=== PATIENT | male | born 1955 | race Caucasian/White ===

== ENCOUNTER 2023-03-20 10:07 | Outpatient (OUT) | payer MEDICARE, OTHER, SELFPAY ==
--- NOTE | 2023-03-20 | VEIN_ITS ---
Patient: BRITTNY DUTTA Exam Date: 03/20/2023 : 1955 Gender:M Ordering : DR SANTI LIU M.D. Admission #: [id number] Family : Order #: [id number] CLICK HERE TO VIEW EXAM RADIOLOGY REPORT PROCEDURE: VC EXT VENOUS REFLUX FELIX LMTD COMPARISON: None. INDICATIONS: Pain due to varicose veins of bilateral legs I83.813 TECHNIQUE: Duplex imaging of the lower extremity to assess the deep and superficial venous system for the presence of deep or superficial venous incompetence and to document the location and severity of disease. The study includes evaluation of the great saphenous vein (GSV), anterior accessory saphenous vein (AASV) and small saphenous vein (SSV). Patient scanned in reverse Trendelenburg and standing. FINDINGS: RIGHT LOWER EXTREMITY: Saphenofemoral Junction Reflux: Yes mm sec GSV: Diam (mm) Reflux/ Time (sec) Proximal Thigh N/A Mid Thigh N/A Distal Thigh N/A Prox Calf N/A Mid Calf 4.1 Yes 0.8 Saphenopopliteal Junction Reflux: 8.4mm Yes 1.0 SSV: Proximal Calf 7.2 Yes 1.6 Mid Calf 4.9 Yes 1.8 AASV: Not present Proximal Thigh Mid Thigh Distal Thigh Thrombi: No acute or chronic thrombus visualized Compressibility: Normal Flow: Reflux visualized in Pop V. Preforator: Dist/med calf 4.2mm with 1.0s reflux. Mid/med calf 3.6mm with 0.8s reflux. Tech Note: GSV has been previously stripped. Patent varicose vein dist/med calf 4.5mm with 1.6s reflux. Patent varicose vein mid/post calf 4.5mm with 1.2s reflux. LEFT LOWER EXTREMITY: Saphenofemoral Junction Reflux: mm sec GSV: Diam (mm) Reflux/Time (sec) Proximal Thigh N/A Mid Thigh N/A Distal Thigh N/A Prox Calf N/A Mid Calf N/A Saphenopopliteal Junction Relux: mm N/A SSV: Proximal Calf N/A Mid Calf N/A AASV: Not present Proximal Thigh Mid Thigh Distal Thigh Thrombi: No acute or chronic thrombus visualized Compressibility: Normal Flow: Normal Environmental Resource Specialist: Prox/med calf 4.0mm with 2.0s reflux. Tech Note: GSV has been previously stripped. SSV has been previously ablated at [facility] in 2020. Patent varicose vein prox/med calf 5.9mm with 1.7s reflux. Patent varicose vein prox/med calf 6.6mm with 2.0s reflux. Patent varicose vein dist/med calf 5.6mm with 2.0s reflux. Patent varicose vein mid/med thigh 5.5mm with 1.3s reflux. In area of wound is a varicose vein at lateral ankle 4.8mm with 1.0s reflux. CONCLUSION: 1. Abnormally dilated and incompetent right small saphenous vein. Bilateral great saphenous and the left small saphenous have previously been treated. 2. 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 Dictated by: Jani Vaughn M.D. on 03/20/2023 at 11:43 Approved by: Jani Vaughn M.D. on 03/20/2023 at 11:53
--- NOTE | 2023-03-20 | VEIN_ITS ---
Patient: BRITTNY DUTTA Exam Date: 03/20/2023 : 1955 Gender:M Ordering : DR SANTI LIU M.D. Admission #: [id number] Family : Order #: [id number] CLICK HERE TO VIEW EXAM RADIOLOGY REPORT PROCEDURE: [facility] EST COMPREHENSIVE [facility]IN C[facility] - OFFICE VISIT INITIAL COMPARISON: None. PROGRESS NOTES: [age] year old male who presents with a 40 year history of increasing dilated veins, swelling, leg pain, stinging, and recent reoccurring wounds. The patient's right leg symptoms are worse than the left. There has been a progression of symptoms over time. This increases with prolonged leg dependency. The patient describes an improvement with rest, elevation, exercise, support stockings, and medications. The patient denies any signs and symptoms to suggest arterial ischemia. The patient describes a family history of varicose veins on paternal side. The patient has drinking and smoking history of colon some alcohol consumption and history of prior tobacco use. Patient has a past medical history significant for COPD, sleep apnea, coronary artery disease. The patient denies a history of deep venous thrombus or pulmonary embolus. See separate history and physical for medication list. Prior history of vein stripping and endovenous laser ablation. Current use of compression stockings. After review of nurse notes, history and physical exam I discussed at length the pathophysiology of venous hypertension and possible treatments, therapies and strategies available. We discussed at length the importance of elevating the lower extremities above the level of the heart, increased physical activity and compression stocking use. Ultrasound venous reflux study performed today was discussed at length with the patient. The report demonstrates abnormally dilated and incompetent right small saphenous vein and numerous abnormally dilated branch saphenous varicosities bilaterally. Prior occlusion of bilateral great saphenous veins and left small saphenous vein.. PHYSICAL EXAM: The right leg demonstrates several varicosities, scattered spider veins, no ulceration, mild edema, mild skin discoloration. The left leg demonstrates several varicosities, scattered spider veins, adjacent ankle is a recently healed ulceration, mild edema, mild skin discoloration. Both thighs, legs and feet were symmetrically warm to the touch. Good posterior tibial and dorsalis pedis pulses were present bilaterally. VEIN/[facility] Facility EST Comprehensive IMPRESSION: 1. Bilateral lower extremity venous insufficiency 2. Bilateral lower extremity varicose veins 3. Mild bilateral lower extremity subcutaneous edema 4. No flow significant arterial disease 5. CEAP: C5, EC, , MS PLAN: 1. Continued use of compression stockings 2. Elevated legs and increased physical activity symptomatic relief 3. Endovenous laser ablation of right small saphenous vein. 4. Microfoam chemical ablation of bilateral branch saphenous varicosities. 5. Sclerotherapy as needed. Nurse notes, history and physical were reviewed and confirmed, see attached forms. The nurse was present throughout the physical exam and consultation Dictated by: Jani Vaughn M.D. on 03/20/2023 at 14:16 Approved by: Jani Vaughn M.D. on 03/20/2023 at 14:35
== END 2023-03-20 10:08 | disposition home or self-care (01) ==
PROVIDERS: PCP Radiology Diagnostic Radiology; Visit Provider Radiology Diagnostic Radiology
DX: I83.813 Varicose veins of bilateral lower extremities with pain (principal)
CPT/HCPCS: 93970; G0463

== ENCOUNTER 2023-04-11 10:29 | Outpatient (OUT) | payer MEDICARE, OTHER, SELFPAY ==
--- NOTE | 2023-04-11 10:30 | VEIN_ITS ---
The [address] [address] Patient Name: BRITTNY DUTTA MRN: [id number] date: 1955 Sex: M Assigned Patient Location: Current Patient Location: Accession/Order Number: [id number] Exam Date: 04/11/2023 10:35 Report Date: 04/11/2023 11:59 At the request of: SANTI LIU Procedure: VC Endovenous Ablation 1VeinRT EXAMINATION: VC Endovenous Ablation 1VeinRT HISTORY: I83.813 Pain due to varicose veins of bilateral legs The risks and benefits of the procedure had been previously discussed, and were rediscussed at length. Informed written consent was obtained. Se Figueroa RN and Hayley Deutsch RDMS, RVT assisted. Time out procedure was performed. The right lower extremity was prepared and draped in the usual sterile fashion to allow knee flexion in the sterile field. Duplex ultrasound probe was draped in a sterile cover, sterile transmission gel was used. Venous mapping was performed with the areas of dilation and large tributaries marked. The total length was 16 cm from the entry middistal calf to 3 cm below the saphenofemoral popliteal junction. The diameter of the small saphenous vein ranged from 7.2 mm. A 30 gauge needle and 1% buffered lidocaine was used to anesthetize the entry site. A 4 mm incision was made with a scalpel and the saphenous vein was entered percutaneously under direct ultrasound guidance with a micropuncture set, a single stick was successful in gaining access. A micro-guide wire was inserted and the needle removed. A micro-set including a dilator was inserted over the microwire and the needle and dilator were removed. A guide wire was inserted through the micro-set and guided through the saphenous vein to the saphenofemoral junction. The dilator was removed and an introducer sheath was inserted over the wire until the end of the sheath entered the saphenofemoral junction. The dilator and wire were removed and the 600 micron fiber was introduced and placed and positioned so that it extended beyond the sheath and was 3 cm distal to the saphenofemoral or saphenopopliteal junction. Final position of the fiber was determined by ultrasound guidance and duplex imaging. Tumescent anesthetic was delivered by ultrasound guidance. 100 cc of fluid was delivered along the entire course of the saphenous vein. The solution consisted of 1000 cc of normal saline with 40 mL of 1% lidocaine and 20 mL of sodium bicarbonate. A final positioning check was made. The energy source was turned on by means of the foot pedal and the fiber and sheath were withdrawn. The total number of Joules delivered was 719. The laser was active for 90 seconds under continuous pulse, average laser use of 8 J. Laser start time 11:21 AM, 04/11/2023. Laser stop time 11:24 AM, 04/11/2023. A duplex ultrasound revealed compressibility and flow at the saphenofemoral junction immediately after the procedure. Hemostasis at the access site was achieved. The skin incision of the saphenous vein was closed with a 4 x 4. A compression stocking was applied. Postop instructions were given. A follow up appointment was recommended and scheduled. The patient tolerated the procedure well. Electronically authenticated by: GRISELDA ZIEGLER Date: 04/11/2023 11:59
[2023-04-11] MEDS: 0.9 % SODIUM CHLORIDE 500 ML, LIDOCAINE HCL 20 ML, SODIUM BICARBONATE 10 MEQ INJ (11:15)
== END 2023-04-11 10:30 | disposition home or self-care (01) ==
LOC: VC 10:29
PROVIDERS: PCP Radiology Diagnostic Radiology; Visit Provider Radiology Diagnostic Radiology
DX: I83.813 Varicose veins of bilateral lower extremities with pain (principal)
CPT/HCPCS: 36478

== ENCOUNTER 2023-04-19 10:25 | Outpatient (OUT) | payer MEDICARE, OTHER, SELFPAY ==
--- NOTE | 2023-04-19 10:29 | VEIN_ITS ---
Patient: BRITTNY DUTTA Exam Date: 04/19/2023 : 1955 Gender:M Ordering : DR MAJOR SOL M.D. Admission #: [id number] Family : Order #: [id number] CLICK HERE TO VIEW EXAM RADIOLOGY REPORT PROCEDURE: [facility]ACILITY EST LMTD VEIN CENTER - OFFICE VISIT FOLLOW UP COMPARISON: None. PROGRESS NOTES: The patient reports no significant problems following intravenous laser ablation of the right small saphenous vein. The patient did wear his compression stocking. The patient did not require oral analgesics.. The patient has followed our recommendations to walk 20-30 minutes once or twice per day since the procedure. Physical exam demonstrates 3 areas of bruising in the posterior calf likely related to tumescence injection ranging from 1-2 cm in size. Thrombosed small saphenous vein cannot be palpated. No areas of erythema or warmth to suggest cellulitis or thrombophlebitis. No active ulceration Review of the ultrasound performed the same day demonstrates occlusive thrombus extending throughout the treated small saphenous vein with heat induced thrombus 3.1 cm from the saphenous popliteal junction. The patient expressed a desire to proceed with treatment of bilateral incompetent varicose veins with micro foam chemical ablation. VEIN/VC Facility EST LMTD IMPRESSION: 1. Successful ablation of the right small saphenous vein 2. Persistent bilateral incompetent varicose veins. PLAN: Micro foam chemical ablation of the left leg Nurse notes, history and physical were reviewed and confirmed, see attached forms. The nurse was present throughout the physical exam and consultation Dictated by: Major Sol MD on 04/19/2023 at 11:26 Approved by: Major Sol MD on 04/19/2023 at 11:27
--- NOTE | 2023-04-19 10:29 | VEIN_ITS ---
Patient: BRITTNY DUTTA Exam Date: 04/19/2023 : 1955 Gender:M Ordering : DR MAJOR SOL M.D. Admission #: [id number] Family : Order #: [id number] CLICK HERE TO VIEW EXAM RADIOLOGY REPORT PROCEDURE: VC EXT VENOUS RT LMTD COMPARISON: None. INDICATIONS: I80.01 Phlebitis of superficial veins of rt lower extremity TECHNIQUE: Lower extremity singh scale and Duplex Doppler evaluation of the deep venous system from the inguinal ligament through the calf veins. FINDINGS: REGION: Right lower extremity. THROMBI: Negative for DVT. Heat induced thrombus in SSV 3.1 cm from SPJ and extends to mid calf. COMPRESSIBILITY: Non-compressible segments corresponding to thrombus. FLOW: Areas of absent flow corresponding to thrombus. CONCLUSION: Post ablation occlusion of the right small saphenous vein with heat induced thrombus 3.1 cm from the saphenopopliteal junction. Dictated by: Major Sol MD on 04/19/2023 at 10:53 Approved by: Major Sol MD on 04/19/2023 at 10:54
== END 2023-04-19 10:26 | disposition home or self-care (01) ==
LOC: VC 10:26
PROVIDERS: PCP Radiology Diagnostic Radiology; Visit Provider Radiology Diagnostic Radiology
DX: I80.01 Phlebitis and thrombophlebitis of superficial vessels of right lower extremity (principal)
CPT/HCPCS: 93971; G0463

== ENCOUNTER 2023-05-16 10:24 | Outpatient (OUT) | payer MEDICARE, OTHER, SELFPAY ==
--- NOTE | 2023-05-16 10:28 | VEIN_ITS ---
The [address] [address] Patient Name: BRITTNY DUTTA MRN: [id number] date: 1955 Sex: M Assigned Patient Location: Current Patient Location: Accession/Order Number: [id number] Exam Date: 05/16/2023 10:30 Report Date: 05/16/2023 11:59 At the request of: SANTI LIU Procedure: VC INJ Foam Sclerosant WUS ARTIST'S MODEL PROCEDURE: VC INJ Foam Sclerosant WUS ARTIST'S MODEL COMPARISON: None. HISTORY: Pain due to varicose veins of bilateral legs I83.813 Pre-operative Diagnosis: CEAP class C6 venous insufficiency with pain, tenderness, edema and incompetent left saphenous and varicose vein(s), chronic venous insufficiency left leg secondary to venous incompetence Post-operative Diagnosis: CEAP class C6 venous insufficiency with pain, tenderness, edema and incompetent left saphenous and varicose vein(s), chronic venous insufficiency left leg secondary to venous incompetence Procedure Performed: 1. Ultrasound-guided microfoam chemical ablation with Varithenaregistered 2. Intraoperative ultrasound guidance Anesthesia: None Indications for Procedure: 68-year-old male who presents with a long history of lower extremity pain swelling in varicose veins with multiple vein strippings as well as intravenous laser ablation. The patient has had multiple venous stasis ulcerations with an active venous stasis ulceration currently on the lateral left ankle/foot. The patient fell conservative medical therapy including medical compression stockings, exercise and analgesics. Multiple incompetent varicosities of the left leg. Duplex scan showed reflux and enlarged diameters up to 7 mm. The patient underwent informed consent including management options where the complications of infection, bleeding, pain, and skin injury were discussed. Particular attention was spent discussing thrombus extension and deep vein thrombosis as well as the possibility of pulmonary embolus and treatment with oral or injectable blood thinners. Procedure: The patient walked to the procedure room. All applicable staff donned appropriate apparel. A procedure timeout was performed to confirm correct patient, correct extremity, correct procedure, and correct room set-up including presence of all applicable supplies, devices, and drugs. A duplex ultrasound, performed by myself confirmed the location and incompetence of branch saphenous varicosities and their course was marked on the skin together with the dilated tributaries. The extent of treatment of the vein and the associated varicosities was determined through ultrasound mapping. The skin was prepped and then punctured with a butterfly needle and advanced under ultrasound guidance. The Varithenaregistered canister was activated and the canister was primed and purged as required in the instructions for use. Varithenaregistered was drawn into a sterile syringe. 7 cc injected into a 6 mm varicose vein distal medial left lower leg with care to go above incompetent perforating vein at the level of the ankle 3 cc injected into a 7 mm varicose vein, medial proximal left lower leg 5 cc injected into a 6 mm varicose vein distal medial left thigh Varithenaregistered was slowly administered at 0.5-1.0 cc/second with close observation by ultrasound of its course in the vessels. Total volume utilized was: 15 cc. Following administration of Varithenaregistered the leg was elevated and the patient was asked to repeatedly dorsiflex the ankle to limit flow of Varithenaregistered into perforating veins. Once appropriate spasm had been confirmed in the treated veins, the vascular catheter was removed from the leg and light pressure was applied over the puncture site for hemostasis. The common femoral and deep superficial veins were then evaluated for flow and compressibility prior to dressing placement. The lower extremity was kept elevated at 45 degrees above the horizontal and cording material was applied over the saphenous segments and tributaries to allow for eccentric compression over the target vessels including the targeted saphenous vein(s). A multilayer dressing was applied consisting of foam pads, coban and thigh-high 20-30 mm Hg compression elastic support hose were placed on the patient. The leg was lowered only after compression had been applied and the patient was immediately ambulatory. The patient ambulated 10 minutes under supervision and was without apparent concerns at time of release. Post-care instructions include advising patient to keep post-treatment bandages in place and dry for 48 hours, avoid extended periods of inactivity, avoid heavy exercise for one week, wear compression stockings on the treated leg continuously for two weeks, to walk daily for 10 minutes over the next month. The patient was instructed to take an anti-inflammatory medicine as needed and to follow up for color duplex scan of the Saphenous veins, the treated branch saphenous varicosities, the adjacent deep veins, and additional treatment within 7 days. PERSONNEL: Se Figueroa RN Electronically authenticated by: SANTI LIU Date: 05/16/2023 11:59
== END 2023-05-16 10:25 | disposition home or self-care (01) ==
LOC: VC 10:24
PROVIDERS: PCP Radiology Diagnostic Radiology; Visit Provider Radiology Diagnostic Radiology
DX: I83.813 Varicose veins of bilateral lower extremities with pain (principal)
CPT/HCPCS: 36466

== ENCOUNTER 2023-05-23 11:29 | Outpatient (OUT) | payer MEDICARE, OTHER, SELFPAY ==
--- NOTE | 2023-05-23 | VEIN_ITS ---
Patient: BRITTNY DUTTA Exam Date: 05/23/2023 : 1955 Gender:M Ordering : DR MAJOR SOL M.D. Admission #: [id number] Family : Order #: [id number] CLICK HERE TO VIEW EXAM RADIOLOGY REPORT PROCEDURE: [facility] EST LMTD VEIN CENTER - OFFICE VISIT FOLLOW UP COMPARISON: [facility], 04/19/2023. PROGRESS NOTES: The patient reports no significant problems following micro foam chemical ablation of left leg incompetent varicose veins. The patient did not require oral analgesics. The patient has worn his compression stocking. Patient has tried exercise following the procedure. Physical exam demonstrates multiple thrombosed left leg varicose veins. No areas of erythema or warmth to suggest cellulitis or thrombophlebitis. Review of the ultrasound performed the same day demonstrates occlusive thrombus extending throughout the treated varicose veins. Residual incompetent varicose veins measuring up to 6.7 mm. The patient expressed a desire to proceed with treatment of bilateral incompetent varicose veins with micro foam chemical ablation. VEIN/[facility] EST TD IMPRESSION: 1. Successful ablation of incompetent left leg varicose veins. 2. Persistent bilateral incompetent varicose veins. PLAN: Micro foam chemical ablation of the right leg Nurse notes, history and physical were reviewed and confirmed, see attached forms. The nurse was present throughout the physical exam and consultation Dictated by: Major Sol MD on 05/23/2023 at 15:07 Approved by: Major Sol MD on 05/23/2023 at 15:11
--- NOTE | 2023-05-23 | VEIN_ITS ---
Patient: BRITTNY DUTTA Exam Date: 05/23/2023 : 1955 Gender:M Ordering : DR MAJOR SOL M.D. Admission #: [id number] Family : Order #: [id number] CLICK HERE TO VIEW EXAM RADIOLOGY REPORT PROCEDURE: VC EXT VENOUS LT LIMITED COMPARISON: None. INDICATIONS: Phlebitis of superficial veins of lt lower extremity I80.02 TECHNIQUE: Lower extremity singh scale and Duplex Doppler evaluation of the deep venous system from the inguinal ligament through the calf veins. FINDINGS: REGION: Left lower extremity. THROMBI: Negative for DVT. Varithena induced thrombus visualized at prox/med calf and distal med thigh. COMPRESSIBILITY: Non-compressible segments corresponding to thrombus. FLOW: Occlusion of treated varicose vein OTHER: Multiple varicose veins remain. Largest measures 6.7mm with 1.4s reflux. CONCLUSION: Post ablation occlusion of multiple treated left leg varicose veins with residual incompetent varicose veins measuring up to 6.7 mm Dictated by: Major Sol MD on 05/23/2023 at 12:25 Approved by: Major Sol MD on 05/23/2023 at 12:26
== END 2023-05-23 11:30 | disposition home or self-care (01) ==
LOC: VC 11:30
PROVIDERS: PCP Radiology Diagnostic Radiology; Visit Provider Radiology Diagnostic Radiology
DX: I80.02 Phlebitis and thrombophlebitis of superficial vessels of left lower extremity (principal)
CPT/HCPCS: 93971; G0463

== ENCOUNTER 2023-06-06 09:57 | Outpatient (OUT) | payer MEDICARE, OTHER, SELFPAY ==
--- NOTE | 2023-06-06 | VEIN_ITS ---
The [address] [address] Patient Name: BRITTNY DUTTA MRN: [id number] date: 1955 Sex: M Assigned Patient Location: Current Patient Location: Accession/Order Number: [id number] Exam Date: 06/06/2023 10:00 Report Date: 06/06/2023 11:21 At the request of: SANTI LIU Procedure: VC INJ Foam Sclerosant WUS NURSE CARE MANAGER PROCEDURE: VC INJ Foam Sclerosant WUS NURSE CARE MANAGER HISTORY: Painful Varicose Veins I83.813 Pre-operative Diagnosis: CEAP class C5 venous insufficiency with pain, tenderness, edema and incompetent branch saphenous vein(s), chronic venous insufficiency right leg secondary to venous incompetence Post-operative Diagnosis: CEAP class C5 venous insufficiency with pain, tenderness, edema and incompetent branch saphenous vein(s), chronic venous insufficiency right leg secondary to venous incompetence Procedure Performed: 1. Ultrasound-guided microfoam chemical ablation with Varithenaregistered 2. Intraoperative ultrasound guidance Physician: Jani Vaughn M.D. Anesthesia: None Indications for Procedure: 68 year old male. Symptoms including lower extremity pain, swelling, dilated bulging veins for many years despite conservative medical therapy including medical compression stockings, exercise and analgesics. Prior procedures include endovenous laser ablation and Microfoam chemical ablation. Multiple incompetent varicosities of the right leg. Duplex scan showed reflux and enlarged diameters up to 6 mm. The patient underwent informed consent including management options where the complications of infection, bleeding, pain, and skin injury were discussed. Particular attention was spent discussing thrombus extension and deep vein thrombosis as well as the possibility of pulmonary embolus and treatment with oral or injectable blood thinners. Procedure: The patient walked to the procedure room. All applicable staff donned appropriate apparel. A procedure timeout was performed to confirm correct patient, correct extremity, correct procedure, and correct room set-up including presence of all applicable supplies, devices, and drugs. A duplex ultrasound, performed by myself confirmed the location and incompetence of branch saphenous varicosities and their course was marked on the skin together with the dilated tributaries. The extent of treatment of the vein and the associated varicosities was determined through ultrasound mapping. The skin was prepped and then punctured with a butterfly needle and advanced under ultrasound guidance. The Varithenaregistered canister was activated and the canister was primed and purged as required in the instructions for use. Varithenaregistered was drawn into a sterile syringe. Varithenaregistered was slowly administered at 0.5-1.0 cc/second with close observation by ultrasound of its course in the vessels. Total volume utilized was: 15 mL (3 mL intrarenal 4 mm varicosity of the distal lateral lower leg; 4 mL and 3 4 mm varicosity of the mid anterior lower leg; 8 mL into a 6 mm varicosity of the anterior proximal lower leg). Following administration of Varithenaregistered the leg was elevated and the patient was asked to repeatedly dorsiflex the ankle to limit flow of Varithenaregistered into perforating veins. Once appropriate spasm had been confirmed in the treated veins, the vascular catheter was removed from the leg and light pressure was applied over the puncture site for hemostasis. The common femoral and deep superficial veins were then evaluated for flow and compressibility prior to dressing placement. The lower extremity was kept elevated at 45 degrees above the horizontal and cording material was applied over the saphenous segments and tributaries to allow for eccentric compression over the target vessels including the targeted saphenous vein(s). A multilayer dressing was applied consisting of foam pads, coban and thigh-high 20-30 mm Hg compression elastic support hose were placed on the patient. The leg was lowered only after compression had been applied and the patient was immediately ambulatory. The patient ambulated 10 minutes under supervision and was without apparent concerns at time of release. Post-care instructions include advising patient to keep post-treatment bandages in place and dry for 48 hours, avoid extended periods of inactivity, avoid heavy exercise for one week, wear compression stockings on the treated leg continuously for two weeks, to walk daily for 10 minutes over the next month. The patient was instructed to take an anti-inflammatory medicine as needed and to follow up for color duplex scan of the Saphenous veins, the treated branch saphenous varicosities, the adjacent deep veins, and additional treatment within 7 days. PERSONNEL: Se Figueroa RN Electronically authenticated by: JANI VAUGHN Date: 06/06/2023 11:21
== END 2023-06-06 09:58 | disposition home or self-care (01) ==
LOC: VC 09:57
PROVIDERS: PCP Radiology Diagnostic Radiology; Visit Provider Radiology Diagnostic Radiology
DX: I83.813 Varicose veins of bilateral lower extremities with pain (principal)
CPT/HCPCS: 36466

== ENCOUNTER 2023-06-12 10:03 | Outpatient (OUT) | payer MEDICARE, OTHER, SELFPAY ==
--- NOTE | 2023-06-12 | VEIN_ITS ---
Patient: BRITTNY DUTTA Exam Date: 06/12/2023 : 1955 Gender:M Ordering : DR SANTI LIU M.D. Admission #: [id number] Family : Order #: [id number] CLICK HERE TO VIEW EXAM RADIOLOGY REPORT PROCEDURE: [facility] EST [facility] - OFFICE VISIT FOLLOW UP COMPARISON: [facility] EXT VENOUS RT LMTD, 06/12/2023. [facility] EST L[facility]D, 05/23/2023. PROGRESS NOTES: The patient reports improvement in leg symptoms. There has been interval reduction in varicosities. The patient has followed our recommendations to walk 20-30 minutes once or twice per day since the procedure. Physical exam demonstrates decrease in varicosities of the leg. Persistent superficial varicosities are identified along the legs bilaterally. Review of the ultrasound performed the same day demonstrates occlusive thrombus extending throughout the treated vein(s), see separate report, consistent with a successful ablation. Abnormal thrombus within posterior tibial vein approximately 15 cm in length involving the mid and distal deep vein. No thrombus extending into or beyond the saphenofemoral junction. The patient expressed a desire to proceed with treatment of remaining incompetent varicosities when ready. The patient was informed that treatment was a process and would require approximately 2 more sessions of microfoam chemical ablation. VEIN/[facility] EST LMTD IMPRESSION: 1. Successful ablation of the treated right leg incompetent branch saphenous vein(s). 2. Persistent incompetent varicose veins and bilateral extremity symptoms. 3. Abnormal deep vein thrombus within right posterior tibial vein. PLAN: 1. Patient is currently on Eliquis 10 mg per day but is only taking 5 mg per day. Patient will be increased to his planned 10 mg per day. Follow-up ultrasound in 2 weeks to document clearing of deep vein thrombus. At that time another session of microfoam chemical ablation of branch saphenous varicosities will be scheduled. Nurse notes, history and physical were reviewed and confirmed, see attached forms. The nurse was present throughout the physical exam and consultation Dictated by: Jani Vaughn M.D. on 06/12/2023 at 11:57 Approved by: Jani Vaughn M.D. on 06/12/2023 at 12:02
--- NOTE | 2023-06-12 | VEIN_ITS ---
Patient: BRITTNY DUTTA Exam Date: 06/12/2023 : 1955 Gender:M Ordering : DR SANTI LIU M.D. Admission #: [id number] Family : Order #: [id number] CLICK HERE TO VIEW EXAM RADIOLOGY REPORT PROCEDURE: [facility] EXT VENOUS RT LMTD COMPARISON: [facility] EXT VENOUS RT LMTD, 04/19/2023. INDICATIONS: Phlebitis of superficial veins of rt lower extremity I80.01 TECHNIQUE: Lower extremity singh scale and Duplex Doppler evaluation of the deep venous system from the inguinal ligament through the calf veins. FINDINGS: REGION: Right lower extremity. THROMBI: Positive for DVT. Positive for DVT in the PTV from proximal calf to mid calf approximately 12-15 cm in length and 5-7 cm from Pop V. Varithena induced thrombus is visualized at medial knee and prox/ant calf. COMPRESSIBILITY: Non-compressible segments. Non-compressible segments corresponding to thrombus FLOW: Areas of no flow. OTHER: GSV is patent from proximal to distal calf and measures 5.7mm with 0.5s reflux. CONCLUSION: 1. Successful post ablation occlusion of treated branch saphenous varicosities within right leg. 2. Abnormal deep vein thrombus: 15 cm segment of thrombus within mid and distal popliteal vein. Dictated by: Jani Vaughn M.D. on 06/12/2023 at 11:55 Approved by: Jani Vaughn M.D. on 06/12/2023 at 11:57
== END 2023-06-12 10:04 | disposition home or self-care (01) ==
LOC: VC 10:03
PROVIDERS: PCP Radiology Diagnostic Radiology; Visit Provider Radiology Diagnostic Radiology
DX: I80.01 Phlebitis and thrombophlebitis of superficial vessels of right lower extremity (principal)
CPT/HCPCS: 93971; G0463

== ENCOUNTER 2023-06-26 10:35 | Outpatient (OUT) | payer MEDICARE, OTHER, SELFPAY ==
--- NOTE | 2023-06-26 | VEIN_ITS ---
Patient Name: BRITTNY DUTTA MR#: [id number] : 1955 Exam Date: 06/26/2023 Ordering Doctor: DR SANTI LIU M.D. RADIOLOGY REPORT PROCEDURE: VC EXT VENOUS RT LMTD COMPARISON: [facility] EXT VENOUS RT LMTD, 06/12/2023. INDICATIONS: Phlebitis and thrombophlebitis of rt lower ext. I80.01 TECHNIQUE: Lower extremity singh scale and Duplex Doppler evaluation of the deep venous system from the inguinal ligament through the calf veins. FINDINGS: REGION: Right lower extremity. THROMBI: Positive for DVT. Deep vein thrombus is starting to dissolve post treatment with blood thinners. COMPRESSIBILITY: Non-compressible segments corresponding to thrombus FLOW: Areas of no flow corresponding to thrombus OTHER: Patent varicose vein visualized on the distal medial lower leg measures 5.8 mm with 1.8s of reflux. Patent varicose vein visualized on the mid posterior lower leg measures 4.3 mm with 1.5 s of reflux. CONCLUSION: 1. Patient's area of tenderness corresponds to superficial thrombophlebitis from treated branch saphenous varicosities. 2. Interval decrease in size/length of posterior tibial vein thrombus. Patient is on long-term blood thinner and will continue. Dictated by: Jani Vaughn M.D. on 06/26/2023 at 12:52 Approved by: Jani Vaughn M.D. on 06/26/2023 at 12:54
--- NOTE | 2023-06-26 | VEIN_ITS ---
Patient Name: BRITTNY DUTTA MR#: [id number] : 1955 Exam Date: 06/26/2023 Ordering Doctor: DR SANTI LIU M.D. RADIOLOGY REPORT PROCEDURE: FACILITY EST LMTD VEIN CENTER - OFFICE VISIT FOLLOW UP COMPARISON: [facility] EST TD, 06/12/2023. PROGRESS NOTES: The patient reports improvement in leg symptoms. There has been interval reduction in varicosities. The patient has followed our recommendations to walk 20-30 minutes once or twice per day since the procedure. Physical exam demonstrates mild redness and swelling in area of medial thigh but patient describes tenderness consistent with superficial thrombophlebitis. Overall decrease in varicosities of the leg. Persistent varicosities are identified along the right lag. Review of the ultrasound performed the same day demonstrates occlusive thrombus extending throughout the treated vein(s), see separate report, consistent with a successful ablation. No thrombus extending into or beyond the saphenofemoral junction. The patient expressed a desire to proceed with treatment of remaining incompetent varicosities. The patient was informed that treatment was a process and would require 1-3 procedures/sessions. VEIN/[facility] EST LMTD IMPRESSION: 1. Successful ablation of the treated branch saphenous vein(s). 2. Interval development of erythema and irritation/superficial thrombophlebitis of treated veins due to close proximity to skin. 3. Right posterior tibial vein thrombus which has decreased in size since prior study. Patient is currently on long-term blood thinner and will continue. PLAN: Microfoam chemical ablation of remaining incompetent branch saphenous varicosities. Nurse notes, history and physical were reviewed and confirmed, see attached forms. The nurse was present throughout the physical exam and consultation Dictated by: Jani Vaughn M.D. on 06/26/2023 at 12:54 Approved by: Jani Vaughn M.D. on 06/26/2023 at 13:02
--- OUTSIDE RECORDS SUMMARY | 2023-08-01 19:18 | XMS_ITS | CCD ---
Author Name Unknown Address [address] [facility] [address] [facility] [address] [place] [address] Organization [facility] Care Team Providers Care Telegraph Mechanic Name Role Phone ELTAHAWY, EHAB A Admitting Unavailable ELTAHAWY, EHAB A Attending Unavailable SHARI SHEPARD Primary Care Unavailable SELF, REFERRED Referring Unavailable RONNY, BRISA Attending Unavailable RONNY, BRISA Admitting Unavailable RONNY, BRISA Consulting Unavailable MISC, DR LUCAS Primary Care Unavailable WEST, DR SANTI Fritz Consulting Unavailable ROSS, JUDI Primary Care Unavailable WEST, DR SANTI Fritz Admitting Unavailable WEST, DR SANTI Fritz Attending Unavailable ZIEBAZAR, DR JANI Keating Consulting Unavailable ROSS, JUDI Primary Care Unavailable HIGHLANDER, DERRICK Attending Unavailable DERRICK DERAS Admitting Unavailable MISC, DR LUCAS Primary Care Unavailable KING, DR STEWART Consulting Unavailable KING, DR STEWART Attending Unavailable KING, DR STEWART Admitting Unavailable RONNY, BRISA Attending Unavailable RONNY, BRISA Admitting Unavailable MISC, DR LUCAS Primary Care Unavailable Jackelin Moreau Consulting Unavailable RONNY, BRISA Consulting Unavailable ROSS, JUDI Primary Care Unavailable PAY, DR MRAT Attending Unavailable DAGMAR POST Consulting Unavailable PAY, DR MART Admitting Unavailable ROSS, JUDI Primary Care Unavailable YGROBERT Consulting Unavailable ROBERT RONQUILLO Attending Unavailable YGROBERT Admitting Unavailable WEST, DR SANTI Fritz Consulting Unavailable WEST, DR SANTI Fritz Attending Unavailable WEST, DR SANTI Fritz Admitting Unavailable ROSS, JUDI Primary Care Unavailable ZIEBER, DR JANI Keating Consulting Unavailable ROSS, JUDI Primary Care Unavailable YGROBERT Attending Unavailable YG, ROBERT Admitting Unavailable WEST, DR SANTI Fritz Consulting Unavailable YGROBERT Consulting Unavailable WEST, DR SANTI Fritz Attending Unavailable ROSS, JUDI Primary Care Unavailable WEST, DR SANTI Fritz Admitting Unavailable MISC, DR LUCAS Primary Care Unavailable DERRICK DERAS Attending Unavailable HIGHLANDERDERRICK Admitting Unavailable HIGHLANDERDERRICK Admitting Unavailable HIGHLANDER, DERRICK Attending Unavailable ROSS, JUDI Primary Care Unavailable [facility] DR LUCAS Primary Care Unavailable DERRICK DERAS Attending Unavailable DERRICK DERAS Admitting Unavailable [facility] Unavailable BERT THOMAS Admitting Unavailabl e CLODALTONERTYBERT Attending Unavailabl e CLOBERT ORONA Attending Unavailabl e CLOBERT ORONA D Admitting Unavailabl e [facility] Primary Care Unavailable BACONTON, DR SANTI Fritz Consulting Unavailable ELTAHAWY, DR SIFUENTES Attending Unavailable ELTAHAWY, DR SIFUENTES Admitting Unavailable MISC, DR LUCAS Primary Care Unavailable ELTAHAWY, DR SIFUENTES Consulting Unavailable ELTAHAWY, DR SIFUENTES Consulting Unavailable ELTAHAWY, DR SIFUENTES Attending Unavailable MISC, DR LUCAS Primary Care Unavailable ELTAHAWY, DR SIFUENTES Admitting Unavailable [facility] Unavailable SEJAL, DAGMAR FALK Consulting Unavailable REINECK, DR SUZY Valenzuela Attending Unavailabl e REINECK, DR SUZY Valenzuela Admitting Unavailabl e [facility] Consulting Unavailable RONNY, BRISA Admitting Unavailable RONNY BRISA Consulting Unavailable RONNYDESTINIBRISA Attending Unavailable MISC, DR LUCAS Primary Care Unavailable ELTAHAWY, SOM Attending Unavailable SANDY Johnson Attending Provider [phone] MD Jose Castellon Primary Care Provider Aura Johnson Attending Unavailable Aura Johnson Admitting Unavailable Jose Castellon Primary Care Unavailable Allergies Allergy Classification Reported Allergen(s) Allergy Type Date of Onset Reaction(s) Facility (2 sources) black walnut pollen extract; Translations: [NDDPFXG-IOW-SPI REDUCTASE INHIBITORS] Drug Allergy 0 [facility] Repository (3 sources) Ciprofloxacin; Translations: [CIPROFLOXACIN] Drug Allergy 9 Muscle Pain [facility] Repository (4 sources) Doxycycline; Translations: [DOXYCYCLINE] Drug Allergy 6 Unknown Reaction [facility] Repository (2 sources) Sulfamethoxazole / Trimethoprim Drug Allergy 6 [facility] Repository (4 sources) Sulfonamides (Antibiotic); Translations: [SULFA (SULFONAMIDE ANTIBIOTICS)] Drug allergy (disorder) 6 Unknown Reaction [facility] Repository (1 source) Ciprofloxacin Drug Allergy 6 [facility] Repository (1 source) atorvastatin; Translations: [ATORVASTATIN] Drug Allergy 4 [facility] Repository (1 source) Sulfamethoxazole / Trimethoprim; Translations: [SULFAMETHOXAZOLE-TR IMETHOPRIM] Drug Allergy 2 [facility] Repository (2 sources) Sulfamethoxazole; Translations: [sulfamethoxazole] Drug Allergy 3 Unknown Reaction [facility] (2 sources) Trimethoprim; Translations: [trimethoprim] Drug Allergy 3 Unknown Reaction [facility] (1 source) Ciprofloxacin Drug Allergy 3 [facility] Repository (1 source) Doxycycline Drug Allergy 3 [facility] Repository (1 source) Sulfonamides (Antibiotic) Drug allergy (disorder) 3 [facility] Repository Medications Current Medications Medication Drug Class(es) Dates Sig (Normalized) Sig (Original) acetaminophen 325 mg oral tablet (1 source) Start: 02-28-2023 take 325 mg by mouth every six hours Acetaminophen Active 325 MG PO Q6H February 28, 2023 12:00am apixaban 5 mg oral tablet (1 source) Factor Xa Inhibitor Start: 02-28-2023 take 1 tablet by mouth twice daily Apixaban (Eliquis) 5 mg Tablet Active 5 MG PO Twice daily February 28, 2023 12:00am ascorbic acid 500 mg oral tablet (1 source) Vitamin C Start: 02-28-2023 take 1 tablet by mouth twice daily Ascorbic Acid (Vitamin C) (Vitamin C) 500 mg Tablet Active 500 MG PO Twice daily February 28, 2023 12:00am atorvastatin 20 mg oral tablet (1 source) HMG-CoA Reductase Inhibitor Start: 02-28-2023 take 20 mg by mouth once daily at bedtime Atorvastatin Active 20 MG PO Daily at bedtime February 28, 2023 12:00am cholecalciferol 0.125 mg oral tablet (1 source) Vitamin D Start: 02-28-2023 take 1 tablet by mouth once daily Cholecalciferol (Vitamin D3) (Vitamin D3) 125 mcg (5,000 unit) Tablet Active 125 MCG PO Daily February 28, 2023 12:00am cider vinegar 300 mg oral tablet (1 source) Start: 02-28-2023 take 300 mg by mouth once daily Apple Cider Vinegar Active 300 MG PO Daily February 28, 2023 12:00am clobetasol propionate 0.0005 mg/mg topical ointment (1 source) Corticosteroid Start: 02-28-2023 Clobetasol Active 1 APPLIC TOPICAL Daily 15 14 February 28, 2023 12:00am thin layer to left lateral foot ulcer clopidogrel 75 mg oral tablet (1 source) P2Y12 Platelet Inhibitor Start: 02-28-2023 take 75 mg by mouth once daily Clopidogrel Active 75 MG PO Daily February 28, 2023 12:00am gentamicin 0.001 mg/mg topical ointment (1 source) Start: 03-13-2023 Gentamicin Active 1 APPLIC TOPICAL Daily 15 7 March 13, 2023 12:00am thin layer left foot ulcer for 1 week and can resume after the 2 weeks of clobetasol levothyroxine sodium 0.05 mg oral tablet (1 source) l-Thyroxine Start: 02-28-2023 take 50 ug by mouth once daily Levothyroxine Active 50 MCG PO Daily February 28, 2023 12:00am losartan potassium 50 mg oral tablet (1 source) Angiotensin 2 Receptor Kam Start: 02-28-2023 take 50 mg by mouth once daily Losartan Active 50 MG PO Daily February 28, 2023 12:00am metoprolol tartrate 50 mg oral tablet (1 source) beta-Adrenergic Kam Start: 02-28-2023 take 50 mg by mouth twice daily Metoprolol Tartrate Active 50 MG PO Twice daily February 28, 2023 12:00am pentoxifylline 400 mg extended release oral tablet (1 source) Blood Viscosity Senior Account Executive Start: 02-28-2023 take 400 mg by mouth twice daily at mealtime Pentoxifylline Active 400 MG PO Twice daily February 28, 2023 12:00am must administer with a meal/food pravastatin sodium 20 mg oral tablet (1 source) HMG-CoA Reductase Inhibitor Start: 02-28-2023 take 20 mg by mouth once daily at bedtime Pravastatin Active 20 MG PO Daily at bedtime February 28, 2023 12:00am ubidecarenone 400 mg oral capsule (1 source) Start: 02-28-2023 Coenzyme Q10 (Co Q-10) 400 mg Capsule Active 400 MG PO Daily February 28, 2023 12:00am vitamin b12 0.5 mg oral tablet (1 source) Vitamin B12 Start: 02-28-2023 take 500 ug by mouth once daily Cyanocobalamin (Vitamin B-12) Active 500 MCG PO Daily February 28, 2023 12:00am Problems Active Problems Problem Classification Problem Date Documented Da te Episodic/Chronic Cardiac dysrhythmias (1 source) Paroxysmal atrial fibrillation; Translations: [PAROXYSMAL ATRIAL FIBRILLATION] Onset: 2 Chronic Chronic obstructive pulmonary disease and bronchiectasis (1 source) Chronic obstructive pulmonary disease, unspecified; Translations: [COPD UNSPECIFIED] Onset: 2 Chronic Chronic ulcer of skin (10 sources) Non-pressure chronic ulcer of left ankle with unspecified severity; Translations: [Non-pressure chronic ulcer of skin of other sites with unspecified severity] Onset: 1 Chronic Congestive heart failure; nonhypertensive (4 sources) Heart failure, unspecified; Translations: [HEART FAILURE UNSPECIFIED] Onset: 1 Chronic Coronary atherosclerosis and other heart disease (5 sources) Atherosclerotic heart disease of [place] coronary artery without angina pectoris; Translations: [Coronary arteriosclerosis] Onset: 2 Chronic Disorders of lipid metabolism (5 sources) Hyperlipidemia, unspecified; Translations: [HYPERLIPIDEMIA UNSPECIFIED] Onset: 1 Chronic Esophageal disorders (1 source) Gastro-esophageal reflux disease without esophagitis; Translations: [GERD WITHOUT ESOPHAGITIS] Onset: 1 Chronic Essential hypertension (5 sources) Essential (primary) hypertension; Translations: [ESSENTIAL PRIMARY HYPERTENSION] Onset: 1 Chronic Hyperplasia of prostate (1 source) Benign prostatic hyperplasia without lower urinary tract symptoms; Translations: [BENIGN PROSTATIC HYPRPLASIA WO LUTS] Onset: 1 Chronic Mood disorders (1 source) Major depressive disorder, single episode, unspecified; Translations: [JESSICA DEPRESS D/O SINGLE EPIS UNS] Onset: 1 Chronic Open wounds of head; neck; and trunk (2 sources) Wound pain ; Translations: [Wound pain] 04-04-2023 Episodic Other aftercare (1 source) Other nursing home (current) drug therapy; Translations: [OTH WATER SPONGER CURRENT DRUG THERAPY] Onset: 1 Episodic Other aftercare (1 source) long-term (current) use of antithrombotics/antipl atelets; Translations: [FDC ANTITHROMBOT/ANTIPLATL ETS] Onset: 1 Episodic Other aftercare (1 source) intermission coordinator (current) use of anticoagulants; Translations: [WATER SPONGER CURRNT USE ANTICOAGULANTS] Onset: 1 Episodic Other connective tissue disease (1 source) Pain in left foot; Translations: [PAIN IN LEFT FOOT] Onset: 1 Episodic Other connective tissue disease (1 source) Pain in right foot; Translations: [PAIN IN RIGHT FOOT] Onset: 1 Episodic Other diseases of veins and lymphatics (5 sources) Venous insufficiency (chronic) (peripheral); Translations: [VENOUS INSUFF CHRONIC PERIPHERAL] Onset: 1 Episodic Other diseases of veins and lymphatics (1 source) Disorder of vein of lower extremity; Translations: [Other specified disorders of veins] 02-28-2023 Episodic Other diseases of veins and lymphatics (1 source) Other specified disorders of veins; Translations: [Venous (peripheral) insufficiency, unspecified] 04-04-2023 Episodic Other nutritional; endocrine; and metabolic disorders (2 sources) Obesity, unspecified; Translations: [Obesity, unspecified] Onset: 1 04-04-2023 Chronic Other nutritional; endocrine; and metabolic disorders (1 source) Obesity; Translations: [Obesity, unspecified] 02-28-2023 Chronic Other skin disorders (2 sources) Other atrophic disorders of skin; Translations: [Striae atrophicae] Onset: 2 04-04-2023 Episodic Other skin disorders (1 source) Other disorders of skin and subcutaneous tissue in diseases classified elsewhere; Translations: [OTH D/O SKN SUBQ TISS DZ CLASS ELSW] Onset: 2 Episodic Other skin disorders (4 sources) Rash and other nonspecific skin eruption; Translations: [RASH OTH NONSPECIFIC SKIN ERUPTION] Onset: 1 Episodic Other skin disorders (1 source) Disorder of the skin and subcutaneous tissue, unspecified; Translations: [DISORDER SKIN AND SUBQ TISSUE UNS] Onset: 1 Episodic Other skin disorders (1 source) Hemosiderin pigmentation of lower limb due to varicose veins of lower limb; Translations: [Other specified disorders of pigmentation] 02-28-2023 Episodic Other skin disorders (1 source) Anetoderma; Translations: [Other atrophic disorders of skin] 02-28-2023 Episodic Other skin disorders (1 source) Other specified disorders of pigmentation; Translations: [Dyschromia, unspecified] 04-04-2023 Episodic Peripheral and visceral atherosclerosis (1 source) Atherosclerosis of aorta; Translations: [ATHEROSCLEROSIS OF AORTA] Onset: 1 Chronic Phlebitis; thrombophlebitis and thromboembolism (4 sources) Phlebitis and thrombophlebitis of superficial vessels of left lower extremity; Translations: [PHLEBITIS AND TP SUP VES LT LOW EXT] Onset: 1 Episodic Residual codes; unclassified (1 source) Obstructive sleep apnea (adult) (pediatric); Translations: [OBSTRUCTIVE SLEEP APNEA] Onset: 2 Chronic Residual codes; unclassified (1 source) Sleep apnea, unspecified; Translations: [SLEEP APNEA UNSPECIFIED] Onset: 1 Chronic Residual codes; unclassified (1 source) Edema, unspecified; Translations: [EDEMA UNSPECIFIED] Onset: 2 Episodic Screening and history of mental health and substance abuse codes (1 source) Personal history of nicotine dependence; Translations: [PERSONAL HISTORY OF NICOTINE DEPEND] Onset: 2 Episodic Thyroid disorders (7 sources) Hypothyroidism, unspecified; Translations: [Hypothyroidism] Onset: 1 Chronic Unclassified (2 sources) Inflammatory disorder; Translations: [Inflammation] 02-28-2023 Unclassified (1 source) Non-pressure chronic ulcer of other part of left foot with unspecified severity; Translations: [Non-pressure chronic ulcer of other part of left foot with unspecified severity] Onset: 3 Varicose veins of lower extremity (7 sources) Varicose veins of bilateral lower extremities with pain; Translations: [Asymptomatic varicose veins of bilateral lower extremities] Onset: 1 Episodic Past or Other Problems Problem Classification Problem Date Documented Da te Episodic/Chronic Other aftercare (1 source) intermission coordinator (current) use of aspirin; Translations: [FDC CURRENT USE OF ASPIRIN] Onset: 01-15-2021 Episodic Other circulatory disease (4 sources) Other specified symptoms and signs involving the circulatory and respiratory systems; Translations: [OTH SPEC SX SIGNS INVLV CIRC RS] Onset: 12-11-2020 Episodic Other lower respiratory disease (5 sources) Other forms of dyspnea; Translations: [OTHER FORMS OF DYSPNEA] Onset: 10-22-2020 Episodic Other screening for suspected conditions (not mental disorders or infectious disease) (2 sources) Abnormal finding of blood chemistry, unspecified; Translations: [Encounter for screening for malignant neoplasm of prostate] Onset: 10-22-2020 Episodic Results Test Name Value Interpretation Reference Range Facil ity Office Visiton 11-23-2022 Follow-up visit [id number] Jaylen Dutta 1955 [facility] Provider Department Center 11/23/[address] [facility] No family history on file Level of Service:56201 SD OFFICE/OUTPATIENT ESTABLISHED LOW [facility] 20-29 MIN Reason for Visit and Comments: Hyperlipidemia [182] Hypertension [734394] Atrial Fibrillation [80] Coronary Artery Disease [187] Normal [facility] Orders Onlyon 05-02-2022 Orders Only [id number] Jaylen Dutta 1955 [facility] Provider Department Center 05/02/2022 [facility] No family history on file Normal [facility] BNPon 07-23-2021 Natriuretic peptide B (Bld) [Mass/Vol] 203.0 pg/mL Normal <=900.0 [facility] pital Comment on above: Performed By: #### C ANDREY #### [facility] [address] [place] [id number] Sade Atkins CBC AUTO DIFFon 07-23-2021 BASO # 0.0 103/ul Normal 0.0-0.1 [facility] ospital Comment on above: Performed By: #### C BC #### [facility] [address] [place], [place] [address] Dr. Pattie Reynolds Basophils/100 WBC (Bld) 0.6 % Normal 0.2-2.0 [facility] Comment on above: Performed By: #### C BC #### [facility] [address] [place] [address] Dr. Pattie Reynolds EO # 0.3 103/ul Normal 0.0-0.7 [facility] Comment on above: Performed By: #### C BC #### [facility] [address] [place] [address] Dr. Pattie Reynolds Eosinophils/100 WBC (Bld) 4.3 % Normal 0.9-7.0 [facility] Comment on above: Performed By: #### C BC #### [facility] [address] [place] [address] Dr. Pattie Reynolds Erythrocyte distribution wid th (RBC) [Ratio] 14.6 % Normal 11.0-15.0 [facility] Comment on above: Performed By: #### C BC #### [facility] [address] [place] [address] Dr. Pattie Reynolds Hematocrit (Bld) [Volume fraction] 49.0 % Normal 4 2.0-54.0 [facility] Comment on above: Performed By: #### C BC #### [facility] [address] [place] [address] Dr. Pattie Reynolds Hemoglobin (Bld) [Mass/Vol] 15.3 g/dL Normal 14.0-18. 0 [facility] Comment on above: Performed By: #### C BC #### [facility] [address] [place] [address] Dr. Pattie Reynolds IG # 0.03 10e3/ul Normal 0.00-0.03 [facility] Comment on above: Performed By: #### C BC #### [facility] [address] [place] [address] Dr. Pattie Reynolds IG % 0.5 % Normal 0.0-0.5 [facility] Comment on above: Performed By: #### C BC #### [facility] [address] [place] [address] Dr. Pattie Reynolds LYMPH # 1.3 103/ul Normal 1.2-3.8 [facility] ospital Comment on above: Performed By: #### C BC #### [facility] [address] [place] [address] Dr. Pattie Reynolds Lymphocytes/100 WBC (Bld) 20.4 % Critically low 20.5-6 0.0 [facility] Comment on above: Performed By: #### C BC #### [facility] [address] [place] [address] Dr. Pattie Reynolds MANUAL DIFF REQ NO Normal [facility] Comment on above: Performed By: #### C BC #### [facility] [address] [place] [address] Dr. Pattie Reynolds MCH (RBC) [Entitic mass] 28.9 pg Normal 25.9-34.0 [facility] Comment on above: Performed By: #### C BC #### [facility] [address] [place] [address] Dr. Pattie Reynolds MCHC (RBC) [Mass/Vol] 31.2 g/dL Normal 29.9-35.2 [facility] Comment on above: Performed By: #### C BC #### [facility] [address] [place] [address] Dr. Pattie Reynolds MCV (RBC) [Entitic vol] 92.6 fL Normal 80.0-94.0 [facility] Comment on above: Performed By: #### C BC #### [facility] [address] [place] [address] Dr. Pattie Reynolds MONO # 1.2 103/ul Critically high 0.3-0.8 [facility] Comment on above: Performed By: #### C BC #### [facility] [address] [place] [address] Dr. Pattie Reynolds Monocytes/100 WBC (Bld) 18.6 % Critically high 1.7-12. 0 [facility] Comment on above: Performed By: #### C BC #### [facility] [address] [place] [address] Dr. Pattie Reynolds NEUT # 3.6 103/ul Normal 1.4-6.5 [facility] ospital Comment on above: Performed By: #### C BC #### [facility] [address] [place] [address] [address] Pattie Reynolds Neutrophils/100 WBC (Bld) 55.6 % Normal 43.0-75.0 [facility] Comment on above: Performed By: #### C BC #### [facility] [address] [place] [address] [address] Pattie Reynolds Platelet mean volume (Bld) [Entitic vol] 9.4 fL Critically low 9.5-13.5 [facility] pital Comment on above: Performed By: #### C BC #### [facility] [address] [place] [address] Dr. Pattie Reynolds PLT 267 103/ul Normal 150-450 [facility] Comment on above: Performed By: #### C BC #### [facility] [address] [place] [address] Dr. Pattie Reynolds RBC 5.29 106/ul Normal 4.70-6.10 [facility] Comment on above: Performed By: #### C BC #### [facility] [address] [place] [address] Dr. Pattie Reynolds WBC 6.5 103/ul Normal 4.0-11.0 [facility] Comment on above: Performed By: #### C BC #### [facility] [address] [place] [address] Dr. Pattie Reynolds CRPon 07-23-2021 CRP [Mass/Vol] mg/L Normal <=1.0 [facility] Comment on above: Performed By: #### C ANDREY #### [facility] [address] [place] [address] Sade Atkins PROF CHEM 8 (BAS METB)on Anion gap [Moles/Vol] 7.8 mmol/L Normal [facility] Comment on above: Performed By: #### B PAINTING CONTRACTOR, BMP, CRP #### [facility] [address] [place] [address] Dr. Pattie Reynolds Calcium [Mass/Vol] 9.6 mg/dL Normal 8.4-10.2 [facility] Comment on above: Performed By: #### B PAINTING CONTRACTOR, BMP, CRP #### [facility] [address] [place] [address] [address] Pattie Reynolds Chloride [Moles/Vol] 102 mmol/L Normal 98-107 [facility] Comment on above: Performed By: #### B PAINTING CONTRACTOR, BMP, CRP #### [facility] [address] [place] [address] [address] Pattie Reynolds CO2 [Moles/Vol] 32.9 mmol/L Critically high 22.0-30.0 [facility] Comment on above: Performed By: #### B PAINTING CONTRACTOR, BMP, CRP #### [facility] [address] [place] [address] Dr. Pattie Reynolds Creatinine [Mass/Vol] 0.84 mg/dL Normal 0.66-1.25 [facility] Comment on above: Performed By: #### B PAINTING CONTRACTOR, BMP, CRP #### [facility] [address] [place] [address] Dr. Pattie Reynolds EGFR-AF INDIAN >60 Normal >=60 [facility] Comment on above: Performed By: #### B PAINTING CONTRACTOR, BMP, CRP #### [facility] [address] [place] [address] Dr. Pattie Reynolds EGFR-NON AF INDIAN >60 Normal >=60 [facility] Comment on above: Performed By: #### B PAINTING CONTRACTOR, BMP, CRP #### [facility] [address] [place] [address] [address] Pattie Reynolds Glucose [Mass/Vol] 86 mg/dL Normal 74-106 [facility] Comment on above: Performed By: #### B PAINTING CONTRACTOR, BMP, CRP #### [facility] [address] [place] [address] Dr. Pattie Reynolds Potassium [Moles/Vol] 4.7 mmol/L Normal 3.4-5.0 [facility] Comment on above: Performed By: #### B PAINTING CONTRACTOR, BMP, CRP #### [facility] [address] [place] [address] Dr. Pattie Reynolds Sodium [Moles/Vol] 138 mmol/L Normal 137-145 [facility] Comment on above: Performed By: #### B PAINTING CONTRACTOR, BMP, CRP #### [facility] [address] [place] [address] [address] Pattie Reynolds Urea nitrogen [Mass/Vol] 11.0 mg/dL Normal 9.0-20.0 [facility] Comment on above: Performed By: #### B PAINTING CONTRACTOR, BMP, CRP #### [facility] [address] [address] [address] Pattie Reynolds Urea nitrogen/Creatinine [Mass ratio] 13.1 mg/mg Normal [facility] Comment on above: Performed By: #### B PAINTING CONTRACTOR, BMP, CRP #### [facility] [address] [place] [address] Dr. Pattie Reynolds SED RATE [facility] 2020 SED RATE 60 mm/hr Critically high <=20 [facility] Comment on above: Performed By: #### S EDR #### [facility] [address] [place] [address] Dr. Pattie Reynolds Coding Summaryon 06-28-2021 Coding Summary [facility] [id number] [file] OiB (more content not included)... Normal [facility] ED Clinical Summaryon 2020 ED Clinical Summary [facility] - Emergency Department [address] [place], [place] [id number] ED Clinical Summary PERSON INFORMATION Name: BRITTNY DUTTA Age: 66 Years Sex: MALE : 1955 MRN: Acct#: Visit Reason: Shoulder pain-swelling; Fall; FALL- RT SHOULDER PAIN Arrival: 06/19/2021 14:08:23 Discharge: 06/19/2021 15:29:00 LOS: 000 01:21 Check In: 06/19/2021 14:08:23 Checkout:06/19/2021 15:29:00 Address: [address] [place] [id number] PCP: Judi Michelle MD PROVIDER INFORMATION Provider Role Assigned Unassigned ELLIS DORSEY ED PA 06/19/2021 14:11:05 Lily Garrison CUSTOM CLOTHIER Nurse 06/19/2021 14:12:25 VITALS INFORMATION Vital Sign Triage Latest Temperature Tympanic 36.6 DegC 36.6 DegC Temperature Temporal Artery Pulse Rate 80 bpm 80 bpm O2 Sat 98 % 98 % Respiratory Rate 14 br/min 14 br/min Blood Pressure /101 mmHg /101 mmHg MEDICAL INFORMATION Medications Given: Medication Dose Route acetaminophen-hydrocodone (Randolph 5 mg-325 mg oral tablet) 1 tab(s) PO Allergy Information: Bactrim; Cipro; sulfa drug; doxycycline PHYSICIAN DOCUMENTATION Patient: BRITTNY DUTTA Age: 66 years Sex: MALE : 1955 Associated Diagnoses: Fall; Right shoulder pain; Elevated blood pressure reading; Humeral head fracture Author: ELLIS DORSEY Basic Information Time seen: Date & time 06/19/2021 14:15:00. History source: Patient. Arrival mode: Private vehicle, walking. History of Present Illness Patient is a 66-year-old male presenting to the emergency department complaint of right shoulder pain status post fall. Patient states he is going up a step missed the step tripped and fell onto his right shoulder. He denies any significant head trauma, loss of consciousness, or any other aches or pains anywhere else. States he landed on his right shoulder. Denies any loss of sensation or numbness and tingling in his right upper extremity. States pain does increase in his right shoulder with any sort of movement. Patient states he is currently on Xarelto secondary to previous cardiac stents placed. Patient reports that he tripped and fell approximately an hour ago, denies having any headaches, visual changes, dizziness, trouble walking or talking, confusion, abnormal behavior, nausea or vomiting. Review of Systems Constitutional symptoms: No fever, Skin symptoms: No abrasions, Eye symptoms: Vision unchanged. ENMT symptoms: No sore throat, no nasal congestion. Respiratory symptoms: No shortness of breath, no cough. Cardiovascular symptoms: No chest pain, no tachycardia. Gastrointestinal symptoms: No abdominal pain, no nausea, no vomiting. Genitourinary symptoms: No dysuria, Musculoskeletal symptoms: Muscle pain, Joint pain, No back pain, Neurologic symptoms: No headache, no dizziness. Health Status Allergies: No active allergies have been recorded.. Past Medical/ Family/ Social History Family history: No family history items have been selected or recorded.. Social history: Social & Psychosocial Habits No Data Available . Physical Examination HEAD: Appears atraumatic. EYES: -EOM intact, PERRL -Nystagmus: No ENMT: Ears, Nose, Mouth and Throat all appear atraumatic. NECK: -Abrasions or contusions: No -Tenderness to palpation: No midline tenderness -Range of non-tender motion (for patient): Normal CARD: -Rate and rhythm: Regular -Murmurs: No -Rubs: No CHEST/RESP: -Pain with firm chest palpation: No -Respiratory effort and chest excursion with respirations: Normal -Breath sounds equal bilaterally: Clear -Wheezes: No ABD: -Appears non-distended and atraumatic -Bowel sounds: Normal. -Deep palpation of epigastric, suprapubic and 4 quads: Non-tender, soft, no guarding or rebound tenderness -Organomegaly palpable: No -Abnormal masses: No BACK: -Abrasions or contusions: No -Tenderness to firm palpation: No midline tenderness : Pelvis stable and non-tender to firm palpation. EXT: -No obvious deformities -ROM (for patient) in all four extremities: Decreased range of motion right shoulder secondary to pain with movement -Tenderness to palpation: Increased tenderness with palpation of the right anterior shoulder -Injured Extremity(ies) distal pulses: Normal NEURO/PSYCH: -Patient: alert -Signs of intoxication: No -Oriented to: person, place and time. -The patient's appearance, judgment, mood and manner: Appropriate. -Grooming and personal hygiene seem: Appropriate. -Abnormally-favoring gait (for patient): No Medical Decision Making 66-year-old male presented to the emergency department with complaint of right shoulder pain status post fall. Patient denied any head trauma but states he is currently on Xarelto. Patient denies having any headaches, visual changes, dizziness, trouble walking or talking, confusion or nausea and vomiting. I discussed CT scan of the head and he declined indicated not feel this was necessary. I indic (more content not included)... Normal M [facility] ED Note - Physicianon 2020 ED Note - Physician Patient: FRANCO DUTTA Age: 66 years Sex: MALE : 1955 Associated Diagnoses: Fall; Right shoulder pain; Elevated blood pressure reading; Humeral head fracture Author: DARÍO LEAVITT, ELLIS Arce Basic Information Time seen: Date & time 06/19/2021 14:15:00. History source: Patient. Arrival mode: Private vehicle, walking. History of Present Illness Patient is a 66-year-old male presenting to the emergency department complaint of right shoulder pain status post fall. Patient states he is going up a step missed the step tripped and fell onto his right shoulder. He denies any significant head trauma, loss of consciousness, or any other aches or pains anywhere else. States he landed on his right shoulder. Denies any loss of sensation or numbness and tingling in his right upper extremity. States pain does increase in his right shoulder with any sort of movement. Patient states he is currently on Xarelto secondary to previous cardiac stents placed. Patient reports that he tripped and fell approximately an hour ago, denies having any headaches, visual changes, dizziness, trouble walking or talking, confusion, abnormal behavior, nausea or vomiting. Review of Systems Constitutional symptoms: No fever, Skin symptoms: No abrasions, Eye symptoms: Vision unchanged. ENMT symptoms: No sore throat, no nasal congestion. Respiratory symptoms: No shortness of breath, no cough. Cardiovascular symptoms: No chest pain, no tachycardia. Gastrointestinal symptoms: No abdominal pain, no nausea, no vomiting. Genitourinary symptoms: No dysuria, Musculoskeletal symptoms: Muscle pain, Joint pain, No back pain, Neurologic symptoms: No headache, no dizziness. Health Status Allergies: No active allergies have been recorded.. Past Medical/ Family/ Social History Family history: No family history items have been selected or recorded.. Social history: Social & Psychosocial Habits No Data Available . Physical Examination HEAD: Appears atraumatic. EYES: -EOM intact, PERRL -Nystagmus: No ENMT: Ears, Nose, Mouth and Throat all appear atraumatic. NECK: -Abrasions or contusions: No -Tenderness to palpation: No midline tenderness -Range of non-tender motion (for patient): Normal CARD: -Rate and rhythm: Regular -Murmurs: No -Rubs: No CHEST/RESP: -Pain with firm chest palpation: No -Respiratory effort and chest excursion with respirations: Normal -Breath sounds equal bilaterally: Clear -Wheezes: No ABD: -Appears non-distended and atraumatic -Bowel sounds: Normal. -Deep palpation of epigastric, suprapubic and 4 quads: Non-tender, soft, no guarding or rebound tenderness -Organomegaly palpable: No -Abnormal masses: No BACK: -Abrasions or contusions: No -Tenderness to firm palpation: No midline tenderness : Pelvis stable and non-tender to firm palpation. EXT: -No obvious deformities -ROM (for patient) in all four extremities: Decreased range of motion right shoulder secondary to pain with movement -Tenderness to palpation: Increased tenderness with palpation of the right anterior shoulder -Injured Extremity(ies) distal pulses: Normal NEURO/PSYCH: -Patient: alert -Signs of intoxication: No -Oriented to: person, place and time. -The patient's appearance, judgment, mood and manner: Appropriate. -Grooming and personal hygiene seem: Appropriate. -Abnormally-favoring gait (for patient): No Medical Decision Making 66-year-old male presented to the emergency department with complaint of right shoulder pain status post fall. Patient denied any head trauma but states he is currently on Xarelto. Patient denies having any headaches, visual changes, dizziness, trouble walking or talking, confusion or nausea and vomiting. I discussed CT scan of the head and he declined indicated not feel this was necessary. I indicated the patient that I could not tell 100% that he does not have any sort of intracranial bleeding status post fall he indicated he understood this understood the risks of not having CT scan performed and was okay with this. X-ray of the right shoulder shows a humeral head fracture as interpreted by me in the emergency department. I indicated the patient and placed him in a sling and give him narcotic pain medication. He indicated he was in agreement with this he is used this medication in the past. I educated on this medication along with possibility of constipation and told not to drink or drive while taking this medication. Contacted orthopedic surgeon spoke with Dr. Grove who was in agreement with plan of care and follow-up as an outpatient. Patient told to have family watch him closely if having any worsening issues or any other problems please return immediately to the emergency department. Reexamination/ Reevaluation Patient was 140/86 as taken by me manually. I discussed hypertension with this patient. He states he has not taken his blood pressure medications yet today. I recommended (more content not included)... Normal [facility] ED Patient Summaryon 021 ED Patient Summary [facility] - Emergency Department [address] [place] [address] PATIENT DISCHARGE INSTRUCTIONS Patient Information Name: BRITTNY DUTTA Age: 66 Years Date of : 1955 Reason For Visit: Shoulder pain-swelling; Fall; FALL- RT SHOULDER PAIN Arrival Time: 06/19/2021 14:08:23 Primary Care Physician: Deondre GREEN, Judi Mcmillan Attending Physician: Aleksandar Beasley MD Comment: Visit Diagnosis: Diagnoses This Visit Elevated blood pressure reading (R03.0) Fall ([id number]) Fall (W19.XXXA) Humeral head fracture (S42.293A) Right shoulder pain (M25.511) Shoulder pain-swelling ([id number]) Prescription Information: If you have been given a prescription for narcotics, seek immediate medical attention if you have any difficulty breathing or any sudden status changes such as confusion and sleepiness. If you or anyone you know is experiencing suicidal thoughts, mental health, alcohol and/or drug addiction problems; contact the [facility] 06/03 Crisis Hotline -Text 4HYNY fm 021296. If you received any narcotics, sedation, or any other medication that causes drowsiness for the next 24 hours, unless otherwise directed: ? Do not drive a car. ? Do not operate machinery such as power tools, lawn mowers, drills, sewing machines, or stoves ? Avoid alcoholic beverages and drugs for allergies, nerves, or sleep ? Do not make important personal or business decisions or sign any legal documents With: Address: When: Shari Grove [address], [place] [address] Business (1) Within 2 to 4 days Comments: Follow-up with orthopedic physician for reevaluation next few days. Continue with sling and pain medication as discussed. Return to the emergency department for any worsening issues or signs and symptoms of evolving head injury as discussed such as symptoms of increasing headaches, visual changes, nausea vomiting, confusion, trouble walking or talking. Medication Information: The exam and treatment you received today in the [facility] Emergency Department were for an urgent problem and are not intended as complete care. It is important for you to follow up with a doctor, nurse practitioner, or physician?s warehouse administrative assistant for ongoing care. If your symptoms become worse or you do not improve as expected and you are unable to reach your usual health care provider, you should return to the Emergency Department, we are available 24 hours a day. For those patients who have received Radiology results, the interpretation of your X-ray as given to you by our Emergency Department physician is only a preliminary report. The Radiologist will review your films and if there is a change in the diagnosis you will be notified by phone. Please make sure you have provided a working phone number so we can reach you if necessary. In the event that you had a lab culture while you were a patient in the Emergency Department, you will be notified by phone if there is a need to change your antibiotic. Please make sure you have provided a working phone number so we can reach you if necessary. [facility] Emergency Department has provided you with a complete list of medications post discharge. Please inform your stencil maker/provider of your visit and for further instruction on these medications. Any specific questions regarding your chronic medications and dosages should be discussed with your primary care physician(s) and/or pharmacist. New Medications Printed Prescriptions acetaminophen-hydrocodone (Randolph 5 mg-325 mg oral tablet) 1 tab(s) Oral Every 6 hours as needed for pain. Refills: 0. Additional medications on your home medication list not specifically addressed. Please contact the ordering physician if you have questions about these medications. clopidogrel (clopidogrel 75 mg oral tablet) 1 tab(s) Oral every day. levothyroxine (levothyroxine 50 mcg (0.05 mg) oral tablet) 1 tab(s) Oral every day. losartan (losartan 50 mg oral tablet) 1 tab(s) Oral every day. metoprolol (Metoprolol Tartrate 50 mg oral tablet) 1 tab(s) Oral 2 times a day. pravastatin (pravastatin 20 mg oral tablet) 1 tab(s) Oral every day. rivaroxaban (Xarelto 10 mg oral tablet) 1 tab(s) Oral every day. Visit Information Allergies: Substance Reaction Symptoms Type Comments Bactrim Drug Cipro Drug doxycycline Drug sulfa drug Drug Vital Signs: Vitals and Measurements this Visit (last charted value for your 06/19/2021 visit) Vital Signs This Visit Temperature Tympanic: 36.6 DegC Peripheral Pulse Rate: 80 bpm Respiratory Rate: 14 br/min Systolic Blood Pressure: 185 mmHg Diastolic Blood Pressure: 101 mmHg SpO2: 98 % Oxygen Therapy: Room air Measurements This Visit Height/Length Dosin.880 cm Height/Length Estimated: 182.880 cm Weight D (more content not included)... [facility] XR Shoulder Complete Righton 06-19-2021 XR Shoulder Complete Right EXAM: XR Shoulder Complete Right HISTORY: Patient tripped and used right arm to brace fall. COMPARISON: None. TECHNIQUE: 4 views right shoulder. FINDINGS: There is an acute minimally displaced right humeral surgical neck fracture with minimal impaction. Fracture appears to extend to the base of the right greater tuberosity. There is mild right glenohumeral and acromioclavicular joint osteoarthritis. IMPRESSION: 1. Acute minimally displaced and impacted right humeral surgical neck fracture. Fracture appears to extend to the base of the right greater tuberosity. Final Dictated by: Jann Montano Dictated DT/TM: 06/19/21 2:57 Signed (Electronic Signature): Jann Montano 06/19/21 2:59 pm Technologist: [place] [facility] VC CONSULT FOLLOWUPon 2020 VC CONSULT FOLLOWUP Patient: FRANCO DUTTA Exam Date: 06/04/2021 : 1955 Gender:M Ordering : DR SANTI LIU M.D. Admission #: [id number] Family : Order #: [id number] CLICK HERE TO VIEW EXAM CORRECTION Corrected on: 06/04/2021; RADIOLOGY REPORT PROCEDURE: VEIN CENTER CONSULTATION FOLLOWUP VEIN CENTER - OFFICE VISIT FOLLOW UP COMPARISON: None. PROGRESS NOTES: The patient reports improvement in leg symptoms. There has been interval reduction in varicosities. The patient has followed our recommendations to walk 20-30 minutes once or twice per day since the procedure. Physical exam demonstrates decrease in varicosities of the left leg. Persistent skin changes of the ankle suggestive of chronic cellulitis. Review of the ultrasound performed the same day demonstrates occlusive thrombus extending throughout the treated vein, see separate report, consistent with a successful ablation. No thrombus extending into or beyond the saphenofemoral junction. The patient expressed a desire to proceed with treatment of right small saphenous vein and varicosities. The patient was informed that treatment was a process and would require several procedures/sessions. IMPRESSION: 1. Successful ablation of the left small saphenous vein 2. Persistent branch saphenous varicose veins and left leg symptoms PLAN: Endovenous laser ablation of right small saphenous vein. Nurse notes, history and physical were reviewed and confirmed, see attached forms. The nurse was present throughout the physical exam and consultation Dictated by: Jani Vaughn M.D. on 06/04/2021 at 12:31 Approved by: Jani Vaughn M.D. on 06/04/2021 at 12:35 Dictated by: Jani Vaughn M.D. on 06/04/2021 at 12:38 Approved by: Jani Vaughn M.D. on 06/04/2021 at 12:38 Normal [facility] VC EXT VENOUS LT LIMITEDon 1 VC EXT VENOUS LT LIMITED Patient: BRITTNY DUTTA Exam Date: 06/04/2021 : 1955 Gender:M Ordering : DR SANTI LIU M.D. Admission #: [id number] Family : Order #: [id number] CLICK HERE TO VIEW EXAM RADIOLOGY REPORT PROCEDURE: VEIN CENTER EXTREMITY VENOUS LEFT LIMITED COMPARISON: None. INDICATIONS: Phlebitis of superficial veins of lower extremity TECHNIQUE: Lower extremity singh scale and Duplex Doppler evaluation of the deep venous system from the inguinal ligament through the calf veins. FINDINGS: REGION: Left lower extremity. THROMBI: Negative for DVT. Areas treated with heat induced thrombus is visualized 2.1cm from SPJ to insertion at mid calf. COMPRESSIBILITY: Non-compressible AND partially compressible segments. FLOW: Areas of no flow. OTHER: *Exam performed in accordance with [facility] practice guidelines- Peripheral venous ultrasound, November 07, 2009. CONCLUSION: 1. 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 Dictated by: Jani Vaughn M.D. on 06/04/2021 at 12:35 Approved by: Jani Vaughn M.D. on 06/04/2021 at 12:37 Normal [facility] VC ENDOVENOUS ABL 1ST V LTon 05-28-2021 VC ENDOVENOUS ABL 1ST V LT Patient: BRITTNY DUTTA Exam Date: 05/28/2021 : 1955 Gender:M Ordering : DR SANTI LIU M.D. Admission #: [id number] Family : Order #: [id number] CLICK HERE TO VIEW EXAM RADIOLOGY REPORT PROCEDURE: VEIN CENTER ENDOVENOUS ABLATION FIRST VEIN LEFT COMPARISON: None. INDICATIONS: Pain co-occurrent and due to varicose veins of bilateral legs I83.813 OPERATIVE REPORT: The risks and benefits of the procedure had been previously discussed, and were rediscussed at length. Informed written consent was obtained by and Se Figueroa assisted. Time out procedure was performed. The left lower extremity was prepared and draped in the usual sterile fashion to allow knee flexion in the sterile field. Duplex ultrasound probe was draped in a sterile cover, sterile transmission gel was used. Venous mapping was performed with the areas of dilation and large tributaries marked. The total length was 8 cm from the entry within the upper calf above tortuous segment to approximately 3 cm above the knee joint (thigh extension). The diameter of the greater saphenous vein ranged from 6 mm. A 30 gauge needle and 1% buffered lidocaine was used to anesthetize the entry site. A 4 mm incision was made with a scalpel and the saphenous vein was entered percutaneously under direct ultrasound guidance with a micropuncture set, a single stick was successful in gaining access. A micro-guide wire was inserted and the needle removed. A micro-set including a dilator was inserted over the microwire and the needle and dilator were removed. A 0.018 guide wire was inserted through the micro-set and threaded through the saphenous vein to the saphenofemoral junction. The dilator was removed and an introducer sheath was inserted over the wire until the end of the sheath entered the saphenofemoral junction. The dilator and wire were removed and the 600 micron fiber was introduced and placed and positioned so that it extended beyond the sheath and was 3 cm peripheral to the saphenofemoral femoral junction. Final position of the fiber was determined by ultrasound guidance and duplex imaging. Tumescent anesthetic was delivered by ultrasound guidance. One hundred fifty cc of fluid was delivered along the entire course of the saphenous vein. The solution consisted of 500 cc of normal saline with 20mL of 1% lidocaine and 10 mL of sodium bicarbonate. A final positioning check was made. The energy source was turned on by means of the foot pedal and the fiber and sheath were withdrawn. The total number of Joules delivered was 442. The laser was active for 55 seconds under continuous pulse, average laser use of 8 J. Laser start time 11:23 a.m. May 28, 2021. Laser stop time 11:25 a.m. May 28, 2021. A duplex ultrasound revealed compressibility and flow at the saphenofemoral junction immediately after the procedure. Hemostasis at the access site was achieved. The skin incision of the saphenous vein was closed with a 4 x 4. A compression stocking was applied. Postop instructions were given. A follow up appointment was recommended and scheduled. The patient tolerated the procedure well and was discharged in good condition. CONCLUSION: 1. Technically successful endovenous laser ablation of the left small saphenous vein. Dictated by: Jani Vaughn M.D. on 05/28/2021 at 11:50 Approved by: Jani Vaughn M.D. on 05/28/2021 at 11:52 Normal [facility] COMP CONSULTATIONon 01-19 VC COMP CONSULTATION Patient: KETTY DUTTA NESHAERNESTO ValenzuelaJaiden Exam Date: 01/19/2021 : 1955 Gender:M Ordering : ROBERT RONQUILLO . Admission #: [id number] Family : Order #: [id number] CLICK HERE TO VIEW EXAM RADIOLOGY REPORT PROCEDURE: VEIN CENTER CONSULTATION VEIN CENTER - OFFICE VISIT INITIAL COMPARISON: None. PROGRESS NOTES: 65-year-old male who presents with a long history of bilateral lower extremity varicose veins. The patient reports current symptoms including bulging dilated veins with a mild amount of pain 1-2 on a scale of 1-10. The patient also complains of leg swelling. The patient describes his pain as heaviness and itching. The patient's symptoms started approximately 4-5 decades ago. The patient has undergone multiple procedures including vein stripping in 1985, 2006 and 2008 at multiple different locations. The patient was last treated by the [place] [facility] The patient was referred by the wound center, where he is currently being treated for cellulitis. The patient developed an episode of edema and erythema involving the left ankle and hindfoot which she self-treated, eventually being seen in the emergency room and prescribed an oral antibiotic as well as having a dose of IV antibiotics. The patient was unsure of the medication. The patient's symptoms have significantly improved with continued healing of multiple ulcers. The patient no longer has drainage from this area. The patient continues on his oral antibiotic. The patient denies any signs and symptoms to suggest arterial ischemia. The patient describes a family history significant for heart disease in a brother father and grandfather. Varicose veins in his father. Bladder cancer in his father. Patient's social history includes approximately 30-40 pack year history of smoking, the patient discontinued smoking in 2010. Daily caffeine use. The patient drinks 1-2 drinks per week. No current illicit drug use. The patient's past medical history is significant for atrophy duarte, diagnosed at the [facility]. Chronic atrial fibrillation for which he is on Xarelto. Anxiety, hypothyroidism, obesity, coronary artery disease, COPD, obstructive sleep apnea. The patient is on multiple medications, see separate notes. No history of deep venous thrombus or pulmonary embolus. See separate history and physical for medication list. The patient has worn 20-30 mm compression stockings for approximately 20 years and continues to wear them all day every day. Nursing notes were reviewed. After history and physical exam I discussed at length the pathophysiology of venous hypertension and possible treatments, therapies and strategies available. We discussed at length the importance of elevating the lower extremities above the level of the heart, increased physical activity and compression stocking use. We discussed the options of continued conservative therapy with compression stockings, surgical options of ligation and stripping and phlebectomy. We discussed the risks and benefits of intravenous laser ablation , micro foam chemical ablation and injection sclerotherapy. The risks and benefits were discussed at length. The patient's questions were answered. The patient was counseled on weight loss and exercise routine. Walking 2 to 3 times a day for 10-15 minutes was recommended. Ultrasound venous reflux study performed the same day was discussed at length with the patient. The report demonstrates prior resection bilateral proximal great saphenous vein. Moderate insufficiency mid to distal bilateral great saphenous vein and bilateral small saphenous veins with associated saphenous popliteal junction reflux. Moderate bilateral incompetent branch saphenous tributary/varicose veins. Incompetent right ankle steward/stewardess deck vein period PHYSICAL EXAM: The right leg demonstrates moderate scattered varicose and reticular veins. A few scattered spider veins. Mild to moderate subcutaneous edema mid calf ankle and foot. No areas of active ulceration or hemosiderin staining. The left leg demonstrates moderate scattered varicose and reticular veins. Scattered spider veins. Moderate subcutaneous edema distal calf ankle and foot. Area of erythema with healing ulcerations lateral posterior and medial ankle and hindfoot. No draining ulcers identified. No hemosiderin staining. Both thighs, legs and feet were symmetrically warm to the touch. Good posterior tibial and dorsalis pedis pulses were present bilaterally. IMPRESSION: 1. Moderate bilateral mid to distal great saphenous vein and bilateral small saphenous vein venous insufficiency 2. Moderate bilateral incompetent lower extremity saphenous tributaries/ varicose veins 3. Bilateral mild to moderate right and moderate left lower extremity subcutaneous edema 4. No definite flow significant arterial disease 5. CEAP: C4b, Ep, Asp, Pr PLAN: 1. Endo (more content not included)... Normal [facility] l VC VENOUS REFLUX FELIX LMTon 0 01-19-2021 VC VENOUS REFLUX FELIX LMT Patient: BRITTNY DUTTA Exam Date: 01/19/2021 : 1955 Gender:Flor Ordering : ROBERT RONQUILLO . Admission #: [id number] Family : DR SANTI LIU M.D. Order #: [id number] CLICK HERE TO VIEW EXAM RADIOLOGY REPORT PROCEDURE: VEIN CENTER ULTRASOUND VENOUS REFLUX BILATERAL LIMTED COMPARISON: None. INDICATIONS: Pain co-occurrent and due to varicose veins of bilateral legs I83.813 TECHNIQUE: Duplex imaging of the lower extremity to assess the deep and superficial venous system for the presence of deep or superficial venous incompetence and to document the location and severity of disease. The study includes evaluation of the great saphenous vein (GSV), anterior accessory saphenous vein (AASV) and small saphenous vein (SSV). FINDINGS: RIGHT LOWER EXTREMITY: Saphenofemoral Junction Reflux: YesNo mm sec GSV: Diam (mm) Reflux/ Time (sec) Proximal Thigh n/a Mid Thigh n/a Distal Thigh n/a Prox Calf 5.9 Yes 2.2 Mid Calf 5.4 Yes 1.7 Saphenopopliteal Junction Reflux: 5.5mm Yes 1.2 SSV: Proximal Calf 7.2 Yes 2.1 Mid Calf 4.7 Yes 4.0 AASV: Not present Thrombi: No acute or chronic echogenic thrombus Compressibility: Normal Flow: Normal Preforator: None Tech Note: Previous stripping of GSV not visualized from proximal to distal thigh. Right GSV is seen from proximal calf to distal calf appears dilated with reflux. Incompetent SPJ/SSV. Varicosities are visualized in the posterior calf coming from SSV measuring 3.1mm with 2.1s of reflux,proximal posterior calf measuring 3.8mm with 2.1s of reflux, medial ankle distal 3.8mm with 1.7s of reflux, dist medial calf measuring 3.5mm with 3.0s of reflux LEFT LOWER EXTREMITY: Saphenofemoral Junction Reflux: No 5.5 mm sec GSV: Diam (mm) Reflux/Time (sec) Proximal Thigh 5.3 Yes 1.0 Mid Thigh n/a Distal Thigh n/a Prox Calf 3.3 Yes 1.3 Mid Calf 4.7 Yes 1.9 Saphenopopliteal Junction Reflux: 6.4 mm Yes 2.4 SSV: Proximal Calf 5.9 Yes 2.0 Mid Calf 5.5 Yes 2.1 AASV: Not present Thrombi: No acute or chronic echogenic thrombus Compressibility: Normal Flow: Normal Rn Hemo Dialysis: ankle steward/stewardess deck measuring 3.7mm with 3.7s of reflux Tech Note: Proximal GSV demonstrates reflux with varicosities coming of measuring 4.1mm with 2.0s of reflux, previous stripping done and mid to distal thigh GSV is not visualized. Left GSV is seen in the proximal to distal calf with dilation and reflux. Incompetent SPJ/SSV. Varicosities are seen in the mid thigh measuring 5.4mm with 1.7s of reflux, distal thigh 5.0mm with 2.6s of reflux, mid calf 3.36mm with 1.3s of reflux, proximal calf 3.6mm with 4.5s of reflux CONCLUSION: 1. Nonvisualization bilateral proximal great saphenous vein consistent known ligation and stripping 2. Moderate reflux identified in the patent portions of the bilateral mid to distal great saphenous veins as detailed above 3. Moderate bilateral dilation and reflux in the small saphenous veins with associated bilateral saphenous popliteal junction reflux 4. Moderate bilateral incompetent branch saphenous varicose veins 5. Incompetent right ankle steward/stewardess deck vein Dictated by: Santi Liu MD on 01/19/2021 at 12:18 Approved by: Santi Liu MD on 01/19/2021 at 12:21 Normal [facility] l CBC AUTO DIFFon 01-13-2021 BASO # 0.0 103/ul Normal 0.0-0.1 [facility] ostal Comment on above: Performed By: #### C ANDREY #### [facility] [address] [place] [address] Sade Atkins Basophils/100 WBC (Bld) 0.6 % Normal 0.2-2.0 [facility] Comment on above: Performed By: #### C ANDREY #### [facility] [address] [place] [address] Sade Atkins EO # 0.2 103/ul Normal 0.0-0.7 The [facility] Comment on above: Performed By: #### C ANDREY #### [facility] [address] [place] [address] Sade Atkins Eosinophils/100 WBC (Bld) 3.3 % Normal 0.9-7.0 [facility] Comment on above: Performed By: #### C ANDREY #### [facility] [address] [place], [place] [id number] Sade Atkins Erythrocyte distribution wid th (RBC) [Ratio] 14.4 % Normal 11.0-15.0 [facility] Comment on above: Performed By: #### C ANDREY #### [facility] [address] [place], [place] [id number] Sade Atkins Hematocrit (Bld) [Volume fraction] 49.0 % Normal 4 2.0-54.0 [facility] Comment on above: Performed By: #### C ANDREY #### [facility] [address] [place] [address] Sade Atkins Hemoglobin (Bld) [Mass/Vol] 15.7 g/dL Normal 14.0-18. 0 [facility] Comment on above: Performed By: #### C ANDREY #### [facility] [address] [place] [address] Sadebradford Atkins IG # 0.01 10e3/ul Normal 0.00-0.03 [facility] Comment on above: Performed By: #### C ANDREY #### [facility] [address] [place] [address] Sade Atkins IG % 0.1 % Normal 0.0-0.5 [facility] Comment on above: Performed By: #### C ANDREY #### [facility] [address] [place] [address] Sade Atkins LYMPH # 1.4 103/ul Normal 1.2-3.8 The [facility] Comment on above: Performed By: #### C ANDREY #### [facility] [address] [place] [address] Sade Atkins Lymphocytes/100 WBC (Bld) 20.2 % Critically low 20.5-6 0.0 [facility] Comment on above: Performed By: #### C ANDREY #### [facility] [address] [place] [address] Sade Atkins MANUAL DIFF REQ NO Normal [facility] Comment on above: Performed By: #### C ANDREY #### [facility] [address] [place], [place] [id number] Sade Atkins MCH (RBC) [Entitic mass] 29.5 pg Normal 25.9-34.0 [facility] Comment on above: Performed By: #### C ANDREY #### [facility] [address] [place] [address] Sade Atkins MCHC (RBC) [Mass/Vol] 32.0 g/dL Normal 29.9-35.2 [facility] Comment on above: Performed By: #### C ANDREY #### [facility] [address] [place], [place] [id number] Sade Atkins MCV (RBC) [Entitic vol] 92.1 fL Normal 80.0-94.0 [facility] Comment on above: Performed By: #### C ANDREY #### [facility] [address] [place], [place] [address] Sadebradford Atkins MONO # 0.9 103/ul Critically high 0.3-0.8 [facility] Comment on above: Performed By: #### C ANDREY #### [facility] [address] [place], [place] [id number] Sade Atkins Monocytes/100 WBC (Bld) 13.5 % Critically high 1.7-12. 0 [facility] Comment on above: Performed By: #### C ANDREY #### [facility] [address] [place] [address] Sade Hickeyen NEUT # 4.3 103/ul Normal 1.4-6.5 [facility] Comment on above: Performed By: #### C ANDREY #### [facility] [address] [place], [place] [id number] Sade Atkins Neutrophils/100 WBC (Bld) 62.3 % Normal 43.0-75.0 [facility] Comment on above: Performed By: #### C ANDREY #### [facility] [address] [place], [place] [id number] Sade Atkins Platelet mean volume (Bld) [Entitic vol] 9.3 fL Critically low 9.5-13.5 [facility] Comment on above: Performed By: #### C ANDREY #### [facility] [address] [place], [place] [address] Sadebradford Hickeyen PLT 263 103/ul Normal 150-450 [facility] Comment on above: Performed By: #### C ANDREY #### [facility] [address] [place], [place] [address] Sade Milly RBC 5.32 106/ul Normal 4.70-6.10 [facility] Comment on above: Performed By: #### C ANDREY #### [facility] [address] [place], [place] [address] Sade Milly WBC 6.9 103/ul Normal 4.0-11.0 [facility] Comment on above: Performed By: #### C ANDREY #### [facility] [address] [place], [place] [address] Sade Milly CRPon 01-13-2021 CRP [Mass/Vol] mg/L Normal <=1.0 [facility] Comment on above: Performed By: #### B MP, CRP #### [facility] [address] [place], [place] [id number] Sade Milly LACTATE/LACTIC ACIDon 2020 Lactate [Moles/Vol] 0.8 mmol/L Normal 0.7-2.0 [facility] Comment on above: Performed By: #### L ACT #### [facility] [address] [place] [address] Sade Milly PROF CHEM 8 (BAS METB)on Anion gap [Moles/Vol] 15.7 mmol/L Normal [facility] Comment on above: Performed By: #### B MP, CRP #### [facility] [address] [place] [address] Sade Milly Calcium [Mass/Vol] 9.2 mg/dL Normal 8.4-10.2 [facility] Comment on above: Performed By: #### B MP, CRP #### [facility] [address] [place] [address] Sade Milly Chloride [Moles/Vol] 103 mmol/L Normal 98-107 [facility] Comment on above: Performed By: #### B MP, CRP #### [facility] [address] [place] [address] Sade Milly CO2 [Moles/Vol] 27.5 mmol/L Normal 22.0-30.0 [facility] Comment on above: Performed By: #### B MP, CRP #### [facility] [address] [address] Sade Milly Creatinine [Mass/Vol] 1.04 mg/dL Normal 0.66-1.25 [facility] Comment on above: Performed By: #### B MP, CRP #### [facility] [address] [id number] Sade Milly EGFR-AF INDIAN >60 Normal >=60 [facility] Comment on above: Performed By: #### B MP, CRP #### [facility] [address] [address] Sade Milly EGFR-NON AF INDIAN >60 Normal >=60 [facility] Comment on above: Performed By: #### B MP, CRP #### [facility] [address] [place] [address] Sade Milly Glucose [Mass/Vol] 102 mg/dL Normal 74-106 [facility] Comment on above: Performed By: #### B MP, CRP #### [facility] [address] [place] [address] Sade Milly Potassium [Moles/Vol] 4.2 mmol/L Normal 3.4-5.0 [facility] Comment on above: Performed By: #### B MP, CRP #### [facility] [address] [place] [address] Sade Milly Sodium [Moles/Vol] 142 mmol/L Normal 137-145 [facility] Comment on above: Performed By: #### B MP, CRP #### [facility] [address] [place] [address] Sade Milly Urea nitrogen [Mass/Vol] 15.0 mg/dL Normal 9.0-20.0 [facility] Comment on above: Performed By: #### B MP, CRP #### [facility] [address] [place] [address] Sade Milly Urea nitrogen/Creatinine [Mass ratio] 14.4 mg/mg Normal [facility] Comment on above: Performed By: #### B MP, CRP #### [facility] [address] [place] [address] Sade Milly SED RATE [facility] 2020 SED RATE 31 mm/hr Critically high <=20 [facility] Comment on above: Performed By: #### S EDR #### [facility] [address] [address] Sade Atkins XR ANKLE LT MIN 3 Von 2020 XR ANKLE LT MIN 3 V EXAM: XR ANKLE LT OH N 3 V HISTORY: The patient is a 65-year-old male with ulcers and worsening medial left ankle pain since August. COMPARISON: None. FINDINGS: The AP view demonstrates a tiny chronic appearing ununited ossicle off the tip of the medial malleolus. No acute appearing fractures are seen within the ankle joint. The ankle mortise is intact and uniform. The syndesmosis is maintained. No soft tissue swelling is seen. I do not identify any areas of bone destruction, periosteal reactions, or soft tissue gas to radiographically suggest osteomyelitis. IMPRESSION: As above. Electronically authenticated by: BRADFORD JACKSON Date: 2021-01-13 18:57 Normal [facility] CTA ABD ANGEL WWO CON LE RUNO FFon 12-25-2020 CTA ABD ANGEL WWO CON LE RUNOFF EXAMINATION: CTA ABD ANGEL WWO CON LE RUNOFF HISTORY: Chronic ulcer of skin COMPARISON: No relevant comparison available. TECHNIQUE: After obtaining the patient's consent, CT images of the abdomen, pelvis, and lower extremities were obtain without and with non-ionic intravenous contrast material. Multi-planar reformatted 3-D images were created to optimize visulations of vascular anatomy. Dose reduction techniques were achieved by using automated exposure control and/or adjustment of mA and/or kV according to patient size and/or use of iterative reconstruction technique. FINDINGS: AORTA: Tortuous aortic course. No aortic aneurysm. Moderate calcific atherosclerosis Celiac artery: Moderate atherosclerosis proximally. 30% area reduction. No occlusion or aneurysm SMA: Ostial atherosclerosis. No flow significant stenosis occlusion or aneurysm SHRUTHI: No flow significant stenosis occlusion or aneurysm ILIAC: No flow significant stenosis occlusion or aneurysm. Moderate diffuse atherosclerosis. 1.5 x 0.8 cm saccular aneurysm posterior right common iliac artery RIGHT LEG: Mild diffuse atherosclerosis, most significant along the distal popliteal artery with 40% area narrowing, axial image 314. No aneurysm or occlusion. Identified in the 3 runoff arteries LEFT LEG: Mild diffuse atherosclerosis. Large amount of atherosclerotic plaque distal popliteal artery with approximately 60% area narrowing axial image 325. No occlusion or aneurysm. Flow identified in the 3 runoff arteries LUNG BASES: Partial consolidation of the left lower lobe likely atelectasis related to an elevated hemidiaphragm. Coronary atherosclerosis LIVER: Diffuse hypoattenuation likely hepatic steatosis BILIARY: Moderate fatty atrophy PANCREAS: No lesion, fluid collection, ductal dilatation, or atrophy. SPLEEN: No enlargement or focal lesion. ADRENALS: No mass or enlargement. KIDNEYS: Bilateral cortical cysts. No hydronephrosis or obstructing nephrolithiasis BOWEL/MESENTERY: Colonic diverticulosis. Nonobstructive bowel gas pattern. Normal appendix. RETROPERITONEUM: No mass or adenopathy. ABDOMINAL WALL: 2 cm umbilical hernia containing mesenteric fat without strangulation URINARY BLADDER: No visible focal wall thickening, lesion, or calculus. PELVIC NODES: No adenopathy. PELVIC ORGANS: Mildly enlarged prostate gland measuring 5.6 x 4.3 cm BONES: No bony lesion or fracture. Prior left ACL replacement OTHER: Bilateral varicose veins, left greater than right IMPRESSION: Moderate diffuse atherosclerosis with short segment stenosis distal bilateral popliteal arteries as detailed above Moderate bilateral varicose veins left greater than right Electronically authenticated by: SANTI LIU Date: 2020-12-25 11:56 Normal [facility] CREATININEon 12-22-2020 Creatinine [Mass/Vol] 0.98 mg/dL Normal 0.66-1.25 [facility] Comment on above: Performed By: #### C ANDREY #### [facility] [address] [address] Sade Milly EGFR-AF INDIAN >60 Normal >=60 [facility] Comment on above: Performed By: #### C ANDREY #### [facility] [address] [address] Sade Milly EGFR-NON AF INDIAN >60 Normal >=60 [facility] Comment on above: Performed By: #### C ANDREY #### [facility] [address] [id number] Sade Milly ECHOCARDIO M/2D COMPLETEon 0 10-23-2020 ECHOCARDIO M/2D COMPLETE Patient: BRITTNY DUTTA Exam Date: 10/23/2020 : 1955 Gender:M Ordering : BRISA JEFFERSON Admission #: [id number] Family : Order #: [id number] CLICK HERE TO VIEW EXAM ECHOCARDIOGRAM REPORT PROCEDURE: CARDIO PULMONARY ECHOCARDIO M/2D COMP INDICATIONS: Dyspnea, H/O PTCA, HTN COMPARISON: None. DESCRIPTION: COMPLETE ECHOCARDIOGRAM Real-time transthoracic echocardiography with 2D, M-mode, spectral and color flow Doppler performed. QUALITY: Technically difficult exam. LEFT VENTRICLE: Normal chamber size. Normal left ventricular wall thickness. LV EF: Global left ventricular systolic function is normal; ejection fraction is 55 to 60%. No significant wall motion abnormalities. DIASTOLIC: Diastolic function is indeterminate. ATRIAL SEPTUM: Visually appears intact. LEFT ATRIUM: Normal chamber size. RIGHT ATRIUM: Mild dilatation. RIGHT VENTRICLE: Normal chamber size. Normal systolic function. TRICUSPID VALVE: Normal mobility and thickness. No significant regurgitation. Unable to assess right-sided pressures due to absence of significant tricuspid regurgitation. MITRAL VALVE: Normal mobility and thickness. No evidence of mitral valve stenosis. There is no mitral annular calcification. Trace mitral regurgitation. AORTIC VALVE: Normal trileaflet appearance. Normal leaflet mobility. No aortic regurgitation. AORTIC ROOT: Normal diameter and appearance. PULMONIC VALVE: Normal thickness and mobility. No stenosis. Trace regurgitation. PERICARDIUM: No evidence of pericardial effusion. IVC: Dilated IVC (2.85 cm), with no collapse. CONCLUSION: Global left ventricular systolic function is normal; ejection fraction is 55 to 60%. The right atrium is mildly dilated. The right ventricle is normal in size and systolic function. No significant valvular abnormalities. Adult Echocardiography Procedure Report Left Ventricle LVEDD (3.7 - 5.6 cm): 4.74 cm LVESD (2.2 - 4.0 cm): 3.38 cm LVIVS thickness (0.6 - 1.2 cm): 8.84 mm LVPW thickness (0.5 - 1.0 cm): 1.04 cm e': 8.55 cm/s E - e': 12.20 LVOT Area (cm2): 4.15 cm2 LVOT Diameter 2.30 cm Left Ventricular Ejection Fraction: 55 % Left Atrium LA Volume Index (2D A2C): 25.20 ml/m2 Left Atrium Systolic Dimension: 4.40 cm Left Atrium Systolic Area(A2C): 21.30 cm2 Left Atrium Systolic Area(A4C): 29.70 cm2 Left Atrium Systolic Volume(A2C): 71502 mm3 Left Atrium Systolic Volume(A4C): 739231 mm3 Mitral Valve MV E to A Ratio: 3.80 Mitral Valve A-Wave Peak Velocity: 27.60 cm/s Mitral Valve E-Wave Peak Velocity: 104.00 cm/s Deceleration Time: 148 ms Right Ventricle Aorta AO Root Diam: 3.50 cm Aortic Valve AoV Area (Peak Hardik): 3.83 cm2 Peak Velocity(Antegrade Flow): 91.50 cm/s Peak Gradient(Antegrade Flow): 3 mm[Hg] Tricuspid Valve Pulmonic Valve Peak Velocity: 77.70 cm/s Peak Gradient: 2 mm[Hg] Right Atrium Dictated by: Som Lane M.D. on 10/23/2020 at 11:47 Approved by: Som Lane M.D. on 10/23/2020 at 11:56 Normal [facility] XR CHEST 2 Von 10-18-2020 XR CHEST 2 V EXAMINATION: XR CHES T 2 V HISTORY: Dyspnea COMPARISON: None. FINDINGS: Two views are submitted. Marked elevation of the left hemidiaphragm is shown. The right lung is hyperinflated. The heart is enlarged. Pulmonary vascular markings are normal. No bony lesions are shown. IMPRESSION: 1. Marked elevation of the left hemidiaphragm. If there are no recent prior comparison studies available, and given the relatively acute onset of patient's symptoms the possibility of hemidiaphragmatic paralysis should be considered. Consideration for a fluoroscopic sniff test may be of benefit to assess diaphragmatic motion. 2. Cardiomegaly. Electronically authenticated by: JACKELIN MOREAU Date: 2020-10-18 11:57 Normal [facility] CBC AUTO DIFFon 10-17-2020 BASO # 0.0 103/ul Normal 0.0-0.1 [facility] Comment on above: Performed By: #### C ANDREY #### [facility] [address] [address] Sade Atkins Basophils/100 WBC (Bld) 0.6 % Normal 0.2-2.0 [facility] Comment on above: Performed By: #### C ANDREY #### [facility] [facility] [address] [place], [place] [id number] Sade Milly EO # 0.2 103/ul Normal 0.0-0.7 [facility] Comment on above: Performed By: #### C ANDREY #### [facility] [address] [place], [place] [id number] Sade Milly Eosinophils/100 WBC (Bld) 3.7 % Normal 0.9-7.0 [facility] Comment on above: Performed By: #### C ANDREY #### [facility] [address] [place] [address] Sade Milly Erythrocyte distribution wid th (RBC) [Ratio] 14.4 % Normal 11.0-15.0 The [facility] Comment on above: Performed By: #### C ANDREY #### [facility] [address] [place] [address] Sade Milly Hematocrit (Bld) [Volume fraction] 52.3 % Normal 4 2.0-54.0 [facility] Comment on above: Performed By: #### C ANDREY #### [facility] [address] [place], [place] [id number] Sade Milly Hemoglobin (Bld) [Mass/Vol] 16.3 g/dL Normal 14.0-18. 0 [facility] Comment on above: Performed By: #### C ANDREY #### [facility] [address] [place] [address] Sade Milly IG # 0.01 10e3/ul Normal 0.00-0.03 The [facility] Comment on above: Performed By: #### C ANDREY #### [facility] [address] [place] [address] Sade Milly IG % 0.2 % Normal 0.0-0.5 The [facility] Comment on above: Performed By: #### C ANDREY #### [facility] [address] [place] [address] Sade Milly LYMPH # 1.1 103/ul Critically low 1.2-3.8 The [facility] Comment on above: Performed By: #### C ANDREY #### [facility] [address] [place], [place] [address] Sade Milly Lymphocytes/100 WBC (Bld) 17.8 % Critically low 20.5-6 0.0 [facility] Comment on above: Performed By: #### C ANDREY #### [facility] [address] [place], [place] [id number] Sade Milly MANUAL DIFF REQ NO Normal [facility] Comment on above: Performed By: #### C ANDREY #### [facility] [address] [place], [place] [address] Sade Milly MCH (RBC) [Entitic mass] 28.7 pg Normal 25.9-34.0 [facility] Comment on above: Performed By: #### C ANDREY #### [facility] [address] [place], [place] [address] Sade Milly MCHC (RBC) [Mass/Vol] 31.2 g/dL Normal 29.9-35.2 [facility] Comment on above: Performed By: #### C ANDREY #### [facility] [address] [place], [place] [address] Sade Milly MCV (RBC) [Entitic vol] 92.2 fL Normal 80.0-94.0 [facility] Comment on above: Performed By: #### C ANDREY #### [facility] [address] [place], [place] [address] Sade Milly MONO # 0.8 103/ul Normal 0.3-0.8 The [facility] Comment on above: Performed By: #### C ANDREY #### [facility] [address] [place], [place] [address] Sade Milly Monocytes/100 WBC (Bld) 13.1 % Critically high 1.7-12. 0 [facility] Comment on above: Performed By: #### C ANDREY #### [facility] [address] [place], [place] [address] Sade Milly NEUT # 4.0 103/ul Normal 1.4-6.5 The [facility] ostal Comment on above: Performed By: #### C ANDREY #### [facility] [address] [place], [place] [address] Sade Milly Neutrophils/100 WBC (Bld) 64.6 % Normal 43.0-75.0 [facility] Comment on above: Performed By: #### C ANDREY #### [facility] [address] [place], [place] [address] [place] Atikns Platelet mean volume (Bld) [Entitic vol] 9.5 fL Normal 9.5-13.5 The [facility] Comment on above: Performed By: #### C ANDREY #### [facility] [address] [place], [place] [address] Sade Milly PLT 254 103/ul Normal 150-450 The [facility] Comment on above: Performed By: #### C ANDREY #### [facility] [address] [place], [place] [address] Sade Milly RBC 5.67 106/ul Normal 4.70-6.10 [facility] Comment on above: Performed By: #### C ANDREY #### [facility] [address] [place] [address] Sade Milly WBC 6.3 103/ul Normal 4.0-11.0 The [facility] Comment on above: Performed By: #### C ANDREY #### [facility] [address] [place] [address] Sadebradford Atkins GLYCOHEMOGLOBIN A1Con 2020 ADA RECOMMENDATION ADA THERAPEUTIC TARG ET 6.0 - 7.0 ACTION SUGGESTED > 7.0 Normal The [facility] Comment on above: Performed By: #### A 1C #### [facility] [address] [place], [place] [address] Sade Milly Glucose [Mass/Vol] 123 mg/dL Normal The [facility] Comment on above: Performed By: #### A 1C #### [facility] [address] [place] [address] Sade Milly HbA1c (Bld) [Mass fraction] 5.9 % Normal <=6.0 The [facility] Comment on above: Performed By: #### A 1C #### [facility] [address] [place], [place] [address] Sade Milly LIPID PROFILEon 10-17-2020 CHOL-HDL RATIO NORM SEE BELOW Normal [facility] Comment on above: Result Comment: 3.3 - 4.4 LOW RISK 4.4 - 7.1 AVERAGE RISK 7.1 - 11.0 MODERATE RISK >11.0 HIGH RISK Performed By: #### C ANDREY #### [facility] [address] [place], [place] [address] Sade Milly Cholesterol [Mass/Vol] 172 mg/dL Normal <=200 Th [facility] Comment on above: Performed By: #### C ANDREY #### [facility] [address] [place] [address] Sade Milly Cholesterol in HDL [Mass/Vol] 51 mg/dL Normal [facility] Comment on above: Performed By: #### C ANDREY #### [facility] [address] [place] [address] Sade Milly Cholesterol in LDL [Mass/Vol] 105.6 mg/dL Normal [facility] Comment on above: Performed By: #### C ANDREY #### [facility] [address] [place] [address] Sade Milly Cholesterol.total/Cholestero l in HDL [Mass ratio] 3.4 {ratio} Normal [facility] Comment on above: Performed By: #### C ANDREY #### [facility] [address] [place] [address] Sade Milly HDL NORMAL > or = 60 mg/dl - LO W CARDIOVASCULAR RISK <40 mg/dl - HIGH CARDIOVASCULAR RISK Normal The [facility] Comment on above: Performed By: #### C ANDREY #### [facility] [address] [place] [address] Sade Milly LDL CALC NORMAL SEE BELOW Normal The [facility] Comment on above: Result Comment: <100 mg/dl OPTIMAL 100 - 129 mg/dl NEAR OR ABOVE OPTIMAL 130 - 159 mg/dl BORDERLINE HIGH 160 - 189 mg/dl HIGH >190 mg/dl VERY HIGH Performed By: #### C ANDREY #### [facility] [address] [place] [address] Sade Milly Triglyceride [Mass/Vol] 77 mg/dL Normal <=150 T [facility] Comment on above: Performed By: #### C ANDREY #### [facility] [address] [place], [place] [address] Sade Milly VLDL CALC 15.4 mg/dL Normal [facility] Comment on above: Performed By: #### C ANDREY #### [facility] [address] [place], [place] [address] Sade Milly PROF 14(COMP METB)on 021 Albumin [Mass/Vol] 3.8 g/dL Normal 3.5-5.0 [facility] Comment on above: Performed By: #### C ANDREY #### [facility] [address] [place], [place] [address] Sade Milly Albumin/Globulin [Mass ratio] 1.1 {ratio} Normal [facility] Comment on above: Performed By: #### C ANDREY #### [facility] [address] [place], [place] [address] Sade Milly ALP [Catalytic activity/Vol] 64 U/L Normal 38-126 [facility] Comment on above: Performed By: #### C ANDREY #### [facility] [address] [place], [place] [address] Sade Milly ALT [Catalytic activity/Vol] 26 U/L Normal 21-72 [facility] Comment on above: Performed By: #### C ANDREY #### [facility] [address] [place], [place] [address] Sade Milly Anion gap [Moles/Vol] 14.7 mmol/L Normal [facility] Comment on above: Performed By: #### C ANDREY #### [facility] [address] [place], [place] [address] Sade Milly AST [Catalytic activity/Vol] 19 U/L Normal 17-59 [facility] Comment on above: Performed By: #### C ANDREY #### [facility] [address] [place], [place] [address] Sade Milly Bilirubin [Mass/Vol] 0.7 mg/dL Normal 0.2-1.3 The [facility] Comment on above: Performed By: #### C ANDREY #### [facility] [address] [place] [address] Sade Milly Calcium [Mass/Vol] 9.6 mg/dL Normal 8.4-10.2 The [facility] Comment on above: Performed By: #### C ANDREY #### [facility] [address] [place] [address] Sade Milly Chloride [Moles/Vol] 102 mmol/L Normal 98-107 The [facility] Comment on above: Performed By: #### C ANDREY #### [facility] [address] [place] [address] Sade Milly CO2 [Moles/Vol] 26.9 mmol/L Normal 22.0-30.0 The [facility] Comment on above: Performed By: #### C ANDREY #### [facility] [address] [place] [address] Sade Milly Creatinine [Mass/Vol] 1.02 mg/dL Normal 0.66-1.25 The [facility] Comment on above: Performed By: #### C ANDREY #### [facility] [address] [place] [address] Sade Milly EGFR-AF INDIAN >60 Normal >=60 The [facility] Comment on above: Performed By: #### C ANDREY #### [facility] [address] [place] [address] Sade Milly EGFR-NON AF INDIAN >60 Normal >=60 [facility] Comment on above: Performed By: #### C ANDREY #### [facility] [address] [place], [place] [address] Sade Milly Globulin (S) [Mass/Vol] 3.6 g/dL Normal T [facility] Comment on above: Performed By: #### C ANDREY #### [facility] [address] [place] [address] Sade Milly Glucose [Mass/Vol] 104 mg/dL Normal 74-106 The [facility] Comment on above: Performed By: #### C ANDREY #### [facility] [address] [place], [place] [address] Sade Milly Potassium [Moles/Vol] 4.6 mmol/L Normal 3.4-5.0 [facility] Comment on above: Performed By: #### C ANDREY #### [facility] [address] [place], [place] [address] Sade Milly Protein [Mass/Vol] 7.4 g/dL Normal 6.1-8.2 The [facility] Comment on above: Performed By: #### C ANDREY #### [facility] [address] [place] [id number] Sade Milly Sodium [Moles/Vol] 139 mmol/L Normal 137-145 The [facility] Comment on above: Performed By: #### C ANDREY #### [facility] [address] [place] [address] Sade Milly Urea nitrogen [Mass/Vol] 18.0 mg/dL Normal 9.0-20.0 [facility] Comment on above: Performed By: #### C ANDREY #### [facility] [address] [place] [id number] Sade Milly Urea nitrogen/Creatinine [Mass ratio] 17.6 mg/mg Normal [facility] Comment on above: Performed By: #### C ANDREY #### [facility] [address] [place] [id number] Sade Milly TSHon 10-17-2020 TSH 2.033 uIU/mL Normal 0.470-4.680 The [facility] Comment on above: Performed By: #### C ANDREY #### [facility] [address] [place], [place] [address] Sade Milly TSH RANGE SEE BELOW Normal The [facility] Comment on above: Result Comment: <0.3 4 UIU/ml HYPERTHYROID 0.34-5.60 UIU/ml EUTHYROID >5.60 UIU/ml HYPOTHYROID Performed By: #### C ANDREY #### [facility] [address] [place], [place] [address] Sade Milly Cardiovascular Lab Reporton 03-05-2020 Cardiovascular Lab Report [facility] Patient Name: Kimberly keating [facility] Bianca MR #: [id number] Department of Physician: Adam Reno M.D. Division of Service Date: 03/05/2020 Cardiology Birthdate: 1955 Adult Cardiovascular Room #: [facility] [address] [facility] [place] [address] Cardiovascular Laboratory Report FINAL IMPRESSIONS: 1. Severe stenosis of the left anterior descending coronary artery, successfully treated by balloon angioplasty and Synergy drug-eluting stent placement. 2. Severe stenosis of the left circumflex coronary artery, successfully treated by balloon angioplasty and Synergy drug-eluting stent placement. 3. Patent stents in the left anterior descending and adjacent diagonal as well as right coronary arteries. 4. Normal global left ventricular systolic function by noninvasive imaging. RECOMMENDATIONS: 1. Aspirin 81 mg daily. 2. Plavix 75 mg daily for a minimum of 6 months. 3. The patient is to continue triple therapy including aspirin, Plavix, and Eliquis for 1 month; subsequently, the aspirin can be discontinued and he can continue both Plavix and Eliquis. 4. Aggressive cardiovascular risk factor modification. 5. Optimization of medical management; high-intensity statin therapy as tolerated, beta-kam plus or minus an angiotensin-converting enzyme inhibitor are indicated. 6. Follow up with Dr. Lane in the [place] office in the next 2 to 4 weeks. 7. Follow up with Dr. Shepard as scheduled. PROCEDURES: Bilateral selective coronary angiography via the left radial approach, percutaneous balloon angioplasty and Synergy drug-eluting stent placement in the left anterior descending coronary artery, percutaneous balloon angioplasty and Synergy drug-eluting stent placement in the left circumflex coronary artery. METHODS: After risks, benefits, and alternatives were explained, written informed consent was obtained. The patient was prepped and draped in usual sterile fashion over the left wrist and left groin. Using 1% lidocaine solution, local infiltration anesthesia was achieved. Using a modified Seldinger technique and a micropuncture kit, access of the left radial artery was obtained. A 6-Thai glide sheath was inserted without difficulty. Bilateral selective coronary angiography was performed using JR4 and JL4 catheters. After reviewing the images, it was elected to proceed with an interventional procedure. A 6-Thai XB 3.5 guide catheter was advanced over the J-wire and coaxially engaged into the left main ostium. A 0.014 Runthrough NS wire was advanced through the catheter across the suspect stenosis in the left anterior descending and positioned distally. Balloon angioplasty was performed using a 2.5 x 15 mm noncompliant balloon. An inadequate result was treated using a 2.75 x 20 mm Synergy drug-eluting stent. Repeat imaging showed an optimal result. The wire was removed. Attempts to wire the left circumflex were unsuccessful. Therefore, the XB 3.5 catheter was removed and a 6-Thai JL4 guide catheter coaxially engaged into the left main ostium The left circumflex was wired with the Run-through NS. Balloon angioplasty was performed using a 3.5 x 12 mm noncompliant balloon. An inadequate result was treated using a 3.5 x 16 mm Synergy stent. Postdilation was performed using a 4.0 x 12 mm noncompliant balloon. Repeat imaging showed an optimal result. The wire was removed. Final images showed URBAN-3 flow with no dissection, thrombus, or distal wire trauma. At this point, it was elected to conclude the procedure. All catheters were removed. The radial sheath was removed with application of a TR band per protocol to achieve optimal hemostasis. Overall, the patient tolerated the procedure well. There were no overt complications. He was to be transferred to the holding area in stable condition. FINDINGS: Hemodynamics. AO 143/95. LEFT VENTRICULOGRAPHY: This was not performed. Ejection fraction is normal by noninvasive imaging. CORONARY ARTERIES: Left main coronary artery: This arises from the left coronary cusp. It bifurcates into the left anterior descending and left circumflex coronary artery. It shows plaque disease. Left anterior descending coronary artery: This shows evidence of a patent stent in the proximal portion. A patent stent in the adjacent large branching first diagonal. Baseline imaging shows a discrete 70% stenosis in the mid to distal portion of the vessel. This was reduced to 0% by balloon angioplasty and placement of a 2.75 x 20 mm Synergy drug-eluting stent. Final images showed URBAN-3 flow with no dissection, thrombus, or distal wire trauma. Left circumflex coronary artery: This is a dominant vessel giving rise to the posterior descending and posterolateral branches. Baseline imaging shows an 80% short segment stenosis in the proximal portion of the vessel just prior to the bifurcation with a large branching obtuse marginal. This was reduced to 0% by balloon angioplasty and placement of a 3.5 x 16 mm Synergy drug-eluting stent. Postdilation was performed using a 4.0 x 12 mm noncompliant balloon. Repeat imaging showed an optimal result. Final images showed URBAN-3 flow with no dissection, thrombus, or distal wire trauma. Right coronary artery: This is a small vessel that is nondominant. There is evidence of a patent stent in the proximal portion of the vessel. INDICATIONS: Fatigue, exertional shortness of breath, and abnormal stress test. Electronically Signed by: Som Lane M.D. 03/11/2020 12:[address] M.D. Date Dict: 03/05/2020/12:29 P/Som Lane M.D. Date Trans: 03/05/2020 01:22 P/aram [id number] cc: Shari Shepard M.D. [address] [place] [address] [facility] Vital Signs Date Time Vital Sign Value Performing Clinician Micki lamar 04-04-2023 10:46-0400 Body height 182.88 cm MD Jose Castellon Work Phone: [facility] 04-04-2023 10:46-0400 Body mass index (BMI) [Ratio] 36.8 kg/m2 MD Jose Castellon Work Phone: [facility] 04-04-2023 10:46-0400 Body weight 123.37 kg MD Jose Castellon Work Phone: [facility] 04-04-2023 10:26-0400 Body temperature 97.7 [degF] MD Jose Castellon Work Phone: [facility] 04-04-2023 10:26-0400 Diastolic blood pressure 80 mm[Hg] MD Jose Castellon Work Phone: [facility] 04-04-2023 10:26-0400 Heart rate 60 /min MD Jose Castellon Work Phone: [facility] 04-04-2023 10:26-0400 Respiratory rate 18 /min MD Jose Castellon Work Phone: [facility] 04-04-2023 10:26-0400 Systolic blood pressure 132 mm[Hg] MD Jose Castellon Work Phone: [facility] Encounters Encounter Date Encounter Type Care Provider Facility Start: 04-04-2023 End: 04-04-2023 ambulatory Aura Elizabeth Facility:[facility] Start: 04-04-2023 End: 04-04-2023 ambulatory MD Jose Castellon Work Phone: [facility] Work Phone: Start: 04-04-2023 End: 04-04-2023 Discharged Recurring MD Jose Castellon Work Phone: [facility] Work Phone: Start: 11-23-2022 End: 11-23-2022 ambulatory [facility] Start: 08-02-2021 End: 08-03-2021 ambulatory JUDI MICHELLE Facility:[facility] Start: 07-23-2021 End: 07-23-2021 ambulatory JUDI MICHELLE Facility:[facility] Start: 07-16-[address] SANTI LIU Facilit y:[facility] Start: 06-04-2021 End: 06-05-[address] SANTI LIU Facility:[facility] Start: 05-28-2021 End: 05-29-[address] SANTI LIU Facility:[facility] Start: 04-21-2021 End: 04-22-2021 ambulatory BERT THOMAS Facility:[facility] Start: 01-21-2021 End: 01-22-2021 ambulatory DERRICK DERAS Facility:[facility] Start: 01-19-2021 End: 01-20-2021 ambulatory JUDI MICHELLE Facility:[facility] Start: 01-13-2021 End: 01-13-2021 ambulatory JUDI MICHELLE Facility:[facility] Start: 12-31-2020 End: 01-01-2021 ambulatory JUDI MICHELLE Facility:[facility] Start: 12-25-2020 End: 12-26-[address] SANTI LIU Facility:[facility] Start: 12-22-2020 End: 12-23-[address] Facility:[facility] Start: 12-11-2020 End: 12-12-2020 ambulatory JUDI MICHELLE Facility:[facility] Start: 12-03-2020 End: 12-04-[address] DOCTOR TAI Facility:[facility] Start: 11-19-2020 End: 11-20-[address] DOCTOR TAI Facility:[facility] Start: 10-23-2020 End: 10-24-2020 ambulatory BRISA JEFFERSON Facility:[facility] Start: 10-17-2020 End: 10-18-2020 ambulatory BRISA JEFFERSON Facility:[facility] Start: 03-05-2020 End: 03-06-2020 Patient encounter procedure [address] Facility:[facility] Procedures Date Procedure Procedure Detail Performing Clinician Start: 10-17-2020 PSA screening BRISA Rico OES Comment on above: Performed By: #### C ANDREY #### [facility] [address] [place] [address] Sade Atkins Payers Date Payer Category Payer Self-pay 1960 Medicare [id number] 1960 Unknown [id number] 1955 Unknown [id number] 2.16.8 40.1.464454.3.579.2.647 1955 Unknown [id number] 2.16.84 0.1.090632.3.579.2.593 1954 Unknown [id number] 2.16.84 0.1.628015.3.579.2.593 1954 Unknown [id number] 2.16.84 0.1.918758.3.579.2.593 1954 Unknown [id number] 2.16.84 0.1.395375.3.579.2.593 1954 Unknown [id number] 2.16.84 0.1.295926.3.579.2.593 1954 Unknown [id number] 2.16.84 0.1.283437.3.579.2.593 1954 Unknown [id number] 2.16.84 0.1.061402.3.579.2.593 1954 Unknown [id number] 2.16.84 0.1.980641.3.579.2.593 1954 Unknown [id number] 2.16.84 0.1.377034.3.579.2.593 1954 Unknown [id number] 2.16.84 0.1.895704.3.579.2.593 1954 Unknown [id number] 2.16.84 0.1.498324.3.579.2.593 1954 Unknown [id number] 2.16.84 0.1.050206.3.579.2.593 1954 Unknown [id number] 2.16.84 0.1.938127.3.579.2.593 1954 Unknown [id number] 2.16.84 0.1.882607.3.579.2.593 1954 Unknown [id number] 2.16.84 0.1.158909.3.579.2.593 1954 Unknown [id number] 2.16.84 0.1.747682.3.579.2.593 1954 Unknown [id number] 2.16.84 0.1.800464.3.579.2.593 1954 Unknown [id number] 2.16.84 0.1.340321.3.579.2.593 1954 Unknown [id number] 2.16.84 0.1.178513.3.579.2.593 Unknown [id number] 2.16.8 40.1.867411.3.579.2.531 Social History Date Type Detail Facility Start: 04-04-2023 Tobacco smoking stat us [facility]IS Ex-smoker (finding) [facility] Start: 1955 Sex Assigned At Male F [facility] Progress note 04-04-2023 Note Date & Type Note Facility 04-04-2023 Progress note Note Date/Time April 04, 2023 10:47am [facility] [address] [place] [address] Wound Center Provider Note Signed Patient: Brittny Dutta MR#: [id number] : 1955 Acct:[id number] Age/Sex: 68 / M Copies to: MD Aura Roman, SANDY~ HPI Date of Visit Date of Visit: Date of Service: 04/04/2023 Time of Service: 10:44 Narrative HPI: 02/28/23 Jaylen is a 67 year old male presenting to [facility] wound care for an initial visit for eval and treatment of a left lateral foot area ulcer that fromhis history sounds like venous stasis as well as atrophie cynthia and inflammatory factors. He has dealt with ulcers off and on since the . He already uses compression to both legs and understands the importance of elevation and compression for healing. We spoke in detail about the inflammatory component to his condition and how things such as probiotics, turmeric and omega 3 supplements can support the reduction of inflammation in the body- all of this was documented in his orders and provided to him. Jaylen will apply topical clobetasol to the area as well as continue his compression wraps and tubi client account specialist for the next 14 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 He will also contact [facility] and get back in with them as he said that he was due to return there in late 2018 or 2019 buthe had not been able to do so- we spoke about fixing the root cause and hence the veins need to be addressed. I see no signs of acute infection today. 03/13/23 much better, still painful, will do 1 week of topical gent during the break from clobetasol, has started all supplements except the omega 3 and has not yet contacted [facility] but says that he will this week- I feelstrongly that this root cause needs addressed and he does state understanding ofthis, 3 week appt, no infection noted 04/04/23 again much better, no pain he says, has see [facility] and will be having a venous procedure to fix his root problem, appears healed and so he can be discharged today but is aware to contact us with any future needs Subjective Pain Left Ankle: Pain Description: Intermittent and Burning Pain Intensity: 0 Wound/Ulcer History When did wound start?: September 2022 Mode of Arrival/ Real Estate Administrative Assistant: Personal vehicle Lives with:: Significant Other Appetite Description: Within Normal Limits Who helps w/ dressing change?: Self Smoking Status: Former smoker [facility] Medical History (Updated 04/04/23 @ 10:46 by Aura Johnson APRN) Afib Atrophic cynthia CAD (coronary artery disease) Heart disease Hypothyroidism Surgical History (Updated 02/28/23 @ 08:38 by Moon Nolen RN) H/O thyroidectomy H/O vein stripping History of repair of ACL Family History (Updated 02/28/23 @ 08:31 by Moon Nolen RN) Brother Heart disease Social History Smoking Status: Former smoker Substance Use Type: None Grafts History of Graft History of Graft?: No Exam Physical Exam Vital Signs: Temp Pulse Resp BP O2 Del Method 97.7 F 60 18 132/80 Room Air 04/04/23 10:26 04/04/23 10:26 04/04/23 10:26 04/04/23 10:26 04/04/23 10:26 Const General: cooperative, healthy appearing, comfortable and no acute distress Nutritional Appearance: obese Orientation: alert, awake and oriented x3 Lower/Upper Extremity Exam Vascular Exam-Edema Left Lower Extremity: Edema Type: Non-Pitting Vascular Exam-Pulses Right Brachial: Pulse Assessment Method: NIBP Left Dorsalis Pedis: Pulse Assessment Method: Palpation Left Posterior Tibial: Pulse Assessment Method: Palpation Objective Meds/Allergies Home Medications acetaminophen 325 mg tablet 325 mg PO Q6H PRN Pain 02/28/23 [History Confirmed 04/04/23] apixaban 5 mg tablet (Eliquis) 5 mg PO BID 02/28/23 [History Confirmed 04/04/23] apple cider vinegar 300 mg tablet 300 mg PO DAILY 02/28/23 [History Confirmed 04/04/23] ascorbic acid (vitamin C) 500 mg tablet (Vitamin C) 500 mg PO BID 02/28/23 [History Confirmed 04/04/23] atorvastatin 20 mg tablet 20 mg PO QHS 02/28/23 [History Confirmed 04/04/23] cholecalciferol (vitamin D3) 125 mcg (5,000 unit) tablet (Vitamin D3) 125 mcg PODAILY 02/28/23 [History Confirmed 04/04/23] clobetasol 0.05 % topical ointment 1 applic topical DAILY 2 weeks #15 grams 02/28/23 [Rx Confirmed 04/04/23] clopidogrel 75 mg tablet 75 mg PO DAILY 02/28/23 [History Confirmed 04/04/23] coenzyme Q10 400 mg capsule (Co Q-10) 400 mg PO DAILY 02/28/23 [History Confirmed 04/04/23] cyanocobalamin (vitamin B-12) 500 mcg tablet 500 mcg PO DAILY 02/28/23 [History Confirmed 04/04/23] levothyroxine 50 mcg tablet 50 mcg PO DAILY 02/28/23 [History Confirmed 04/04/23] losartan 50 mg tablet 50 mg PO DAILY 02/28/23 [History Confirmed 04/04/23] metoprolol tartrate 50 mg tablet 50 mg PO BID 02/28/23 [History Confirmed 04/04/23] pentoxifylline 400 mg tablet,extended release 400 mg PO BID 02/28/23 [History Confirmed 04/04/23] pravastatin 20 mg tablet 20 mg PO QHS 02/28/23 [History Confirmed 04/04/23] gentamicin 0.1 % topical ointment 1 applic topical DAILY 1 week #15 grams 03/13/23 [Rx Confirmed 04/04/23] Allergies ciprofloxacin [From Cipro] Allergy (Verified 02/28/23 08:21) Muscle Pain doxycycline Allergy (Verified 02/28/23 08:21) Unknown Reaction Sulfa (Sulfonamide Antibiotics) Allergy (Verified 02/28/23 08:21) Unknown Reaction sulfamethoxazole [From Bactrim] Allergy (Verified 02/28/23 08:21) Unknown Reaction trimethoprim [From Bactrim] Allergy (Verified 02/28/23 08:21) Unknown Reaction Wound/Ulcer Left Lateral Foot: Type: Venous Stasis Ulcer (w/inflammatory w/atrophie cynthia) Bed Appearance: Epithelial Tissue or Bridge Percent of Wound Bed Granulated/Red: 0 Length (cm): 0 Width (cm): 0 Depth (cm): 0 CM Sq: 0.000 Surrounding Tissue Appearance: Hyperpigmented Surrounding Tissue Temp: Warm Drainage Amount: None Drainage Odor: No Odor Results Height: 6 ft Weight: 123.377 kg Body Mass Index: 36.8 Assessment/Plan Assessment/Plan (1) Ulcer of left foot associated with varicose veins: Code(s): I83.025 - Varicose veins of left lower extremity with ulcer other part of foot; L97.529 - Non-pressure chronic ulcer of other part of left foot with unspecifiedseverity Status: Resolved (2) Atrophic cynthia: Assessment/Problem Details: lle Code(s): L90.8 - Other atrophic disorders of skin Status: Chronic (3) Venous stasis of lower extremity: Assessment/Problem Details: lle Code(s): I87.8 - Other specified disorders of veins Status: Chronic (4) Obesity: Code(s): E66.9 - Obesity, unspecified Status: Chronic (5) Inflammation: Status: Chronic (6) CAD (coronary artery disease): Code(s): I25.10 - Atherosclerotic heart disease of [place] coronary artery without angina pectoris Status: Chronic (7) Hypothyroidism: Qualifiers: Hypothyroidism type: other Qualified Code(s): E03.8 - Other specified hypothyroidism Code(s): E03.9 - Hypothyroidism, unspecified Status: Chronic (8) Wound pain: Status: Resolved (9) Hemosiderin pigmentation of lower 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 veins: Assessment/Problem Details: lle Code(s): L81.8 - Other specified disorders of pigmentation; I83.899 - Varicose veins of unspecified lower extremity with other complications Status: Chronic Time spent with patient Time Spent With Patient (min): 11 Dictated By: Aura Johnson APRN DD/ 43 Signed By: <Electronically signed by SANDY Johnson> 04/04/23 1046 [facility] Work Phone: Progress note 03-13-2023 Note Date & Type Note Facility 03-13-2023 Progress note Note Date/Time March 13, 2023 11:04am [facility] [address] [place] [address] Wound Center Provider Note Signed Patient: Brittny Dutta MR#: [id number] : 1955 Acct:[id number] Age/Sex: 67 / M Copies to: MD Aura Roman, INSTRUCTIONAL AIDE~ HPI Date of Visit Date of Visit: Date of Service: 03/13/2023 Time of Service: 11:01 Narrative HPI: 02/28/23 Jaylen is a 67 year old male presenting to [facility] wound care for an initial visit for eval and treatment of a left lateral foot area ulcer that fromhis history sounds like venous stasis as well as atrophie cynthia and inflammatory factors. He has dealt with ulcers off and on since the s. He already uses compression to both legs and understands the importance of elevation and compression for healing. We spoke in detail about the inflammatory component to his condition and how things such as probiotics, turmeric and omega 3 supplements can support the reduction of inflammation in the body- all of this was documented in his orders and provided to him. Jaylen will apply topical clobetasol to the area as well as continue his compression wraps and tubi client account specialist for the next 14 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 He will also contact [facility] and get back in with them as he said that he was due to return there in late 2018 or 2019 buthe had not been able to do so- we spoke about fixing the root cause and hence the veins need to be addressed. I see no signs of acute infection today. 03/13/23 much better, still painful, will do 1 week of topical gent during the break from clobetasol, has started all supplements except the omega 3 and has not yet contacted [facility] but says that he will this week- I feelstrongly that this root cause needs addressed and he does state understanding ofthis, 3 week appt, no infection noted Subjective Pain Left Ankle: Pain Description: Intermittent and Burning Pain Intensity: 0 Wound/Ulcer History When did wound start?: September 2022 Mode of Arrival/ Real Estate Administrative Assistant: Personal vehicle Lives with:: Significant Other Appetite Description: Within Normal Limits Who helps w/ dressing change?: Self Smoking Status: Former smoker [facility] Medical History (Updated 02/28/23 @ 08:45 by Aura Johnson APRN) Afib Atrophic cynthia CAD (coronary artery disease) Heart disease Hypothyroidism Surgical History (Updated 02/28/23 @ 08:38 by Moon Nolen RN) H/O thyroidectomy H/O vein stripping History of repair of ACL Family History (Updated 02/28/23 @ 08:31 by Moon Nolen RN) Brother Heart disease Social History Smoking Status: Former smoker Substance Use Type: None Grafts History of Graft History of Graft?: No Exam Physical Exam Vital Signs: Temp Pulse Resp BP O2 Del Method 98.6 F 58 L 18 136/83 Room Air 03/13/23 10:31 03/13/23 10:31 03/13/23 10:31 03/13/23 10:31 03/13/23 10:31 Const General: cooperative, healthy appearing, comfortable and no acute distress Nutritional Appearance: obese Orientation: alert, awake and oriented x3 Lower/Upper Extremity Exam Vascular Exam-Edema Left Lower Extremity: Edema Type: Non-Pitting Vascular Exam-Pulses Right Brachial: Pulse Assessment Method: NIBP Left Dorsalis Pedis: Pulse Assessment Method: Palpation Left Posterior Tibial: Pulse Assessment Method: Palpation Objective Meds/Allergies Home Medications acetaminophen 325 mg tablet 325 mg PO Q6H PRN Pain 02/28/23 [History Confirmed 03/13/23] apixaban 5 mg tablet (Eliquis) 5 mg PO BID 02/28/23 [History Confirmed 03/13/23] apple cider vinegar 300 mg tablet 300 mg PO DAILY 02/28/23 [History Confirmed 03/13/23] ascorbic acid (vitamin C) 500 mg tablet (Vitamin C) 500 mg PO BID 02/28/23 [History Confirmed 03/13/23] atorvastatin 20 mg tablet 20 mg PO QHS 02/28/23 [History Confirmed 03/13/23] cholecalciferol (vitamin D3) 125 mcg (5,000 unit) tablet (Vitamin D3) 125 mcg PODAILY 02/28/23 [History Confirmed 03/13/23] clobetasol 0.05 % topical ointment 1 applic topical DAILY 2 weeks #15 grams 02/28/23 [Rx Confirmed 03/13/23] clopidogrel 75 mg tablet 75 mg PO DAILY 02/28/23 [History Confirmed 03/13/23] coenzyme Q10 400 mg capsule (Co Q-10) 400 mg PO DAILY 02/28/23 [History Confirmed 03/13/23] cyanocobalamin (vitamin B-12) 500 mcg tablet 500 mcg PO DAILY 02/28/23 [History Confirmed 03/13/23] levothyroxine 50 mcg tablet 50 mcg PO DAILY 02/28/23 [History Confirmed 03/13/23] losartan 50 mg tablet 50 mg PO DAILY 02/28/23 [History Confirmed 03/13/23] metoprolol tartrate 50 mg tablet 50 mg PO BID 02/28/23 [History Confirmed 03/13/23] pentoxifylline 400 mg tablet,extended release 400 mg PO BID 02/28/23 [History Confirmed 03/13/23] pravastatin 20 mg tablet 20 mg PO QHS 02/28/23 [History Confirmed 03/13/23] gentamicin 0.1 % topical ointment 1 applic topical DAILY 1 week #15 grams 03/13/23 [Rx] Allergies ciprofloxacin [From Cipro] Allergy (Verified 02/28/23 08:21) Muscle Pain doxycycline Allergy (Verified 02/28/23 08:21) Unknown Reaction Sulfa (Sulfonamide Antibiotics) Allergy (Verified 02/28/23 08:21) Unknown Reaction sulfamethoxazole [From Bactrim] Allergy (Verified 02/28/23 08:21) Unknown Reaction trimethoprim [From Bactrim] Allergy (Verified 02/28/23 08:21) Unknown Reaction Wound/Ulcer Left Lateral Foot: Type: Venous Stasis Ulcer (w/inflammatory w/atrophie cynthia) Bed Appearance: Epithelial Tissue or Bridge and Yellow Percent of Wound Bed Granulated/Red: 0 Percent of Devitalized: 100 Length (cm): 0.2 Width (cm): 0.4 Depth (cm): 0.1 CM Sq: 0.080 Surrounding Tissue Appearance: Hyperpigmented Surrounding Tissue Temp: Warm Drainage Amount: Moderate Drainage Description: Serosanguineous Drainage Odor: No Odor Results Height: 6 ft Weight: 123.377 kg Body Mass Index: 36.8 Assessment/Plan Assessment/Plan (1) Ulcer of left foot associated with varicose veins: Code(s): I83.025 - Varicose veins of left lower extremity with ulcer other part of foot; L97.529 - Non-pressure chronic ulcer of other part of left foot with unspecifiedseverity Status: Chronic (2) Atrophic cynthia: Assessment/Problem Details: lle Code(s): L90.8 - Other atrophic disorders of skin Status: Chronic (3) Venous stasis of lower extremity: Assessment/Problem Details: lle Code(s): I87.8 - Other specified disorders of veins Status: Chronic (4) Obesity: Code(s): E66.9 - Obesity, unspecified Status: Chronic (5) Inflammation: Status: Chronic (6) CAD (coronary artery disease): Code(s): I25.10 - Atherosclerotic heart disease of [place] coronary artery without angina pectoris Status: Chronic (7) Hypothyroidism: Qualifiers: Hypothyroidism type: other Qualified Code(s): E03.8 - Other specified hypothyroidism Code(s): E03.9 - Hypothyroidism, unspecified Status: Chronic (8) Wound pain: Status: Chronic (9) Hemosiderin pigmentation of lower 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 veins: Assessment/Problem Details: lle Code(s): L81.8 - Other specified disorders of pigmentation; I83.899 - Varicose veins of unspecified lower extremity with other complications Status: Chronic Time spent with patient Time Spent With Patient (min): 30 Dictated By: Aura Johnson APRN DD/ 00 Signed By: <Electronically signed by SANDY Johnson> 03/13/23 [address] [facility] Work Phone: Progress note 02-28-2023 Note Date & Type Note Facility 02-28-2023 Progress note Note Date/Time February 28, 2023 8:53am [facility] [address] [place] [address] Wound Center Provider Note Signed Patient: Brittny Dutta MR#: [id number] : 1955 Acct:[id number] Age/Sex: 67 / M Copies to: MD Aura Roman APRN~ HPI Date of Visit Date of Visit: Date of Service: 02/28/2023 Time of Service: 08:41 Narrative HPI: 02/28/23 Jaylen is a 67 year old male presenting to [facility] wound care for an initial visit for eval and treatment of a left lateral foot area ulcer that fromhis history sounds like venous stasis as well as atrophie cynthia and inflammatory factors. He has dealt with ulcers off and on since the s. He already uses compression to both legs and understands the importance of elevation and compression for healing. We spoke in detail about the inflammatory component to his condition and how things such as probiotics, turmeric and omega 3 supplements can support the reduction of inflammation in the body- all of this was documented in his orders and provided to him. Jaylen will apply topical clobetasol to the area as well as continue his compression wraps and tubi client account specialist for the next 14 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 He will also contact [facility] and get back in with them as he said that he was due to return there in late 2018 or 2019 buthe had not been able to do so- we spoke about fixing the root cause and hence the veins need to be addressed. I see no signs of acute infection today. Subjective Pain Left Ankle: Pain Intensity: 0 Wound/Ulcer History When did wound start?: September 2022 Mode of Arrival/ Real Estate Administrative Assistant: Personal vehicle Lives with:: Significant Other Appetite Description: Within Normal Limits Who helps w/ dressing change?: Self Smoking Status: Former smoker [facility] Medical History (Updated 02/28/23 @ 08:45 by Aura Johnson APRN) Afib Atrophic cynthia CAD (coronary artery disease) Heart disease Hypothyroidism Surgical History (Updated 02/28/23 @ 08:38 by Moon Nolen RN) H/O thyroidectomy H/O vein stripping History of repair of ACL Family History (Updated 02/28/23 @ 08:31 by Moon Nolen RN) Brother Heart disease Social History Smoking Status: Former smoker Grafts History of Graft History of Graft?: No Exam Physical Exam Vital Signs: Temp Pulse Resp BP O2 Del Method 97.3 F L 65 18 125/83 Room Air 02/28/23 08:18 02/28/23 08:18 02/28/23 08:18 02/28/23 08:18 02/28/23 08:18 Const General: cooperative, healthy appearing, comfortable and no acute distress Nutritional Appearance: obese Orientation: alert, awake and oriented x3 Lower/Upper Extremity Exam Vascular Exam-Edema Left Lower Extremity: Edema Type: Non-Pitting Vascular Exam-Pulses Right Brachial: Pulse Assessment Method: NIBP Left Dorsalis Pedis: Pulse Assessment Method: Palpation Left Posterior Tibial: Pulse Assessment Method: Palpation Objective Meds/Allergies Home Medications acetaminophen 325 mg tablet 325 mg PO Q6H PRN Pain 02/28/23 [History Confirmed 02/28/23] apixaban 5 mg tablet (Eliquis) 5 mg PO BID 02/28/23 [History Confirmed 02/28/23] apple cider vinegar 300 mg tablet 300 mg PO DAILY 02/28/23 [History Confirmed 02/28/23] ascorbic acid (vitamin C) 500 mg tablet (Vitamin C) 500 mg PO BID 02/28/23 [History Confirmed 02/28/23] atorvastatin 20 mg tablet 20 mg PO QHS 02/28/23 [History Confirmed 02/28/23] cholecalciferol (vitamin D3) 125 mcg (5,000 unit) tablet (Vitamin D3) 125 mcg PODAILY 02/28/23 [History Confirmed 02/28/23] clobetasol 0.05 % topical ointment 1 applic topical DAILY 2 weeks #15 grams 02/28/23 [Rx] clopidogrel 75 mg tablet 75 mg PO DAILY 02/28/23 [History Confirmed 02/28/23] coenzyme Q10 400 mg capsule (Co Q-10) 400 mg PO DAILY 02/28/23 [History Confirmed 02/28/23] cyanocobalamin (vitamin B-12) 500 mcg tablet 500 mcg PO DAILY 02/28/23 [History Confirmed 02/28/23] levothyroxine 50 mcg tablet 50 mcg PO DAILY 02/28/23 [History Confirmed 02/28/23] losartan 50 mg tablet 50 mg PO DAILY 02/28/23 [History Confirmed 02/28/23] metoprolol tartrate 50 mg tablet 50 mg PO BID 02/28/23 [History Confirmed 02/28/23] pentoxifylline 400 mg tablet,extended release 400 mg PO BID 02/28/23 [History Confirmed 02/28/23] pravastatin 20 mg tablet 20 mg PO QHS 02/28/23 [History Confirmed 02/28/23] Allergies ciprofloxacin [From Cipro] Allergy (Verified 02/28/23 08:21) Muscle Pain doxycycline Allergy (Verified 02/28/23 08:21) Unknown Reaction Sulfa (Sulfonamide Antibiotics) Allergy (Verified 02/28/23 08:21) Unknown Reaction sulfamethoxazole [From Bactrim] Allergy (Verified 02/28/23 08:21) Unknown Reaction trimethoprim [From Bactrim] Allergy (Verified 02/28/23 08:21) Unknown Reaction Wound/Ulcer Left Lateral Foot: Type: Venous Stasis Ulcer (w/inflammatory w/atrophie cynthia) Bed Appearance: Epithelial Tissue or Bridge and Yellow Percent of Wound Bed Granulated/Red: 0 Percent of Devitalized: 100 Length (cm): 0.6 Width (cm): 1.1 Depth (cm): 0.1 CM Sq: 0.660 Surrounding Tissue Appearance: Hyperpigmented Surrounding Tissue Temp: Warm Drainage Amount: Moderate Drainage Description: Serosanguineous Drainage Odor: No Odor Results Height: 6 ft Weight: 123.377 kg Body Mass Index: 36.8 Assessment/Plan Assessment/Plan (1) Ulcer of left foot associated with varicose veins: Code(s): I83.025 - Varicose veins of left lower extremity with ulcer other part of foot; L97.529 - Non-pressure chronic ulcer of other part of left foot with unspecifiedseverity Status: Chronic (2) Atrophic cynthia: Assessment/Problem Details: lle Code(s): L90.8 - Other atrophic disorders of skin Status: Chronic (3) Venous stasis of lower extremity: Assessment/Problem Details: lle Code(s): I87.8 - Other specified disorders of veins Status: Chronic (4) Obesity: Code(s): E66.9 - Obesity, unspecified Status: Chronic (5) Inflammation: Status: Chronic (6) CAD (coronary artery disease): Code(s): I25.10 - Atherosclerotic heart disease of [place] coronary artery without angina pectoris Status: Chronic (7) Hypothyroidism: Qualifiers: Hypothyroidism type: other Qualified Code(s): E03.8 - Other specified hypothyroidism Code(s): E03.9 - Hypothyroidism, unspecified Status: Chronic (8) Wound pain: Status: Chronic (9) Hemosiderin pigmentation of lower 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 veins: Assessment/Problem Details: lle Code(s): L81.8 - Other specified disorders of pigmentation; I83.899 - Varicose veins of unspecified lower extremity with other complications Status: Chronic Time spent with patient Time Spent With Patient (min): 20 Dictated By: Aura Johnson APRN DD/ 0841 Signed By: <Electronically signed by SANDY Johnson> 02/28/23 [address] [facility] Work Phone: Progress note 11-23-2022 Note Date & Type Note Facility 11-23-2022 Note [facility] Cardiology Clinic Note Chief Complaint: Patient here for 1 year follow up afib. CAD, hyperlipidemia, and CHF. He will have routine labs for PCP soon. Has SOB when he wakes up from naps if he doesn't use his CPAP. He does go to the gym and can breathe ok during exercise. Stairs are a challenge for him he says. Says he usually forgets his evening dose of Eliquis, as he was recently switched from once a day Xarelto due to sample availability. HPI: Mr. Dutta is doing well from a cardiac standpoint. He denies significant chest pain, his shortness of breath is stable. He has no orthopnea or paroxysmal external dyspnea. His main issues relate to venous insufficiency, skin ulcerations and atrophie cynthia. He is seeing a vascular specialist and undergoing sclerotherapy. He was started on pentoxifylline and wears compression stockings. He has no significant claudication. He has no ulcers at the tips of the toes or between the toes. Investigations: Medications: Plavix 75 mg, Xarelto 20 mg, losartan 50 mg, metoprolol tartrate 1/2 tablets twice daily, pentoxifylline and pravastatin CTA abdominal aorta and runoffs 12/25/2020: Moderate diffuse atherosclerosis with short segment stenosis in the distal bilateral popliteal arteries. Segmental leg pressures and ankle-brachial indices: Normal arterial evaluation of the right lower extremity without significant hemodynamic impairment at rest. Significant left outflow tibioperoneal arterial disease with moderate hemodynamic impairment of the left lower extremity at rest. Echocardiogram 10/23/2020: Global left ventricular systolic function is normal; ejection fraction is 55 to 60%. The right atrium is mildly dilated. The right ventricle is normal in size and systolic function. No significant valvular abnormalities. UPDATE 11/23/2022 Doing very well; exercises multiple times a week. No exertional symptoms. No blood in the urine or stools. 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 Respiratory: Positive for shortness of breath. Musculoskeletal: Positive for back pain, muscle cramps and myalgias. All other systems reviewed and are negative. Past Medical History He has no past medical history on file. Surgical History He has no past surgical history on file. Social History He has no history on file for tobacco use, alcohol use, and drug use. Family History No family history on file. Allergies Patient has no allergy information on record. Medications Current Outpatient Medications: clopidogrel (Plavix) 75 mg tablet, Take 1 tablet (75 mg) by mouth in the morning., Disp: 90 tablet, Rfl: 2 losartan (Cozaar) 50 mg tablet, Take 1 tablet (50 mg) by mouth in the morning., Disp: 90 tablet, Rfl: 3 metoprolol tartrate (Lopressor) 50 mg tablet, Take 1.5 tablets in the morning, and take 1.5 tablets in the evening, Disp: 270 tablet, Rfl: 2 pravastatin (Pravachol) 20 mg tablet, Take 1 tablet (20 mg) by mouth at bedtime., Disp: 90 tablet, Rfl: 1 Last Recorded Vitals Patient Vitals for the past 24 hrs: BP Pulse SpO2 Height Weight 11/23/22 1159 105/60 61 95 % 1.829 m (6') 126 kg (278 lb) Physical Examination: GENERAL: alert and oriented x3, well developed, in no acute distress. HEAD: atraumatic, normocephalic. EYES: DYLAN, EOMI. NECK: trachea midline, no JVD present, no carotid bruits present. CARDIAC: S1, S2 present. RRR. No murmur, rubs, or gallops. RESPIRATORY: CTAB, no increased effort of breathing, no rales, rhonchi, or wheezing. ABDOMEN: soft, nontender, nondistended. EXTREMITIES: no lower extremity edema, peripheral pulses are 2+ bilaterally. No rash/skin discoloration present. NEURO: strength/sensation equal and symmetric in bilateral upper and lower extremities. PSYCH: appropriate mood, affect, and judgement. Investigations Investigations: CT angiogram abdominal aorta 12/25/2020 Impression: Moderate diffuse atherosclerosis with short segment stenosis distal bilateral popliteal arteries as detailed above Moderate bilateral varicose veins left greater than right Echocardiogram 10/23/2020: Global left ventricular systolic function is normal; ejection fraction is 55 to 60%. The right atrium is mildly dilated. The right ventricle is normal in size and systolic function. No significant valvular abnormalities. Assessment: coronary atherosclerosis essential hypertension Controlled. continue with current medications Provided high blood pressure: care instructions Provided learning about high blood pressure hyperlipidemia On statin therapy. Provided high cholesterol: care instructions atrial fibrillation PAF - likely ETOH related He is drinking less (from a case (24) of beer per week, now 6 a week) CHADS2 of 1 (HTN), CHADS2- (more content not included)... [facility] Clinical Note 06-19-2021 Note Date & Type Note Facility 06-19-2021 Note Education Materials Hypertension, Adult High blood pressure (hypertension) is when the force of blood pumping through the arteries is too strong. The arteries are the blood vessels that carry blood from the heart throughout the body. Hypertension forces the heart to work harder to pump blood and may cause arteries to become narrow or stiff. Untreated or uncontrolled hypertension can cause a heart attack, heart failure, a stroke, kidney disease, and other problems. A blood pressure reading consists of a higher number over a lower number. Ideally, your blood pressure should be below 120/80. The first ( top ) number is called the systolic pressure. It is a measure of the pressure in your arteries as your heart beats. The second ( bottom ) number is called the diastolic pressure. It is a measure of the pressure in your arteries as the heart relaxes. What are the causes? The exact cause of this condition is not known. There are some conditions that result in or are related to high blood pressure. What increases the risk? Some risk factors for high blood pressure are under your control. The following factors may make you more likely to develop this condition: ? Smoking. ? Having type 2 diabetes mellitus, high cholesterol, or both. ? Not getting enough exercise or physical activity. ? Being overweight. ? Having too much fat, sugar, calories, or salt (sodium) in your diet. ? Drinking too much alcohol. Some risk factors for high blood pressure may be difficult or impossible to change. Some of these factors include: ? Having chronic kidney disease. ? Having a family history of high blood pressure. ? Age. Risk increases with age. ? Race. You may be at higher risk if you are . ? Gender. Men are at higher risk than women before age 45. After age 65, women are at higher risk than men. ? Having obstructive sleep apnea. ? Stress. What are the signs or symptoms? High blood pressure may not cause symptoms. Very high blood pressure (hypertensive crisis) may cause: ? Headache. ? Anxiety. ? Shortness of breath. ? Nosebleed. ? Nausea and vomiting. ? Vision changes. ? Severe chest pain. ? Seizures. How is this diagnosed? This condition is diagnosed by measuring your blood pressure while you are seated, with your arm resting on a flat surface, your legs uncrossed, and your feet flat on the floor. The cuff of the blood pressure monitor will be placed directly against the skin of your upper arm at the level of your heart. It should be measured at least twice using the same arm. Certain conditions can cause a difference in blood pressure between your right and left arms. Certain factors can cause blood pressure readings to be lower or higher than normal for a short period of time: ? When your blood pressure is higher when you are in a health care provider's office than when you are at home, this is called white coat hypertension. Most people with this condition do not need medicines. ? When your blood pressure is higher at home than when you are in a health care provider's office, this is called masked hypertension. Most people with this condition may need medicines to control blood pressure. If you have a high blood pressure reading during one visit or you have normal blood pressure with other risk factors, you may be asked to: ? Return on a different day to have your blood pressure checked again. ? Monitor your blood pressure at home for 1 week or longer. If you are diagnosed with hypertension, you may have other blood or imaging tests to help your health care provider understand your overall risk for other conditions. How is this treated? This condition is treated by making healthy lifestyle changes, such as eating healthy foods, exercising more, and reducing your alcohol intake. Your health care provider may prescribe medicine if lifestyle changes are not enough to get your blood pressure under control, and if: ? Your systolic blood pressure is above 130. ? Your diastolic blood pressure is above 80. Your personal target blood pressure may vary depending on your medical conditions, your age, and other factors. Follow these instructions at home: Eating and drinking ? Eat a diet that is high in fiber and potassium, and low in sodium, added sugar, and fat. An example eating plan is called the DASH (Dietary Approaches to Stop Hypertension) diet. To eat this way: ? Eat plenty of fresh fruits and vegetables. Try to fill one half of your plate at each meal with fruits and vegetables. ? Eat whole grains, such as whole-wheat pasta, brown rice, or whole-grain bread. Fill about one fourth of your plate with whole grains. ? Eat or drink low-fat dairy products, such as skim milk or low-fat yogurt. ? Avoid fatty cuts of meat, processed or cured meats, and poultry with skin. Fill about one fourth of your plate with lean proteins, such as fish, chicken without skin, beans, eggs, or tofu. ? (more content not included)... [facility] Evaluation note Note Date & Type Note Facility Evaluation note Diagnosis Onset Date Atrophic cynthia chronic CAD (coronary artery disease) chronic Hemosiderin pigmentation of lower 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 veins chronic Hypothyroidism chronic Inflammation chronic Obesity chronic Venous stasis of lower extremity chronic Ulcer of left foot associate d with varicose veins resolved Wound pain resolved [facility] Work Phone: Summary Purpose Family History No Family History Records Found Relationship Condition Age at Onset Recorded Date/T ssuhil brother Heart disease Unknown Advance Directives No Advanced Directives Records Found Advance Directive Response Recorded Date/ Time Advance Directives No February 21 11:22am Chief Complaint and Reason for Visit Chief Complaint Open Wound Reason for Visit Atrophic cynthia CAD (coronary artery disease) Hemosiderin pigmentation of lower 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 veins Hypothyroidism Inflammation Obesity Venous stasis of lower extremity Ulcer of left foot associated with varicose veins Wound pain Additional Source Comments (unrecognized sect ion and content) No Status Records FoundNo Status Records FoundNo Status Records FoundNo Status Records FoundNo Status Records Found INFORMATION SOURCE (unrecogn ized section and content) DATE CREATED AUTHOR 03/11/2020 [facility] DATE CREATED AUTHOR AUTHOR'S ORGANIZ ATION 06/29/2021 [facility] DATE CREATED AUTHOR AUTHOR'S ORGANIZ ATION 08/18/2021 [facility] DATE CREATED AUTHOR AUTHOR'S ORGANIZ ATION 11/24/2022 [facility] DATE CREATED AUTHOR AUTHOR'S ORGANIZ ATION 05/20/2023 [facility] Care Teams (unrecognized sec tion and content) Team Status: Active Member Role Status Dates Jose Castellon MD Primary Care Provider Active Team Status: Inactive Member Role Status Dates Aura Johnson APRN Attending Provider Active Jose Castellon MD Primary Care Provider Active Goals (unrecognized section and content) Goals may be documented in a n alternate section FOR RECORDS PERTAINING TO PATIENTS WHO ARE OR HAVE BEEN ENROLLED IN A CHEMICAL DEPENDENCY/SUBSTANCEABUSE PROGRAM, SOME INFORMATION MAY BE OMITTED. This clinical summary was aggregated from multiple sources. Caution should be exercised in using it in the provision of clinical care. This summary normalizes information from multiple sources, and as a consequence, information in this document may materially change the coding, format and clinical context of patient data. In addition, data may be omitted in some cases. CLINICAL DECISIONS SHOULD BE BASED ON THE PRIMARY CLINICAL RECORDS. [employer] provides no warranty or guarantee of the accuracy or completeness of information in this document.
== END 2023-06-26 10:36 | disposition home or self-care (01) ==
LOC: VC 10:35
PROVIDERS: PCP Radiology Diagnostic Radiology; Visit Provider Radiology Diagnostic Radiology
DX: I80.01 Phlebitis and thrombophlebitis of superficial vessels of right lower extremity (principal)
CPT/HCPCS: 93971; G0463

== ENCOUNTER 2023-07-14 09:43 | Outpatient (OUT) | payer MEDICARE, OTHER, SELFPAY ==
--- NOTE | 2023-07-14 09:54 | VEIN_ITS ---
[address] [address] Patient Name: BRITTNY DUTTA MRN: [id number] date: 1955 Sex: M Assigned Patient Location: Current Patient Location: Accession/Order Number: [id number] Exam Date: 07/14/2023 10:00 Report Date: 07/14/2023 14:23 At the request of: SANTI LIU Procedure: VC INJ Foam Sclerosant WUS CANDLE EXTRUSION MACHINE OPERATOR PROCEDURE: VC INJ Foam Sclerosant WUS CANDLE EXTRUSION MACHINE OPERATOR HISTORY: Pain due to varicose veins of bilateral legs I83.813 Pre-operative Diagnosis: CEAP class C5 venous insufficiency with pain, tenderness, edema and incompetent branch saphenous vein(s), chronic venous insufficiency left leg secondary to venous incompetence Post-operative Diagnosis: CEAP class C5 venous insufficiency with pain, tenderness, edema and incompetent branch saphenous vein(s), chronic venous insufficiency left leg secondary to venous incompetence Procedure Performed: 1. Ultrasound-guided microfoam chemical ablation with Varithenaregistered 2. Intraoperative ultrasound guidance Physician: Jani Vaughn M.D. Anesthesia: None Indications for Procedure: 68 year old male. Symptoms including lower extremity pain, swelling, skin changes, dilated bulging veins for many years despite conservative medical therapy including medical compression stockings, exercise and analgesics. Prior procedures include endovenous laser ablation and microfoam chemical ablation. Multiple incompetent varicosities of the left leg. Duplex scan showed reflux and enlarged diameters up to 5 mm. The patient underwent informed consent including management options where the complications of infection, bleeding, pain, and skin injury were discussed. Particular attention was spent discussing thrombus extension and deep vein thrombosis as well as the possibility of pulmonary embolus and treatment with oral or injectable blood thinners. Procedure: The patient walked to the procedure room. All applicable staff donned appropriate apparel. A procedure timeout was performed to confirm correct patient, correct extremity, correct procedure, and correct room set-up including presence of all applicable supplies, devices, and drugs. A duplex ultrasound, performed by myself confirmed the location and incompetence of branch saphenous varicosities and their course was marked on the skin together with the dilated tributaries. The extent of treatment of the vein and the associated varicosities was determined through ultrasound mapping. The skin was prepped and then punctured with a butterfly needle and advanced under ultrasound guidance. The Varithenaregistered canister was activated and the canister was primed and purged as required in the instructions for use. Varithenaregistered was drawn into a sterile syringe. Varithenaregistered was slowly administered at 0.5-1.0 cc/second with close observation by ultrasound of its course in the vessels. Total volume utilized was: 15 mL (2 mL into a 3 mm varicosity medial to the left ankle; 13 mL into a 5 mm varicosity of the mid anterior lower left leg). Following administration of Varithenaregistered the leg was elevated and the patient was asked to repeatedly dorsiflex the ankle to limit flow of Varithenaregistered into perforating veins. Once appropriate spasm had been confirmed in the treated veins, the vascular catheter was removed from the leg and light pressure was applied over the puncture site for hemostasis. The common femoral and deep superficial veins were then evaluated for flow and compressibility prior to dressing placement. The lower extremity was kept elevated at 45 degrees above the horizontal and cording material was applied over the saphenous segments and tributaries to allow for eccentric compression over the target vessels including the targeted saphenous vein(s). A multilayer dressing was applied consisting of foam pads, coban and thigh-high 20-30 mm Hg compression elastic support hose were placed on the patient. The leg was lowered only after compression had been applied and the patient was immediately ambulatory. The patient ambulated 10 minutes under supervision and was without apparent concerns at time of release. Post-care instructions include advising patient to keep post-treatment bandages in place and dry for 48 hours, avoid extended periods of inactivity, avoid heavy exercise for one week, wear compression stockings on the treated leg continuously for two weeks, to walk daily for 10 minutes over the next month. The patient was instructed to take an anti-inflammatory medicine as needed and to follow up for color duplex scan of the Saphenous veins, the treated branch saphenous varicosities, the adjacent deep veins, and additional treatment within 7 days. PERSONNEL: Se Figueroa RN Electronically authenticated by: JANI VAUGHN Date: 07/14/2023 14:23
== END 2023-07-14 09:44 | disposition home or self-care (01) ==
LOC: VC 09:51
PROVIDERS: PCP Radiology Diagnostic Radiology; Visit Provider Radiology Diagnostic Radiology
DX: I83.813 Varicose veins of bilateral lower extremities with pain (principal)
CPT/HCPCS: 36466

== ENCOUNTER 2023-07-20 10:53 | Outpatient (OUT) | payer MEDICARE, OTHER, SELFPAY ==
--- NOTE | 2023-07-20 10:54 | VEIN_ITS ---
Patient Name: BRITTNY DUTTA MR#: [id number] : 1955 Exam Date: 07/20/2023 Ordering Doctor: DR MAJOR SOL M.D. RADIOLOGY REPORT PROCEDURE: [facility] EST LMTD VEIN CENTER - OFFICE VISIT FOLLOW UP COMPARISON: [facility] EST LMTD, 06/26/2023. [facility] EST LMTD, 06/12/2023. PROGRESS NOTES: The patient reports some mild swelling of his ankle and foot following intravenous laser ablation. The patient otherwise had minimal pain. The patient has worn his compression stocking. The patient has exercised a small amount and was encouraged to increase his exercise going forward Physical exam demonstrates some mild subcutaneous edema of the left ankle and foot possibly related to the procedures, I suspect that he has some mild thrombophlebitis. Multiple thrombosed varicose veins can be palpated. No areas of active ulceration. Review of the ultrasound performed the same day demonstrates occlusive thrombus extending throughout the treated left leg varicose veins. Residual incompetent patent varicose veins measuring up to 5.5 mm are observed. The patient expressed a desire to proceed with treatment of left leg incompetent patent varicose veins with micro foam chemical ablation. VEIN/[facility] EST LMTD IMPRESSION: 1. Successful ablation of left leg incompetent varicose veins 2. Persistent bilateral incompetent patent varicose veins 3. Left leg thrombophlebitis PLAN: Micro foam chemical ablation left leg incompetent varicose veins Increase walking to 10-15 minutes, 3-4 times per day Wear compression walking as well as leg elevation above the level of the heart for swelling Oral analgesics, ibuprofen if necessary Nurse notes, history and physical were reviewed and confirmed, see attached forms. The nurse was present throughout the physical exam and consultation Dictated by: Major Sol MD on 07/20/2023 at 11:29 Approved by: Major Sol MD on 07/20/2023 at 11:31
--- NOTE | 2023-07-20 10:55 | VEIN_ITS ---
Patient Name: BRITTNY DUTTA MR#: [id number] : 1955 Exam Date: 07/20/2023 Ordering Doctor: DR MAJOR SOL M.D. RADIOLOGY REPORT PROCEDURE: VC EXT VENOUS LT LIMITED COMPARISON: [facility] EXT VENOUS LT LIMITED, 05/23/2023. INDICATIONS: I80.02 Phlebitis of superficial veins of lt lower extremity TECHNIQUE: Lower extremity singh scale and Duplex Doppler evaluation of the deep venous system from the inguinal ligament through the calf veins. FINDINGS: REGION: Left lower extremity. THROMBI: Negative for DVT. Varithena induced thrombus visualized at medial knee and mid/ant calf. COMPRESSIBILITY: Non-compressible segments corresponding to thrombus FLOW: Areas of absent flow corresponding to thrombus OTHER: Multiple varicose veins remain. Largest measures 5.5mm with 1.3s reflux. CONCLUSION: Post ablation occlusion of treated left leg varicose veins with multiple residual patent varicose veins measuring up to 5.5 mm Dictated by: Major Sol MD on 07/20/2023 at 11:12 Approved by: Major Sol MD on 07/20/2023 at 11:13
== END 2023-07-20 10:54 | disposition home or self-care (01) ==
LOC: VC 10:53
PROVIDERS: PCP Radiology Diagnostic Radiology; Visit Provider Radiology Diagnostic Radiology
DX: I80.02 Phlebitis and thrombophlebitis of superficial vessels of left lower extremity (principal)
CPT/HCPCS: 93971; G0463

== ENCOUNTER 2023-07-25 10:48 | Outpatient (OUT) | payer MEDICARE, OTHER, SELFPAY ==
--- NOTE | 2023-07-25 10:52 | VEIN_ITS ---
[address] [address] Patient Name: BRITTNY DUTTA MRN: [id number] date: 1955 Sex: M Assigned Patient Location: Current Patient Location: Accession/Order Number: [id number] Exam Date: 07/25/2023 10:55 Report Date: 07/25/2023 12:02 At the request of: SANTI LIU Procedure: VC INJ Foam Sclerosant WUS MEASURER MACHINE PROCEDURE: VC INJ Foam Sclerosant WUS MEASURER MACHINE COMPARISON: None. HISTORY: Pain due to varicose veins of bilateral legs I83.813 Pre-operative Diagnosis: CEAP class C5 venous insufficiency with pain, tenderness, edema and incompetent left saphenous and varicose vein(s), chronic venous insufficiency left leg secondary to venous incompetence Post-operative Diagnosis: CEAP class C5 venous insufficiency with pain, tenderness, edema and incompetent left saphenous and varicose vein(s), chronic venous insufficiency left leg secondary to venous incompetence Procedure Performed: 1. Ultrasound-guided microfoam chemical ablation with Varithenaregistered 2. Intraoperative ultrasound guidance Anesthesia: None Indications for Procedure: 68-year-old male who presents with a long history of lower extremity pain and swelling, needing and venous stasis ulcerations. The patient failed conservative medical therapy including medical compression stockings, exercise and analgesics. Prior procedures include endovenous laser ablation and Microfoam chemical ablation. Multiple incompetent varicosities of the left leg. Duplex scan showed reflux and enlarged diameters up to 6 mm. The patient underwent informed consent including management options where the complications of infection, bleeding, pain, and skin injury were discussed. Particular attention was spent discussing thrombus extension and deep vein thrombosis as well as the possibility of pulmonary embolus and treatment with oral or injectable blood thinners. Procedure: The patient walked to the procedure room. All applicable staff donned appropriate apparel. A procedure timeout was performed to confirm correct patient, correct extremity, correct procedure, and correct room set-up including presence of all applicable supplies, devices, and drugs. A duplex ultrasound, performed by myself confirmed the location and incompetence of branch saphenous varicosities and their course was marked on the skin together with the dilated tributaries. The extent of treatment of the vein and the associated varicosities was determined through ultrasound mapping. The skin was prepped and then punctured with a butterfly needle and advanced under ultrasound guidance. The Varithenaregistered canister was activated and the canister was primed and purged as required in the instructions for use. Varithenaregistered was drawn into a sterile syringe. The following injections were made: 7 cc injected into a 5 mm varicose vein left proximal anterior lower leg 8 cc injected into a 6 mm varicose vein left lateral distal thigh Varithenaregistered was slowly administered at 0.5-1.0 cc/second with close observation by ultrasound of its course in the vessels. Total volume utilized was: 15cc. Following administration of Varithenaregistered the leg was elevated and the patient was asked to repeatedly dorsiflex the ankle to limit flow of Varithenaregistered into perforating veins. Once appropriate spasm had been confirmed in the treated veins, the vascular catheter was removed from the leg and light pressure was applied over the puncture site for hemostasis. The common femoral and deep superficial veins were then evaluated for flow and compressibility prior to dressing placement. The lower extremity was kept elevated at 45 degrees above the horizontal and cording material was applied over the saphenous segments and tributaries to allow for eccentric compression over the target vessels including the targeted saphenous vein(s). A multilayer dressing was applied consisting of foam pads, coban and thigh-high 20-30 mm Hg compression elastic support hose were placed on the patient. The leg was lowered only after compression had been applied and the patient was immediately ambulatory. The patient ambulated 10 minutes under supervision and was without apparent concerns at time of release. Post-care instructions include advising patient to keep post-treatment bandages in place and dry for 48 hours, avoid extended periods of inactivity, avoid heavy exercise for one week, wear compression stockings on the treated leg continuously for two weeks, to walk daily for 10 minutes over the next month. The patient was instructed to take an anti-inflammatory medicine as needed and to follow up for color duplex scan of the Saphenous veins, the treated branch saphenous varicosities, the adjacent deep veins, and additional treatment within 7 days. PERSONNEL: Se Figueroa RN Electronically authenticated by: SANTI LIU Date: 07/25/2023 12:02
== END 2023-07-25 10:49 | disposition home or self-care (01) ==
LOC: VC 10:49
PROVIDERS: PCP Radiology Diagnostic Radiology; Visit Provider Radiology Diagnostic Radiology
DX: I83.813 Varicose veins of bilateral lower extremities with pain (principal)
CPT/HCPCS: 36466

== ENCOUNTER 2023-07-31 11:03 | Outpatient (OUT) | payer MEDICARE, OTHER, SELFPAY ==
--- NOTE | 2023-07-31 11:04 | VEIN_ITS ---
Patient Name: BRITTNY DUTTA MR#: [id number] : 1955 Exam Date: 07/31/2023 Ordering Doctor: DR MAJOR SOL M.D. RADIOLOGY REPORT PROCEDURE: VC EXT VENOUS LT LIMITED COMPARISON: VC EXT VENOUS LT LIMITED, 07/20/2023. VC EXT VENOUS LT LIMITED, 05/23/2023. INDICATIONS: I80.02 Phlebitis of superficial veins of lt lower extremity TECHNIQUE: Lower extremity singh scale and Duplex Doppler evaluation of the deep venous system from the inguinal ligament through the calf veins. FINDINGS: REGION: Left lower extremity. THROMBI: Negative for DVT. Varithena induced thrombus visualized at mid/ant calf and lat/dist thigh. COMPRESSIBILITY: Non-compressible segments corresponding to thrombus FLOW: Areas of absent flow corresponding to thrombus OTHER: Multiple patent varicose veins remain. The largest is at dist/med thigh and measures 5.1mm with 1.2s reflux. CONCLUSION: Post ablation occlusion of treated left leg varicose veins with residual incompetent patent varicose veins measuring up to 5.1 mm in diameter Dictated by: Major Sol MD on 07/31/2023 at 11:38 Approved by: Major Sol MD on 07/31/2023 at 11:38
--- NOTE | 2023-07-31 11:04 | VEIN_ITS ---
Patient Name: BRITTNY DUTTA MR#: [id number] : 1955 Exam Date: 07/31/2023 Ordering Doctor: DR MAJOR SOL M.D. RADIOLOGY REPORT PROCEDURE: FACILITY EST [facility] - OFFICE VISIT FOLLOW UP COMPARISON: [facility] EST LMT[facility], 07/20/2023. FACILITY EST LMT[facility], 06/26/2023. PROGRESS NOTES: The patient reports no significant problems following micro foam chemical ablation of left leg incompetent varicose veins. The patient did not require oral analgesics. The patient has worn his compression stocking. The patient has tried exercise to the best of his ability Physical exam demonstrates multiple thrombosed varicose veins. Some residual patent varicose veins are observed. Marked reduction in swelling and erythema from his initial presenting symptom period no new erythema or warmth to suggest cellulitis or thrombophlebitis. No active ulceration. Review of the ultrasound performed the same day demonstrates occlusive thrombus extending throughout the treated left leg varicose veins. No deep vein thrombus. Residual varicose veins measuring up to 4.3 mm are observed. The patient expressed a desire to proceed with treatment of left leg varicose veins with micro foam chemical ablation. VEIN/[facility] EST LMTD IMPRESSION: 1. Successful ablation of incompetent left leg varicose veins 2. Persistent incompetent left leg varicose veins. PLAN: Micro foam chemical ablation left leg Nurse notes, history and physical were reviewed and confirmed, see attached forms. The nurse was present throughout the physical exam and consultation Dictated by: Major Sol MD on 07/31/2023 at 12:12 Approved by: Major Sol MD on 07/31/2023 at 12:13
== END 2023-07-31 11:04 | disposition home or self-care (01) ==
LOC: VC 11:03
PROVIDERS: PCP Radiology Diagnostic Radiology; Visit Provider Radiology Diagnostic Radiology
DX: I80.02 Phlebitis and thrombophlebitis of superficial vessels of left lower extremity (principal)
CPT/HCPCS: 93971; G0463

== ENCOUNTER 2023-08-22 09:55 | Outpatient (OUT) | payer MEDICARE, OTHER, SELFPAY ==
--- NOTE | 2023-08-22 10:01 | VEIN_ITS ---
The [address] [address] Patient Name: BRITTNY DUTTA MRN: [id number] date: 1955 Sex: M Assigned Patient Location: Current Patient Location: Accession/Order Number: [id number] Exam Date: 08/22/2023 10:00 Report Date: 08/22/2023 11:55 At the request of: SANTI LIU Procedure: VC INJ Foam Sclerosant WUS DIRECTOR OF DIVERSITY AND INCLUSION PROCEDURE: VC INJ Foam Sclerosant WUS DIRECTOR OF DIVERSITY AND INCLUSION COMPARISON: None. HISTORY: Pain due to varicose veins of bilateral legs I83.813 Pre-operative Diagnosis: CEAP class C5 venous insufficiency with pain, tenderness, edema and incompetent left saphenous and varicose vein(s), chronic venous insufficiency left leg secondary to venous incompetence Post-operative Diagnosis: CEAP class C5 venous insufficiency with pain, tenderness, edema and incompetent left saphenous and varicose vein(s), chronic venous insufficiency left leg secondary to venous incompetence Procedure Performed: 1. Ultrasound-guided microfoam chemical ablation with Varithenaregistered 2. Intraoperative ultrasound guidance Anesthesia: None Indications for Procedure: 68-year-old male who presents with a long history of lower extremity pain and swelling resulting in venous stasis ulcerations. The patient failed conservative medical therapy including medical compression stockings, exercise and analgesics. Prior procedures include endovenous laser ablation and Microfoam chemical ablation. Multiple incompetent varicosities of the left leg. Duplex scan showed reflux and enlarged diameters up to 5 mm. The patient underwent informed consent including management options where the complications of infection, bleeding, pain, and skin injury were discussed. Particular attention was spent discussing thrombus extension and deep vein thrombosis as well as the possibility of pulmonary embolus and treatment with oral or injectable blood thinners. Procedure: The patient walked to the procedure room. All applicable staff donned appropriate apparel. A procedure timeout was performed to confirm correct patient, correct extremity, correct procedure, and correct room set-up including presence of all applicable supplies, devices, and drugs. A duplex ultrasound, performed by myself confirmed the location and incompetence of branch saphenous varicosities and their course was marked on the skin together with the dilated tributaries. The extent of treatment of the vein and the associated varicosities was determined through ultrasound mapping. The skin was prepped and then punctured with a butterfly needle and advanced under ultrasound guidance. The Varithenaregistered canister was activated and the canister was primed and purged as required in the instructions for use. Varithenaregistered was drawn into a sterile syringe. The following injections were made: 5 cc injected into the distal great saphenous vein which remains patent measuring 4 mm in the medial ankle 2 cc injected into a 4 mm varicose vein mid left anterior lower leg 8 cc injected into a 4 mm varicose vein distal medial thigh Varithenaregistered was slowly administered at 0.5-1.0 cc/second with close observation by ultrasound of its course in the vessels. Total volume utilized was: 15cc. Following administration of Varithenaregistered the leg was elevated and the patient was asked to repeatedly dorsiflex the ankle to limit flow of Varithenaregistered into perforating veins. Once appropriate spasm had been confirmed in the treated veins, the vascular catheter was removed from the leg and light pressure was applied over the puncture site for hemostasis. The common femoral and deep superficial veins were then evaluated for flow and compressibility prior to dressing placement. The lower extremity was kept elevated at 45 degrees above the horizontal and cording material was applied over the saphenous segments and tributaries to allow for eccentric compression over the target vessels including the targeted saphenous vein(s). A multilayer dressing was applied consisting of foam pads, coban and thigh-high 20-30 mm Hg compression elastic support hose were placed on the patient. The leg was lowered only after compression had been applied and the patient was immediately ambulatory. The patient ambulated 10 minutes under supervision and was without apparent concerns at time of release. Post-care instructions include advising patient to keep post-treatment bandages in place and dry for 48 hours, avoid extended periods of inactivity, avoid heavy exercise for one week, wear compression stockings on the treated leg continuously for two weeks, to walk daily for 10 minutes over the next month. The patient was instructed to take an anti-inflammatory medicine as needed and to follow up for color duplex scan of the Saphenous veins, the treated branch saphenous varicosities, the adjacent deep veins, and additional treatment within 7 days. PERSONNEL: Se Figueroa RN, Shanna Deutsch Electronically authenticated by: SANTI LIU Date: 08/22/2023 11:55
--- OUTSIDE RECORDS SUMMARY | 2023-08-22 10:03 | XMS_ITS | CCD ---
Author Name Unknown Address [address] [facility] [address] [facility] [address] [place] [address] Organization [facility] Care Team Providers Care Lamination Inspector Name Role Phone ELTAHAWY, EHAB A Admitting Unavailable ELTAHAWY, EHAB A Attending Unavailable SHARI SHEPARD Primary Care Unavailable SELF, REFERRED Referring Unavailable RONNY, BRISA Attending Unavailable RONNY, BRISA Admitting Unavailable RONNY, BRISA Consulting Unavailable MISC, DR LUCAS Primary Care Unavailable WEST, DR SANTI Fritz Consulting Unavailable VIVIANA, JUDI Primary Care Unavailable WEST, DR SANTI [...] ROSS, JUDI Primary Care Unavailable PAY, DR MART Attending Unavailable DAGMAR POST Consulting Unavailable PAY, [...] Primary Care Unavailable DERRICK DERAS Attending Unavailable DEONANDERDERRICK Admitting Unavailable HIGHLANDERDERRICK Admitting Unavailable HIGHLANDER, DERRICK Attending Unavailable ROSS, JUDI Primary Care Unavailable [facility] LUCAS Primary Care Unavailable DERRICK DERAS Attending Unavailable DERRICK DERAS Admitting Unavailable [facility] Care Unavailable BERT THOMAS Admitting Unavailabl e CLODALTONERTYBERT Attending Unavailabl e CLOBERT ORONA Attending Unavailabl e CLOBERT ORONA D Admitting Unavailabl e [facility] Primary Care Unavailable MESQUITE, DR SANTI Fritz Consulting Unavailable ELTAHAWY, DR SIFUENTES Attending Unavailable ELTAHAWY, DR SIFUENTES Admitting Unavailable MISC, DR LUCAS Primary Care Unavailable ELTAHAWY, DR SIFUENTES Consulting Unavailable ELTAHAWY, DR SIFUENTES Consulting Unavailable ELTAHAWY, DR SIFUENTES Attending Unavailable MISC, DR LUCAS Primary Care Unavailable ELTAHAWY, DR SIFUENTES Admitting Unavailable [facility] Care Unavailable SEJAL, DAGMAR FALK Consulting Unavailable REINECK, DR SUZY Valenzuela Attending Unavailabl e REINECK, DR SUZY Valenzuela Admitting Unavailabl e [facility] Consulting Unavailable RONNY, BRISA Admitting Unavailable RONNY BRISA Consulting Unavailable RONNYDESTINIBRISA Attending Unavailable MISC, DR LUCAS Primary Care Unavailable ELTAHAWY, SOM Attending Unavailable SANDY Johnson Attending Provider [phone] MD Jose Castellon Primary Care Provider [phone] Aura Johnson Attending Unavailable Aura Johnson Admitting Unavailable Jose Castellon Primary Care Unavailable Allergies Allergy Classification Reported Allergen(s) Allergy Type Date of Onset Reaction(s) Facility (2 sources) black walnut pollen extract; Translations: [MVUULJP-GOK-IYR REDUCTASE INHIBITORS] Drug Allergy 0 [facility] Repository (3 sources) Ciprofloxacin; Translations: [CIPROFLOXACIN] Drug Allergy 9 Muscle Pain [facility] Repository (4 sources) Doxycycline; Translations: [DOXYCYCLINE] Drug Allergy 6 Unknown Reaction [facility] Repository (2 sources) Sulfamethoxazole / Trimethoprim Drug Allergy 6 [facility] Repository (4 sources) Sulfonamides (Antibiotic); Translations: [SULFA (SULFONAMIDE ANTIBIOTICS)] Drug allergy (disorder) 6 Unknown Reaction [facility] Repository (1 source) Ciprofloxacin Drug Allergy 6 [facility] [place] [facility] Repository (1 source) atorvastatin; Translations: [ATORVASTATIN] Drug Allergy 4 [facility] Repository (1 source) Sulfamethoxazole / Trimethoprim; Translations: [SULFAMETHOXAZOLE-TR IMETHOPRIM] Drug Allergy 2 [facility] Repository (2 sources) Sulfamethoxazole; Translations: [sulfamethoxazole] Drug Allergy 3 Unknown Reaction [facility] (2 sources) Trimethoprim; Translations: [trimethoprim] Drug Allergy 3 Unknown Reaction [facility] (1 source) Ciprofloxacin Drug Allergy 3 [facility] Repository (1 source) Doxycycline Drug Allergy 3 [facility] Repository (1 source) Sulfonamides (Antibiotic) Drug allergy (disorder) 3 [facility] Repository Medications Current Medications Medication Drug [...] release oral tablet (1 source) Blood Viscosity Director Furniture Start: 02-28-2023 take 400 mg by mouth [...] disease (5 sources) 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; Translations: [Coronary [...] 04-04-2023 Episodic Other aftercare (1 source) Other technician terminal and repeater (current) drug therapy; Translations: [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] Onset: 1 Episodic Other aftercare (1 source) skilled nursing (current) use of antithrombotics/antipl atelets; Translations: [SHELTER ANTITHROMBOT/ANTIPLATL ETS] Onset: 1 Episodic Other aftercare (1 source) skilled nursing (current) use of anticoagulants; Translations: [SHELTER CURRNT USE ANTICOAGULANTS] Onset: 1 Episodic Other [...] Da te Episodic/Chronic Other aftercare (1 source) skilled nursing (current) use of aspirin; Translations: [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 USE OF ASPIRIN] Onset: 01-15-2021 Episodic [...] Results Test Name Value Interpretation Reference Range Facility Office Visiton 11-23-2022 Follow-up visit [id number] Brittny Dutta 1955 [facility] Provider Department Center 11/23/[address] [facility] No family history on file Level of Service:01959 NE OFFICE/OUTPATIENT ESTABLISHED LOW MDM 20-29 MIN Reason for Visit and Comments: Hyperlipidemia [182] Hypertension [086791] Atrial Fibrillation [80] Coronary Artery Disease [187] Normal [facility] Orders Onlyon 05-02-2022 Orders Only [id number] Brittny Dutta 1955 Provider Department Center 05/02/2022 BRISA NIELSEN [facility] No family history on file Normal [facility] BNPon 07-23-2021 Natriuretic peptide B (Bld) [Mass/Vol] 203.0 pg/mL Normal <=900.0 [facility] [place] [facility] Comment on above: Performed By: #### C ANDRYE #### [facility] [address] [address] Sade Atkins CBC AUTO DIFFon 07-23-2021 BASO # 0.0 103/ul Normal 0.0-0.1 [facility] [place] [facility] Comment on above: Performed By: #### C BC #### [facility] [address] [address] [address] Pattie Reynolds Basophils/100 WBC (Bld) 0.6 % Normal 0.2-2.0 [facility] [place] [facility] Comment on above: Performed By: #### C BC #### [facility] [address] [place] [address] Dr. Pattie Reynolds EO # 0.3 103/ul Normal 0.0-0.7 [facility] [place] [facility] Comment on above: Performed By: #### C BC #### [facility] [address] [place] [address] Dr. Pattie Reynolds Eosinophils/100 WBC (Bld) 4.3 % Normal 0.9-7.0 [facility] [place] [facility] Comment on above: Performed By: #### C BC #### [facility] [address] [place] [address] Dr. Pattie Reynolds Erythrocyte distribution width (RBC) [Ratio] 14.6 % Normal 11.0-15.0 [facility] [place] [facility] Comment on above: Performed By: #### C BC #### [facility] [address] [place] [address] Dr. Pattie Reynolds Hematocrit (Bld) [Volume fraction] 49.0 % Normal 42.0-54.0 [facility] [place] [facility] Comment on above: Performed By: #### C BC #### [facility] [address] [place] [address] Dr. Pattie Reynolds Hemoglobin (Bld) [Mass/Vol] 15.3 g/dL Normal 14.0-18.0 [facility] [place] [facility] Comment on above: Performed By: #### C BC #### [facility] [address] [place] [address] Dr. Pattie Reynolds IG # 0.03 10e3/ul Normal 0.00-0.03 [facility] [place] [facility] Comment on above: Performed By: #### C BC #### [facility] [address] [place] [address] Dr. Pattie Reynolds IG % 0.5 % Normal 0.0-0.5 The [facility] Comment on above: Performed By: #### C BC #### [facility] [address] [place] [address] Dr. Pattie Reynolds LYMPH # 1.3 103/ul Normal 1.2-3.8 The [facility] Comment on above: Performed By: #### C BC #### [facility] [address] [address] [address] Pattie Reynolds Lymphocytes/100 WBC (Bld) 20.4 % Critically low 20.5-60.0 [facility] [place] [facility] Comment on above: Performed By: #### C BC #### [facility] [address] [place] [address] Dr. Pattie Reynolds MANUAL DIFF REQ NO Normal [facility] Comment on above: Performed By: #### C BC #### [facility] [address] [place] [address] Dr. Pattie Reynolds MCH (RBC) [Entitic mass] 28.9 pg Normal 25.9-34.0 The [facility] Comment on above: Performed By: #### C BC #### [facility] [address] [place] [address] Dr. Pattie Reynolds MCHC (RBC) [Mass/Vol] 31.2 g/dL Normal 29.9-35.2 The [facility] Comment on above: Performed By: #### C BC #### [facility] [address] [place] [address] Dr. Pattie Reynolds MCV (RBC) [Entitic vol] 92.6 fL Normal 80.0-94.0 [facility] [place] [facility] Comment on above: Performed By: #### C BC #### [facility] [address] [place] [address] Dr. Pattie Reynolds MONO # 1.2 103/ul Critically high 0.3-0.8 [facility] Comment on above: Performed By: #### C BC #### [facility] [address] [place] [address] Dr. Pattie Reynolds Monocytes/100 WBC (Bld) 18.6 % Critically high 1.7-12.0 The [facility] Comment on above: Performed By: #### C BC #### [facility] [address] [place] [address] Dr. Pattie Reynolds NEUT # 3.6 103/ul Normal 1.4-6.5 The [facility] Comment on above: Performed By: #### C BC #### [facility] [address] [address] [address] Pattie Reynolds Neutrophils/100 WBC (Bld) 55.6 % Normal 43.0-75.0 [facility] [place] [facility] Comment on above: Performed By: #### C BC #### [facility] [address] [address] [address] Pattie Reynolds Platelet mean volume (Bld) [Entitic vol] 9.4 fL Critically low 9.5-13.5 The [facility] Comment on above: Performed By: #### C BC #### [facility] [address] [address] [address] Pattie Reynolds PLT 267 103/ul Normal 150-450 [facility] [place] [facility] Comment on above: Performed By: #### C BC #### [facility] [address] [place] [address] Dr. Pattie Reynolds RBC 5.29 106/ul Normal 4.70-6.10 The [facility] Comment on above: Performed By: #### C BC #### [facility] [address] [address] [address] Pattie Reynolds WBC 6.5 103/ul Normal 4.0-11.0 [facility] [place] [facility] Comment on above: Performed By: #### C BC #### [facility] [address] [place] [address] Dr. Pattie Reynolds CRPon 07-23-2021 CRP [Mass/Vol] mg/L Normal <=1.0 [facility] Comment on above: Performed By: #### C ANDREY #### [facility] [address] [place] [address] Sade Atkins PROF CHEM 8 (BAS METB)on Anion gap [Moles/Vol] 7.8 mmol/L Normal [facility] [place] [facility] Comment on above: Performed By: #### B FUR REMODELER, BMP, CRP #### [facility] [address] [place] [address] Dr. Pattie Reynolds Calcium [Mass/Vol] 9.6 mg/dL Normal 8.4-10.2 [facility] Comment on above: Performed By: #### B FUR REMODELER, BMP, CRP #### [facility] [address] [address] [address] Pattie Reynolds Chloride [Moles/Vol] 102 mmol/L Normal 98-107 The [facility] Comment on above: Performed By: #### B FUR REMODELER, BMP, CRP #### [facility] [address] [address] [address] Pattie Reynolds CO2 [Moles/Vol] 32.9 mmol/L Critically high 22.0-30.0 [facility] [place] [facility] Comment on above: Performed By: #### B FUR REMODELER, BMP, CRP #### [facility] [address] [address] [address] Pattie Reynolds Creatinine [Mass/Vol] 0.84 mg/dL Normal 0.66-1.25 [facility] [place] [facility] Comment on above: Performed By: #### B FUR REMODELER, BMP, CRP #### [facility] [address] [address] [address] Pattie Reynolds EGFR-AF BURKINAN >60 Normal >=60 [facility] Comment on above: Performed By: #### B FUR REMODELER, BMP, CRP #### [facility] [address] [address] [address] Pattie Reynolds EGFR-NON AF BURKINAN >60 Normal >=60 [facility] [place] [facility] Comment on above: Performed By: #### B FUR REMODELER, BMP, CRP #### [facility] [address] [place] [address] Dr. Pattie Reynolds Glucose [Mass/Vol] 86 mg/dL Normal 74-106 [facility] Comment on above: Performed By: #### B FUR REMODELER, BMP, CRP #### [facility] [address] [address] [address] Pattie Reynolds Potassium [Moles/Vol] 4.7 mmol/L Normal 3.4-5.0 [facility] [place] [facility] Comment on above: Performed By: #### B FUR REMODELER, BMP, CRP #### [facility] [address] [address] [address] Pattie Reynolds Sodium [Moles/Vol] 138 mmol/L Normal 137-145 [facility] Comment on above: Performed By: #### B FUR REMODELER, BMP, CRP #### [facility] [address] [place], [place] [address] Dr. Pattie Reynolds Urea nitrogen [Mass/Vol] 11.0 mg/dL Normal 9.0-20.0 [facility] [place] [facility] Comment on above: Performed By: #### B FUR REMODELER, BMP, CRP #### [facility] [address] [address] [address] Pattie Reynolds Urea nitrogen/Creatinine [Mass ratio] 13.1 mg/mg Normal [facility] Comment on above: Performed By: #### B FUR REMODELER, BMP, CRP #### [facility] [address] [address] [address] Pattie Reynolds SED RATE [facility] 2020 SED RATE 60 mm/hr Critically high <=20 [facility] Comment on above: Performed By: #### S EDR #### [facility] [address] [address] [address] Pattie Reynolds Coding Summaryon 06-28-2021 Coding Summary HTMLBase 64 LslojierOQr0qAk+PGhlYW Q+ES9AIPFeW49weRIjbR1H J2tYDN5IMZUNZDNBEG6GYL 3irOV1MWraG7JbowCp RymlcYHkHJ99QZu8VTO7qQ ogLPjvhT9dlEGgP6r1XjSz MP88mX82HTltXXSuRhZ6Yf ZpbjsgbWFy A2wcHtQmaZZjKbz+PHRhYm xlIHdpZHRoPScxMDAlJyBz gTogET8pDj7uILCsRYLipU xhcHNlOiBj o8jbQVEbZEwpZI3zoBxfC8 XgqLJ6KUHph8a2Pp19iJV+ UXRsDBN5fDzgHQbof897Qg Nhg9auXSZ2 xNEkEGfsEPU2B93mc1M2AZ EjTCOtVDA1vHV2bM3htUhz lkooC7HfnKCpDnV2MIF1uO MyyJ5eyZdd jyrylI3nZou+O03LMP4VCP RJHH5BZrd5L7CfRycelYZ+ DV21SAUsMV76dFApgAHuu2 tdhHe3EnSa KKHhEZW2uZbjREspe9WxBP PpH31vfJRen8Y2VNTqvPss rSZqJfVgfBP8fD4mELrpvn cdr6kksctk Mjrcu7akbe50uN34L24dTH vnPVYwWBW8TVTkXYDgfKol ab9bsA3oVh6+TTocc4qhx9 gkfDh9TqTf SSPmtgDdiPaqNZS7v1TjQz 96T4SkzMnxk4NmLjm8ni42 rQFdv6O1lXE9IHqiWXJmoD 1uEBvnEtB5 PGNdDiBseB38kNDzRGnvOm 1ubTvdxSqnUR0rGUYboavr XJCdcY5oEAGehKUbpYzlKT 4wNTBpbjtm k226NrTbZXT4SIYfiRDeR6 FdwT9oXyFoZVFjDDYiG1Pf hDDgGBnxD589YSabAaX7TY GzlpAtM5Pa PVVsdWtkEmL3x4Q5Uf1Yn0 UdtdxsKZP5PIbfCTIjEqX9 MfPvHnP4S8FyFns1DDYfmO fvJQ3cM7Wp XHLskmtvvjnsfVE5USAfDL IbrE74kTPkXYmdGc2hp3A8 g315TZVtCPRpyR07Jc5lgU ogMTBwdCBU lU7azxcfz4sxhercYhLmNF UjENk5XNp7JSVooZryHvAr UAX5SrI3KKA5wJAsdK8bzB vebdhgyS9r Oyc+Q01yoA4mCVX4VWI5ts fwYOGuxpVrVY40EG40U5Vx PjwvdGFibGU+PGRpdiBzdH oeDN8mFzOi y0zqy3YgWGwwT8DmGLLwZR ccFzr6NIMtUHR9jUI4pB0t RHWvWZgsp7N3uFX1Y0Xbrd Bqqa5ff2gd GBTtOZaaB53bdMAtq7R8LR RsoLB0IRGzhGblEvZwqT31 Oyc+IRVvpNxzm4LhZfdua9 huh1ccuWu2 NlNjDFPianRtfIzeEDD2t3 QlHi96D96mBWzwDFFlSVGj FXSxXWZulUaxkk4ddI7aGa 8+PGNvbCB3 iGX7wJ5aWVRrBvE6XIajB3 40BgSvwKSlHgrmg3hpv2td mVl2HkMrLGZskwXfaGsnUO P9z4ZrHe20 Y67gOBnsXLSxYEJiRAXuHM OhxNrvdz4cqL1vMn5+PC9j d0yxbv53lT45uXN+PHRkIH F5mNwzRWbl TVViuW3cFYilJoO1MLAaPd VenE85pKVzFTpbKv8dqXas iQisUA8vZNGeuiext990Pz Hit4fzHRSt mPYrAJdxFHF0B54sa7Z3GQ XbQPVuLIR3jNY4tW6adGiy bjogbGVmdDsgdmVydGljYW xiKWmlV441 IHRvcDsnPlBhdGllbnQgTm OvFSu9Z1CmLwb7UDEceHsj QH2xpVQnWSvjUk8niTzwkU uuEW3xWPUz reszw294LtSex5oaFVAreA SuYCtpFNV4G25ww7D2GVPj UYZwGKJ4vRC6gT8zeKbmoq ogbGVmdDsg saCeiWnuMGwgHPqpX890JW RvcDsnPkJpcnRoIERhdGU6 CN36XD88aLLgf7O2kSS2V8 BhZGRpbmct mfhknGI8NSDyUTKhgS15Bw 5zvOcuZo6nFBZrQYV6OOMr wDUiJ2DcnA0tTsDcRKScWT NeW9YgtKFt IFugG097JZmwMyE2OQNiie YnW3UvTRGfvLikJqF4c2H8 Pw5RU0W4BB11YN98lUDdf9 Z1eZM1R7Mf JNJpgeppncqikVI2WWPaKR VcnC64Bn5ejLqqSm6qCGBb RWV2QYLozBHcN4QxfW4eMp AjMDAwMDAw K6NnyZYxXOibO294SFnpPg X2OEVltvQuY9PcPPOugTnp EtG3d6I6Vu7TBXg5YM24GF 21oTCqi1H0 fYW1D7WkDYJbpgjlvfmgrS E2TWNsLEEphK49Tg1peGuz Ye6xFONtXUV0MJUsqTZuV0 FynF0zDfZj ESEeFZPhX0BqhRFbLMoqP9 71FSniKtL8ESCemiFcN7Ls JNGfrOutEeI9s4C6Ec3LQN ImPT68BLI7 iKD4ZZ50FV85P8KwMsyrvD FibGU+PHRhYmxlIHdpZHRo CInbQMCnNhIhwVdwFC1fEx 9yZGVyLWNv zLrufHVhAoOlv5lbHQMxOV nhSL2fwFiqJ4SkxIW4RKCa p1z7Rj95P48gP7EnuOY+PG YrcMT9pTK9 zA1hEpWeItQ4BPsnC570Ib PavKCwYdlxm8sjm2uwkBo7 KmG2ZJYdniTnxBrxTOM2t1 JiCl21B59g IHdpZHRoPSIxNSUiIHZhbG pdqb0rpJ7iKp7+PGNvbCB3 kGP4sY1uYmAkUjK7VFmbV4 49InRvcCIv Lhcpd6nud0drbPg4EmFrUS PnsaYlbCiuBHH9k6RaRu46 W8TloPnhg8DvRkj2fv35oG Zcv6G7qJW5 D9ZdYCPpwrlboBYxwMmiAO 7qSWOktfjyFGSkaO5wBEXp Z9q8IlApFsF1XDmyW5Rses T8OZHnrSEd NFvmBWV8A54mc2T3DTPbZW LjAMG4yYM5yE4leFxopbjb bGVmdDsgdmVydGljYWwtYW ctH352WKGk bLnrABUhkW3bVNQupNIklH pwMA2sJQNljdxnVvYKFSeB UiwgSkVGRlJFWTwvdGQ+PH EaCIW1aQmd WOtzOZIyeZ3mPJMjT3z3Ws GmOcM3SUdnE3VcSTCmnuvi Na65qR1qNxIiRaI5BBnoB4 GnbgU6AYVc kDYxBAkfCHJ2C23id1R0DE UgQYXrPBW4mCB4tP1teIdl bjogbGVmdDsgdmVydGljYW sfRHkfA568 KCMmcWqnNyS6XmMeXbC8QB K5X4VeQqk2HZLexXncEG2g kGMlOQrpKw7dtElfkDhjNV 4wNTBpbjtw QCTbpZ1fANQesSEodVnzDA 9aRNYtgmhjp067IiFpUFM5 OZFfzKRzV1SotZ1uZgViKP CoWTZqC0Sp gAZvULnkQ452XEslGeD2TO TsnbZjY5BlZQEyiDwrXbT9 r3P3Vh16XdWMUSRwubohyO Q+PHRkIHN0 nWkyZFraMPOhqO5jTIIkC5 e4WyLdDoT3DBjhR4AeBRHs onxlMy56rV2gOnVnCoK5SI snJ1BchvT9 RFIyaYWoHIafDWH1R56cr0 K9QDBtEQMsBGB0oNT8zN8l bGlnbjogbGVmdDsgdmVydG ljYWwtYWxp I692UKMcxHhaAd1LPVH7A4 BfWbt9OLOlcQjqGK3vyMFa JLgqRb3zcYjtyBiiAR6lJA BpbjtwYWRk zI1pXGIukPLfzQzxBU6sSC Otzyvvm215VlUqAMW0RZFe qZReR1GgbI3iPcIaMXQyAZ SwC4FndTQa QIjmI499TJuuOhP7LLYbne XqK6HcBEXfsEtnWmJ5x4H6 Dy6OjYHdY8FaB7f0W6OvPj wvdHI+PC90 BIDhIZ36mICxtYGjn9lpnV v9EpSwPHOvPNA7lEymWIyn t5UgJPXmH32nkSDqk7W8EC NvbGxhcHNl JvAsaFM7kF9kDIcpvfnno9 qfohxmXxmyj4njnj90iM48 H85eGFgbYKYyKXIbUEPdBG DlsUgtyw6t fA8lTr9+NBBnxDE6eJI2bP 0dQjEdMlW2IEvzI662DiLh wYLjWzjri3dhq5zafMp8Xw IwJSIgdmFs yHxaTXQ0o1OqWj77J62wKL dpZHRoPSIyMCUiIHZhbGln vk8xpE9jJp5+QO5sx8cwts 83vL53zMD+ NIZyXHV3wZyvQOsiTUKvoJ 4jCIcuItI5BEUlEsEcrZ73 zXRvTEdmPb7dhWwruJflGG 4wNTBpbjtm n939NhPzu9zjQAUzsFFyNI paWXE9P43mb7Z2PGDuPPZl NCM1xCB4fM5agWbygfkdyC VmdDsgdmVy dNddBSfvWRyzZ262XJWzbX mbBxJuhMPcY4rvwmEQPJ7n OjwvdGQ+SXEzSMW9gJbqIH bjCUNvfP8q LNOwF0t1BnHlLzV8LHhiL2 IbygT5OOXybXAbJBZgwVSQ iO2gvgxua1qhlvujLqVjKD AjGDd0KNk7 UVNxdCjvHnJxMBT8DkB9GN I2oKYsiR6ipNqnxacojI0d Oyc+RklOOjwvdGQ+PHRkIH N4jVtiWYzj CEHotT1tVIMeT4v9YfLaKq I9WEdtT0LbpeD8IFSbvQDt AZSheSWRzR8zbveue8nkve ogIzAwMDAw YOs8AId4QZSyeOgaKkIzZL V6NrL7KVM1zRGyfJ5etCof moutpE6mDke+TVJOOjwvdG Q+PHRkIHN0 fJjeQNrjOMNhdU6yHOBkU4 t2XcTqTeZ1RHfdU8NwfqL3 GAMhtIAbROEnhRRIhQ5iah hou2kcbrsr LjSmBABkMFx6HVj5QLDgwN rrRnXyLYU9DjQ6DVT8uGPy fE8buRiarwnbyA2dOtb+UG P1OJK0FP32 VE11G7FvHvevdLCmtEA+PH RhYmxlIHdpZHRoPScxMDAl KvRszAarRG1rSk8kCRCcFD NvbGxhcHNl OiB (more content not included)... Normal [facility] ED Clinical Summaryon 2020 ED Clinical Summary [facility] - Emergency Department [address] [place] [id number] ED Clinical Summary PERSON INFORMATION Name: BRITTNY DUTTA Age: 66 Years Sex: MALE : 1955 MRN: Acct#: Visit Reason: Shoulder pain-swelling; Fall; FALL- RT SHOULDER PAIN Arrival: 06/19/2021 14:08:23 Discharge: 06/19/2021 15:29:00 LOS: 000 01:21 Check In: 06/19/2021 14:08:23 Checkout:06/19/2021 15:29:00 Address: [address] [place] [id number] PCP: Judi Michelle MD PROVIDER INFORMATION Provider Role Assigned Unassigned ELLIS DORSEY ED PA 06/19/2021 14:11:05 Lily Garrison SIGN LANGUAGE TRANSLATOR Nurse 06/19/2021 14:12:25 VITALS INFORMATION Vital Sign Triage Latest Temperature Tympanic 36.6 DegC 36.6 DegC Temperature Temporal Artery Pulse Rate 80 bpm 80 bpm O2 Sat 98 % 98 % Respiratory Rate 14 br/min 14 br/min Blood Pressure /101 mmHg /101 mmHg MEDICAL INFORMATION Medications Given: Medication Dose Route acetaminophen-hydrocod one ([place] 5 mg-325 mg oral tablet) 1 tab(s) [...] I indic (more content not included)... Normal [facility] ED Note - Physicianon 2020 ED Note - Physician Patient: BRITTNY DUTTA Age: 66 years Sex: [...] I recommended (more content not included)... Normal [facility] ED Patient Summaryon 021 ED Patient Summary [facility] - Emergency Department [address] [place] [address] PATIENT DISCHARGE INSTRUCTIONS Patient Information Name: BRITTNY DUTTA Age: 66 Years Date of : 1955 Reason For Visit: Shoulder pain-swelling; Fall; FALL- RT SHOULDER PAIN Arrival Time: 06/19/2021 14:08:23 Primary Care Physician: Judi Michelle MD Attending Physician: Aleksandar Beasley MD Comment: Visit Diagnosis: Diagnoses This Visit Elevated blood pressure reading (R03.0) Fall ([id number]) Fall (W19.XXXA) Humeral head fracture (S42.293A) Right shoulder pain (M25.511) Shoulder pain-swelling ([id number]) Prescription Information: If you have been given a prescription for narcotics, seek immediate medical attention if you have any difficulty breathing or any sudden status changes such as confusion and sleepiness. If you or anyone you know is experiencing suicidal thoughts, mental health, alcohol and/or drug addiction problems; contact the [facility] 06/03 Crisis Hotline -Text 4HODG co 512834. If you received any narcotics, sedation, or [...] legal documents With: Address: When: [place] [address] [place] [address], [place] [address] [facility] (1) Within 2 to 4 days Comments: [...] and treatment you received today in the [facility] were for an urgent problem and are not intended as complete care. It is important for you to follow up with a doctor, nurse practitioner, or physician?s clinical medical assistant for ongoing care. If your symptoms [...] so we can reach you if necessary. [facility] Emergency Department has provided you with a complete list of medications post discharge. Please inform your shingle sawyer/provider of your visit and for further instruction on these medications. Any specific questions regarding your chronic medications and dosages should be discussed with your primary care physician(s) and/or pharmacist. New Medications Printed Prescriptions acetaminophen-hydrocod one ([place] 5 mg-325 mg oral tablet) 1 tab(s) [...] cm Weight D (more content not included)... [facility] XR Shoulder Complete Righton 06-19-2021 XR Shoulder [...] Jann Montano 06/19/21 2:59 pm Technologist: [place] [facility] VC CONSULT FOLLOWUPon 2020 VC CONSULT FOLLOWUP Patient: BRITTNY DUTTA Exam Date: 06/04/2021 : 1955 Gender:M Ordering : DR SANTI LIU M.D. Admission #: [id number] Family : Order #: [id number] CLICK HERE TO VIEW EXAM CORRECTION Corrected [...] Vaughn M.D. on 06/04/2021 at 12:38 Normal [facility] [place] [facility] VC EXT VENOUS LT LIMITEDon 1 VC EXT VENOUS LT LIMITED Patient: BRITTNY DUTTA Exam Date: 06/04/2021 : 1955 Gender:M Ordering : DR SANTI LIU M.D. Admission #: [id number] Family : Order #: [id number] CLICK HERE TO VIEW EXAM RADIOLOGY REPORT [...] flow. OTHER: *Exam performed in accordance with [facility] practice guidelines- Peripheral venous ultrasound, November 07, 2009. CONCLUSION: 1. 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 Dictated by: Jani Vaughn M.D. on 06/04/2021 at 12:35 Approved by: Jani Vaughn M.D. on 06/04/2021 at 12:37 Normal [facility] [place] [facility] VC ENDOVENOUS ABL 1ST V LTon 05-28-2021 VC ENDOVENOUS ABL 1ST V LT Patient: BRITTNY DUTTA Exam Date: 05/28/2021 : 1955 Gender:M Ordering : DR SANTI LIU M.D. Admission #: [id number] Family : Order #: [id number] CLICK HERE TO VIEW EXAM RADIOLOGY REPORT PROCEDURE: VEIN CENTER ENDOVENOUS ABLATION FIRST VEIN LEFT COMPARISON: None. INDICATIONS: Pain co-occurrent and due to varicose veins of bilateral legs I83.813 OPERATIVE REPORT: The risks and benefits of the procedure had been previously discussed, and were rediscussed at length. Informed written consent was obtained by me and Se Figueroa assisted. Time out procedure [...] Vaughn M.D. on 05/28/2021 at 11:52 Normal [facility] COMP CONSULTATIONon 01-19 VC COMP CONSULTATION Patient: BRITTNY DUTTA Exam Date: 01/19/2021 : 1955 Gender:M Ordering : ROBERT RONQUILLO . Admission #: [id number] Family : Order #: [id number] CLICK HERE TO VIEW EXAM RADIOLOGY REPORT [...] The patient was last treated by the [facility]. The patient was referred by the wound [...] significant for atrophy duarte, diagnosed at the [facility]. Chronic atrial fibrillation for which he is [...] branch saphenous tributary/varicose veins. 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 Normal The [facility] VC VENOUS REFLUX FELIX LMTon 0 01-19-2021 VC VENOUS REFLUX FELIX LMT Patient: BRITTNY DUTTA Exam Date: 01/19/2021 : 1955 Gender:M Ordering : ROBERT RONQUILLO . Admission #: [id number] Family : DR SANTI LIU M.D. Order #: [id number] CLICK HERE TO VIEW EXAM RADIOLOGY REPORT [...] chronic echogenic thrombus Compressibility: Normal Flow: Normal Offset Lithographic Press Setter: ankle assembler show motor measuring 3.7mm with 3.7s of reflux Tech [...] saphenous varicose veins 5. 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 Dictated by: Santi Liu MD on 01/19/2021 at 12:18 Approved by: Santi Liu MD on 01/19/2021 at 12:21 Normal The [facility] CBC AUTO DIFFon 01-13-2021 BASO # 0.0 103/ul Normal 0.0-0.1 The [facility] Comment on above: Performed By: #### C ANDREY #### [facility] [address] [place] [address] Sade Milly Basophils/100 WBC (Bld) 0.6 % Normal 0.2-2.0 [facility] [place] [facility] Comment on above: Performed By: #### C ANDREY #### [facility] [address] [place] [address] Sade Milly EO # 0.2 103/ul Normal 0.0-0.7 [facility] [place] [facility] Comment on above: Performed By: #### C ANDREY #### [facility] [address] [place] [address] Sade Atkins Eosinophils/100 WBC (Bld) 3.3 % Normal 0.9-7.0 [facility] [place] [facility] Comment on above: Performed By: #### C ANDREY #### [facility] [address] [place] [address] Sade Milly Erythrocyte distribution width (RBC) [Ratio] 14.4 % Normal 11.0-15.0 [facility] [place] [facility] Comment on above: Performed By: #### C ANDREY #### [facility] [address] [place] [address] Sade Milly Hematocrit (Bld) [Volume fraction] 49.0 % Normal 42.0-54.0 [facility] [place] [facility] Comment on above: Performed By: #### C ANDREY #### [facility] [address] [place] [address] Sade Milly Hemoglobin (Bld) [Mass/Vol] 15.7 g/dL Normal 14.0-18.0 [facility] [place] [facility] Comment on above: Performed By: #### C ANDREY #### [facility] [address] [place] [address] Sade Milly IG # 0.01 10e3/ul Normal 0.00-0.03 [facility] [place] [facility] Comment on above: Performed By: #### C ANDREY #### [facility] [address] [place] [address] Sade Milly IG % 0.1 % Normal 0.0-0.5 [facility] [place] [facility] Comment on above: Performed By: #### C ANDREY #### [facility] [address] [place] [address] Sade Milly LYMPH # 1.4 103/ul Normal 1.2-3.8 The [facility] Comment on above: Performed By: #### C ANDREY #### [facility] [address] [place] [address] Sade Milly Lymphocytes/100 WBC (Bld) 20.2 % Critically low 20.5-60.0 [facility] [place] [facility] Comment on above: Performed By: #### C ANDREY #### [facility] [address] [place] [address] Sade Atkins MANUAL DIFF REQ NO Normal [facility] Comment on above: Performed By: #### C ANDREY #### [facility] [address] [place] [address] Sadebradford Hickeyen MCH (RBC) [Entitic mass] 29.5 pg Normal 25.9-34.0 [facility] [place] [facility] Comment on above: Performed By: #### C ANDREY #### [facility] [address] [place] [address] Sade Milly MCHC (RBC) [Mass/Vol] 32.0 g/dL Normal 29.9-35.2 The [facility] Comment on above: Performed By: #### C ANDREY #### [facility] [address] [place] [address] Sade Milly MCV (RBC) [Entitic vol] 92.1 fL Normal 80.0-94.0 The [facility] Comment on above: Performed By: #### C ANDREY #### [facility] [address] [place], [place] [id number] Sade Atkins MONO # 0.9 103/ul Critically high 0.3-0.8 [facility] Comment on above: Performed By: #### C ANDREY #### [facility] [address] [place], [place] [id number] Sade Milly Monocytes/100 WBC (Bld) 13.5 % Critically high 1.7-12.0 The [facility] Comment on above: Performed By: #### C ANDREY #### [facility] [address] [place] [address] Sadebradford Hickeyen NEUT # 4.3 103/ul Normal 1.4-6.5 The [facility] Comment on above: Performed By: #### C ANDREY #### [facility] [address] [place] [address] Sade Atkins Neutrophils/100 WBC (Bld) 62.3 % Normal 43.0-75.0 The [facility] Comment on above: Performed By: #### C ANDREY #### [facility] [address] [place], [place] [id number] Sdaebradford Atkins Platelet mean volume (Bld) [Entitic vol] 9.3 fL Critically low 9.5-13.5 The [facility] Comment on above: Performed By: #### C ANDREY #### [facility] [address] [place], [place] [id number] Sade Milly PLT 263 103/ul Normal 150-450 The [facility] Comment on above: Performed By: #### C ANDREY #### [facility] [address] [place], [place] [id number] Sade Milly RBC 5.32 106/ul Normal 4.70-6.10 The [facility] Comment on above: Performed By: #### C ANDREY #### [facility] [address] [place], [place] [id number] Sade Milly WBC 6.9 103/ul Normal 4.0-11.0 The [facility] Comment on above: Performed By: #### C ANDREY #### [facility] [address] [place], [place] [id number] Sade Milly CRPon 01-13-2021 CRP [Mass/Vol] mg/L Normal <=1.0 [facility] Comment on above: Performed By: #### B MP, CRP #### [facility] [address] [place], [place] [phone] Sade Milly LACTATE/LACTIC ACIDon 2020 Lactate [Moles/Vol] 0.8 mmol/L Normal 0.7-2.0 [facility] Comment on above: Performed By: #### L ACT #### [facility] [address] [place], [place] [phone] Sade Milly PROF CHEM 8 (BAS METB)on Anion gap [Moles/Vol] 15.7 mmol/L Normal [facility] [place] [facility] Comment on above: Performed By: #### B MP, CRP #### [facility] [address] [place] [address] Sade Milly Calcium [Mass/Vol] 9.2 mg/dL Normal 8.4-10.2 The [facility] Comment on above: Performed By: #### B MP, CRP #### [facility] [address] [place] [address] Sade Milly Chloride [Moles/Vol] 103 mmol/L Normal 98-107 The [facility] Comment on above: Performed By: #### B MP, CRP #### [facility] [address] [place] [address] Sade Milly CO2 [Moles/Vol] 27.5 mmol/L Normal 22.0-30.[address] [facility] Comment on above: Performed By: #### B MP, CRP #### [facility] [address] [place] [address] Sade Milly Creatinine [Mass/Vol] 1.04 mg/dL Normal 0.66-1.25 The [facility] Comment on above: Performed By: #### B MP, CRP #### [facility] [address] [place] [id number] Sade Milly EGFR-AF BURKINAN >60 Normal >=[address] [facility] Comment on above: Performed By: #### B MP, CRP #### [facility] [address] [id number] Sade Milly EGFR-NON AF BURKINAN >60 Normal >=60 [facility] [place] [facility] Comment on above: Performed By: #### B MP, CRP #### [facility] [address] [id number] Sade Milly Glucose [Mass/Vol] 102 mg/dL Normal 74-106 [facility] Comment on above: Performed By: #### B MP, CRP #### [facility] [address] [id number] Sade Milly Potassium [Moles/Vol] 4.2 mmol/L Normal 3.4-5.0 [facility] [place] [facility] Comment on above: Performed By: #### B MP, CRP #### [facility] [address] [address] Sade Milly Sodium [Moles/Vol] 142 mmol/L Normal 137-145 [facility] Comment on above: Performed By: #### B MP, CRP #### [facility] [address] [id number] Sade Milly Urea nitrogen [Mass/Vol] 15.0 mg/dL Normal 9.0-20.0 [facility] [place] [facility] Comment on above: Performed By: #### B MP, CRP #### [facility] [address] [id number] Sade Milly Urea nitrogen/Creatinine [Mass ratio] 14.4 mg/mg Normal [facility] [place] [facility] Comment on above: Performed By: #### B MP, CRP #### [facility] [address] [id number] Sade Milly SED RATE WESTERGRENon 2020 SED RATE 31 mm/hr Critically high <=20 [facility] Comment on above: Performed By: #### S EDR #### [facility] [address] [id number] Sade Milly XR ANKLE LT MIN 3 Von 2020 XR ANKLE LT MIN 3 V EXAM: XR ANKLE LT PA N 3 V HISTORY: The patient is [...] by: BRADFORD JACKSON Date: 2021-01-13 18:57 Normal [facility] [place] [facility] CTA ABD ANGEL WWO CON LE RUNO [...] by: SANTI LIU Date: 2020-12-25 11:56 Normal [facility] [place] [facility] CREATININEon 12-22-2020 Creatinine [Mass/Vol] 0.98 mg/dL Normal 0.66-1.25 [facility] [place] [facility] Comment on above: Performed By: #### C ANDREY #### [facility] [address] [address] Sade Milly EGFR-AF BURKINAN >60 Normal >=[address] [facility] Comment on above: Performed By: #### C ANDREY #### [facility] [address] [address] Sade Milly EGFR-NON AF BURKINAN >60 Normal >=60 The [facility] Comment on above: Performed By: #### C ANDREY #### [facility] [address] [place], [place] [phone] Sade Hickeyen ECHOCARDIO M/2D COMPLETEon 0 10-23-2020 ECHOCARDIO M/2D COMPLETE Patient: BRITTNY DUTTA Exam Date: 10/23/2020 : 1955 Gender:M Ordering : BRISA JEFFERSON Admission #: [id number] Family : Order #: [id number] CLICK HERE TO VIEW EXAM ECHOCARDIOGRAM REPORT [...] Area(A4C): 29.70 cm2 Left Atrium Systolic Volume(A2C): 14501 mm3 Left Atrium Systolic Volume(A4C): 582940 mm3 Mitral Valve MV E to A [...] Lane M.D. on 10/23/2020 at 11:56 Normal The [facility] XR CHEST 2 Von 10-18-2020 XR CHEST [...] JACKELIN MOREAU Date: 2020-10-18 11:57 Normal The [facility] CBC AUTO DIFFon 10-17-2020 BASO # 0.0 103/ul Normal 0.0-0.1 The [facility] Comment on above: Performed By: #### C ANDREY #### [facility] [address] [place] [address] Sade Atkins Basophils/100 WBC (Bld) 0.6 % Normal 0.2-2.0 The [facility] Comment on above: Performed By: #### C ANDREY #### [facility] [address] [place] [address] Sade Atknis EO # 0.2 103/ul Normal 0.0-0.7 The [facility] Comment on above: Performed By: #### C ANDREY #### [facility] [address] [place] [address] Sade Milly Eosinophils/100 WBC (Bld) 3.7 % Normal 0.9-7.0 [facility] [place] [facility] Comment on above: Performed By: #### C ANDREY #### [facility] [address] [place] [address] Sade Milly Erythrocyte distribution width (RBC) [Ratio] 14.4 % Normal 11.0-15.0 [facility] [place] [facility] Comment on above: Performed By: #### C ANDREY #### [facility] [address] [place] [address] Sade Milly Hematocrit (Bld) [Volume fraction] 52.3 % Normal 42.0-54.0 The [facility] Comment on above: Performed By: #### C ANDREY #### [facility] [address] [place] [address] Sade Milly Hemoglobin (Bld) [Mass/Vol] 16.3 g/dL Normal 14.0-18.0 [facility] [place] [facility] Comment on above: Performed By: #### C ANDREY #### [facility] [address] [place] [address] Sade Milly IG # 0.01 10e3/ul Normal 0.00-0.03 The [facility] Comment on above: Performed By: #### C ANDREY #### [facility] [address] [place] [address] Sade Milly IG % 0.2 % Normal 0.0-0.5 The [facility] Comment on above: Performed By: #### C ANDREY #### [facility] [address] [place] [address] Sade Milly LYMPH # 1.1 103/ul Critically low 1.2-3.8 The [facility] Comment on above: Performed By: #### C ANDREY #### [facility] [address] [place] [address] Sade Milly Lymphocytes/100 WBC (Bld) 17.8 % Critically low 20.5-60.0 The [facility] Comment on above: Performed By: #### C ANDREY #### [facility] [address] [place] [address] Sade Milly MANUAL DIFF REQ NO Normal [facility] Comment on above: Performed By: #### C ANDREY #### [facility] [address] [place] [address] Sade Atkins MCH (RBC) [Entitic mass] 28.7 pg Normal 25.9-34.0 [facility] [place] [facility] Comment on above: Performed By: #### C ANDREY #### [facility] [address] [place] [address] Sade Atkins MCHC (RBC) [Mass/Vol] 31.2 g/dL Normal 29.9-35.2 [facility] [place] [facility] Comment on above: Performed By: #### C ANDREY #### [facility] [address] [place] [address] Sade Atkins MCV (RBC) [Entitic vol] 92.2 fL Normal 80.0-94.0 [facility] Comment on above: Performed By: #### C ANDREY #### [facility] [address] [place] [address] Sade Atkins MONO # 0.8 103/ul Normal 0.3-0.8 [facility] [place] [facility] Comment on above: Performed By: #### C ANDREY #### [facility] [address] [place] [address] Sade Atkins Monocytes/100 WBC (Bld) 13.1 % Critically high 1.7-12.0 [facility] [place] [facility] Comment on above: Performed By: #### C ANDREY #### [facility] [address] [place] [address] Sade Atkins NEUT # 4.0 103/ul Normal 1.4-6.5 The [facility] Comment on above: Performed By: #### C ANDREY #### [facility] [address] [place] [address] Sade Milly Neutrophils/100 WBC (Bld) 64.6 % Normal 43.0-75.0 [facility] [place] [facility] Comment on above: Performed By: #### C ANDREY #### [facility] [address] [place] [address] Sadebradford Atkins Platelet mean volume (Bld) [Entitic vol] 9.5 fL Normal 9.5-13.5 [facility] Comment on above: Performed By: #### C ANDREY #### [facility] [address] [place] [address] Sade Atkins PLT 254 103/ul Normal 150-450 [facility] Comment on above: Performed By: #### C ANDREY #### [facility] [address] [place] [address] Sade Atkins RBC 5.67 106/ul Normal 4.70-6.10 [facility] [place] [facility] Comment on above: Performed By: #### C ANDREY #### [facility] [address] [place] [address] Sade Atkins WBC 6.3 103/ul Normal 4.0-11.0 [facility] [place] [facility] Comment on above: Performed By: #### C ANDREY #### [facility] [address] [place] [address] Sade Atkins GLYCOHEMOGLOBIN A1Con 2020 ADA RECOMMENDATION ADA THERAPEUTIC TARG ET 6.0 - 7.0 ACTION SUGGESTED > 7.0 Normal [facility] Comment on above: Performed By: #### A 1C #### [facility] [address] [place], [place] [phone] Sade Atkins Glucose [Mass/Vol] 123 mg/dL Normal [facility] Comment on above: Performed By: #### A 1C #### [facility] [address] [place] [address] Sade Atkins HbA1c (Bld) [Mass fraction] 5.9 % Normal <=6.0 [facility] Comment on above: Performed By: #### A 1C #### [facility] [address] [place] [address] Sade Atkins LIPID PROFILEon 10-17-2020 CHOL-HDL RATIO NORM SEE BELOW Normal [facility] Comment on above: Result Comment: 3.3 - 4.4 LOW RISK 4.4 - 7.1 AVERAGE RISK 7.1 - 11.0 MODERATE RISK >11.0 HIGH RISK Performed By: #### C ANDREY #### [facility] [address] [place], [place] [address] Sade Milly Cholesterol [Mass/Vol] 172 mg/dL Normal <=200 The [facility] Comment on above: Performed By: #### C ANDREY #### [facility] [address] [id number] Sade Milly Cholesterol in HDL [Mass/Vol] 51 mg/dL Normal The [facility] Comment on above: Performed By: #### C ANDREY #### [facility] [address] [id number] Sade Milly Cholesterol in LDL [Mass/Vol] 105.6 mg/dL Normal The [facility] Comment on above: Performed By: #### C ANDREY #### [facility] [address] [id number] Sade Milly Cholesterol.total/Ch olesterol in HDL [Mass ratio] 3.4 {ratio} Normal The [facility] Comment on above: Performed By: #### C ANDREY #### [facility] [address] [id number] Sade Milly HDL NORMAL > or = 60 mg/dl - LO W CARDIOVASCULAR RISK <40 mg/dl - HIGH CARDIOVASCULAR RISK Normal The [facility] Comment on above: Performed By: #### C ANDREY #### [facility] [address] [id number] Sade Milly LDL CALC NORMAL SEE BELOW Normal [facility] Comment on above: Result Comment: <100 mg/dl OPTIMAL 100 - 129 mg/dl NEAR OR ABOVE OPTIMAL 130 - 159 mg/dl BORDERLINE HIGH 160 - 189 mg/dl HIGH >190 mg/dl VERY HIGH Performed By: #### C ANDREY #### [facility] [address] [id number] Sade Milly Triglyceride [Mass/Vol] 77 mg/dL Normal <=150 The [facility] Comment on above: Performed By: #### C ANDREY #### [facility] [address] [id number] Sade Milly VLDL CALC 15.4 mg/dL Normal The [facility] Comment on above: Performed By: #### C ANDREY #### [facility] [address] [place], [place] [phone] Sade Milly PROF 14(COMP METB)on 021 Albumin [Mass/Vol] 3.8 g/dL Normal 3.5-5.0 The [facility] Comment on above: Performed By: #### C ANDREY #### [facility] [address] [place], [place] [phone] Sade Milly Albumin/Globulin [Mass ratio] 1.1 {ratio} Normal [facility] Comment on above: Performed By: #### C ANDREY #### [facility] [address] [place], [place] [phone] Sade Milly ALP [Catalytic activity/Vol] 64 U/L Normal 38-126 The [facility] Comment on above: Performed By: #### C ANDREY #### [facility] [address] [place] [address] Sade Milly ALT [Catalytic activity/Vol] 26 U/L Normal 21-72 The [facility] Comment on above: Performed By: #### C ANDREY #### [facility] [address] [place] [address] Sade Milly Anion gap [Moles/Vol] 14.7 mmol/L Normal [facility] Comment on above: Performed By: #### C ANDREY #### [facility] [address] [place] [address] Sade Milly AST [Catalytic activity/Vol] 19 U/L Normal 17-59 The [facility] Comment on above: Performed By: #### C ANDREY #### [facility] [address] [place], [place] [phone] Sade Milly Bilirubin [Mass/Vol] 0.7 mg/dL Normal 0.2-1.3 The [facility] Comment on above: Performed By: #### C ANDREY #### [facility] [address] [place], [place] [phone] Sade Milly Calcium [Mass/Vol] 9.6 mg/dL Normal 8.4-10.2 The [facility] Comment on above: Performed By: #### C ANDREY #### [facility] [address] [address] Sade Milly Chloride [Moles/Vol] 102 mmol/L Normal 98-107 The [facility] Comment on above: Performed By: #### C ANDREY #### [facility] [address] [id number] Sade Milly CO2 [Moles/Vol] 26.9 mmol/L Normal 22.0-30.[address] [facility] Comment on above: Performed By: #### C ANDREY #### [facility] [address] [place], [place] [phone] Sade Milly Creatinine [Mass/Vol] 1.02 mg/dL Normal 0.66-1.25 The [facility] Comment on above: Performed By: #### C ANDREY #### [facility] [address] [place], [place] [phone] Sade Milly EGFR-AF BURKINAN >60 Normal >=[address] [facility] Comment on above: Performed By: #### C ANDREY #### [facility] [address] [place] [address] Sade Milly EGFR-NON AF BURKINAN >60 Normal >=60 The [facility] Comment on above: Performed By: #### C ANDREY #### [facility] [address] [place], [place] [id number] Sade Milly Globulin (S) [Mass/Vol] 3.6 g/dL Normal [facility] Comment on above: Performed By: #### C ANDREY #### [facility] [address] [place] [address] Sade Milly Glucose [Mass/Vol] 104 mg/dL Normal 74-106 [facility] Comment on above: Performed By: #### C ANDREY #### [facility] [address] [place], [place] [id number] Sade Milly Potassium [Moles/Vol] 4.6 mmol/L Normal 3.4-5.0 [facility] Comment on above: Performed By: #### C ANDREY #### [facility] [address] [place], [place] [id number] Sade Milly Protein [Mass/Vol] 7.4 g/dL Normal 6.1-8.2 [facility] Comment on above: Performed By: #### C ANDREY #### [facility] [address] [place] [address] Sdae Milly Sodium [Moles/Vol] 139 mmol/L Normal 137-145 [facility] Comment on above: Performed By: #### C ANDREY #### [facility] [address] [id number] Sade Milly Urea nitrogen [Mass/Vol] 18.0 mg/dL Normal 9.0-20.0 [facility] Comment on above: Performed By: #### C ANDREY #### [facility] [address] [place], [place] [id number] Sade Milly Urea nitrogen/Creatinine [Mass ratio] 17.6 mg/mg Normal [facility] Comment on above: Performed By: #### C ANDREY #### [facility] [address] [place], [place] [id number] Sade Hickeyen TSHon 10-17-2020 TSH 2.033 uIU/mL Normal 0.470-4.680 [facility] Comment on above: Performed By: #### C ANDREY #### [facility] [address] [place], [place] [id number] Sadebradford Hickeyen TSH RANGE SEE BELOW Normal [facility] Comment on above: Result Comment: <0.3 4 UIU/ml HYPERTHYROID 0.34-5.60 UIU/ml EUTHYROID >5.60 UIU/ml HYPOTHYROID Performed By: #### C ANDREY #### [facility] [address] [place], [place] [phone] Sade Milly Cardiovascular Lab Reporton 03-05-2020 Cardiovascular Lab Report [facility] Patient Name: Clarisse [facility] G MR #: [id number] Department of Physician: Adam Reno M.D. Division of Service Date: 03/05/2020 Cardiology Birthdate: 1955 Adult Cardiovascular Room #: [place] [address] Cardiovascular Laboratory Report FINAL IMPRESSIONS: 1. Severe [...] Follow up with Dr. Lane in the [place] office in the next 2 to 4 [...] the left radial artery was obtained. A 6-Kenyan glide sheath was inserted without difficulty. Bilateral selective coronary angiography was performed using JR4 and JL4 catheters. After reviewing the images, it was elected to proceed with an interventional procedure. A 6-Kenyan XB 3.5 guide catheter was advanced over [...] XB 3.5 catheter was removed and a 6-Kenyan JL4 guide catheter coaxially engaged into the [...] Lane M.D. Date Trans: 03/05/2020 01:22 P/aram [id number] cc: Shari Shepard M.D. [address] [place] [address] [place] [id number] [facility] Vital Signs Date Time Vital Sign Value Performing Clinician Micki lamar 04-04-2023 10:46-0400 Body height 182.88 cm MD Jose Castellon Work Phone: [facility] 04-04-2023 10:46-0400 Body mass index (BMI) [Ratio] 36.8 kg/m2 MD Jose Castellon Work Phone: [facility] 04-04-2023 10:46-0400 Body weight 123.37 kg MD Jose Castellon Work Phone: [facility] 04-04-2023 10:26-0400 Body temperature 97.7 [degF] MD Jose Castellon Work Phone: [facility] 04-04-2023 10:26-0400 Diastolic blood pressure 80 mm[Hg] MD Jose Castellon Work Phone: [facility] 04-04-2023 10:26-0400 Heart rate 60 /min MD Jose Castellon Work Phone: [facility] 04-04-2023 10:26-0400 Respiratory rate 18 /min MD Jose Castellon Work Phone: [facility] 04-04-2023 10:26-0400 Systolic blood pressure 132 mm[Hg] MD Jose Castellon Work Phone: [facility] Encounters Encounter Date Encounter Type Care Provider Facility Start: 04-04-2023 End: 04-04-2023 ambulatory Aura Johnson Facility:[facility] Start: 04-04-2023 End: 04-04-2023 ambulatory MD Jose Castellon Work Phone: [facility] Work Phone: Start: 04-04-2023 End: 04-04-2023 Discharged Recurring MD Jose Castellon Work Phone: [facility] Janel Work Phone: Start: 11-23-2022 End: 11-23-2022 ambulatory SOM [facility] Start: 08-02-2021 End: 08-03-2021 ambulatory JDUI MICHELLE Facility:[facility] Start: 07-23-2021 End: 07-23-2021 ambulatory [...] Start: 03-05-2020 End: 03-06-2020 Patient encounter procedure EHAB A ELTAHAWY Facility:[facility] Procedures Date Procedure Procedure Detail Performing Clinician Start: 10-17-2020 PSA screening BRISA Rico OES Comment on above: Performed By: #### C ANDREY #### [facility] [address] [place] [address] Sade Atkins Payers Date Payer Category Payer Self-pay 1960 Medicare [id number] 1960 Unknown [id number] 1955 Unknown [id number] 2.16.8 40.1.298022.3.579.2.647 1954 Unknown [id number] 2.16.84 0.1.147431.3.579.2.593 1954 Unknown [id number] 2.16.84 0.1.642245.3.579.2.593 1954 Unknown [id number] 2.16.84 0.1.460124.3.579.2.593 1954 Unknown [id number] 2.16.84 0.1.349872.3.579.2.593 1954 Unknown [id number] 2.16.84 0.1.974546.3.579.2.593 1954 Unknown [id number] 2.16.84 0.1.230156.3.579.2.593 1954 Unknown [id number] 2.16.84 0.1.870902.3.579.2.593 1954 Unknown [id number] 2.16.84 0.1.683277.3.579.2.593 1954 Unknown [id number] 2.16.84 0.1.789662.3.579.2.593 1954 Unknown [id number] 2.16.84 0.1.775352.3.579.2.593 1954 Unknown [id number] 2.16.84 0.1.027972.3.579.2.593 1954 Unknown [id number] 2.16.84 0.1.730266.3.579.2.593 1954 Unknown [id number] 2.16.84 0.1.619574.3.579.2.593 1954 Unknown [id number] 2.16.84 0.1.733133.3.579.2.593 1954 Unknown [id number] 2.16.84 0.1.339380.3.579.2.593 1954 Unknown [id number] 2.16.84 0.1.850033.3.579.2.593 1954 Unknown [id number] 2.16.84 0.1.170287.3.579.2.593 1954 Unknown [id number] 2.16.84 0.1.733910.3.579.2.593 1954 Unknown [id number] 2.16.84 0.1.962240.3.579.2.593 Unknown [id number] 2.16.8 40.1.268587.3.579.2.531 Social History Date Type Detail Facility Start: [facility]04[facility] Start: 1955 Sex Assigned At Male [facility] Progress note 04-04-2023 Note Date & Type Note Facility 04-04-2023 Progress note Note Date/Time April 04, 2023 10:47am [facility] [address] [place] [address] Wound Center Provider Note Signed Patient: Brittny Dutta MR#: [id number] : 1955 Acct:[id number] Age/Sex: 68 / M Copies to: MD Aura Roman APRN~ HPI Date of Visit Date of Visit: Date of Service: 04/04/2023 Time of Service: 10:44 Narrative HPI: 02/28/23 Jaylen is a 67 year old male presenting to [facility] wound care for an initial visit [...] 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 He will also contact [facility] and get back in [...] omega 3 and has not yet contacted [facility] but says that he will this week- I feelstrongly that this root cause needs addressed and he does state understanding ofthis, 3 week appt, no infection noted 04/04/23 again much better, no pain he says, has see [facility] and will be having a venous procedure to fix his root problem, appears healed and so he can be discharged today but is aware to contact us with any future needs Subjective Pain Left Ankle: Pain Description: Intermittent and Burning Pain Intensity: 0 Wound/Ulcer History When did wound start?: September 2022 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 Lives with:: Significant Other Appetite Description: Within Normal Limits Who helps w/ dressing change?: Self Smoking Status: Former smoker [facility] Medical History (Updated 04/04/23 @ 10:46 by [...] Code(s): 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 [...] <Electronically signed by SANDY Johnson> 04/04/23 1046 [facility] Work Phone: Progress note 03-13-2023 Note Date & Type Note Facility 03-13-2023 Progress note Note Date/Time March 13, 2023 11:04am [facility] [address] [place] [address] Wound Center Provider Note Signed Patient: Brittny Dutta MR#: [id number] : 1955 Acct:[id number] Age/Sex: 67 / M Copies to: MD Aura Roman APRN~ HPI Date of Visit Date of Visit: Date of Service: 03/13/2023 Time of Service: 11:01 Narrative HPI: 02/28/23 Jaylen is a 67 year old male presenting to [facility] wound care for an initial visit [...] 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 [facility] Clinical Note 06-19-2021 Note Date & Type [...] or tofu. ? (more content not included)... 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 Hypothyroidism chronic Inflammation chronic Obesity chronic Venous stasis of lower extremity chronic Ulcer of left foot associate d with varicose veins resolved Wound pain resolved [facility] Work Phone: Summary Purpose Family History No Family History Records Found Relationship Condition Age at Onset Recorded Date/T sushil brother Heart disease Unknown Advance Directives No [...] section and content) DATE CREATED AUTHOR 03/11/2020 [facility] DATE CREATED AUTHOR AUTHOR'S ORGANIZ ATION 06/29/2021 [facility] DATE CREATED AUTHOR AUTHOR'S ORGANIZ ATION 08/18/2021 [facility] DATE CREATED AUTHOR AUTHOR'S ORGANIZ ATION 11/24/2022 [facility] DATE CREATED AUTHOR AUTHOR'S ORGANIZ ATION 05/20/2023 [facility] Care Teams (unrecognized sec tion and [...] BE BASED ON THE PRIMARY CLINICAL RECORDS. [facility] [employer] [facility]. provides no warranty or guarantee of the accuracy or completeness of information in this document.
== END 2023-08-22 09:56 | disposition home or self-care (01) ==
LOC: VC 09:58
PROVIDERS: PCP Radiology Diagnostic Radiology; Visit Provider Radiology Diagnostic Radiology
DX: I83.813 Varicose veins of bilateral lower extremities with pain (principal)
CPT/HCPCS: 36466

== ENCOUNTER 2023-08-29 10:53 | Outpatient (OUT) | payer MEDICARE, OTHER, SELFPAY ==
--- NOTE | 2023-08-29 10:54 | VEIN_ITS ---
Patient Name: BRITTNY DUTTA MR#: [id number] : 1955 Exam Date: 08/29/2023 Ordering Doctor: DR MAJOR SOL M.D. RADIOLOGY REPORT PROCEDURE: FACILITY EST LMTD VEIN CENTER - OFFICE VISIT FOLLOW UP COMPARISON: [facility] EST LMTD, 07/31/2023. [facility] EST LMTD, 07/20/2023. PROGRESS NOTES: The patient reports mild discomfort of the left leg following micro foam chemical ablation. The patient did not require oral analgesics. The patient has worn his compression stocking. The patient has tried exercise as recommended Physical exam demonstrates multiple bilateral thrombosed varicose veins with hemosiderin staining. No erythema or warmth to suggest cellulitis or thrombophlebitis. No active ulceration Review of the ultrasound performed the same day demonstrates occlusive thrombus extending throughout the treated left leg varicose veins. Residual incompetent varicose veins measuring up to 5.1 mm on the left. The patient expressed a desire to proceed with treatment of left leg incompetent varicose veins with micro foam chemical ablation. VEIN/[facility] EST LMTD IMPRESSION: 1. Successful ablation incompetent left leg varicose veins 2. Residual incompetent left leg varicose veins measuring up to 5.1 mm PLAN: Micro foam chemical ablation left leg incompetent varicose veins Nurse notes, history and physical were reviewed and confirmed, see attached forms. The nurse was present throughout the physical exam and consultation Dictated by: Major Sol MD on 08/29/2023 at 11:59 Approved by: Major Sol MD on 08/29/2023 at 12:00
--- NOTE | 2023-08-29 10:54 | VEIN_ITS ---
Patient Name: BRITTNY DUTTA MR#: [id number] : 1955 Exam Date: 08/29/2023 Ordering Doctor: DR MAJOR SOL M.D. RADIOLOGY REPORT PROCEDURE: VC EXT VENOUS LT LIMITED COMPARISON: VC EXT VENOUS LT LIMITED, 07/31/2023. [facility] EXT VENOUS LT LIMITED, 07/20/2023. INDICATIONS: I80.02 Phlebitis of superficial veins of lt lower extremity TECHNIQUE: Lower extremity singh scale and Duplex Doppler evaluation of the deep venous system from the inguinal ligament through the calf veins. FINDINGS: REGION: Left lower extremity. THROMBI: Negative for DVT. Varithena induced thrombus visualized at med ankle and mid/ant thigh. COMPRESSIBILITY: Non-compressible segments corresponding to thrombus FLOW: Areas of no flow corresponding to thrombus OTHER: Patent varicose vein remaining mid/ant thigh 5.1mm with 1.1s reflux. CONCLUSION: Post ablation occlusion of treated left leg varicose veins with residual incompetent varicose veins measuring up to 5.1 mm Dictated by: Major Sol MD on 08/29/2023 at 11:40 Approved by: Major Sol MD on 08/29/2023 at 11:41
--- OUTSIDE RECORDS SUMMARY | 2023-08-29 11:14 | XMS_ITS | CCD ---
Author Name Unknown Address [address] [place] [address] [facility] [place] Care Team Providers Care Fish Filleter Name Role Phone ELTAHAWY, EHAB A Admitting Unavailable ELTAHAWY, EHAB A Attending Unavailable SHARI SHEPARD Primary Care Unavailable SELF, REFERRED Referring Unavailable RONNY, BRISA Attending Unavailable RONNY, BRISA Admitting Unavailable RONNY, BRISA Consulting Unavailable MISC, DR LUCAS Primary Care Unavailable WEST, DR SANTI Fritz Consulting Unavailable VIVIANA, JUDI Primary Care Unavailable WEST, DR SANTI Fritz Admitting Unavailable WEST, DR SANTI Fritz Attending Unavailable TAIEBAZAR, DR JANI Keating Consulting Unavailable ROSS, JUDI Primary Care Unavailable HIGHLANDER, DERRICK Attending Unavailable HIGHLDERRICK CRENSHAW Admitting Unavailable MISC, DR LUCAS Primary Care [...] Admitting Unavailable ROSS, JUDI Primary Care Unavailable YG, ROBERT Consulting Unavailable ROBERT RONQUILLO Attending Unavailable YG, ROBERT Admitting Unavailable WEST, DR SANTI Fritz Consulting Unavailable WEST, DR SANTI Fritz Attending Unavailable WEST, DR SANTI Fritz Admitting Unavailable ROSS, JUDI Primary Care Unavailable ZIEBER, DR JANI Keating Consulting Unavailable ROSS, JUDI Primary Care Unavailable YG, ROBERT Attending Unavailable YG, ROBERT Admitting Unavailable WEST, DR SANIT Fritz Consulting Unavailable YG, ROBERT Consulting Unavailable WEST, DR SANTI Fritz Attending Unavailable ROSS, JUDI Primary Care Unavailable WEST, DR SANTI Fritz Admitting Unavailable MISC, DR LUCAS Primary Care Unavailable DERRICK DERAS Attending Unavailable HIGHLANDERDERRICK Admitting Unavailable HIGHLANDERDERRICK Admitting Unavailable HIGHLANDER, DERRICK Attending Unavailable ROSS, JUDI Primary Care Unavailable [facility] DR LUCAS Primary Care Unavailable DERRICK DERAS Attending Unavailable DERRICK DERAS Admitting Unavailable [facility] Care Unavailable BERT THOMAS Admitting Unavailabl e CLOUGHERTY NOEL D Attending Unavailabl e CLOUGHERTYBERT D Attending Unavailabl e CLOBERT ORONA D Admitting Unavailabl e [facility] Primary Care Unavailable WEST, DR SANTI Fritz Consulting Unavailable ELTAHAWY, DR SIFUENTES Attending Unavailable ELTAHAWY, DR SIFUENTES Admitting Unavailable MISC, DR LUCAS Primary Care Unavailable ELTAHAWY, DR SIFUENTES Consulting Unavailable ELTAHAWY, DR SIFUENTES Consulting Unavailable ELTAHAWY, DR SIFUENTES Attending Unavailable MISC, DR LUCAS Primary Care Unavailable ELTAHAWY, DR SIFUENTES Admitting Unavailable [facility] Unavailable DAGMAR POST Consulting Unavailable REINECK, DR SUZY Valenzuela Attending Unavailabl e REINECK, DR SUZY Valenzuela Admitting Unavailabl e [facility] Consulting Unavailable RONNY, BRISA Admitting Unavailable RONNY BRISA Consulting Unavailable RONNY, BRISA Attending Unavailable MISC, DR LUCAS Primary Care Unavailable ELTAHAWPranay, SOM Attending Unavailable SANDY Johnson Attending Provider MD Jose Castellon Primary Care Provider Aura Johsnon Attending Unavailable Aura Johnson Admitting Unavailable Jose Castellon Primary Care Unavailable Allergies Allergy Classification Reported Allergen(s) Allergy Type Date of Onset Reaction(s) Facility (2 sources) black walnut pollen extract; Translations: [REOXQAC-OXP-XYW REDUCTASE INHIBITORS] Drug Allergy 0 [facility] Repository (3 sources) Ciprofloxacin; Translations: [CIPROFLOXACIN] Drug Allergy 9 Muscle Pain [facility] Repository (4 sources) Doxycycline; Translations: [DOXYCYCLINE] Drug Allergy 6 Unknown Reaction [facility] Repository (2 sources) Sulfamethoxazole / Trimethoprim Drug Allergy 6 [facility] Repository (4 sources) Sulfonamides (Antibiotic); Translations: [SULFA (SULFONAMIDE ANTIBIOTICS)] Drug allergy (disorder) 6 Unknown Reaction [facility] Repository (1 source) Ciprofloxacin Drug Allergy 6 [facility] Repository (1 source) atorvastatin; Translations: [ATORVASTATIN] Drug Allergy 4 [facility] Repository (1 source) Sulfamethoxazole / Trimethoprim; Translations: [SULFAMETHOXAZOLE-TR IMETHOPRIM] Drug Allergy 2 [facility] Repository (2 sources) Sulfamethoxazole; Translations: [sulfamethoxazole] Drug Allergy 3 Unknown Reaction [facility] (2 sources) Trimethoprim; Translations: [trimethoprim] Drug Allergy 3 Unknown Reaction [facility] (1 source) Ciprofloxacin Drug Allergy 3 [facility] Repository (1 source) Doxycycline Drug Allergy 3 [facility] Repository (1 source) Sulfonamides (Antibiotic) Drug allergy (disorder) 3 [facility] Repository Medications Current Medications Medication Drug Class(es) [...] release oral tablet (1 source) 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: 02-28-2023 take 400 mg by mouth [...] disease (5 sources) Atherosclerotic heart disease of telida coronary artery without angina pectoris; Translations: [Coronary [...] 04-04-2023 Episodic Other aftercare (1 source) Other senior care (current) drug therapy; Translations: [OTH MANAGER PROCESS CURRENT DRUG THERAPY] Onset: 1 Episodic Other aftercare (1 source) [facility] (current) use of antithrombotics/antipl atelets; Translations: [[facility] ANTITHROMBOT/ANTIPLATL ETS] Onset: 1 Episodic Other aftercare (1 source) 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; Translations: [MANAGER PROCESS CURRNT USE ANTICOAGULANTS] Onset: 1 Episodic Other [...] Da te Episodic/Chronic Other aftercare (1 source) 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; Translations: [FPC CURRENT USE OF ASPIRIN] Onset: 01-15-2021 Episodic [...] Range Facility Office Visiton 11-23-2022 Follow-up visit [id number] [facility] 1955 [facility] Center 11/23/20[address] [facility] No family history on file Level of Service:90093 MI OFFICE/OUTPATIENT ESTABLISHED LOW MDM 20-29 MIN Reason for Visit and Comments: Hyperlipidemia [182] Hypertension [610218] Atrial Fibrillation [80] Coronary Artery Disease [187] Normal [facility] Orders Onlyon 05-02-2022 Orders Only [id number] Brittny Dutta 1955 Provider Department Center 05/02/2022 BRISA NIELSEN [facility]. No family history on file Normal [facility] BNPon 07-23-2021 Natriuretic peptide B (Bld) [Mass/Vol] 203.0 pg/mL Normal <=900.0 [facility] Comment on above: Performed By: #### C ANDREY #### [facility] [address] [address] Sade Atkins CBC AUTO DIFFon 07-23-2021 BASO # 0.0 103/ul Normal 0.0-0.1 [facility] Comment on above: Performed By: #### C BC #### [facility] [address] [place], [place] [address] Dr. Pattie Reynolds Basophils/100 WBC (Bld) 0.6 % Normal 0.2-2.0 [facility] Comment on above: Performed By: #### C BC #### [facility] [address] [place] [address] Dr. Pattie Reynolds EO # 0.3 103/ul Normal 0.0-0.7 [facility] Comment on above: Performed By: #### C BC #### [facility] [address] [place] [address] Dr. Pattie Reynolds Eosinophils/100 WBC (Bld) 4.3 % Normal 0.9-7.0 [facility] Comment on above: Performed By: #### C BC #### [facility] [address] [place] [address] Dr. Pattie Reynolds Erythrocyte distribution width (RBC) [Ratio] 14.6 % Normal 11.0-15.0 [facility] Comment on above: Performed By: #### C BC #### [facility] [address] [place] [address] Dr. Pattie Reynolds Hematocrit (Bld) [Volume fraction] 49.0 % Normal 42.0-54.0 [facility] Comment on above: Performed By: #### C BC #### [facility] [address] [place] [address] Dr. Pattie Renyolds Hemoglobin (Bld) [Mass/Vol] 15.3 g/dL Normal 14.0-18.0 [facility] Comment on above: Performed By: #### C BC #### [facility] [address] [place] [address] Dr. Pattie Reynolds IG # 0.03 10e3/ul Normal 0.00-0.03 [facility] Comment on above: Performed By: #### C BC #### [facility] [address] [place] [address] Dr. Pattie Reynolds IG % 0.5 % Normal 0.0-0.5 [facility] Comment on above: Performed By: #### C BC #### [facility] [address] [place] [address] Dr. Pattie Reynolds LYMPH # 1.3 103/ul Normal 1.2-3.8 [facility] Comment on above: Performed By: #### C BC #### [facility] [address] [address] [address] Pattie Reynolds Lymphocytes/100 WBC (Bld) 20.4 % Critically low 20.5-60.0 [facility] Comment on above: Performed By: #### C BC #### [facility] [address] [address] [address] Pattie Reynolds MANUAL DIFF REQ NO Normal [facility] Comment on above: Performed By: #### C BC #### [facility] [address] [address] [address] Pattie Reynolds MCH (RBC) [Entitic mass] 28.9 pg Normal 25.9-34.0 [facility] Comment on above: Performed By: #### C BC #### [facility] [address] [place] [address] Dr. Pattie Reynolds MCHC (RBC) [Mass/Vol] 31.2 g/dL Normal 29.9-35.2 [facility] Comment on above: Performed By: #### C BC #### [facility] [address] [place] [address] Dr. Pattie Reynolds MCV (RBC) [Entitic vol] 92.6 fL Normal 80.0-94.0 [facility] Comment on above: Performed By: #### C BC #### [facility] [address] [place] [address] Dr. Pattie Reynolds MONO # 1.2 103/ul Critically high 0.3-0.8 [facility] Comment on above: Performed By: #### C BC #### [facility] [address] [place] [address] Dr. Pattie Reynolds Monocytes/100 WBC (Bld) 18.6 % Critically high 1.7-12.0 [facility] Comment on above: Performed By: #### C BC #### [facility] [address] [place] [address] Dr. Pattie Reynolds NEUT # 3.6 103/ul Normal 1.4-6.5 [facility] Comment on above: Performed By: #### C BC #### [facility] [address] [address] [address] Pattie Reynolds Neutrophils/100 WBC (Bld) 55.6 % Normal 43.0-75.0 [facility] Comment on above: Performed By: #### C BC #### [facility] [address] [address] [address] Pattie Reynolds Platelet mean volume (Bld) [Entitic vol] 9.4 fL Critically low 9.5-13.5 [facility] Comment on above: Performed By: #### C BC #### [facility] [address] [address] [address] Pattie Reynolds PLT 267 103/ul Normal 150-450 [facility] Comment on above: Performed By: #### C BC #### [facility] [address] [place] [address] Dr. Pattie Reynolds RBC 5.29 106/ul Normal 4.70-6.10 [facility] Comment on above: Performed By: #### C BC #### [facility] [address] [address] [address] Pattie Reynolds WBC 6.5 103/ul Normal 4.0-11.0 [facility] Comment on above: Performed By: #### C BC #### [facility] [address] [place] [address] Dr. Pattie Reynolds CRPon 07-23-2021 CRP [Mass/Vol] mg/L Normal <=1.0 [facility] Comment on above: Performed By: #### C ANDREY #### [facility] [address] [place] [address] Sade Atkins PROF CHEM 8 (BAS METB)on Anion gap [Moles/Vol] 7.8 mmol/L Normal [facility] Comment on above: Performed By: #### B BOILER TESTER, BMP, CRP #### [facility] [address] [place] [address] Dr. Pattie Reynolds Calcium [Mass/Vol] 9.6 mg/dL Normal 8.4-10.[address] [facility] Comment on above: Performed By: #### B BOILER TESTER, BMP, CRP #### [facility] [address] [address] [address] Pattie Reynolds Chloride [Moles/Vol] 102 mmol/L Normal 98-107 [facility] Comment on above: Performed By: #### B BOILER TESTER, BMP, CRP #### [facility] [address] [address] [address] Pattie Reynolds CO2 [Moles/Vol] 32.9 mmol/L Critically high 22.0-30.0 [facility] Comment on above: Performed By: #### B BOILER TESTER, BMP, CRP #### [facility] [address] [address] [address] Pattie Reynolds Creatinine [Mass/Vol] 0.84 mg/dL Normal 0.66-1.25 [facility] Comment on above: Performed By: #### B BOILER TESTER, BMP, CRP #### [facility] [address] [place] [address] Dr. Pattie Reynolds EGFR-AF ICELANDIC >60 Normal >=60 [facility] Comment on above: Performed By: #### B BOILER TESTER, BMP, CRP #### [facility] [address] [address] [address] Pattie Reynolds EGFR-NON AF ICELANDIC >60 Normal >=60 [facility] Comment on above: Performed By: #### B BOILER TESTER, BMP, CRP #### [facility] [address] [place] [address] Dr. Pattie Reynolds Glucose [Mass/Vol] 86 mg/dL Normal 74-[address] [facility] Comment on above: Performed By: #### B BOILER TESTER, BMP, CRP #### [facility] [address] [address] [address] Pattie Reynolds Potassium [Moles/Vol] 4.7 mmol/L Normal 3.4-5.0 [facility] Comment on above: Performed By: #### B BOILER TESTER, BMP, CRP #### [facility] [address] [address] [address] Pattie Reynolds Sodium [Moles/Vol] 138 mmol/L Normal 137-[address] [facility] Comment on above: Performed By: #### B BOILER TESTER, BMP, CRP #### [facility] [address] [place], [place] [address] Dr. Pattie Reynolds Urea nitrogen [Mass/Vol] 11.0 mg/dL Normal 9.0-20.0 [facility] Comment on above: Performed By: #### B BOILER TESTER, BMP, CRP #### [facility] [address] [address] [address] Pattie Reynolds Urea nitrogen/Creatinine [Mass ratio] 13.1 mg/mg Normal [facility] Comment on above: Performed By: #### B BOILER TESTER, BMP, CRP #### [facility] [id number] Pattie Reynolds SED RATE [facility] 2020 SED RATE 60 mm/hr Critically high <=20 [facility] Comment on above: Performed By: #### S EDR #### [facility] [address] [address] [address] Pattie Reynolds Coding Summaryon 06-28-2021 Coding Summary HTMLBase 64 LjkidoweGYf2mUu+PGhlYW Q+VO6MCVLjO23frKCpkD2E V2zNAI3VQXQSHCQTEQ9QZN 6avPR2UNtdL3PvxpIz OloyxLKsWP50YUz7NES3pY adLTgopK2bfKYhU6a6SdTk GN17dO70KWdnNSAfGhD7Wo ZpbjsgbWFy M7bfRePptHUqBbr+PHRhYm xlIHdpZHRoPScxMDAlJyBz bKzaJX0bKc2yIFEnUKJpbT xhcHNlOiBj j5hcODMoECyuQF4xbLndA3 IktND4DPUde3w8Ys19zNW+ FVJnJDY8rPqbSPgon212Hk Nhn6zySQN9 xXShOIliMPR0K61mk7L1AY OnSNKpPKT0wHJ0nE4oeOxh rqkpF3CwlTKuTsK2VHI5cQ VihX6lnXlz dnodpT5bYsc+N14OKN0JBP ZADA8MEzc4V0ZjKkxelUE+ SI83RBHoZK00aEAruDQsz3 xzeGc3WpFt STPoRDR9jOhzCKuox7VjMN MsQ86pqJZpx6P3QIQcbCcn gJSwOwBjoEM1mH2xSKvnea buv4xgypkr Fijpt7voeq24tI05P86sNO osNRCxOYB2XEMgZTRrnVfo dj4pkA7rNf9+CYsfg6ioa3 lzsBt5PoTd TBVbsnVclFgxBTL1p3AuIk 68I4OtqMslq5KeQwt8vt75 qPRzb4N4xKA6UHqqCDFokH 7yRUnxXrO2 NVLcHgDzaA52tUMrKQbzOw 8mzBolaAdjBB5oZAQzqjvw RFPaqW6oOLQcrKLzhZzaDK 4wNTBpbjtm i915TsNsOZA7VTWtzWExS7 MlnL4oWiScVPUgFXHcL9Oz oJMqXEjsU944TYjbUjT5ZN AthiGdJ2Nh CUPhmQbwVdN5l1B9Rf6Kp1 XoktnkKTF6WAhgBZWmWbS4 VpXlYxI0M8ZfMzv4JHGtnO gyID5cT8Kw GPYyiaydnpldeLK3EALyIR VznR37dPNeEPemGq0bm5U7 v453OSXmXKOsfI93Kd0vwG ogMTBwdCBU gF8gptkyp6slvbnaJjHlFS LgYVm0JOu9XDVtyTqwQtPp PBB1HqS6EJX1pUVwlB9ywT qqalppjN8d Oyc+Y00flF6aXHY9TAX0jw rwOIAsdzFrWY59VI25V5Yk PjwvdGFibGU+PGRpdiBzdH gzLF1uDiJh g2lzr5RyXAvrR1TkEZSuUR gxRrt0RNIhSIO1wWL5eW5f YIDmZOynm8Q8xZH5T1Hfmf Ccty5vs9pc LECcKAisM73neAYcw7W8EF BudWN6RYVxkFouIxHxoC24 Oyc+XWKamFsqz7BmJvtsj2 uwm6pvbGh9 QpCsUJZosoVzgFngWCK0p5 LaUy99M05qGWmiABDbLOLn ZTLvTIXceZykzg9deU0hWk 8+PGNvbCB3 xDO3rF7eLHPkSnT6ALgrB3 18GyGbnJAqWublg0cxi4sc fGp1OrCsKXGlqlBgiBolND S1o0JeDi95 D95jTCxqYRTjRLJaWCDwWK HpkEflex3gsR0tEr2+PC9j o0jyyh02mS62oVL+PHRkIH V0lKmeHKbl JEByyR1zGNkqVdS3GWZqFq TayX73jRHgLZmwXz4wwFxg cIxoLD2qMOJakrzfb347Bs Wfo0ypQURs kEAnAXxiICM2E12ro9F5XE EsNJXrVNS9uBJ6wL0kcIjo bjogbGVmdDsgdmVydGljYW cjUSacI698 IHRvcDsnPlBhdGllbnQgTm NeBXs4B9HyYra6TQMbbAij XE1iuZHzNHdmLz0zsAgyaF meUM8sQMNw fsrhb103ErLyp3onINByyM KjCDrrQLT4E79pw4S6TGWr OKElMFR0qTC7wL8poLbofw ogbGVmdDsg xkQhwVdjGUxzPCkhO786FE RvcDsnPkJpcnRoIERhdGU6 SC16PU99wEJqv8K2oOD9R0 BhZGRpbmct rbnjxAS9NLOzLYFgnL58Ul 4ypMqiHj7wWJRrEPW4CUZf aRTrD6NzbW5tVzIfPINlTA AgH2YcfKJw ERiyN455HCkmKtL7XDExjc QuE7ZeFDOsaYbbGdR1x5L4 Qz0NY3U2GA44QT84aSCvs2 D5zFK3R3Hj WEMzemdrtfrumLO5MHUhHQ YbeU51Bf0vmMnaKt7oMLZb DTI4YTTtqMQnB8KtxF8wAt AjMDAwMDAw X5EguAQyFTdrU077WCfcPp V9FXJdljOeK6FiGXVlcAya HuL1u2I9La1QCPc9QE52FU 45kPBir9H5 cSN3J0TuYWFmlffognomhP K5LGTmTUVmkQ17Ix0mvAin Hf9fICTlFBP3QZXheTXaF1 PxoQ1iDlKg JYMaHECmL9FktQOrYJmaN4 19SVvbAuD7BTTbxgUdQ6Vh VYVsyIkpVeC2a6V9Tx7YRU SvYR00MLZ8 lZN0SN27RU05R0YvAuuhkD FibGU+PHRhYmxlIHdpZHRo CFdgBRJxKyBesXjfUQ7kUr 9yZGVyLWNv oFbmfTEyMlXhv6tqVUPaJA mbHN2tfMldZ2FthFW2SWMj k5n7Jl70M08jE7TvpYJ+PG EgiJV4bGA4 zH9hYfYvRoU0MBieG697Rh MlbJBeXqnih3wap4jnjGb8 WcF1RZMwweEkhSjtNXJ0d1 CqIf96C54m IHdpZHRoPSIxNSUiIHZhbG dghi5qxM9aNo7+PGNvbCB3 lNW1sT2dKrYdUoQ0ZMjtT4 49InRvcCIv Cdemg6zbj2zctZm1KuHaKC ZedvVskLbvHMI8q3VpRu20 Q1ArlGhho1EwUkt2xf30xO Waq0D6nFQ8 N9VsZOVoyghrfMUpuXyuOA 8mOMMypdxsJHYcsV8lOXPg R0s7LsMoHvW3LRhkU8Qpfz G0SEIgbIXx FKigIDH2Q72py2M3RGWqPP HpAQG6oLU8fL1ifJbomyvk bGVmdDsgdmVydGljYWwtYW ixE174OVMj kFzhMWDuwK7sZGHzuGGngS kyTK7aYQUoklhuPfVAELzF UiwgSkVGRlJFWTwvdGQ+PH WpSMQ5hHfs FWvhEVYkcU7tPBPsA0q1Wb ClBwN1EKwiQ8GeURZduesk Lt07oF9wMsVrSiW8LGjtV3 SpigV5JIRe vCNtOTyuEGB6I09vg8L0QK AmBDIcLOM6cHZ8vL0iwWhp bjogbGVmdDsgdmVydGljYW neIGiaV083 TLWoeQayGfL9RwYmNhU4JR W9Z6QbIqn7BIWcxLevQB8d sSPzLWrlIw0azLdpvOcaLC 4wNTBpbjtw OAJqlP7cELOmbJJqlXnwAF 8uCMZfidyeb857ZcMbXJF3 LFMcbALbV8KyfZ1pQvAxED XfWGXzQ0Hq fKIyTWakS130ZBepYvL5JL EzfgNbT4CiGVRxhLliJiR3 a8R2Wm32TgBBGZHfuzvntC Q+PHRkIHN0 hSbbPLlhVKMrcJ6gVACpF4 l6ZhTwPhC8PBjjC1ZbIEPj wwocWp90sS0rVgHsKlR5FU vgO9NtmbQ6 GMNxfCXqUOsxGGG5W62og3 K9ABFhEZPaNWA5vWZ7yU0w bGlnbjogbGVmdDsgdmVydG ljYWwtYWxp Z283EMLcyNokQr0YAVO7X6 SzIpf4MHWyiZshQP6lwUUx ATdnKt0vlUhamJvvDA4yGA BpbjtwYWRk jJ3xUSQzgYBfqSanLE0cOH Nvyytvg645ZrBoFKP8OYUe vDOpF0UnhB3fCeRqRNOcCV YoW2SayKKk RXzdX966NXvyWrJ8VXNwtu GbM8YgBCKhcFdnWsT6n9C0 Lv3JqNDuZ9RuR9i1R3CgVa wvdHI+PC90 IIJnOO46iVCgoPMdf1mbbL x9UoKkKGLnCLF8oDzsDFfc s1VbWMQvT80gvYEod3H2CH NvbGxhcHNl KtUfeYJ3jP8cZBvygdgzk6 vdbaslGxumc4qrkk00cT96 P83iPDimXMLnZPZiGUXcRS AwgCueuc0j vX8oKc2+CAAwaPM5qLO3aU 2pYgQoYbH3BMgrN318GnCk cPNpZviki2qwp3nfrIu3Gx IwJSIgdmFs sLicHCJ0m5MhGz61D25wGU dpZHRoPSIyMCUiIHZhbGln yu1jjF0yGi7+IB0vk0aeas 49cV76zVN+ AORmQYP7jFdsDSnqAIZljH 2yOCknVqH8TQBxNkRkbS23 kFPaRCglYd9pvDemfBkjLP 4wNTBpbjtm m578HfHho6rlCIVebWOiYM kyCBJ5I70rx5P1QKKwTNQm RFV2nRI1eW6svIqqorisaH VmdDsgdmVy dDkpSCgwVXfvL029ODEkyE yzPqKlvOHkW2sfdkPOZP8x OjwvdGQ+DVLvRCI7jZazKN omAVKfbZ9n LNMeK9q9IwGbJcL5BWsbZ1 DwduL6GEUfyTMjDMVypWLN aT4wzspjh9vqarhsKfSpBG WkJGf2EMm9 WKZlpVayXsYjFCM7VhU0AD K3iYLpdT6prUbwuosmhG7z Oyc+RklOOjwvdGQ+PHRkIH A9iOgeXGun UXCmfH9iBZYkB8o2IeVnTt J4VYopU1GnmdB5ZBYghUIe MBGpfRXTqB8nszghm4xmpf ogIzAwMDAw TPp3NUv4YIVhnBbkEvLzEW A8ZdV3XGP5eYVmiU8knHig rkjhuS9tVni+TVJOOjwvdG Q+PHRkIHN0 cWkcNPtzQJBxaO0iEEKgN4 t0BaLxYjN3ANsiJ1DmirU0 QKXmrUCkNJOpuFGHlL2oib hrt8eavcck JiVdHMGqXMp8EWx0OIIcbD ltGbKmXND4YpX2SPC8hDYl nZ2mwLvibzdulL2hPqt+UG P1KZW0OV11 DX49S7UcIkrxuSBwiQE+PH RhYmxlIHdpZHRoPScxMDAl YiDhhLajZQ1mNl6zOVAuXS NvbGxhcHNl OiB (more content not included)... Normal [facility] ED Clinical Summaryon 2020 ED Clinical Summary [facility] - Emergency Department [address] [place] [id number] ED Clinical Summary PERSON INFORMATION Name: BRITTNY DUTTA Age: 66 Years Sex: MALE : 1955 MRN: Acct#: Visit Reason: Shoulder pain-swelling; Fall; FALL- RT SHOULDER PAIN Arrival: 06/19/2021 14:08:23 Discharge: 06/19/2021 15:29:00 LOS: 000 01:21 Check In: 06/19/2021 14:08:23 Checkout:06/19/2021 15:29:00 Address: [address] [place] [id number] PCP: Judi Michelle MD PROVIDER INFORMATION Provider Role Assigned Unassigned ELLIS DORSEY ED PA 06/19/2021 14:11:05 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 Normal [facility] ED Note - Physicianon 2020 ED [...] I recommended (more content not included)... [facility] ED Patient Summaryon 021 ED Patient Summary [facility] - Emergency Department [address] [place] [address] [id number] PATIENT DISCHARGE INSTRUCTIONS Patient Information Name: BRITTNY DUTTA Age: 66 Years Date of : 1955 Reason For Visit: Shoulder pain-swelling; Fall; FALL- RT SHOULDER PAIN Arrival Time: 06/19/2021 14:08:23 Primary Care Physician: Judi Michelle MD Attending Physician: Aleksandar Beasley MD Comment: Visit Diagnosis: Diagnoses This Visit Elevated blood pressure reading (R03.0) Fall ([id number]) Fall (W19.XXXA) Humeral head fracture (S42.293A) Right shoulder pain (M25.511) Shoulder pain-swelling ([id number]) Prescription Information: If you have been given a prescription for narcotics, seek immediate medical attention if you have any difficulty breathing or any sudden status changes such as confusion and sleepiness. If you or anyone you know is experiencing suicidal thoughts, mental health, alcohol and/or drug addiction problems; contact the [facility] 06/03 Crisis Hotline -Text 4HIPI kw 853387. If you received any narcotics, sedation, or [...] legal documents With: Address: When: [place] [address] [place] [address], [place] [address] [facility] (1) Within 2 to 4 days [...] and treatment you received today in the [facility] Emergency Department were for an urgent problem and are not intended as complete care. It is important for you to follow up with a doctor, nurse practitioner, or physician?s store assistant for ongoing care. If your symptoms [...] so we can reach you if necessary. [facility] Emergency Department has provided you with a complete list of medications post discharge. Please inform your motor vehicle escort driver/provider of your visit and for further instruction on these medications. Any specific questions regarding your chronic medications and dosages should be discussed with your primary care physician(s) and/or pharmacist. New Medications Printed Prescriptions acetaminophen-hydrocod one ([place] 5 mg-325 mg oral tablet) 1 tab(s) [...] cm Weight D (more content not included)... [facility] XR Shoulder Complete [place] 06-19-2021 XR Shoulder [...] Jann Montano 06/19/21 2:59 pm Technologist: [place] [facility] VC CONSULT FOLLOWUPon 2020 VC CONSULT FOLLOWUP Patient: BRITTNY DUTTA Exam Date: 06/04/2021 : 1955 Gender:M Ordering : DR SANTI LIU M.D. Admission #: [id number] Family : Order #: [id number] CLICK HERE TO VIEW EXAM CORRECTION Corrected [...] Vaughn M.D. on 06/04/2021 at 12:38 Normal [facility] VC EXT VENOUS LT LIMITEDon 1 VC EXT VENOUS LT LIMITED Patient: BRITTNY DUTTA Exam Date: 06/04/2021 : 1955 Gender:M Ordering : DR SANTI LIU M.D. Admission #: [id number] Family : Order #: [id number] CLICK HERE TO VIEW EXAM RADIOLOGY REPORT [...] Vaughn M.D. on 06/04/2021 at 12:37 Normal [facility] VC ENDOVENOUS ABL 1ST V LTon 05-28-2021 VC ENDOVENOUS ABL 1ST V LT Patient: BRITTNY DUTTA Exam Date: 05/28/2021 : 1955 Gender:M Ordering : DR SANTI LIU M.D. Admission #: [id number] Family : Order #: [id number] CLICK HERE TO VIEW EXAM RADIOLOGY REPORT [...] M.D. on 05/28/2021 at 11:52 Normal [facility] COMP CONSULTATIONon 01-19 VC COMP CONSULTATION Patient: BRITTNY DUTTA Exam Date: 01/19/2021 : 1955 Gender:M Ordering : ROBERT RONQUILLO . Admission #: [id number] Family : Order #: [id number] CLICK HERE TO VIEW EXAM RADIOLOGY REPORT [...] The patient was last treated by the [facility]. The patient was referred by the [...] significant for atrophy duarte, diagnosed at the [facility]. Chronic atrial fibrillation for which he [...] branch saphenous tributary/varicose veins. Incompetent right ankle ui ux web developer vein period PHYSICAL EXAM: The right leg [...] Endo (more content not included)... Normal [facility] VC VENOUS REFLUX FELIX LMTon 0 01-19-2021 VC VENOUS REFLUX FELIX LMT Patient: BRITTNY DUTTA Exam Date: 01/19/2021 : 1955 Gender:M Ordering : ROBERT RONQUILLO . Admission #: [id number] Family : DR SANTI LIU M.D. Order #: [id number] CLICK HERE TO VIEW EXAM RADIOLOGY REPORT [...] chronic echogenic thrombus Compressibility: Normal Flow: Normal Tar Boiler: ankle ui ux web developer measuring 3.7mm with 3.7s of reflux Tech [...] saphenous varicose veins 5. Incompetent right ankle ui ux web developer vein Dictated by: Santi Liu MD on 01/19/2021 at 12:18 Approved by: Santi Liu MD on 01/19/2021 at 12:21 Normal [facility] CBC AUTO DIFFon 01-13-2021 BASO # 0.0 103/ul Normal 0.0-0.1 [facility] Comment on above: Performed By: #### C ANDREY #### [facility] [address] [place] [address] Sade Milly Basophils/100 WBC (Bld) 0.6 % Normal 0.2-2.0 [facility] Comment on above: Performed By: #### C ANDREY #### [facility] [address] [place] [address] Sade Atkins EO # 0.2 103/ul Normal 0.0-0.7 [facility] Comment on above: Performed By: #### C ANDREY #### [facility] [address] [place] [address] Sade Atkins Eosinophils/100 WBC (Bld) 3.3 % Normal 0.9-7.0 [facility] Comment on above: Performed By: #### C ANDREY #### [facility] [address] [place] [address] Sade Atkins Erythrocyte distribution width (RBC) [Ratio] 14.4 % Normal 11.0-15.0 [facility] Comment on above: Performed By: #### C ANDREY #### [facility] [address] [place] [address] Sade Milly Hematocrit (Bld) [Volume fraction] 49.0 % Normal 42.0-54.0 [facility] Comment on above: Performed By: #### C ANDREY #### [facility] [address] [place] [address] Sade Milly Hemoglobin (Bld) [Mass/Vol] 15.7 g/dL Normal 14.0-18.0 [facility] Comment on above: Performed By: #### C ANDREY #### [facility] [address] [place] [address] Sade Milly IG # 0.01 10e3/ul Normal 0.00-0.03 [facility] Comment on above: Performed By: #### C ANDREY #### [facility] [address] [place] [address] Sade Milly IG % 0.1 % Normal 0.0-0.5 [facility] Comment on above: Performed By: #### C ANDREY #### [facility] [address] [place] [address] Sade Milly LYMPH # 1.4 103/ul Normal 1.2-3.8 [facility] Comment on above: Performed By: #### C ANDREY #### [facility] [address] [place] [address] Sade Milly Lymphocytes/100 WBC (Bld) 20.2 % Critically low 20.5-60.0 [facility] Comment on above: Performed By: #### C ANDREY #### [facility] [address] [place] [address] Sade Atkins MANUAL DIFF REQ NO Normal [facility] Comment on above: Performed By: #### C ANDREY #### [facility] [address] [place] [address] Sade Milly MCH (RBC) [Entitic mass] 29.5 pg Normal 25.9-34.0 [facility] Comment on above: Performed By: #### C ANDREY #### [facility] [address] [place] [address] Sade Milly MCHC (RBC) [Mass/Vol] 32.0 g/dL Normal 29.9-35.2 [facility] Comment on above: Performed By: #### C ANDREY #### [facility] [address] [place] [address] Sade Milly MCV (RBC) [Entitic vol] 92.1 fL Normal 80.0-94.0 [facility] Comment on above: Performed By: #### C ANDREY #### [facility] [address] [place], [place] [address] Sadebradford Atkins MONO # 0.9 103/ul Critically high 0.3-0.8 [facility] Comment on above: Performed By: #### C ANDREY #### [facility] [address] [place], [place] [address] Sade Milly Monocytes/100 WBC (Bld) 13.5 % Critically high 1.7-12.0 [facility] Comment on above: Performed By: #### C ANDREY #### [facility] [address] [place] [address] Sadebradford Hickeyen NEUT # 4.3 103/ul Normal 1.4-6.5 [facility] Comment on above: Performed By: #### C ANDREY #### [facility] [address] [place] [address] Sade Atkins Neutrophils/100 WBC (Bld) 62.3 % Normal 43.0-75.0 [facility] Comment on above: Performed By: #### C ANDREY #### [facility] [address] [place], [place] [address] Sadebradford Atkins Platelet mean volume (Bld) [Entitic vol] 9.3 fL Critically low 9.5-13.5 [facility] Comment on above: Performed By: #### C ANDREY #### [facility] [address] [place], [place] [address] Sade Milly PLT 263 103/ul Normal 150-450 [facility] Comment on above: Performed By: #### C ANDREY #### [facility] [address] [place], [place] [address] Sade Milly RBC 5.32 106/ul Normal 4.70-6.10 [facility] Comment on above: Performed By: #### C ANDREY #### [facility] [address] [place], [place] [address] Sade Milly WBC 6.9 103/ul Normal 4.0-11.0 [facility] Comment on above: Performed By: #### C ANDREY #### [facility] [address] [id number] Sade Milly CRPon 01-13-2021 CRP [Mass/Vol] mg/L Normal <=1.0 [facility] Comment on above: Performed By: #### B MP, CRP #### [facility] [address] [place], [place] [id number] Sade Milly LACTATE/LACTIC ACIDon 2020 Lactate [Moles/Vol] 0.8 mmol/L Normal 0.7-2.0 [facility] Comment on above: Performed By: #### L ACT #### [facility] [address] [place], [place] [address] Sade Milly PROF CHEM 8 (BAS METB)on Anion gap [Moles/Vol] 15.7 mmol/L Normal [facility] Comment on above: Performed By: #### B MP, CRP #### [facility] [address] [place] [address] Sade Milly Calcium [Mass/Vol] 9.2 mg/dL Normal 8.4-10.2 [facility] Comment on above: Performed By: #### B MP, CRP #### [facility] [address] [place] [address] Sade Milly Chloride [Moles/Vol] 103 mmol/L Normal 98-107 [facility] Comment on above: Performed By: #### B MP, CRP #### [facility] [address] [place] [address] Sade Milly CO2 [Moles/Vol] 27.5 mmol/L Normal 22.0-30.0 [facility] Comment on above: Performed By: #### B MP, CRP #### [facility] [address] [place], [place] [address] Sade Milly Creatinine [Mass/Vol] 1.04 mg/dL Normal 0.66-1.25 [facility] Comment on above: Performed By: #### B MP, CRP #### [facility] [address] [id number] Sade Milly EGFR-AF ICELANDIC >60 Normal >=60 [facility] Comment on above: Performed By: #### B MP, CRP #### [facility] [address] [id number] Sade Milly EGFR-NON AF ICELANDIC >60 Normal >=60 [facility] Comment on above: Performed By: #### B MP, CRP #### [facility] [address] [id number] Sade Milly Glucose [Mass/Vol] 102 mg/dL Normal 74-106 [facility] Comment on above: Performed By: #### B MP, CRP #### [facility] [address] [place] [address] Sade Milly Potassium [Moles/Vol] 4.2 mmol/L Normal 3.4-5.0 [facility] Comment on above: Performed By: #### B MP, CRP #### [facility] [address] [address] Sade Milly Sodium [Moles/Vol] 142 mmol/L Normal 137-[address] [facility] Comment on above: Performed By: #### B MP, CRP #### [facility] [address] [place], [place] [address] Sade Milly Urea nitrogen [Mass/Vol] 15.0 mg/dL Normal 9.0-20.0 [facility] Comment on above: Performed By: #### B MP, CRP #### [facility] [address] [id number] Sade Milly Urea nitrogen/Creatinine [Mass ratio] 14.4 mg/mg Normal [facility] Comment on above: Performed By: #### B MP, CRP #### [facility] [address] [place], [place] [address] Sade Milly SED RATE [facility] T[facility]ONR[facility]on 2020 SED RATE 31 mm/hr Critically high <=20 [facility] Comment on above: Performed By: #### S EDR #### [facility] [address] [place], [place] [address] Sade Milly XR ANKLE LT MIN 3 Von 2020 XR ANKLE LT MIN 3 V EXAM: XR ANKLE LT LA N 3 V HISTORY: The patient is [...] by: BRADFORD JACKSON Date: 2021-01-13 18:57 Normal [facility] CTA ABD ANGEL WWO CON LE RUNO [...] by: SANTI LIU Date: 2020-12-25 11:56 Normal [facility] CREATININEon 12-22-2020 Creatinine [Mass/Vol] 0.98 mg/dL Normal 0.66-1.25 [facility] Comment on above: Performed By: #### C ANDREY #### [facility] [address] [address] Sade Milly EGFR-AF ICELANDIC >60 Normal >=60 [facility] Comment on above: Performed By: #### C ANDREY #### [facility] [address] [address] Sade Milly EGFR-NON AF ICELANDIC >60 Normal >=60 [facility] Comment on above: Performed By: #### C ANDREY #### [facility] [address] [place], [place] [address] Sade Hickeyen ECHOCARDIO M/2D COMPLETEon 0 10-23-2020 ECHOCARDIO M/2D COMPLETE Patient: BRITTNY DUTTA Exam Date: 10/23/2020 : 1955 Gender:M Ordering : BRISA JEFFERSON Admission #: [id number] Family : Order #: [id number] CLICK HERE TO VIEW EXAM ECHOCARDIOGRAM REPORT [...] Area(A4C): 29.70 cm2 Left Atrium Systolic Volume(A2C): 41591 mm3 Left Atrium Systolic Volume(A4C): 140990 mm3 Mitral Valve MV E to A [...] M.D. on 10/23/2020 at 11:56 Normal [facility] XR CHEST 2 Von 10-18-2020 XR CHEST [...] JACKELIN MOREAU Date: 2020-10-18 11:57 Normal [facility] CBC AUTO DIFFon 10-17-2020 BASO # 0.0 103/ul Normal 0.0-0.1 [facility] Comment on above: Performed By: #### C ANDREY #### [facility] [address] [place] [address] Sade Atkins Basophils/100 WBC (Bld) 0.6 % Normal 0.2-2.0 [facility] Comment on above: Performed By: #### C ANDREY #### [facility] [address] [place] [address] Sade Atkins EO # 0.2 103/ul Normal 0.0-0.7 [facility] Comment on above: Performed By: #### C ANDREY #### [facility] [address] [place] [address] Sade Milly Eosinophils/100 WBC (Bld) 3.7 % Normal 0.9-7.0 [facility] Comment on above: Performed By: #### C ANDREY #### [facility] [address] [place] [address] Sade Milly Erythrocyte distribution width (RBC) [Ratio] 14.4 % Normal 11.0-15.0 [facility] Comment on above: Performed By: #### C ANDREY #### [facility] [address] [place] [address] Sade Milly Hematocrit (Bld) [Volume fraction] 52.3 % Normal 42.0-54.0 [facility] Comment on above: Performed By: #### C ANDREY #### [facility] [address] [place] [address] Sade Milly Hemoglobin (Bld) [Mass/Vol] 16.3 g/dL Normal 14.0-18.0 [facility] Comment on above: Performed By: #### C ANDREY #### [facility] [address] [place] [address] Sade Milly IG # 0.01 10e3/ul Normal 0.00-0.03 [facility] Comment on above: Performed By: #### C ANDREY #### [facility] [address] [place] [address] Sade Milly IG % 0.2 % Normal 0.0-0.5 [facility] Comment on above: Performed By: #### C ANDREY #### [facility] [address] [place] [address] Sade Milly LYMPH # 1.1 103/ul Critically low 1.2-3.8 [facility] Comment on above: Performed By: #### C ANDREY #### [facility] [address] [place], [place] [phone] Sade Milly Lymphocytes/100 WBC (Bld) 17.8 % Critically low 20.5-60.0 [facility] Comment on above: Performed By: #### C ANDREY #### [facility] [address] [place] [address] Sade Milly MANUAL DIFF REQ NO Normal [facility] Comment on above: Performed By: #### C ANDREY #### [facility] [address] [place] [address] Sade Atkins MCH (RBC) [Entitic mass] 28.7 pg Normal 25.9-34.0 [facility] Comment on above: Performed By: #### C ANDREY #### [facility] [address] [place] [address] Sade Atkins MCHC (RBC) [Mass/Vol] 31.2 g/dL Normal 29.9-35.2 [facility] Comment on above: Performed By: #### C ANDREY #### [facility] [address] [place] [address] Sade Atkins MCV (RBC) [Entitic vol] 92.2 fL Normal 80.0-94.0 [facility] Comment on above: Performed By: #### C ANDREY #### [facility] [address] [place] [address] Sade Atkins MONO # 0.8 103/ul Normal 0.3-0.8 [facility] Comment on above: Performed By: #### C ANDREY #### [facility] [address] [place] [address] Sade Hickeyen Monocytes/100 WBC (Bld) 13.1 % Critically high 1.7-12.0 [facility] Comment on above: Performed By: #### C ANDREY #### [facility] [address] [place] [address] Sadebradford Atkins NEUT # 4.0 103/ul Normal 1.4-6.5 [facility] Comment on above: Performed By: #### C ANDREY #### [facility] [address] [place] [address] Sade Milly Neutrophils/100 WBC (Bld) 64.6 % Normal 43.0-75.0 [facility] Comment on above: Performed By: #### C ANDREY #### [facility] [address] [place] [address] Sadebradford Atkins Platelet mean volume (Bld) [Entitic vol] 9.5 fL Normal 9.5-13.5 [facility] Comment on above: Performed By: #### C ANDREY #### [facility] [address] [place] [address] Sade Atkins PLT 254 103/ul Normal 150-450 [facility] Comment on above: Performed By: #### C ANDREY #### [facility] [address] [place] [address] Sade Atkins RBC 5.67 106/ul Normal 4.70-6.10 [facility] Comment on above: Performed By: #### C ANDREY #### [facility] [address] [place] [address] Sade Atkins WBC 6.3 103/ul Normal 4.0-11.0 [facility] Comment on above: Performed By: #### C ANDREY #### [facility] [address] [place] [address] Sade Atkins GLYCOHEMOGLOBIN A1Con 2020 ADA RECOMMENDATION ADA THERAPEUTIC TARG ET 6.0 - 7.0 ACTION SUGGESTED > 7.0 Normal [facility] Comment on above: Performed By: #### A 1C #### [facility] [address] [place], [place] [address] Sade Atkins Glucose [Mass/Vol] 123 mg/dL Normal [facility] Comment on above: Performed By: #### A 1C #### [facility] [address] [place] [address] Sade Atkins HbA1c (Bld) [Mass fraction] 5.9 % Normal <=6.0 [facility] Comment on above: Performed By: #### A 1C #### [facility] [address] [place], [place] [address] Sade Atkins LIPID PROFILEon 10-17-2020 CHOL-HDL RATIO NORM SEE BELOW Normal [facility] Comment on above: Result Comment: 3.3 - 4.4 LOW RISK 4.4 - 7.1 AVERAGE RISK 7.1 - 11.0 MODERATE RISK >11.0 HIGH RISK Performed By: #### C ANDREY #### [facility] [address] [place], [place] [address] Sade Milly Cholesterol [Mass/Vol] 172 mg/dL Normal <=200 [facility] Comment on above: Performed By: #### C ANDREY #### [facility] [address] [id number] Sade Milly Cholesterol in HDL [Mass/Vol] 51 mg/dL Normal [facility] Comment on above: Performed By: #### C ANDREY #### [facility] [address] [phone] Sade Milly Cholesterol in LDL [Mass/Vol] 105.6 mg/dL Normal [facility] Comment on above: Performed By: #### C ANDREY #### [facility] [address] [phone] Sade Milly Cholesterol.total/Ch olesterol in HDL [Mass ratio] 3.4 {ratio} Normal [facility] Comment on above: Performed By: #### C ANDREY #### [facility] [address] [phone] Sade Milly HDL NORMAL > or = 60 mg/dl - LO W CARDIOVASCULAR RISK <40 mg/dl - HIGH CARDIOVASCULAR RISK Normal [facility] Comment on above: Performed By: #### C ANDREY #### [facility] [address] [phone] Sade Milly LDL CALC NORMAL SEE BELOW Normal [facility] Comment on above: Result Comment: <100 mg/dl OPTIMAL 100 - 129 mg/dl NEAR OR ABOVE OPTIMAL 130 - 159 mg/dl BORDERLINE HIGH 160 - 189 mg/dl HIGH >190 mg/dl VERY HIGH Performed By: #### C ANDREY #### [facility] [address] [id number] Sade Milly Triglyceride [Mass/Vol] 77 mg/dL Normal <=150 [facility] Comment on above: Performed By: #### C ANDREY #### [facility] [address] [phone] Sade Milly VLDL CALC 15.4 mg/dL Normal [facility] Comment on above: Performed By: #### C ANDREY #### [facility] [address] [place] [address] Sade Milly PROF 14(COMP METB)on 021 Albumin [Mass/Vol] 3.8 g/dL Normal 3.5-5.0 [facility] Comment on above: Performed By: #### C ANDREY #### [facility] [address] [place], [place] [address] Sade Milly Albumin/Globulin [Mass ratio] 1.1 {ratio} Normal [facility] Comment on above: Performed By: #### C ANDREY #### [facility] [address] [place], [place] [address] Sade Milly ALP [Catalytic activity/Vol] 64 U/L Normal 38-126 [facility] Comment on above: Performed By: #### C ANDREY #### [facility] [address] [place] [address] Sade Milly ALT [Catalytic activity/Vol] 26 U/L Normal 21-72 [facility] Comment on above: Performed By: #### C NADREY #### [facility] [address] [place] [address] Sade Milly Anion gap [Moles/Vol] 14.7 mmol/L Normal [facility] Comment on above: Performed By: #### C ANDREY #### [facility] [address] [place] [address] Sade Milly AST [Catalytic activity/Vol] 19 U/L Normal 17-59 [facility] Comment on above: Performed By: #### C ANDREY #### [facility] [address] [place], [place] [address] Sade Milly Bilirubin [Mass/Vol] 0.7 mg/dL Normal 0.2-1.3 [facility] Comment on above: Performed By: #### C ANDREY #### [facility] [address] [place], [place] [address] Sade Milly Calcium [Mass/Vol] 9.6 mg/dL Normal 8.4-10.[address] [facility] Comment on above: Performed By: #### C ANDREY #### [facility] [address] [address] Sade Milly Chloride [Moles/Vol] 102 mmol/L Normal 98-107 [facility] Comment on above: Performed By: #### C ANDREY #### [facility] [address] [phone] Sade Milly CO2 [Moles/Vol] 26.9 mmol/L Normal 22.0-30.0 [facility] Comment on above: Performed By: #### C ANDREY #### [facility] [address] [place], [place] [address] Sade Milly Creatinine [Mass/Vol] 1.02 mg/dL Normal 0.66-1.25 [facility] Comment on above: Performed By: #### C ANDREY #### [facility] [address] [place] [address] Sade Milly EGFR-AF ICELANDIC >60 Normal >=60 [facility] Comment on above: Performed By: #### C ANDREY #### [facility] [address] [place] [address] Sade Milly EGFR-NON AF ICELANDIC >60 Normal >=60 [facility] Comment on above: Performed By: #### C ANDREY #### [facility] [address] [place], [place] [phone] Sade Milly Globulin (S) [Mass/Vol] 3.6 g/dL Normal [facility] Comment on above: Performed By: #### C ANDREY #### [facility] [address] [place] [address] Sade Milly Glucose [Mass/Vol] 104 mg/dL Normal 74-[address] [facility] Comment on above: Performed By: #### C ANDREY #### [facility] [address] [place], [place] [address] Sade Milly Potassium [Moles/Vol] 4.6 mmol/L Normal 3.4-5.0 [facility] Comment on above: Performed By: #### C ANDREY #### [facility] [address] [place], [place] [address] Sade Milly Protein [Mass/Vol] 7.4 g/dL Normal 6.1-8.2 [facility] Comment on above: Performed By: #### C ANDREY #### [facility] [address] [place] [address] Sade Milly Sodium [Moles/Vol] 139 mmol/L Normal 137-145 [facility] Comment on above: Performed By: #### C ANDREY #### [facility] [address] [phone] Sade Milly Urea nitrogen [Mass/Vol] 18.0 mg/dL Normal 9.0-20.0 [facility] Comment on above: Performed By: #### C ANDREY #### [facility] [address] [place], [place] [address] Sade Milly Urea nitrogen/Creatinine [Mass ratio] 17.6 mg/mg Normal [facility] Health Comment on above: Performed By: #### C ANDREY #### [facility] [address] [place], [place] [id number] Sade Milly TSHon 10-17-2020 TSH 2.033 uIU/mL Normal 0.470-4.680 [facility] Comment on above: Performed By: #### C ANDREY #### [facility] [address] [place], [place] [id number] Sade Milly TSH RANGE SEE BELOW Normal [facility] Comment on above: Result Comment: <0.3 4 UIU/ml HYPERTHYROID 0.34-5.60 UIU/ml EUTHYROID >5.60 UIU/ml HYPOTHYROID Performed By: #### C ANDREY #### [facility] [address] [place], [place] [id number] Sade Milly Cardiovascular Lab Reporton 03-05-2020 Cardiovascular Lab Report [facility] Patient Name: Clarisse [facility] G MR #: [id number] Department of Physician: Adam Reno M.D. Division of Service Date: 03/05/2020 Cardiology Birthdate: 1955 Adult Cardiovascular Room #: [place] [address] Cardiovascular Laboratory Report FINAL IMPRESSIONS: 1. Severe [...] Follow up with Dr. Lane in the [place] office in the next 2 to 4 [...] the left radial artery was obtained. A 6-[place]ri [place]ankan glide sheath was inserted without difficulty. Bilateral selective coronary angiography was performed using JR4 and JL4 catheters. After reviewing the images, it was elected to proceed with an interventional procedure. A 6-[place]ri [place]ankan XB 3.5 guide catheter was advanced over [...] XB 3.5 catheter was removed and a 6-[place]ankan JL4 guide catheter coaxially engaged into the [...] Lane M.D. Date Trans: 03/05/2020 01:22 P/aram [id number] cc: Shari Shepard M.D. [address] [place] [address] [place] [id number] [facility] Vital Signs Date Time Vital Sign Value Performing Clinician Buddyi brianda 04-04-2023 10:46-0400 Body height 182.88 cm MD Jose Castellon Work Phone: [facility] 04-04-2023 10:46-0400 Body mass index (BMI) [Ratio] 36.8 kg/m2 MD Jose Castellon Work Phone: [facility] 04-04-2023 10:46-0400 Body weight 123.37 kg MD Jose Castellon Work Phone: [facility] 04-04-2023 10:26-0400 Body temperature 97.7 [degF] MD Jose Castellon Work Phone: [facility] 04-04-2023 10:26-0400 Diastolic blood pressure 80 mm[Hg] MD Jose Castellon Work Phone: [facility] 04-04-2023 10:26-0400 Heart rate 60 /min MD Jose Castellon Work Phone: [facility] 04-04-2023 10:26-0400 Respiratory rate 18 /min MD Jose Castellon Work Phone: [facility] 04-04-2023 10:26-0400 Systolic blood pressure 132 mm[Hg] MD Jose Castellon Work Phone: [facility] Encounters Encounter Date Encounter Type Care Provider Facility Start: 04-04-2023 End: 04-04-2023 ambulatory Aura Johnson Facility:[facility] Start: 04-04-2023 End: 04-04-2023 ambulatory MD Jose Castellon Work Phone: [facility] Work Phone: Start: 04-04-2023 End: 04-04-2023 Discharged Recurring MD Jose Castellon Work Phone: [facility] Janel Work Phone: Start: 11-23-2022 End: 11-23-2022 ambulatory SOM [facility] Start: 08-02-2021 End: 08-03-2021 ambulatory JUDI MICHELLE [...] End: 03-06-2020 Patient encounter procedure EHAB A ELTAHAWPranay Facility:[facility] Procedures Date Procedure Procedure Detail Performing Clinician Start: 10-17-2020 PSA screening BRISA Rico OES Comment on above: Performed By: #### C ANDREY #### [facility] [address] [place] [address] Sade Atkins Payers Date Payer Category Payer Self-pay 1960 Medicare [id number] 1960 Unknown [id number] 1955 Unknown [id number] 2.16.8 40.1.095460.3.579.2.647 1955 Unknown [id number] 2.16.84 0.1.732405.3.579.2.593 1954 Unknown [id number] 2.16.84 0.1.336814.3.579.2.593 1954 Unknown [id number] 2.16.84 0.1.219841.3.579.2.593 1954 Unknown [id number] 2.16.84 0.1.585289.3.579.2.593 1954 Unknown [id number] 2.16.84 0.1.498007.3.579.2.593 1954 Unknown [id number] 2.16.84 0.1.629393.3.579.2.593 1954 Unknown [id number] 2.16.84 0.1.823453.3.579.2.593 1954 Unknown [id number] 2.16.84 0.1.068464.3.579.2.593 1954 Unknown [id number] 2.16.84 0.1.400709.3.579.2.593 1954 Unknown [id number] 2.16.84 0.1.552005.3.579.2.593 1954 Unknown [id number] 2.16.84 0.1.963259.3.579.2.593 1954 Unknown [id number] 2.16.84 0.1.266430.3.579.2.593 1954 Unknown [id number] 2.16.84 0.1.718559.3.579.2.593 1954 Unknown [id number] 2.16.84 0.1.409795.3.579.2.593 1954 Unknown [id number] 2.16.84 0.1.453608.3.579.2.593 1954 Unknown [id number] 2.16.84 0.1.273420.3.579.2.593 1954 Unknown [id number] 2.16.84 0.1.526444.3.579.2.593 1954 Unknown [id number] 2.16.84 0.1.341219.3.579.2.593 1954 Unknown [id number] 2.16.84 0.1.698297.3.579.2.593 Unknown [id number] 2.16.8 40.1.618139.3.579.2.531 Social History Date Type Detail Facility Start: [facility]04[facility]2023 [facility] Start: 1955 Sex Assigned At Male F [facility] Progress note 04-04-2023 Note Date & Type Note Facility 04-04-2023 Progress note Note Date/Time April 04, 2023 10:47am [facility] [address] [place] [address] Wound Center Provider Note Signed Patient: Brittny Dutta MR#: [id number] : 1955 Acct:[id number] Age/Sex: 68 / M Copies to: MD Aura Roman, SANDY~ HPI Date of Visit Date of Visit: Date of Service: 04/04/2023 Time of Service: 10:44 Narrative HPI: 02/28/23 Jaylen is a 67 year old male presenting to [facility] wound care for an initial visit [...] 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 He will also contact [facility] [facility] and get back in [...] omega 3 and has not yet contacted [facility] but says that he will this week- I feelstrongly that this root cause needs addressed and he does state understanding ofthis, 3 week appt, no infection noted 04/04/23 again much better, no pain he says, has see [place] and will be having a venous procedure to fix his root problem, appears healed and so he can be discharged today but is aware to contact us with any future needs Subjective Pain Left Ankle: Pain Description: Intermittent and Burning Pain Intensity: 0 Wound/Ulcer History When did wound start?: September 2022 Mode of Arrival/ Side Framer: Personal vehicle Lives with:: Significant Other Appetite Description: Within Normal Limits Who helps w/ dressing change?: Self Smoking Status: Former smoker [facility] Medical History (Updated 04/04/23 @ 10:46 [...] Code(s): 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 [...] <Electronically signed by SANDY Johnson> 04/04/23 1046 [facility] Work Phone: Progress note 03-13-2023 Note Date & Type Note Facility 03-13-2023 Progress note Note Date/Time March 13, 2023 11:04am [facility] [address] [place] [address] Wound Center Provider Note Signed Patient: Brittny Dutta MR#: [id number] : 1955 Acct:[id number] Age/Sex: 67 / M Copies to: MD Aura Roman APRN~ HPI Date of Visit Date of Visit: Date of Service: 03/13/2023 Time of Service: 11:01 Narrative HPI: 02/28/23 Jaylen is a 67 year old male presenting to [facility] wound care for an initial visit [...] 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 He will also contact [place] [facility] and get back in [...] omega 3 and has not yet contacted [facility] but says that he will this week- I feelstrongly that this root cause needs addressed and he does state understanding ofthis, 3 week appt, no infection noted Subjective Pain Left Ankle: Pain Description: Intermittent and Burning Pain Intensity: 0 Wound/Ulcer History When did wound start?: September 2022 Mode of Arrival/ Side Framer: Personal vehicle Lives with:: Significant Other Appetite Description: Within Normal Limits Who helps w/ dressing change?: Self Smoking Status: Former smoker [facility] Medical History (Updated 02/28/23 @ 08:45 [...] Code(s): 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 [...] <Electronically signed by SANDY Johnson> 03/13/23 1104 [facility] Work Phone: Progress note 02-28-2023 Note Date & Type Note Facility 02-28-2023 Progress note Note Date/Time February 28, 2023 8:53am [facility] [address] [place] [address] Wound Center Provider Note Signed Patient: Brittny Dutta MR#: [id number] : 1955 Acct:[id number] Age/Sex: 67 / M Copies to: MD Aura Roman APRN~ HPI Date of Visit Date of Visit: Date of Service: 02/28/2023 Time of Service: 08:41 Narrative HPI: 02/28/23 Jaylen is a 67 year old male presenting to [facility] wound care for an initial visit [...] 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 He will also contact [place] [facility] and get back in [...] wound start?: September 2022 Mode of Arrival/ Side Framer: Personal vehicle Lives with:: Significant Other Appetite Description: Within Normal Limits Who helps w/ dressing change?: Self Smoking Status: Former smoker [facility] Medical History (Updated 02/28/23 @ 08:45 [...] Code(s): 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 [...] By: <Electronically signed by SANDY Johnson> 02/28/2353 [facility] Work Phone: Progress note 11-23-2022 Note Date & Type Note Facility 11-23-2022 Note [facility] Cardiology Clinic Note Chief Complaint: Patient [...] CHADS2- (more content not included)... [facility] Clinical Note 06-19-2021 Note Date & Type [...] or tofu. ? (more content not included)... 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 Hypothyroidism chronic Inflammation chronic Obesity chronic Venous stasis of lower extremity chronic Ulcer of left foot associate d with varicose veins resolved Wound pain resolved [facility] Work Phone: Summary Purpose Family [...] and content) DATE CREATED AUTHOR 03/11/2020 [facility] DATE CREATED AUTHOR AUTHOR'S ORGANIZ ATION 06/29/2021 [facility] DATE CREATED AUTHOR AUTHOR'S ORGANIZ ATION 08/18/2021 [facility] DATE CREATED AUTHOR AUTHOR'S ORGANIZ ATION 11/24/2022 [facility] DATE CREATED AUTHOR AUTHOR'S ORGANIZ ATION 05/20/2023 [facility] Care Teams (unrecognized sec tion and content) [...] BE BASED ON THE PRIMARY CLINICAL RECORDS. [facility] [employer] [facility]. provides no warranty or guarantee of the accuracy or completeness of information in this document.
== END 2023-08-29 10:54 | disposition home or self-care (01) ==
LOC: VC 10:53
PROVIDERS: PCP Radiology Diagnostic Radiology; Visit Provider Radiology Diagnostic Radiology
DX: I80.02 Phlebitis and thrombophlebitis of superficial vessels of left lower extremity (principal)
CPT/HCPCS: 93971; G0463

== ENCOUNTER 2023-09-07 10:22 | Outpatient (OUT) | payer MEDICARE, OTHER, SELFPAY ==
--- NOTE | 2023-09-07 10:24 | VEIN_ITS ---
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 HISTORY: I83.813 Bilateral painful varicose veins Pre-operative Diagnosis: CEAP class C5 venous insufficiency with pain, tenderness, edema and incompetent left saphenous and varicose vein(s), chronic venous insufficiency left leg secondary to venous incompetence Post-operative Diagnosis: CEAP class C5 venous insufficiency with pain, tenderness, edema and incompetent left saphenous and varicose vein(s), chronic venous insufficiency left leg secondary to venous incompetence Procedure Performed: 1. Ultrasound-guided microfoam chemical ablation with Varithenaregistered 2. Intraoperative ultrasound guidance Anesthesia: None Indications for Procedure: 68-year-old male who presents with a long history of lower extremity pain and swelling with extensive varicosities and hemosiderin staining. The patient failed conservative medical therapy including medical compression stockings, exercise and analgesics. Prior procedures include . Multiple incompetent varicosities of the left leg. Duplex scan showed reflux and enlarged diameters up to 6 mm. The patient underwent informed consent including management options where the complications of infection, bleeding, pain, and skin injury were discussed. Particular attention was spent discussing thrombus extension and deep vein thrombosis as well as the possibility of pulmonary embolus and treatment with oral or injectable blood thinners. Procedure: The patient walked to the procedure room. All applicable staff donned appropriate apparel. A procedure timeout was performed to confirm correct patient, correct extremity, correct procedure, and correct room set-up including presence of all applicable supplies, devices, and drugs. A duplex ultrasound, performed by myself confirmed the location and incompetence of branch saphenous varicosities and their course was marked on the skin together with the dilated tributaries. The extent of treatment of the vein and the associated varicosities was determined through ultrasound mapping. The skin was prepped and then punctured with a butterfly needle and advanced under ultrasound guidance. The Varithenaregistered canister was activated and the canister was primed and purged as required in the instructions for use. Varithenaregistered was drawn into a sterile syringe. The following injections were made: 5 cc injected into a left anterior medial lower leg 6 mm varicose vein 5 cc injected into a left anterior lateral lower leg 5 mm varicose vein 5 cc injected into a left proximal medial posterior knee 4 mm varicose vein Varithenaregistered was slowly administered at 0.5-1.0 cc/second with close observation by ultrasound of its course in the vessels. Total volume utilized was: 15 cc. Following administration of Varithenaregistered the leg was elevated and the patient was asked to repeatedly dorsiflex the ankle to limit flow of Varithenaregistered into perforating veins. Once appropriate spasm had been confirmed in the treated veins, the vascular catheter was removed from the leg and light pressure was applied over the puncture site for hemostasis. The common femoral and deep superficial veins were then evaluated for flow and compressibility prior to dressing placement. The lower extremity was kept elevated at 45 degrees above the horizontal and cording material was applied over the saphenous segments and tributaries to allow for eccentric compression over the target vessels including the targeted saphenous vein(s). A multilayer dressing was applied consisting of foam pads, coban and thigh-high 20-30 mm Hg compression elastic support hose were placed on the patient. The leg was lowered only after compression had been applied and the patient was immediately ambulatory. The patient ambulated 10 minutes under supervision and was without apparent concerns at time of release. Post-care instructions include advising patient to keep post-treatment bandages in place and dry for 48 hours, avoid extended periods of inactivity, avoid heavy exercise for one week, wear compression stockings on the treated leg continuously for two weeks, to walk daily for 10 minutes over the next month. The patient was instructed to take an anti-inflammatory medicine as needed and to follow up for color duplex scan of the Saphenous veins, the treated branch saphenous varicosities, the adjacent deep veins, and additional treatment within 7 days. PERSONNEL: Ashli Cartwright RN Electronically authenticated by: SANTI LIU Date: 09/07/2023 12:12
--- OUTSIDE RECORDS SUMMARY | 2023-09-07 10:25 | XMS_ITS | CCD ---
Author Name Unknown Address [address] [facility] [address] [place] [address] Organization [facility] Care Team Providers Care Plant Superintendent Name Role Phone ELTAHAWY, EHAB A Admitting [...] Unavailable WEST, DR SANTI Fritz Consulting Unavailable YG, ROBERT Consulting Unavailable WEST, DR SANTI Fritz Attending Unavailable ROSS, JUDI Primary Care Unavailable WEST, DR SANTI Fritz Admitting Unavailable MISC, DR LUCAS Primary Care Unavailable DERRICK DERAS Attending Unavailable HIGHLANDERDERRICK Admitting Unavailable HIGHLANDERDERRICK Admitting Unavailable HIGHLANDER, DERRICK Attending Unavailable ROSS, JUDI Primary Care Unavailable [facility] [place] LUCAS Primary Care Unavailable DERRICK DERAS Attending Unavailable DERRICK DERAS Admitting Unavailable [facility] Care Unavailable BERT THOMAS Admitting Unavailabl e CLOUGHERTY NOEL D Attending Unavailabl e CLOUGHERTYBERT D Attending Unavailabl e CLOBERT ORONA D Admitting Unavailabl e [facility] Primary Care Unavailable WEST, DR SANTI Fritz Consulting Unavailable ELTAHAWY, DR SIFUENTES Attending Unavailable ELTAHAWY, DR SIFUENTES Admitting Unavailable MISC, DR LUCAS Primary Care Unavailable ELTAHAWY, DR SIFUENTES Consulting Unavailable ELTAHAWY, DR SIFUENTES Consulting Unavailable ELTAHAWY, DR SIFUENTES Attending Unavailable MISC, DR LUCAS Primary Care Unavailable ELTAHAWY, DR SIFUENTES Admitting Unavailable [facility] Unavailable DAGMAR POST Consulting Unavailable [...] (2 sources) black walnut pollen extract; Translations: [[id number] REDUCTASE INHIBITORS] Drug Allergy [address] [facility] Repository (3 sources) Ciprofloxacin; Translations: [CIPROFLOXACIN] Drug Allergy 9 Muscle Pain [facility] Repository (4 sources) Doxycycline; Translations: [DOXYCYCLINE] Drug Allergy [address] Unknown [address] [facility] Repository (2 sources) Sulfamethoxazole / Trimethoprim Drug Allergy [address] [facility] Repository (4 sources) Sulfonamides (Antibiotic); Translations: [SULFA (SULFONAMIDE ANTIBIOTICS)] Drug allergy (disorder) [address] [facility] Repository (1 source) Ciprofloxacin Drug Allergy 6 [facility] Repository (1 source) atorvastatin; Translations: [ATORVASTATIN] Drug Allergy [address] [facility] Repository (1 source) Sulfamethoxazole / Trimethoprim; Translations: [SULFAMETHOXAZOLE-TR IMETHOPRIM] Drug Allergy [address] [facility] Repository (2 sources) Sulfamethoxazole; Translations: [sulfamethoxazole] Drug Allergy 3 Unknown Reaction [facility] (2 sources) Trimethoprim; Translations: [trimethoprim] Drug Allergy 3 Unknown Reaction [facility] (1 source) Ciprofloxacin Drug Allergy 3 [facility] Repository (1 source) Doxycycline Drug Allergy 3 [facility] Repository (1 source) Sulfonamides (Antibiotic) Drug allergy (disorder) 3 [facility] Repository Medications Current Medications Medication Drug [...] release oral tablet (1 source) Blood Viscosity Pomologist Start: 02-28-2023 take 400 mg by mouth [...] disease (5 sources) Atherosclerotic heart disease of [place] coronary artery without angina pectoris; Translations: [Coronary [...] 04-04-2023 Episodic Other aftercare (1 source) Other alf (current) drug therapy; Translations: [OTH PERMIT AGENT CURRENT DRUG THERAPY] Onset: 1 Episodic Other aftercare (1 source) senior living (current) use of antithrombotics/antipl atelets; Translations: [[facility] ANTITHROMBOT/ANTIPLATL ETS] Onset: 1 Episodic Other aftercare (1 source) terminal superintendent (current) use of anticoagulants; Translations: [PERMIT AGENT CURRNT USE ANTICOAGULANTS] Onset: 1 Episodic Other [...] Da te Episodic/Chronic Other aftercare (1 source) terminal superintendent (current) use of aspirin; Translations: [[facility] CURRENT USE OF ASPIRIN] Onset: 01-15-2021 Episodic [...] Range Facility Office Visiton 11-23-2022 Follow-up visit [id number] Brittny Dutta 1955 [facility] Provider Department Center 11/23/[address] [facility] No family history on file Level of Service:48206 GA OFFICE/OUTPATIENT ESTABLISHED LOW MDM 20-29 MIN Reason for Visit and Comments: Hyperlipidemia [182] Hypertension [696034] Atrial Fibrillation [80] Coronary Artery Disease [187] Normal [facility] Orders Onlyon 05-02-2022 Orders Only [id number] Brittny Dutta 1955 Provider Department Center 05/02/2022 BRISA NIELSEN [facility]. No family history on file Normal [facility] BNPon 07-23-2021 Natriuretic peptide B (Bld) [Mass/Vol] 203.0 pg/mL Normal <=900.0 [facility] Comment on above: Performed By: #### C ANDREY #### [facility] [address] [address] Sade Atkins CBC AUTO DIFFon 07-23-2021 BASO # 0.0 103/ul Normal 0.0-0.1 [facility] Comment on above: Performed By: #### C BC #### [facility] [address], [place] [address] Dr. Pattie Reynolds Basophils/100 WBC (Bld) 0.6 % Normal 0.2-2.0 [facility] Comment on above: Performed By: #### C BC #### [facility] [address] [place] [address] Dr. Pattie Reynolds EO # 0.3 103/ul Normal 0.0-0.7 [facility] Comment on above: Performed By: #### C BC #### [facility] [address] [place] [address] Dr. Pattie Reynolds Eosinophils/100 WBC (Bld) 4.3 % Normal 0.9-7.0 [facility] Comment on above: Performed By: #### C BC #### [facility] [address] [place] [address] Dr. Pattie Reynolds Erythrocyte distribution width (RBC) [Ratio] 14.6 % Normal 11.0-15.0 [facility] Comment on above: Performed By: #### C BC #### [facility] [address] [place] [address] Dr. Pattie Reynolds Hematocrit (Bld) [Volume fraction] 49.0 % Normal 42.0-54.0 [facility] Comment on above: Performed By: #### C BC #### [facility] [address] [place] [address] Dr. Pattie Reynolds Hemoglobin (Bld) [Mass/Vol] 15.3 g/dL Normal 14.0-18.0 [facility] Comment on above: Performed By: #### C BC #### [facility] [address] [place] [address] Dr. Pattie Reynolds IG # 0.03 10e3/ul Normal 0.00-0.03 [facility] Comment on above: Performed By: #### C BC #### [facility] [address] [place] [address] Dr. Pattie Reynolds IG % 0.5 % Normal 0.0-0.5 [facility] Comment on above: Performed By: #### C BC #### [facility] [address] [place] [address] Dr. Pattie Reynolds LYMPH # 1.3 103/ul Normal 1.2-3.8 [facility] Comment on above: Performed By: #### C BC #### [facility] [address] [address] [address] Pattie Reynolds Lymphocytes/100 WBC (Bld) 20.4 % Critically low 20.5-60.0 [facility] Comment on above: Performed By: #### C BC #### [facility] [address] [address] [address] Pattie Reynolds MANUAL DIFF REQ NO Normal [facility] Comment on above: Performed By: #### C BC #### [facility] [address] [address] [address] Pattie Reynolds MCH (RBC) [Entitic mass] 28.9 pg Normal 25.9-34.0 [facility] Comment on above: Performed By: #### C BC #### [facility] [address] [place] [address] Dr. Pattie Reynolds MCHC (RBC) [Mass/Vol] 31.2 g/dL Normal 29.9-35.2 [facility] Comment on above: Performed By: #### C BC #### [facility] [address] [place] [address] Dr. Pattie Reynolds MCV (RBC) [Entitic vol] 92.6 fL Normal 80.0-94.0 [facility] Comment on above: Performed By: #### C BC #### [facility] [address] [place] [address] Dr. Pattie Reynolds MONO # 1.2 103/ul Critically high 0.3-0.8 [facility] Comment on above: Performed By: #### C BC #### [facility] [address] [place] [address] Dr. Pattie Reynolds Monocytes/100 WBC (Bld) 18.6 % Critically high 1.7-12.0 [facility] Comment on above: Performed By: #### C BC #### [facility] [address] [place] [address] Dr. Pattie Reynolds NEUT # 3.6 103/ul Normal 1.4-6.5 [facility] Comment on above: Performed By: #### C BC #### [facility] [address] [address] [address] Pattei Reynolds Neutrophils/100 WBC (Bld) 55.6 % Normal 43.0-75.0 [facility] Comment on above: Performed By: #### C BC #### [facility] [address] [address] [address] Pattie Reynolds Platelet mean volume (Bld) [Entitic vol] 9.4 fL Critically low 9.5-13.5 [facility] Comment on above: Performed By: #### C BC #### [facility] [address] [address] [address] Pattie Reynolds PLT 267 103/ul Normal 150-450 [facility] Comment on above: Performed By: #### C BC #### [facility] [address] [place] [address] Dr. Pattie Reynolds RBC 5.29 106/ul Normal 4.70-6.10 [facility] Comment on above: Performed By: #### C BC #### [facility] [address] [address] [address] Pattie Reynolds WBC 6.5 103/ul Normal 4.0-11.0 [facility] Comment on above: Performed By: #### C BC #### [facility] [address] [place] [address] Dr. Pattie Reynolds CRPon 07-23-2021 CRP [Mass/Vol] mg/L Normal <=1.0 [facility] Comment on above: Performed By: #### C ANDREY #### [facility] [address] [place] [address] Sade Atkins PROF CHEM 8 (BAS METB)on Anion gap [Moles/Vol] 7.8 mmol/L Normal [facility] Comment on above: Performed By: #### B ARTIFICIAL FLY TIER, BMP, CRP #### [facility] [address] [place] [address] Dr. Pattie Reynolds Calcium [Mass/Vol] 9.6 mg/dL Normal 8.4-10.2 [facility] Comment on above: Performed By: #### B ARTIFICIAL FLY TIER, BMP, CRP #### [facility] [address] [address] [address] Pattie Reynolds Chloride [Moles/Vol] 102 mmol/L Normal 98-107 [facility] Comment on above: Performed By: #### B ARTIFICIAL FLY TIER, BMP, CRP #### [facility] [address] [address] [address] Pattie Reynolds CO2 [Moles/Vol] 32.9 mmol/L Critically high 22.0-30.0 [facility] Comment on above: Performed By: #### B ARTIFICIAL FLY TIER, BMP, CRP #### [facility] [address] [address] [address] Pattie Reynolds Creatinine [Mass/Vol] 0.84 mg/dL Normal 0.66-1.25 [facility] Comment on above: Performed By: #### B ARTIFICIAL FLY TIER, BMP, CRP #### [facility] [address] [place] [address] Dr. Pattie Reynolds EGFR-AF ZAMBIAN >60 Normal >=60 [facility] Comment on above: Performed By: #### B ARTIFICIAL FLY TIER, BMP, CRP #### [facility] [address] [address] [address] Pattie Reynolds EGFR-NON AF ZAMBIAN >60 Normal >=60 [facility] Comment on above: Performed By: #### B ARTIFICIAL FLY TIER, BMP, CRP #### [facility] [address] [place] [address] Dr. Pattie Reynolds Glucose [Mass/Vol] 86 mg/dL Normal 74-106 [facility] Comment on above: Performed By: #### B ARTIFICIAL FLY TIER, BMP, CRP #### [facility] [address] [address] [address] Pattie Reynolds Potassium [Moles/Vol] 4.7 mmol/L Normal 3.4-5.0 [facility] Comment on above: Performed By: #### B ARTIFICIAL FLY TIER, BMP, CRP #### [facility] [address] [address] [address] Pattie Reynolds Sodium [Moles/Vol] 138 mmol/L Normal 137-145 [facility] Comment on above: Performed By: #### B ARTIFICIAL FLY TIER, BMP, CRP #### [facility] [address] [place], [place] [address] Dr. Pattie Reynolds Urea nitrogen [Mass/Vol] 11.0 mg/dL Normal 9.0-20.0 [facility] Comment on above: Performed By: #### B ARTIFICIAL FLY TIER, BMP, CRP #### [facility] [address] [address] [address] Pattie Reynolds Urea nitrogen/Creatinine [Mass ratio] 13.1 mg/mg Normal [facility] Comment on above: Performed By: #### B ARTIFICIAL FLY TIER, BMP, CRP #### [facility] [id number] Pattie Reynolds SED RATE [facility] 2020 SED RATE 60 mm/hr Critically high <=20 [facility] Comment on above: Performed By: #### S EDR #### [facility] [address] [address] [address] Pattie Reynolds Coding Summaryon 06-28-2021 Coding Summary HTMLBase 64 OffwgexqLMc3tOe+PGhlYW Q+IY1WYIAgF23pwHWljS2P Y7cHVA2IDPVROGUSCU8SFB 7hoCE6HZumL9OhmwCk SabowDDyEI09XGf3DEE0fL tvZCdphZ9awHYcC2l2WjCq IY52dP52HWsrAAPfJbC4Bs ZpbjsgbWFy G3jtMyDkyASfFfw+PHRhYm xlIHdpZHRoPScxMDAlJyBz kNokVB6uXp3eELJpXOUmaX xhcHNlOiBj s8hoPRDlSRwtUQ0wsDjjM0 LdwVW2AUGsi7i0Ka72tXW+ YBUkTUD0mAacKYhki637Ap Isq4lvERV3 xNAbAEydJVJ0K35zo1F4TR BiHNUwVVE3sQY7pW0ftYfc ovnsC0HvyMFtKdQ6DER4qY JvfC4obPxz zdeouP8xUfw+Q34EME9FDR JYJG1SXzi9E5NtPejxxJV+ TV82XBTvYZ46iFIjjRLfz0 xqsIk4GaIt SSIeTIC6hKbhSAsha5MsAA NaV44jgTPoy9Z2OQQweWxz oORcIvDxdWZ3xI2jEVctwx qoe7vckfiq Jondg7ttez05jX10X03mGO coDLMfPPN9HHDwTRUreEuw bb8gmN5pBe8+OKpej2lbs3 nrrGz3GlRl TBSufeNyvUawZHB3g1ZuMv 72L1JbhSuiu4NvRas4vt32 dOYnq3E5jBG6QYwjEIRxiK 9mXUkpPoU2 DGFaCkGfqK96zRHdIKhaBo 1nuCqaaLmvNI6oBPZdbrbi UELyrA1fCZLjkQXisTlaBK 4wNTBpbjtm a746NqWkXGN2OEEgdZDjG9 SsqM4vWxIsROEiNNUxG9As dMNyJLiqD532WSofJvI7CB RxsaHgJ9Qk NHRnmVgmPgW3t5W0Hb9Fp7 OfvipfVYG1OTkxMRTzUyH6 DnGlDaO6D5YoQnw6QBQciY ctWB3fZ5Px QHUkqzvvyjuhyDC8IZKsPH WraK66cQTwADfwGz5uv0E1 i961GTHkFISqxD94Re9esW ogMTBwdCBU sA8qigecy7woxqpdHmZfYL SvPKv5VGp0CCIcjDaaRxIx THY9VjH3RGN8jYXnjB6pyT gmyzljkV6t Oyc+Z14gzN1rECP8WZV7oc jcRDNqsgQyYJ10AA79W9Lp PjwvdGFibGU+PGRpdiBzdH kvLS5sGcIi y1kqj3MlNMoyJ4JdGTFsCQ wmKkv4FCHgSAY6rSX0iG9a FZAbCJzrk3D1vBH8I8Itom Reef2ma5bn VGVcEWggQ37neIQxv2V6AP RrtYT6MRHifAkvMkFvpB80 Oyc+BFFpoTucn0RlVkkqe9 ohv5tkhKx6 ObKyDCYrkyTbeYgbPMF2k7 ZqOy04O96tLTclLHXfJLVk HOYaSMUrwWrhxf1hhI2bTf 8+PGNvbCB3 pKL3bW8uQGIgNpJ4WCyzD2 31QsOepEFtVvaon6ajy4au pXu9EeZgXKWprgBjeYheEG E8v1XfXw95 R25lUKuhSDEsPBPkFGEqCG HeoHxxbr2wdD2nYb4+PC9j a2zlzn56jT97jJK+PHRkIH Q1aLufJLxz GYCiwB2hWIvpXsU8BWAdHm ZgaV93wRAdBPajYz0wyBvq nKgnBX3hDJQirgyov993Sj Xmc8tvKQDh dBMoZYksYOP0O30yb2D7FQ OsGIKqZEW1pOZ7eH1sdIje bjogbGVmdDsgdmVydGljYW pwVSbrN695 IHRvcDsnPlBhdGllbnQgTm ZmHGd9I4FxVwz3LOOwqLkm XV5irSKiPBsaFs6nmFziqP smSN7rWWAz toimh901OgJio9ktRQSfjJ JtSMnrCDG8P50rt0Q7VTFs CIYhZRY4mEF2hL6noGzvoe ogbGVmdDsg riVviFpzTLpfXBwgP460CC RvcDsnPkJpcnRoIERhdGU6 RH21PF70pXChw6D7lHX7B0 BhZGRpbmct rrnpmXD2VQKgNYNplG47Hm 1gkExrKk5uADKvASS3ZANm rPBdY7IyuJ7zOaUnMJRfKV XxD6OceBTf CZrhB477IWmgLjU2WGMicc FtM8VkBYRwzEzuRjH4u1L9 Zp1JJ1U5CL69GJ15oBPam3 K2dDV8K5Gh OVNsjjtsljdpvWT7GXXcMR DllM81Lq4hhJcpVz9uPDXo KLX9GSTvsDRoX2XgzS0tPv AjMDAwMDAw P8JnlRMcMNjoG252VAywMi K7GEPqmoTvY8ZjYXBlzXnu RaW9y4U8Fo2XGJd2KW91JF 14kAJul4Z6 lPS9P4XgRZAnmbxbkzaycZ U6UIDoQBYgjL65Zs8qrKtu Rj0ePSDcLWP1YSFllVTrT5 NtwE1nSqEv TAGpEMMbI6YldSLjMEvpR8 19ATvuOiS6URHlotUpB0Es NAGtzAknRfG8a9F7Tk2BYS GqTM39LGP7 nDQ7LE87VI70O9QfGznygL FibGU+PHRhYmxlIHdpZHRo ZFajIWZgYtVanIuvEV2wOr 9yZGVyLWNv qVplcHTnAjRgq8naVKPnJL ybUI5wwJqgL8KltTZ9ZPSh x1y0Fh73A73dX6DqhHQ+PG NucJV1fYI6 nR3tUpHnQbG3PXiwX123Oq TkkUYpWqzkn6hqo9tuyKt8 XjR2PESyagLoiElcZYV2c7 YbTd25T94j IHdpZHRoPSIxNSUiIHZhbG feaj5rkE0rDe6+PGNvbCB3 zRR1xQ6xHnLuDmW2XKtdL0 49InRvcCIv Avqqb4nnx8ifjYm8WtGzAF YfxvByyChmTZD5m4JaWu76 M7RyoNoxt5OlDni1mx67pK Ftv8Z8iEL0 Z1VoLCRgcghspICreMaxWH 7nUXJmwfjsQMDlbF7vQUHi U0c3OsQoZtZ6CCveM4Gcfd Q9HMAqwBDw BPsvWCE4E96am4N1HNVfWW DsSWY9gSQ2qJ5fnOurvnca bGVmdDsgdmVydGljYWwtYW ykG998DVZc xGxyFZNvnG0lDYKtmOObwK ltFH6oPFVhcqxtWuJHQWoR UiwgSkVGRlJFWTwvdGQ+PH VxEEJ6bNdr FXeiHRBpnE8yYTTuA0u6Xw OoBdB5VDzvG2JbRXBxwqda Qg04bI4aVzGhPlX7BXxvP1 XaubS2RCUs vAIeLFmfOVK4R01pp3O4BV QuBAPxVHG1lQF4hD3qxIah bjogbGVmdDsgdmVydGljYW flGXpvD362 NZFmyVmtXcW4LrOxDqW3GP C0L5XuAkx0BIAckWgdTU5j iDLuTTdvRz5odSlyyTsuEM 4wNTBpbjtw STBseN7lBLWwcGHyyDbjVL 0gBCZjbypov730GtDxUDP3 IKFbrAKgB5IuwI4xSmXeMO EeXQLvC2Kj nQWbMMniJ433QFhzHqU0PK VuyiGlE6GvENRnbLhzNgX5 t4O8Xb22DjSAAAHpakfklA Q+PHRkIHN0 tSzpHYgtFGHbqA2dYRVrN3 s0MbKfBsF1QXedI9NwDCVj bvdyYu09kZ3fWrPwVsV8QM anW6LlwjQ2 KXXkzYMxMPbeOEC7S58ky2 S4HMGxTJXgLTC7gOX7hJ6v bGlnbjogbGVmdDsgdmVydG ljYWwtYWxp D730XQNqfIeuPp7KQNF0K6 HmRpp9LGEpvTlnUQ8tyXSn ZEnvVv4dwUyqbLhdGO6kHD BpbjtwYWRk jM3lADPwlVBboXnoPN3tID Fbrnqnd704MtXhQRW6SFHo yKCoH2DayQ9dIgPkTMQuHR FzL4NgoQPi AVhbE749TOddDcR6RDEhrz NoN0AtXDHifWlwWyI0x8B6 Sc8SsYEmV9VlR6l6L7FjRv wvdHI+PC90 WKEePS32cCNdlKYhx0wfoX d3WdAkDKHtNXA1gRkbUPcf c8UfVQQvE69iuSUwj7V7EW NvbGxhcHNl UzOiaNY9vE7aRDqlacvup9 xdsgrnKdblr6auus49eW90 Y98wHUauCAJaZPLwEOIzWS UymJkptw6m dI2sGa1+NHGziZN2oPK9sQ 3tKjRaFyG0BHsbT362KaHi vHYwIppju7eae2poeNl6Rq IwJSIgdmFs aZenPXE7v5KtRb58B25cMA dpZHRoPSIyMCUiIHZhbGln cc0xaR8oAd7+NS8xy0dtrc 06qL81kXN+ WGNqJJU5dNkrBXuiEHEncZ 2aNFqyCpK2SCAiVmFnsD16 yYIiSIvhCy9gjYpioMulGR 4wNTBpbjtm c169QnQuu7beWNJfwXIiNT slVAC8D47tt7C3TGCqUAUu TSX8zHO8mJ8raIguiowpeP VmdDsgdmVy rJsyOPevYOnhN009XHEovL iiMpJbtJHyL1eudiNYYO1k OjwvdGQ+ZGGnYHY9iLtsNG jcFZTphB7g EMCaR2r6RnMnJeW1WCusX4 PqdjG7TSUppFDnHKXndFOC pJ7euevnd7qiangyZxCvCJ OmMOe0CPk7 COIrnBgsAwEuZKU3WjP2GR U1tBEwpZ5tkRrnxikrzD6n Oyc+RklOOjwvdGQ+PHRkIH B8mDxcMHgv ZZDmyD8dTZKeM4r9OaTtJj I5FXqiU5TijfP2PSLpzJFj AWDgiEDGaK1rystjm6wast ogIzAwMDAw ZId2URm4VVDjgUfmNdRxLH M7HiY3FOQ8kPCrmH4dsEna bmgyhK9eYcz+TVJOOjwvdG Q+PHRkIHN0 bRjaSFfmSQJquH7pWZGaQ8 d6MoKaJsN0TKbnX7QdapE3 RAIwvFUdAJPddWMVdG9ihe jkj3hycheo IkLpGQMtCMr3HXw9LOHiiY czFvIuXVY9BuP3MTT9wIEn kU7zeTyftanuzH6qTur+UG Y8WJM4XR48 OU18H9QhUabqwUBgtAV+PH RhYmxlIHdpZHRoPScxMDAl IjJlpHpmHX3vBu3rELDjNK NvbGxhcHNl OiB (more content not included)... Normal [facility] ED Clinical Summaryon 2020 ED Clinical Summary [facility] - Emergency Department [address] [place] [id number] ED Clinical Summary PERSON INFORMATION Name: BRITTNY DUTTA Age: 66 Years Sex: MALE : 1955 MRN: Acct#: Visit Reason: Shoulder pain-swelling; Fall; FALL- RT SHOULDER PAIN Arrival: 06/19/2021 14:08:23 Discharge: 06/19/2021 15:29:00 LOS: 000 01:21 Check In: 06/19/2021 14:08:23 Checkout:06/19/2021 15:29:00 Address: [address] [place] [id number] PCP: Judi Michelle MD PROVIDER INFORMATION Provider Role Assigned Unassigned ELLIS DORSEY ED PA 06/19/2021 14:11:05 Lily Garrison CLINICAL OPERATIONS SPECIALIST Nurse 06/19/2021 14:12:25 VITALS INFORMATION Vital Sign Triage Latest Temperature Tympanic 36.6 DegC 36.6 DegC Temperature Temporal Artery Pulse Rate 80 bpm 80 bpm O2 Sat 98 % 98 % Respiratory Rate 14 br/min 14 br/min Blood Pressure /101 mmHg /101 mmHg MEDICAL INFORMATION Medications Given: Medication Dose Route acetaminophen-hydrocod one ([place] 5 mg-325 mg oral tablet) 1 tab(s) [...] I indic (more content not included)... Normal [facility] ED Note - Physicianon 2020 ED [...] I recommended (more content not included)... Normal [facility] ED Patient Summaryon 021 ED Patient Summary [facility] - Emergency Department [address] [place] [address] [id number] PATIENT DISCHARGE INSTRUCTIONS Patient Information Name: BRITTNY DUTTA Age: 66 Years Date of : 1955 Reason For Visit: Shoulder pain-swelling; Fall; FALL- RT SHOULDER PAIN Arrival Time: 06/19/2021 14:08:23 Primary Care Physician: Judi Michelle MD Attending Physician: Aleksandar Beasley MD Comment: Visit Diagnosis: Diagnoses This Visit Elevated blood pressure reading (R03.0) Fall ([id number]) Fall (W19.XXXA) Humeral head fracture (S42.293A) Right shoulder pain (M25.511) Shoulder pain-swelling ([id number]) Prescription Information: If you have been given a prescription for narcotics, seek immediate medical attention if you have any difficulty breathing or any sudden status changes such as confusion and sleepiness. If you or anyone you know is experiencing suicidal thoughts, mental health, alcohol and/or drug addiction problems; contact the [facility] 06/03 Crisis Hotline -Text 4HPIK tj 223323. If you received any narcotics, sedation, or [...] documents With: Address: When: [place] [address] [place] [address], [place] [address] [facility] (1) Within 2 to 4 days Comments: [...] treatment you received today in the [facility] Emergency Department were for an urgent problem and are not intended as complete care. It is important for you to follow up with a doctor, nurse practitioner, or physician?s wet process assistant head miller for ongoing care. If your symptoms become [...] so we can reach you if necessary. [facility] Emergency Department has provided you with a complete list of medications post discharge. Please inform your milk tester/provider of your visit and for further instruction on these medications. Any specific questions regarding your chronic medications and dosages should be discussed with your primary care physician(s) and/or pharmacist. New Medications Printed Prescriptions acetaminophen-hydrocod one ([place] 5 mg-325 mg oral tablet) 1 tab(s) [...] cm Weight D (more content not included)... [facility] XR Shoulder Complete Righton 06-19-2021 XR Shoulder [...] Jann Montano 06/19/21 2:59 pm Technologist: [place] [facility] VC CONSULT FOLLOWUPon 2020 VC CONSULT FOLLOWUP Patient: BRITTNY DUTTA Exam Date: 06/04/2021 : 1955 Gender:M Ordering : DR SANTI LIU M.D. Admission #: [id number] Family : Order #: [id number] CLICK HERE TO VIEW EXAM CORRECTION Corrected [...] Vaughn M.D. on 06/04/2021 at 12:38 Normal [facility] [place] VC EXT VENOUS LT LIMITEDon 1 VC EXT VENOUS LT LIMITED Patient: BRITTNY DUTTA Exam Date: 06/04/2021 : 1955 Gender:M Ordering : DR SANTI LIU M.D. Admission #: [id number] Family : Order #: [id number] CLICK HERE TO VIEW EXAM RADIOLOGY REPORT [...] Vaughn M.D. on 06/04/2021 at 12:37 Normal [facility] VC ENDOVENOUS ABL 1ST V LTon 05-28-2021 VC ENDOVENOUS ABL 1ST V LT Patient: BRITTNY DUTTA Exam Date: 05/28/2021 : 1955 Gender:M Ordering : DR SANTI LIU M.D. Admission #: [id number] Family : Order #: [id number] CLICK HERE TO VIEW EXAM RADIOLOGY REPORT [...] M.D. on 05/28/2021 at 11:52 Normal [facility] COMP CONSULTATIONon 01-19 VC COMP CONSULTATION Patient: BRITTNY DUTTA Exam Date: 01/19/2021 : 1955 Gender:M Ordering : ROBERT RONQUILLO . Admission #: [id number] Family : Order #: [id number] CLICK HERE TO VIEW EXAM RADIOLOGY REPORT [...] The patient was last treated by the [facility]. The patient was referred by the [...] significant for atrophy duarte, diagnosed at the [facility]. Chronic atrial fibrillation for which he [...] branch saphenous tributary/varicose veins. 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 Normal [facility] VC VENOUS REFLUX FELIX LMTon 0 01-19-2021 VC VENOUS REFLUX FELIX LMT Patient: BRITTNY DUTTA Exam Date: 01/19/2021 : 1955 Gender:M Ordering : ROBERT RONQUILLO . Admission #: [id number] Family : DR SANTI LIU M.D. Order #: [id number] CLICK HERE TO VIEW EXAM RADIOLOGY REPORT [...] chronic echogenic thrombus Compressibility: Normal Flow: Normal Distribution Operation Supervisor: ankle brass molder measuring 3.7mm with 3.7s of reflux Tech [...] saphenous varicose veins 5. Incompetent right ankle brass molder vein Dictated by: Santi iLu MD on 01/19/2021 at 12:18 Approved by: Santi Liu MD on 01/19/2021 at 12:21 Normal [facility] CBC AUTO DIFFon 01-13-2021 BASO # 0.0 103/ul Normal 0.0-0.1 [facility] Comment on above: Performed By: #### C ANDREY #### [facility] [address] [place] [address] Sade Milly Basophils/100 WBC (Bld) 0.6 % Normal 0.2-2.0 [facility] Comment on above: Performed By: #### C ANDREY #### [facility] [address] [place] [address] Sade Atkins EO # 0.2 103/ul Normal 0.0-0.7 [facility] Comment on above: Performed By: #### C ANDREY #### [facility] [address] [place] [address] Sade Atkins Eosinophils/100 WBC (Bld) 3.3 % Normal 0.9-7.0 [facility] Comment on above: Performed By: #### C ANDREY #### [facility] [address] [place] [address] Sade Atkins Erythrocyte distribution width (RBC) [Ratio] 14.4 % Normal 11.0-15.0 [facility] Comment on above: Performed By: #### C ANDREY #### [facility] [address] [place] [address] Sade Milly Hematocrit (Bld) [Volume fraction] 49.0 % Normal 42.0-54.0 [facility] Comment on above: Performed By: #### C ANDREY #### [facility] [address] [place] [address] Sade Milly Hemoglobin (Bld) [Mass/Vol] 15.7 g/dL Normal 14.0-18.0 [facility] Comment on above: Performed By: #### C ANDREY #### [facility] [address] [place] [address] Sade Milly IG # 0.01 10e3/ul Normal 0.00-0.03 [facility] Comment on above: Performed By: #### C ANDREY #### [facility] [address] [place] [address] Sade Milly IG % 0.1 % Normal 0.0-0.5 [facility] Comment on above: Performed By: #### C ANDREY #### [facility] [address] [place] [address] Sade Milly LYMPH # 1.4 103/ul Normal 1.2-3.8 [facility] Comment on above: Performed By: #### C ANDREY #### [facility] [address] [place] [address] Sade Milly Lymphocytes/100 WBC (Bld) 20.2 % Critically low 20.5-60.0 [facility] Comment on above: Performed By: #### C ANDREY #### [facility] [address] [place] [address] Sade Atkins MANUAL DIFF REQ NO Normal [facility] Comment on above: Performed By: #### C ANDREY #### [facility] [address] [place] [address] Sade Milly MCH (RBC) [Entitic mass] 29.5 pg Normal 25.9-34.0 [facility] Comment on above: Performed By: #### C ANDREY #### [facility] [address] [place] [address] Sade Milly MCHC (RBC) [Mass/Vol] 32.0 g/dL Normal 29.9-35.2 [facility] Comment on above: Performed By: #### C ANDREY #### [facility] [address] [place] [address] Sade Milly MCV (RBC) [Entitic vol] 92.1 fL Normal 80.0-94.0 [facility] Comment on above: Performed By: #### C ANDREY #### [facility] [address] [place], [place] [id number] Sadebradford Atkins MONO # 0.9 103/ul Critically high 0.3-0.8 [facility] Comment on above: Performed By: #### C ANDREY #### [facility] [address] [place], [place] [address] Sade Milly Monocytes/100 WBC (Bld) 13.5 % Critically high 1.7-12.0 [facility] Comment on above: Performed By: #### C ANDREY #### [facility] [address] [place] [address] Sadebradford Hickeyen NEUT # 4.3 103/ul Normal 1.4-6.5 [facility] Comment on above: Performed By: #### C ANDREY #### [facility] [address] [place] [address] Sade Atkins Neutrophils/100 WBC (Bld) 62.3 % Normal 43.0-75.0 [facility] Comment on above: Performed By: #### C ANDREY #### [facility] [address] [place], [place] [address] Sadebradford Atkins Platelet mean volume (Bld) [Entitic vol] 9.3 fL Critically low 9.5-13.5 [facility] Comment on above: Performed By: #### C ANDREY #### [facility] [address] [place], [place] [address] Sade Milly PLT 263 103/ul Normal 150-450 [facility] Comment on above: Performed By: #### C ANDREY #### [facility] [address] [place], [place] [address] Sade Milly RBC 5.32 106/ul Normal 4.70-6.10 [facility] Comment on above: Performed By: #### C ANDREY #### [facility] [address] [place], [place] [address] Sade Milly WBC 6.9 103/ul Normal 4.0-11.0 [facility] Comment on above: Performed By: #### C ANDREY #### [facility] [address] [id number] Sade Milly CRPon 01-13-2021 CRP [Mass/Vol] mg/L Normal <=1.0 [facility] Comment on above: Performed By: #### B MP, CRP #### [facility] [address] [place], [place] [address] Sade Milly LACTATE/LACTIC ACIDon 2020 Lactate [Moles/Vol] 0.8 mmol/L Normal 0.7-2.0 [facility] Comment on above: Performed By: #### L ACT #### [facility] [address] [place], [place] [address] Sade Milly PROF CHEM 8 (BAS METB)on Anion gap [Moles/Vol] 15.7 mmol/L Normal [facility] Comment on above: Performed By: #### B MP, CRP #### [facility] [address] [place] [address] Sade Milly Calcium [Mass/Vol] 9.2 mg/dL Normal 8.4-10.2 [facility] Comment on above: Performed By: #### B MP, CRP #### [facility] [address] [place] [address] Sade Milly Chloride [Moles/Vol] 103 mmol/L Normal 98-107 [facility] Comment on above: Performed By: #### B MP, CRP #### [facility] [address] [place] [address] Sade Milly CO2 [Moles/Vol] 27.5 mmol/L Normal 22.0-30.0 [facility] Comment on above: Performed By: #### B MP, CRP #### [facility] [address] [place], [place] [address] Sade Milly Creatinine [Mass/Vol] 1.04 mg/dL Normal 0.66-1.25 [facility] Comment on above: Performed By: #### B MP, CRP #### [facility] [address] [id number] Sade Milly EGFR-AF ZAMBIAN >60 Normal >=60 [facility] Comment on above: Performed By: #### B MP, CRP #### [facility] [address] [address] Sade Milly EGFR-NON AF ZAMBIAN >60 Normal >=60 [facility] Comment on above: Performed By: #### B MP, CRP #### [facility] [address] [id number] Sade Milly Glucose [Mass/Vol] 102 mg/dL Normal 74-106 [facility] Comment on above: Performed By: #### B MP, CRP #### [facility] [address] [place] [address] Sade Milly Potassium [Moles/Vol] 4.2 mmol/L Normal 3.4-5.0 [facility] Comment on above: Performed By: #### B MP, CRP #### [facility] [address] [address] Sade Imlly Sodium [Moles/Vol] 142 mmol/L Normal 137-145 [facility] Comment on above: Performed By: #### B MP, CRP #### [facility] [address] [place], [place] [address] Sade Milly Urea nitrogen [Mass/Vol] 15.0 mg/dL Normal 9.0-20.0 [facility] Comment on above: Performed By: #### B MP, CRP #### [facility] [address] [id number] Sade Milly Urea nitrogen/Creatinine [Mass ratio] 14.4 mg/mg Normal [facility] Comment on above: Performed By: #### B MP, CRP #### [facility] [address] [place], [place] [address] Sade Milly [facility] 31 mm/hr Critically high <=20 [facility] Comment on above: Performed By: #### S EDR #### [facility] [address] [place], [place] [address] Sade Milly XR ANKLE LT MIN 3 Von 2020 XR ANKLE LT MIN 3 V EXAM: XR ANKLE LT ID N [id number] V HISTORY: The patient is [...] by: BRADFORD JACKSON Date: 2021-01-13 18:57 Normal [facility] CTA ABD ANGEL WWO CON LE RUNO [...] by: SANTI LIU Date: 2020-12-25 11:56 Normal [facility] CREATININEon 12-22-2020 Creatinine [Mass/Vol] 0.98 mg/dL Normal 0.66-1.25 [facility] Comment on above: Performed By: #### C ANDREY #### [facility] [address] [address] Sade Milly EGFR-AF ZAMBIAN >60 Normal >=60 [facility] Comment on above: Performed By: #### C ANDREY #### [facility] [address] [address] Sade Milly EGFR-NON AF ZAMBIAN >60 Normal >=60 [facility] Comment on above: Performed By: #### C ANDREY #### [facility] [address] [place], [place] [address] Sade Hickeyen ECHOCARDIO M/2D COMPLETEon 0 10-23-2020 ECHOCARDIO M/2D COMPLETE Patient: BRITTNY DUTTA Exam Date: 10/23/2020 : 1955 Gender:M Ordering : BRISA JEFFERSON Admission #: [id number] Family : Order #: [id number] CLICK HERE TO VIEW EXAM ECHOCARDIOGRAM REPORT [...] Area(A4C): 29.70 cm2 Left Atrium Systolic Volume(A2C): 74789 mm3 Left Atrium Systolic Volume(A4C): 533275 mm3 Mitral Valve MV E to A [...] M.D. on 10/23/2020 at 11:56 Normal [facility] XR CHEST 2 Von 10-18-2020 XR [...] JACKELIN MOREAU Date: 2020-10-18 11:57 Normal [facility] CBC AUTO DIFFon 10-17-2020 BASO # 0.0 103/ul Normal 0.0-0.1 [facility] Comment on above: Performed By: #### C ANDREY #### [facility] [address] [place] [address] Sade Atkins Basophils/100 WBC (Bld) 0.6 % Normal 0.2-2.0 [facility] Comment on above: Performed By: #### C ANDREY #### [facility] [address] [place] [address] Sade Atkins EO # 0.2 103/ul Normal 0.0-0.7 [facility] Comment on above: Performed By: #### C ANDREY #### [facility] [address] [place] [address] Sade Milly Eosinophils/100 WBC (Bld) 3.7 % Normal 0.9-7.0 [facility] Comment on above: Performed By: #### C ANDREY #### [facility] [address] [place] [address] Sade Milly Erythrocyte distribution width (RBC) [Ratio] 14.4 % Normal 11.0-15.0 [facility] Comment on above: Performed By: #### C ANDREY #### [facility] [address] [place] [address] Sade Milly Hematocrit (Bld) [Volume fraction] 52.3 % Normal 42.0-54.0 [facility] Comment on above: Performed By: #### C ANDREY #### [facility] [address] [place] [address] Sade Milly Hemoglobin (Bld) [Mass/Vol] 16.3 g/dL Normal 14.0-18.0 [facility] Comment on above: Performed By: #### C ANDREY #### [facility] [address] [place] [address] Sade Milly IG # 0.01 10e3/ul Normal 0.00-0.03 [facility] Comment on above: Performed By: #### C ANDREY #### [facility] [address] [place] [address] Sade Milly IG % 0.2 % Normal 0.0-0.5 [facility] Comment on above: Performed By: #### C ANDREY #### [facility] [address] [place] [address] Sade Milly LYMPH # 1.1 103/ul Critically low 1.2-3.8 [facility] Comment on above: Performed By: #### C ANDREY #### [facility] [address] [place], [place] [address] Sade Milly Lymphocytes/100 WBC (Bld) 17.8 % Critically low 20.5-60.0 [facility] Comment on above: Performed By: #### C ANDREY #### [facility] [address] [place] [address] Sade Milly MANUAL DIFF REQ NO Normal [facility] Comment on above: Performed By: #### C ANDREY #### [facility] [address] [place] [address] Sade Atkins MCH (RBC) [Entitic mass] 28.7 pg Normal 25.9-34.0 [facility] Comment on above: Performed By: #### C ANDREY #### [facility] [address] [place] [address] Sade Atkins MCHC (RBC) [Mass/Vol] 31.2 g/dL Normal 29.9-35.2 [facility] Comment on above: Performed By: #### C ANDREY #### [facility] [address] [place] [address] Sade Atkins MCV (RBC) [Entitic vol] 92.2 fL Normal 80.0-94.0 [facility] Comment on above: Performed By: #### C ANDREY #### [facility] [address] [place] [address] Sade Atkins MONO # 0.8 103/ul Normal 0.3-0.8 [facility] Comment on above: Performed By: #### C ANDREY #### [facility] [address] [place] [address] Sade Hickeyen Monocytes/100 WBC (Bld) 13.1 % Critically high 1.7-12.0 [facility] Comment on above: Performed By: #### C ANDREY #### [facility] [address] [place] [address] Sadebradford Atkins NEUT # 4.0 103/ul Normal 1.4-6.5 [facility] Comment on above: Performed By: #### C ANDREY #### [facility] [address] [place] [address] Sade Milly Neutrophils/100 WBC (Bld) 64.6 % Normal 43.0-75.0 [facility] Comment on above: Performed By: #### C ANDREY #### [facility] [address] [place] [address] Sadebradford Atkins Platelet mean volume (Bld) [Entitic vol] 9.5 fL Normal 9.5-13.5 [facility] Comment on above: Performed By: #### C ANDREY #### [facility] [address] [place] [address] Sade Atkins PLT 254 103/ul Normal 150-450 [facility] Comment on above: Performed By: #### C ANDREY #### [facility] [address] [place] [address] Sade Atkins RBC 5.67 106/ul Normal 4.70-6.10 [facility] Comment on above: Performed By: #### C ANDREY #### [facility] [address] [place] [address] Sade Atkins WBC 6.3 103/ul Normal 4.0-11.0 [facility] Comment on above: Performed By: #### C ANDREY #### [facility] [address] [place] [address] Sade Atkins GLYCOHEMOGLOBIN A1Con 2020 ADA RECOMMENDATION ADA THERAPEUTIC TARG ET 6.0 - 7.0 ACTION SUGGESTED > 7.0 Normal [facility] Comment on above: Performed By: #### A 1C #### [facility] [address] [place], [place] [address] Sade Atkins Glucose [Mass/Vol] 123 mg/dL Normal [facility] Comment on above: Performed By: #### A 1C #### [facility] [address] [place] [address] Sade Atkins HbA1c (Bld) [Mass fraction] 5.9 % Normal <=6.0 [facility] Comment on above: Performed By: #### A 1C #### [facility] [address] [place], [place] [address] Sade Atkins LIPID PROFILEon 10-17-2020 CHOL-HDL RATIO NORM SEE BELOW Normal [facility] Comment on above: Result Comment: 3.3 - 4.4 LOW RISK 4.4 - 7.1 AVERAGE RISK 7.1 - 11.0 MODERATE RISK >11.0 HIGH RISK Performed By: #### C ANDREY #### [facility] [address] [place], [place] [address] Sade Milly Cholesterol [Mass/Vol] 172 mg/dL Normal <=200 [facility] Comment on above: Performed By: #### C ANDREY #### [facility] [address] [id number] Sade Milly Cholesterol in HDL [Mass/Vol] 51 mg/dL Normal [facility] Comment on above: Performed By: #### C ANDREY #### [facility] [address] [address] Sade Milly Cholesterol in LDL [Mass/Vol] 105.6 mg/dL Normal [facility] Comment on above: Performed By: #### C ANDREY #### [facility] [address] [address] Sade Milly Cholesterol.total/Ch olesterol in HDL [Mass ratio] 3.4 {ratio} Normal [facility] Comment on above: Performed By: #### C ANDREY #### [facility] [address] [address] Sade Milly HDL NORMAL > or = 60 mg/dl - LO W CARDIOVASCULAR RISK <40 mg/dl - HIGH CARDIOVASCULAR RISK Normal [facility] Comment on above: Performed By: #### C ANDREY #### [facility] [address] [id number] Sade Milly LDL CALC NORMAL SEE BELOW Normal [facility] Comment on above: Result Comment: <100 mg/dl OPTIMAL 100 - 129 mg/dl NEAR OR ABOVE OPTIMAL 130 - 159 mg/dl BORDERLINE HIGH 160 - 189 mg/dl HIGH >190 mg/dl VERY HIGH Performed By: #### C ANDREY #### [facility] [address] [id number] Sade Milly Triglyceride [Mass/Vol] 77 mg/dL Normal <=150 [facility] Comment on above: Performed By: #### C ANDREY #### [facility] [address] [id number] Sade Milly VLDL CALC 15.4 mg/dL Normal [facility] Comment on above: Performed By: #### C ANDREY #### [facility] [address] [place] [address] Saed Milly PROF 14(COMP METB)on 021 Albumin [Mass/Vol] 3.8 g/dL Normal 3.5-5.0 [facility] Comment on above: Performed By: #### C ANDREY #### [facility] [address] [place], [place] [address] Sade Milly Albumin/Globulin [Mass ratio] 1.1 {ratio} Normal [facility] Comment on above: Performed By: #### C ANDREY #### [facility] [address] [place], [place] [address] Sade Milly ALP [Catalytic activity/Vol] 64 U/L Normal 38-126 [facility] Comment on above: Performed By: #### C ANDREY #### [facility] [address] [place] [address] Sade Milly ALT [Catalytic activity/Vol] 26 U/L Normal 21-72 [facility] Comment on above: Performed By: #### C ANDREY #### [facility] [address] [place] [address] Sade Milly Anion gap [Moles/Vol] 14.7 mmol/L Normal [facility] Comment on above: Performed By: #### C ANDREY #### [facility] [address] [place] [address] Sade Milly AST [Catalytic activity/Vol] 19 U/L Normal 17-59 [facility] Comment on above: Performed By: #### C ANDREY #### [facility] [address] [place], [place] [address] Sade Milly Bilirubin [Mass/Vol] 0.7 mg/dL Normal 0.2-1.3 [facility] Comment on above: Performed By: #### C ANDREY #### [facility] [address] [place], [place] [address] Sade Milly Calcium [Mass/Vol] 9.6 mg/dL Normal 8.4-10.2 [facility] Comment on above: Performed By: #### C ANDREY #### [facility] [address] [address] Sade Milly Chloride [Moles/Vol] 102 mmol/L Normal 98-107 [facility] Comment on above: Performed By: #### C ANDREY #### [facility] [address] [address] Sade Milly CO2 [Moles/Vol] 26.9 mmol/L Normal 22.0-30.0 [facility] Comment on above: Performed By: #### C ANDREY #### [facility] [address] [place], [place] [address] Sade Milly Creatinine [Mass/Vol] 1.02 mg/dL Normal 0.66-1.25 [facility] Comment on above: Performed By: #### C ANDREY #### [facility] [address] [place] [address] Sade Milly EGFR-AF ZAMBIAN >60 Normal >=60 [facility] Comment on above: Performed By: #### C ANDREY #### [facility] [address] [place] [address] Sade Milly EGFR-NON AF ZAMBIAN >60 Normal >=60 [facility] Comment on above: Performed By: #### C ANDREY #### [facility] [address] [place], [place] [address] Sade Milly Globulin (S) [Mass/Vol] 3.6 g/dL Normal [facility] Comment on above: Performed By: #### C ANDREY #### [facility] [address] [place] [address] Sade Milly Glucose [Mass/Vol] 104 mg/dL Normal 74-106 [facility] Comment on above: Performed By: #### C ANDREY #### [facility] [address] [place], [place] [address] Sade Milly Potassium [Moles/Vol] 4.6 mmol/L Normal 3.4-5.0 [facility] Comment on above: Performed By: #### C ANDREY #### [facility] [address] [place], [place] [address] Sade Milly Protein [Mass/Vol] 7.4 g/dL Normal 6.1-8.2 [facility] Comment on above: Performed By: #### C ANDREY #### [facility] [address] [place] [address] Sade Milly Sodium [Moles/Vol] 139 mmol/L Normal 137-145 [facility] Comment on above: Performed By: #### C ANDREY #### [facility] [address] [id number] Sade Milly Urea nitrogen [Mass/Vol] 18.0 mg/dL Normal 9.0-20.0 [facility] Comment on above: Performed By: #### C ANDREY #### [facility] [address] [place], [place] [address] Sade Milly Urea nitrogen/Creatinine [Mass ratio] 17.6 mg/mg Normal [facility] Comment on above: Performed By: #### C ANDREY #### [facility] [address] [place], [place] [address] Sade Milly TSHon 10-17-2020 TSH 2.033 uIU/mL Normal 0.470-4.680 [facility] Comment on above: Performed By: #### C ANDREY #### [facility] [address] [place], [place] [address] Sade Milly TSH RANGE SEE BELOW Normal [facility] Comment on above: Result Comment: <0.3 4 UIU/ml HYPERTHYROID 0.34-5.60 UIU/ml EUTHYROID >5.60 UIU/ml HYPOTHYROID Performed By: #### C ANDREY #### [facility] [address] [place], [place] [address] Sade Milly Cardiovascular Lab Reporton 03-05-2020 Cardiovascular Lab Report [facility] Patient Name: [facility] G MR #: [id number] Department of Physician: Adam Reno M.D. Division of Service Date: 03/05/2020 Cardiology Birthdate: 1955 Adult Cardiovascular Room #: [place] [address] Cardiovascular Laboratory Report FINAL IMPRESSIONS: 1. Severe [...] Follow up with Dr. Lane in the [place] office in the next 2 to 4 [...] the left radial artery was obtained. A 6-Israeli glide sheath was inserted without difficulty. Bilateral selective coronary angiography was performed using JR4 and JL4 catheters. After reviewing the images, it was elected to proceed with an interventional procedure. A 6-Israeli XB 3.5 guide catheter was advanced over [...] XB 3.5 catheter was removed and a 6-Israeli JL4 guide catheter coaxially engaged into the [...] Lane M.D. Date Trans: 03/05/2020 01:22 P/aram [id number] cc: Shari Shepard M.D. [address] [place] [address] [place] [id number] [facility] Vital Signs Date Time Vital Sign Value Performing Clinician Buddyi brianda 04-04-2023 10:46-0400 Body height 182.88 cm MD Jose Castellon Work Phone: [facility] 04-04-2023 10:46-0400 Body mass index (BMI) [Ratio] 36.8 kg/m2 MD Jose Castellon Work Phone: [facility] 04-04-2023 10:46-0400 Body weight 123.37 kg MD Jose Castellon Work Phone: [facility] 04-04-2023 10:26-0400 Body temperature 97.7 [degF] MD Jose Castellon Work Phone: [facility] 04-04-2023 10:26-0400 Diastolic blood pressure 80 mm[Hg] MD Jose Castellon Work Phone: [facility] 04-04-2023 10:26-0400 Heart rate 60 /min MD Jose Castellon Work Phone: [facility] 04-04-2023 10:26-0400 Respiratory rate 18 /min MD Jose Castellon Work Phone: [facility] 04-04-2023 10:26-0400 Systolic blood pressure 132 mm[Hg] MD Jose Castellon Work Phone: [facility] Encounters Encounter Date Encounter Type Care Provider Facility Start: 04-04-2023 End: 04-04-2023 ambulatory Aura Johnson Facility:[facility] Start: 04-04-2023 End: 04-04-2023 ambulatory MD Jose Castellon Work Phone: [facility] Work Phone: Start: 04-04-2023 End: 04-04-2023 Discharged Recurring MD Jose Castellon Work Phone: [facility] Janel Work Phone: Start: 11-23-2022 End: 11-23-2022 ambulatory S[facility] Start: 08-02-2021 End: 08-03-2021 ambulatory JUDI [...] 03-06-2020 Patient encounter procedure EHAB A ELTAHAWPranay Facility:[facility] Procedures Date Procedure Procedure Detail Performing Clinician Start: 10-17-2020 PSA screening BRISA Rico OES Comment on above: Performed By: #### C ANDREY #### [facility] [address] [place] [address] Sade Atkins Payers Date Payer Category Payer Self-pay 1960 Medicare [id number] 1960 Unknown [id number] 1955 Unknown [id number] 2.16.8 [id number] 1954 Unknown [id number] 2.16.84 0.1.589141.3.579.2.593 1954 Unknown [id number] 2.16.84 0.1.295894.3.579.2.593 1954 Unknown [id number] 2.16.84 0.1.658152.3.579.2.593 1954 Unknown [id number] 2.16.84 0.1.232089.3.579.2.593 1954 Unknown [id number] 2.16.84 0.1.687259.3.579.2.593 1954 Unknown [id number] 2.16.84 0.1.870063.3.579.2.593 1954 Unknown [id number] 2.16.84 0.1.393520.3.579.2.593 1954 Unknown [id number] 2.16.84 0.1.150881.3.579.2.593 1954 Unknown [id number] 2.16.84 0.1.003310.3.579.2.593 1954 Unknown [id number] 2.16.84 0.1.182261.3.579.2.593 1954 Unknown [id number] 2.16.84 0.1.005946.3.579.2.593 1954 Unknown [id number] 2.16.84 0.1.718509.3.579.2.593 1954 Unknown [id number] 2.16.84 0.1.033482.3.579.2.593 1954 Unknown [id number] 2.16.84 0.1.110307.3.579.2.593 1954 Unknown [id number] 2.16.84 0.1.927800.3.579.2.593 1954 Unknown [id number] 2.16.84 0.1.465124.3.579.2.593 1954 Unknown [id number] 2.16.84 0.1.913372.3.579.2.593 1954 Unknown [id number] 2.16.84 0.1.251917.3.579.2.593 1954 Unknown [id number] 2.16.84 0.1.878820.3.579.2.593 Unknown [id number] 2.16.8 40.1.053906.3.579.2.531 Social History Date Type Detail Facility Start: 04-04-2023 [facility] Start: 1955 Sex Assigned At Male F [facility] Progress note 04-04-2023 Note Date & Type Note Facility 04-04-2023 Progress note Note Date/Time April 04, 2023 10:47am [facility] [address] [place] [address] Wound Center Provider Note Signed Patient: Brittny Dutta MR#: [id number] : 1955 Acct:[id number] Age/Sex: 68 / M Copies to: MD Aura Roman, SANDY~ HPI Date of Visit Date of Visit: Date of Service: 04/04/2023 Time of Service: 10:44 Narrative HPI: 02/28/23 Jaylen is a 67 year old male presenting to [facility] wound care for an initial visit for [...] as 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 He will also contact [facility] and get back in [...] omega 3 and has not yet contacted [facility] but says that he will this week- I feelstrongly that this root cause needs addressed and he does state understanding ofthis, 3 week appt, no infection noted 04/04/23 again much better, no pain he says, has see [place] and will be having a venous procedure to fix his root problem, appears healed and so he can be discharged today but is aware to contact us with any future needs Subjective Pain Left Ankle: Pain Description: Intermittent and Burning Pain Intensity: 0 Wound/Ulcer History When did wound start?: September 2022 Mode of Arrival/ Head Of Marketing Analytics: Personal vehicle Lives with:: Significant Other Appetite Description: Within Normal Limits Who helps w/ dressing change?: Self Smoking Status: Former smoker [facility] Medical History (Updated 04/04/23 @ 10:46 by [...] Code(s): I25.10 - Atherosclerotic heart disease of [place] coronary artery without angina pectoris Status: Chronic [...] <Electronically signed by SANDY Johnson> 04/04/23 1046 [facility] Work Phone: Progress note 03-13-2023 Note Date & Type Note Facility 03-13-2023 Progress note Note Date/Time March 13, 2023 11:04am [facility] [address] [place] [address] Wound Center Provider Note Signed Patient: Brittny Dutta MR#: [id number] : 1955 Acct:[id number] Age/Sex: 67 / M Copies to: MD Aura Roman APRN~ HPI Date of Visit Date of Visit: Date of Service: 03/13/2023 Time of Service: 11:01 Narrative HPI: 02/28/23 Jaylen is a 67 year old male presenting to [facility] wound care for an initial visit for [...] as 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 He will also contact [facility] and get back in [...] omega 3 and has not yet contacted [facility] but says that he will this week- I feelstrongly that this root cause needs addressed and he does state understanding ofthis, 3 week appt, no infection noted Subjective Pain Left Ankle: Pain Description: Intermittent and Burning Pain Intensity: 0 Wound/Ulcer History When did wound start?: September 2022 Mode of Arrival/ Head Of Marketing Analytics: Personal vehicle Lives with:: Significant Other Appetite Description: Within Normal Limits Who helps w/ dressing change?: Self Smoking Status: Former smoker [facility] Medical History (Updated 02/28/23 @ 08:45 by [...] Code(s): I25.10 - Atherosclerotic heart disease of [place] coronary artery without angina pectoris Status: Chronic [...] <Electronically signed by SANDY Johnson> 03/13/23 1104 [facility] Work Phone: Progress note 02-28-2023 Note Date & Type Note Facility 02-28-2023 Progress note Note Date/Time February 28, 2023 8:53am [facility] [address] [place] [address] Wound Center Provider Note Signed Patient: Brittny Dutta MR#: [id number] : 1955 Acct:[id number] Age/Sex: 67 / M Copies to: MD Aura Roman APRN~ HPI Date of Visit Date of Visit: Date of Service: 02/28/2023 Time of Service: 08:41 Narrative HPI: 02/28/23 Jaylen is a 67 year old male presenting to [facility] wound care for an initial visit for [...] as 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 He will also contact [facility] and get back in [...] wound start?: September 2022 Mode of Arrival/ Head Of Marketing Analytics: Personal vehicle Lives with:: Significant Other Appetite Description: Within Normal Limits Who helps w/ dressing change?: Self Smoking Status: Former smoker [facility] Medical History (Updated 02/28/23 @ 08:45 by [...] Foot: Type: Venous Stasis Ulcer (w/inflammatory w/atrophie cytnhia) Bed Appearance: Epithelial Tissue or Bridge and [...] Code(s): I25.10 - Atherosclerotic heart disease of [place] coronary artery without angina pectoris Status: Chronic [...] By: <Electronically signed by SANDY Johnson> 02/28/2353 [facility] Work Phone: Progress note 11-23-2022 Note Date & Type Note Facility 11-23-[address] [facility] Cardiology Clinic Note Chief Complaint: Patient [...] to venous insufficiency, skin ulcerations and atrophie cnythia. He is seeing a vascular specialist and [...] 1 (HTN), CHADS2- (more content not included)... [facility] Clinical Note 06-19-2021 Note Date & [...] or tofu. ? (more content not included)... 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 DATE CREATED AUTHOR AUTHOR'S ORGANIZ ATION 08/18/2021 [facility] DATE CREATED AUTHOR AUTHOR'S ORGANIZ ATION 11/24/2022 [facility] DATE CREATED AUTHOR AUTHOR'S ORGANIZ ATION 05/20/2023 [facility] Care Teams (unrecognized sec tion and content) [...] BE BASED ON THE PRIMARY CLINICAL RECORDS. [facility] [employer] [facility]. provides no warranty or guarantee of the accuracy or completeness of information in this document.
== END 2023-09-07 10:23 | disposition home or self-care (01) ==
LOC: VC 10:22
PROVIDERS: PCP Radiology Diagnostic Radiology; Visit Provider Radiology Diagnostic Radiology
DX: I83.813 Varicose veins of bilateral lower extremities with pain (principal)
CPT/HCPCS: 36466

== ENCOUNTER 2023-09-14 09:27 | Outpatient (OUT) | payer MEDICARE, OTHER, SELFPAY ==
--- NOTE | 2023-09-14 09:33 | VEIN_ITS ---
Patient Name: BRITTNY DUTTA MR#: [id number] : 1955 Exam Date: 09/14/2023 Ordering Doctor: DR SANTI LIU M.D. RADIOLOGY REPORT PROCEDURE: VC EXT VENOUS LT LIMITED COMPARISON: VC EXT VENOUS LT LIMITED, 08/29/2023. INDICATIONS: Phlebitis of superficial veins of lt lower extremity I80.02 TECHNIQUE: Lower extremity singh scale and Duplex Doppler evaluation of the deep venous system from the inguinal ligament through the calf veins. FINDINGS: REGION: Left lower extremity. THROMBI: Negative for DVT. Varithena induced thrombus visualized at mid/ant thigh, mid/lat thigh, and medial knee. COMPRESSIBILITY: Non-compressible segments corresponding to thrombus FLOW: Areas of no flow corresponding to thrombus OTHER: No patent varicose veins remain. CONCLUSION: 1. 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 2. No remaining treatable varicosities. Dictated by: Jani Vaughn M.D. on 09/14/2023 at 10:44 Approved by: Jani Vaughn M.D. on 09/14/2023 at 10:45
--- NOTE | 2023-09-14 09:33 | VEIN_ITS ---
Patient Name: BRITTNY DUTTA MR#: [id number] : 1955 Exam Date: 09/14/2023 Ordering Doctor: DR SANTI LIU M.D. RADIOLOGY REPORT PROCEDURE: [facility] EST LMTD VEIN CENTER - OFFICE VISIT FOLLOW UP COMPARISON: [facility], 08/29/2023. PROGRESS NOTES: The patient reports improvement in leg symptoms. There has been interval reduction in varicosities. The patient has followed our recommendations to walk 20-30 minutes once or twice per day since the procedure. Physical exam demonstrates decrease in varicosities of the leg. Continuing improvement/healing of lower extremity chronic skin changes. No visible varicosities. Review of the ultrasound performed the same day demonstrates occlusive thrombus extending throughout the treated vein(s), see separate report, consistent with a successful ablation. No thrombus extending into or beyond the saphenofemoral junction. VEIN/[facility] EST TD IMPRESSION: 1. Successful ablation of the left lower extremity branch saphenous vein(s). 2. No remaining treatable varicose veins. Overall significant improvement and patient symptoms. PLAN: Follow-up ultrasound evaluation in 1 year, or earlier if clinically indicated. Nurse notes, history and physical were reviewed and confirmed, see attached forms. The nurse was present throughout the physical exam and consultation Dictated by: Jani Vaughn M.D. on 09/14/2023 at 10:45 Approved by: Jani Vaughn M.D. on 09/14/2023 at 10:47
--- OUTSIDE RECORDS SUMMARY | 2023-09-14 09:49 | XMS_ITS | CCD ---
Author Name Unknown Address [address] [place] [address] Organization [facility] Care Team Providers Care Program Professional Name Role Phone ELTAHAWY, EHAB A Admitting [...] Unavailable ROSS, JUDI Primary Care Unavailable [facility] LUCAS Primary Care Unavailable DERRICK DERAS Attending Unavailable DERRICK DERAS Admitting Unavailable [facility] Care Unavailable BERT THOMAS Admitting Unavailabl e CLOUGHERTY NOEL D Attending Unavailabl e CLOUGHERTYBERT D Attending Unavailabl e CLOBERT ORONA D Admitting Unavailabl e [facility] Primary Care Unavailable WEST, DR SANTI Fritz Consulting Unavailable ELTAHAWY, DR SIFUENTES Attending Unavailable ELTAHAWY, DR SIFUENTES Admitting Unavailable MISC, DR LUCAS Primary Care Unavailable ELTAHAWY, DR SIFUENTES Consulting Unavailable ELTAHAWY, DR SIFUENTES Consulting Unavailable ELTAHAWY, DR SIFUENTES Attending Unavailable MISC, DR LUCAS Primary Care Unavailable ELTAHAWY, DR SIFUENTES Admitting Unavailable [facility] Unavailable DAGMAR POST Consulting Unavailable REINECK, DR SUZY Valenzuela Attending Unavailabl e REINECK, DR SUZY Valenzuela Admitting Unavailabl e [facility] Consulting Unavailable RONNY, BRISA Admitting Unavailable RONNY BRISA Consulting Unavailable RONNY, BRISA Attending Unavailable MISC, DR LUCAS Primary Care Unavailable ELTAHAWPranay, SOM Attending Unavailable SANDY Johnson Attending Provider [phone] MD Jose Castellon Primary Care Provider Aura Johnson Attending Unavailable Aura Johnson Admitting Unavailable Jose Castellon Primary Care Unavailable Allergies Allergy Classification Reported Allergen(s) Allergy Type Date of Onset Reaction(s) Facility (2 sources) black walnut pollen extract; Translations: [[id number]-ZQA-OFF REDUCTASE INHIBITORS] Drug Allergy 0 [facility] Repository (3 sources) Ciprofloxacin; Translations: [CIPROFLOXACIN] Drug Allergy 9 Muscle Pain [facility] Repository (4 sources) Doxycycline; Translations: [DOXYCYCLINE] Drug Allergy 6 Unknown Reaction [facility] Repository (2 sources) Sulfamethoxazole / Trimethoprim Drug Allergy 6 [facility] Repository (4 sources) Sulfonamides (Antibiotic); Translations: [SULFA (SULFONAMIDE ANTIBIOTICS)] Drug allergy (disorder) 6 Unknown Reaction [facility] Repository (1 source) Ciprofloxacin Drug Allergy 6 [facility] Repository (1 source) atorvastatin; Translations: [ATORVASTATIN] Drug Allergy 4 [facility] Repository (1 source) Sulfamethoxazole / Trimethoprim; Translations: [SULFAMETHOXAZOLE-TR IMETHOPRIM] Drug Allergy 2 [facility] Repository (2 sources) Sulfamethoxazole; Translations: [sulfamethoxazole] Drug Allergy 3 Unknown Reaction [facility] (2 sources) Trimethoprim; Translations: [trimethoprim] Drug Allergy 3 Unknown Reaction [facility] (1 source) Ciprofloxacin Drug Allergy 3 [facility] Repository (1 source) Doxycycline Drug Allergy 3 [facility] Repository (1 source) Sulfonamides (Antibiotic) Drug allergy (disorder) 3 [facility] Repository Medications Current Medications Medication Drug [...] release oral tablet (1 source) 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 Start: 02-28-2023 take 400 mg by mouth [...] disease (5 sources) Atherosclerotic heart disease of [place] coronary artery without angina pectoris; Translations: [Coronary [...] 04-04-2023 Episodic Other aftercare (1 source) Other shelter (current) drug therapy; Translations: [OTH DIP PAINTER CURRENT DRUG THERAPY] Onset: 1 Episodic Other aftercare (1 source) alf (current) use of antithrombotics/antipl atelets; Translations: [MCFP ANTITHROMBOT/ANTIPLATL ETS] Onset: 1 Episodic Other aftercare (1 source) long term care administrator (current) use of anticoagulants; Translations: [DIP PAINTER CURRNT USE ANTICOAGULANTS] Onset: 1 Episodic Other [...] Da te Episodic/Chronic Other aftercare (1 source) long term care administrator (current) use of aspirin; Translations: [MCFP CURRENT USE OF ASPIRIN] Onset: 01-15-2021 Episodic [...] Range Facility Office Visiton 11-23-2022 Follow-up visit [id number] Brittny Dutta 1955 [facility] Provider Department Center 11/23/[address] [facility] No family history on file Level of Service:63242 [place] OFFICE/OUTPATIENT ESTABLISHED LOW MDM 20-29 MIN Reason for Visit and Comments: Hyperlipidemia [182] Hypertension [928007] Atrial Fibrillation [80] Coronary Artery Disease [187] Normal [facility] Orders Onlyon 05-02-2022 Orders Only [id number] Brittny Dutta 1955 Provider Department Center 05/02/2022 BRISA NIELSEN [facility]. No family history on file Normal [facility] BNPon 07-23-2021 Natriuretic peptide B (Bld) [Mass/Vol] 203.0 pg/mL Normal <=900.0 [facility] Comment on above: Performed By: #### C ANDREY #### [facility] [address] [address] Sade Atkins CBC AUTO DIFFon 07-23-2021 BASO # 0.0 103/ul Normal 0.0-0.1 [facility] Comment on above: Performed By: #### C BC #### [facility] [address] [place], [place] [address] Dr. Pattie Reynolds Basophils/100 WBC (Bld) 0.6 % Normal 0.2-2.0 [facility] Comment on above: Performed By: #### C BC #### [facility] [address] [place] [address] Dr. Pattie Reynolds EO # 0.3 103/ul Normal 0.0-0.7 [facility] Comment on above: Performed By: #### C BC #### [facility] [address] [place] [address] Dr. Pattie Reynolds Eosinophils/100 WBC (Bld) 4.3 % Normal 0.9-7.0 [facility] Comment on above: Performed By: #### C BC #### [facility] [address] [place] [address] Dr. Pattie Reynolds Erythrocyte distribution width (RBC) [Ratio] 14.6 % Normal 11.0-15.0 [facility] Comment on above: Performed By: #### C BC #### [facility] [address] [place] [address] Dr. Pattie Reynolds Hematocrit (Bld) [Volume fraction] 49.0 % Normal 42.0-54.0 [facility] Comment on above: Performed By: #### C BC #### [facility] [address] [place] [address] Dr. Pattie Reynolds Hemoglobin (Bld) [Mass/Vol] 15.3 g/dL Normal 14.0-18.0 [facility] Comment on above: Performed By: #### C BC #### [facility] [address] [place] [address] Dr. Pattie Reynolds IG # 0.03 10e3/ul Normal 0.00-0.03 [facility] Comment on above: Performed By: #### C BC #### [facility] [address] [place] [address] Dr. Pattie Reynolds IG % 0.5 % Normal 0.0-0.5 [facility] Comment on above: Performed By: #### C BC #### [facility] [address] [place] [address] Dr. Pattie Reynolds LYMPH # 1.3 103/ul Normal 1.2-3.8 [facility] Comment on above: Performed By: #### C BC #### [facility] [address] [address] [address] Pattie Reynolds Lymphocytes/100 WBC (Bld) 20.4 % Critically low 20.5-60.0 [facility] Comment on above: Performed By: #### C BC #### [facility] [address] [address] [address] Pattie Reynolds MANUAL DIFF REQ NO Normal [facility] Comment on above: Performed By: #### C BC #### [facility] [address] [address] [address] Pattie Reynolds MCH (RBC) [Entitic mass] 28.9 pg Normal 25.9-34.0 [facility] Comment on above: Performed By: #### C BC #### [facility] [address] [place] [address] Dr. Pattie Reynolds MCHC (RBC) [Mass/Vol] 31.2 g/dL Normal 29.9-35.2 [facility] Comment on above: Performed By: #### C BC #### [facility] [address] [place] [address] Dr. Pattie Reynolds MCV (RBC) [Entitic vol] 92.6 fL Normal 80.0-94.0 [facility] Comment on above: Performed By: #### C BC #### [facility] [address] [place] [address] Dr. Pattie Reynolds MONO # 1.2 103/ul Critically high 0.3-0.8 [facility] Comment on above: Performed By: #### C BC #### [facility] [address] [place] [address] Dr. Pattie Reynolds Monocytes/100 WBC (Bld) 18.6 % Critically high 1.7-12.0 [facility] Comment on above: Performed By: #### C BC #### [facility] [address] [place] [address] Dr. Pattie Reynolds NEUT # 3.6 103/ul Normal 1.4-6.5 [facility] Comment on above: Performed By: #### C BC #### [facility] [address] [address] [address] Pattie Reynolds Neutrophils/100 WBC (Bld) 55.6 % Normal 43.0-75.0 [facility] Comment on above: Performed By: #### C BC #### [facility] [address] [address] [address] Pattie Reynolds Platelet mean volume (Bld) [Entitic vol] 9.4 fL Critically low 9.5-13.5 [facility] Comment on above: Performed By: #### C BC #### [facility] [address] [address] [address] Pattie Reynolds PLT 267 103/ul Normal 150-450 [facility] Comment on above: Performed By: #### C BC #### [facility] [address] [place] [address] Dr. Pattie Reynolds RBC 5.29 106/ul Normal 4.70-6.10 [facility] Comment on above: Performed By: #### C BC #### [facility] [address] [address] [address] Pattie Reynolds WBC 6.5 103/ul Normal 4.0-11.0 [facility] Comment on above: Performed By: #### C BC #### [facility] [address] [place] [address] Dr. Pattie Reynolds CRPon 07-23-2021 CRP [Mass/Vol] mg/L Normal <=1.0 [facility] Comment on above: Performed By: #### C ANDREY #### [facility] [address] [place] [address] Sade Atkins PROF CHEM 8 (BAS METB)on Anion gap [Moles/Vol] 7.8 mmol/L Normal [facility] Comment on above: Performed By: #### B SWATCH MAKER, BMP, CRP #### [facility] [address] [place] [address] Dr. Pattie Reynolds Calcium [Mass/Vol] 9.6 mg/dL Normal 8.4-10.2 [facility] Comment on above: Performed By: #### B SWATCH MAKER, BMP, CRP #### [facility] [address] [address] [address] Pattie Reynolds Chloride [Moles/Vol] 102 mmol/L Normal 98-107 [facility] Comment on above: Performed By: #### B SWATCH MAKER, BMP, CRP #### [facility] [address] [address] [address] Pattie Reynolds CO2 [Moles/Vol] 32.9 mmol/L Critically high 22.0-30.0 [facility] Comment on above: Performed By: #### B SWATCH MAKER, BMP, CRP #### [facility] [address] [address] [address] Pattie Reynolds Creatinine [Mass/Vol] 0.84 mg/dL Normal 0.66-1.25 [facility] Comment on above: Performed By: #### B SWATCH MAKER, BMP, CRP #### [facility] [address] [place] [address] Dr. Pattie Reynolds EGFR-AF [place] >60 Normal >=60 [facility] Comment on above: Performed By: #### B SWATCH MAKER, BMP, CRP #### [facility] [address] [address] [address] Pattie Reynolds EGFR-NON AF [place] >60 Normal >=60 [facility] Comment on above: Performed By: #### B SWATCH MAKER, BMP, CRP #### [facility] [address] [place] [address] Dr. Pattie Reynolds Glucose [Mass/Vol] 86 mg/dL Normal 74-106 [facility] Comment on above: Performed By: #### B SWATCH MAKER, BMP, CRP #### [facility] [address] [address] [address] Pattie Reynolds Potassium [Moles/Vol] 4.7 mmol/L Normal 3.4-5.0 [facility] Comment on above: Performed By: #### B SWATCH MAKER, BMP, CRP #### [facility] [address] [address] [address] Pattie Reynolds Sodium [Moles/Vol] 138 mmol/L Normal 137-145 [facility] Comment on above: Performed By: #### B SWATCH MAKER, BMP, CRP #### [facility] [address] [place], [place] [address] Dr. Pattie Reynolds Urea nitrogen [Mass/Vol] 11.0 mg/dL Normal 9.0-20.0 [facility] Comment on above: Performed By: #### B SWATCH MAKER, BMP, CRP #### [facility] [address] [address] [address] Pattie Reynolds Urea nitrogen/Creatinine [Mass ratio] 13.1 mg/mg Normal [facility] Comment on above: Performed By: #### B SWATCH MAKER, BMP, CRP #### [facility] [id number] Pattie Reynolds SED RATE [facility] 2020 SED RATE 60 mm/hr Critically high <=20 [facility] Comment on above: Performed By: #### S EDR #### [facility] [address] [address] [address] Pattie Reynolds Coding Summaryon 06-28-2021 Coding Summary HTMLBase 64 KjoevwmpNHg4iGj+PGhlYW Q+VG0ZSJJyF28riIAbqH4T A4jZWD3LQVJHMSRZIW6JJY 5ymFT7SAsnY7HyzdNd EqmvlAMzKU80WHy0VCE5oM wuTOcbtK4cyLPvE7l7ZsBv IU19jI55PYqbHDHaDlI8Tc ZpbjsgbWFy Y0eqQzIpyIHsCtm+PHRhYm xlIHdpZHRoPScxMDAlJyBz rHwpLX5jKe6bGIBsJKCjlG xhcHNlOiBj j7ynEESoXGpvIK3wrYusM9 DwmJW5BHKqe6q4Bo03yNL+ HWYzNAP5iOvpJAeek988St Ocx5izLVC4 oNWoSFxvIEG5G99tn1J3UK FaNZNaJHP5pMK7fF4yzYdv pxckW8OeiEIwOtH6TDX8sI EdjA4bhLvl gipvuL3tFvu+H50JNJ5VYX ESVB8CHge3L2FqBitjtOA+ WA25AFQxEC19sYEpoXCby2 ntaNy7KaGx QHXkONN1fFfmGFbqj5TyNE GrB17avDBqy3Y2ONXigNvr dBRpMiJayNZ4bR9fFYrwvz iwr7eptlgz Utygg6dmjn20xI56P72bSJ lpFKNdBNN0FFFuPIWqzPxj iu4pjB9oBq6+WMxbf5qqf3 cypJo2CpAq YBPbulCxmEinEQT2o9WiBf 80X6TkdDcny5OfRew9ug41 uOKgu5P6nGC0ZSnzOIQmbS 8fLXgwFwK7 YJToLzYzgN16mELmKLdmJx 7tdMtrlWqnZT1dPZGgmric XWErzT8mMHWygWQdhWmbWS 4wNTBpbjtm i821UjAmSCP5ZFOkkGIfO0 LauX8mQcQvMLYnTNAbW4Mb fCPsCKfnF306BVviOfU6QA AjxhShB6Mb HJEzmLrvXvN3l0Q5Qf3Um0 SpswzkJMY8ZBbfUCPwVkN1 ZsIqHpI7Y0EeDjc0NOXocJ jjKS6fS0Ye OKBzmajzgnhvgNE6YAKoGW RqhB31eVGjDBwvDy3ky1F2 z389QGLtLTKakH52Yp3ucF ogMTBwdCBU vJ2bbdrov4jhtjnzZtBsJP QjUIj0CRg2CDUpgUctBuFe EIA4UlE1BDB6hEObsH2csJ lcsehalU0v Oyc+G01jfU6eVAQ0AWJ2xd iiIVMcwmZlWF48VS34H8Yr PjwvdGFibGU+PGRpdiBzdH nmSF2vPoNk c1qrt9ZxYKfaY3CxKCUhKP ayRhq6RMCuGRZ6qCU4mG8p DXRpOIuqi0W0nXZ6A6Pcxt Wizh6gk8zr DHJsXYfbA58fsHMtq9S6OR JayST5RDIkqYiuHfVnqH99 Oyc+OTZdoXfqf3YoBahup6 zyq6fqkIn3 McLhJFZpogKsjEsiMYM0j3 DvRy00X77xFQneABCkNUYh MFMsYFXegXiqlj7rwL6eWv 8+PGNvbCB3 qZT0yR6yIGZiRnZ4HKiiL0 41KpEtzLRlIzhif9zhq7qp cPc5JwNjCFKlzaYhpCsrHK T3r1MgYj93 Y79sWZqdSSEiUEXwJNXmVZ VhlRqdfy0qlZ7gPe4+PC9j i5nmte82xP42fAB+PHRkIH W2eKeuHCpl YAEwpF1xTSzgJeP7BCKjOk SinB01zLNxQBvkOt2zuEhh nPugCZ8dQNTmvqwmd112Ij Ezf6gpJNMv oJGiRNwxGQG9D04st4L9SX QeTZBuAAY6xLL0rE5czTeu bjogbGVmdDsgdmVydGljYW ykLVqdH870 IHRvcDsnPlBhdGllbnQgTm PjDAu5J9UvCqf2RHEpzGlo LQ0rmGVcYAxvAh7akBlbuP hrJG7yEQRu jjpvc561PaFhs4xaKIScbL JhKTaxUCR8X95uo2G2LFJk SSOuQIP0xLL4zW5aqWojbr ogbGVmdDsg dfGydJciDHokOWxdD356UA RvcDsnPkJpcnRoIERhdGU6 LS08UL93aBKqh0E8sMP5S0 BhZGRpbmct mxrfvCK0PZXnRGJbfU65Gr 4ihCsyLg2bKVDpJFC0QMLd rNOhR9MfhD4tZdErGXThZW HfL8AgiOWr TGxiD898LMqhZiL7UGTygs SwL5LnILWouGgtAeV7c3R8 Uy6JN0D8LR04IT20hREpj3 F9kWW5X3Ce XSQodclgdwgnmXB1LUHmAW AqvZ63Tt8hzSkxVg6eBMTe XTM9DXVroYUjP8XzhG3nIz AjMDAwMDAw U1SfdNCjYBiaP748WWelSa J4GQYafrKvQ5NuJTLplMuc SbG5g1Q1Dd7VYCf4KG32CK 61zYUet3A9 kTT5O2DsNMHkfccdsupgaT G2ELMoGNYjlF71Qx2voKuy Km1uWCTpMED2YZTmuUQrA9 AfhX6kEbZb UQQcAQXyA6KwtIHrZAchS9 71QMcpCrP6TIHibcLwD1Ba UNOdkPrgWuN2o4T6Yz3EGX GvJS62MGY7 yEO9HE90ST80R7QxWvgxxS FibGU+PHRhYmxlIHdpZHRo ADdzRXVdTfSmjNjsVZ5sCl 9yZGVyLWNv aKvreDLqNfDlq2ntFKVrBK odGK9gkEqhM6WdsGO5AKVx t5d6Tx48S77qM6IamUJ+PG ZetGX9fTY1 jP2xPxQuPkU7YTcgZ747Sm KxhTWlYomgc5vbc9eyqSp6 TaO3VTYcxpFiiFgnETR3i8 IgEq76U56d IHdpZHRoPSIxNSUiIHZhbG ttzf1wvC4lSt1+PGNvbCB3 hVU5rZ9yWvOmJxH5GZzvQ1 49InRvcCIv Zdcbi8rke4ujnBt1KkKaHE LtscSsxUkvPTD2h6PjOm96 F4FhuAsuk9FkYje4ec84rO Zme9A3hUZ6 A7FuUXUpoqxqiKRkpLiwDY 4sCFYgqjcaZZVhxE7uKTGj T9j6QjOxDlW7EGfjS8Mvbc W9TBOokHWx OMgpDWU7W05gu6Q3LWQfUZ DhONY8zJG6nM5gfOnlqijr bGVmdDsgdmVydGljYWwtYW fzC638FRCv yNhpCFKxxJ8hUPMriMLcmZ oaLN0fXCGgrhorPwMFIBsV UiwgSkVGRlJFWTwvdGQ+PH RnVVH1yXbc LGdmFZQnmF7mEZIaM2d9Bp DnVoI2THteL1NlYBIzfksn It29kD4iGjLjEsM6NKeyN8 GcjkE5TXMe tXJmLSyfDNJ5Q32yt8V1IQ GbBITvUQW3kNH3vU8nzPlm bjogbGVmdDsgdmVydGljYW gkTXsbM983 XFDloSvkJxY9ByZlIrG1IW V1U7RiEdl2BTRufImjDD4e jWMfLRncNk5hzGwznQhdAA 4wNTBpbjtw GNOktD3hHVIimJZouWxyPH 6bQDVpdseqh712UtEqCEY5 QQVnnFCjW8RvzF3tYvAdFS NvVQFoT8Jc cYYgCVbwU658GXpsPcJ9ZH YewdQrO3IbEGDkfVtpEbJ0 u8N5Qe06OkRITLXohdrnaG Q+PHRkIHN0 fEybFPiaSPYwaW7hEJAjJ6 e3YaPiWbQ7MDtfM4MrSHIl ntyrKp25lM2kStTmCnM8BG ppW7KqjfC3 UXEtsESaRNpiZIB0B07rl5 A4NSKyELExHOV8fSE7lZ8i bGlnbjogbGVmdDsgdmVydG ljYWwtYWxp M608JOYhhAnuCj8XZGF7H8 ZiXvh3YAOjdMyoSA0poYEp ESgyFc1nnKcxnEvaEX6hTH BpbjtwYWRk dD5qJXNhdGTdzLcvOG8pGK Ljokccy460EvQvSRH7CMHd mBVbU9SrdI5lEfKtWPTlMC AcG9YxmPUt VPvzE083IQgfTfP2YCShzq XoF9KjVCLfeUpoCfJ0u7L5 Dr9MxOGxB7FtZ3i8I1XiRx wvdHI+PC90 DQIfXS60sHSjsIZpw9xesR s5JgMwDILlVXT7tUbbNZzs k3LrAAGeD99whZJwy6P9QS NvbGxhcHNl CwUonOL9cE1zFDcihlfbi2 yguvwmChwws2yyos57oH63 Y54xWSutGCIcJHZoYQTwJR AtwLziaf0e sN6hSs7+BXZuxEM6qXY7uA 6bPtVuShE4SUqiG062OhNk dDTsOlrhh2sdl2mwoJv8Wj IwJSIgdmFs aCndIJL8u4EjEn48E43sXB dpZHRoPSIyMCUiIHZhbGln zv1waG8rRt8+XU1pb5onty 40fF54jYV+ MXGpGZI0kFyiAHkdRDBydR 1sBKchRuB7THXzYqQhoM82 nLViFQorXf5coCscoHxvSJ 4wNTBpbjtm y902DdTzm5xfYBOwyXGfII ugHHV0P59bh8E8UXBuQBMr SSF0xNW3nI1yqDvsleijkS VmdDsgdmVy yUuzXRbvNWuhT550GFTzaT apClUpfTJnD6oevmBYIP2o OjwvdGQ+NBYwPTQ6mZirAK oyEOOvpG6g GQGgG9a0KqLqByL7YDntM9 XqljC2FXQzrZIyXTPliIOR gR5ryqzfv3ulipspJhTvQP OdDTp8EXe1 VBBcoWilHkZyBVK7EuM0QL H2jGBzbX9pkJjftilqzU7o Oyc+RklOOjwvdGQ+PHRkIH V9sLyqACjq UQDamH4cYIIdK7a5EzQuIz W2UEmeU0JqdyD8SHRipZAt IDScwWRLoY4amxmjg7lpsh ogIzAwMDAw NYb3ZYf2HYZvaHytCkElQK R4OiV2XWE7fSVobE6fkOvf ejkdsO4hIez+TVJOOjwvdG Q+PHRkIHN0 kCygZJrbRXQxwS6nWPCcS4 u8SsUkDzQ8QPfzO7QonfY3 TULiyXWrDRElfOKGeV4epd xjl3yiqwdo BaQyYCXjQGc4AAf8BNPieA gxSgNzBLR1XqX9CWV9gIYk fH1pyYvjajboqL2pVtc+UG I1RQH0FY56 IF28F5WtLeyujNApnET+PH RhYmxlIHdpZHRoPScxMDAl DyOloMrmEL8fIk5iOPQgCV NvbGxhcHNl OiB (more content not included)... Normal [facility] ED Clinical Summaryon 2020 ED Clinical Summary [facility] - Emergency Department [address] [place] [id number] ED Clinical Summary PERSON INFORMATION Name: BRITTNY DUTTA Age: 66 Years Sex: MALE : 1955 MRN: Acct#: Visit Reason: Shoulder pain-swelling; Fall; FALL- RT SHOULDER PAIN Arrival: 06/19/2021 14:08:23 Discharge: 06/19/2021 15:29:00 LOS: 000 01:21 Check In: 06/19/2021 14:08:23 Checkout:06/19/2021 15:29:00 Address: [address] [place] [id number] PCP: Judi Michelle MD PROVIDER INFORMATION Provider Role Assigned Unassigned ELLIS DORSEY ED PA 06/19/2021 14:11:05 Lily Garrison PLASTIC CUTTER Nurse 06/19/2021 14:12:25 VITALS INFORMATION Vital Sign Triage Latest Temperature Tympanic 36.6 DegC 36.6 DegC Temperature Temporal Artery Pulse Rate 80 bpm 80 bpm O2 Sat 98 % 98 % Respiratory Rate 14 br/min 14 br/min Blood Pressure /101 mmHg /101 mmHg MEDICAL INFORMATION Medications Given: Medication Dose Route acetaminophen-hydrocod one (Sieper 5 mg-325 mg oral tablet) 1 tab(s) [...] I indic (more content not included)... Normal [facility] ED Note - Physicianon 2020 ED Note [...] I recommended (more content not included)... Normal [facility] ED Patient Summaryon 021 ED Patient Summary [facility] - Emergency Department [address] [place] [address] [id number] PATIENT DISCHARGE INSTRUCTIONS Patient Information Name: BRITTNY DUTTA Age: 66 Years Date of : 1955 Reason For Visit: Shoulder pain-swelling; Fall; FALL- RT SHOULDER PAIN Arrival Time: 06/19/2021 14:08:23 Primary Care Physician: Judi Michelle MD Attending Physician: Aleksandar Beasley MD Comment: Visit Diagnosis: Diagnoses This Visit Elevated blood pressure reading (R03.0) Fall ([id number]) Fall (W19.XXXA) Humeral head fracture (S42.293A) Right shoulder pain (M25.511) Shoulder pain-swelling ([id number]) Prescription Information: If you have been given a prescription for narcotics, seek immediate medical attention if you have any difficulty breathing or any sudden status changes such as confusion and sleepiness. If you or anyone you know is experiencing suicidal thoughts, mental health, alcohol and/or drug addiction problems; contact the [facility] 06/03 Crisis Hotline -Text 4HTZU uv 204549. If you received any narcotics, sedation, or [...] legal documents With: Address: When: [place]ari [place] [address] [place] [address], [place] [address] [facility] (1) Within 2 to 4 [...] and treatment you received today in the [facility] Emergency Department were for an urgent problem and are not intended as complete care. It is important for you to follow up with a doctor, nurse practitioner, or physician?s staffing assistant for ongoing care. If your symptoms [...] so we can reach you if necessary. [facility] Emergency Department has provided you with a complete list of medications post discharge. Please inform your bag patcher/provider of your visit and for further instruction on these medications. Any specific questions regarding your chronic medications and dosages should be discussed with your primary care physician(s) and/or pharmacist. New Medications Printed Prescriptions acetaminophen-hydrocod one (Sieper 5 mg-325 mg oral tablet) 1 tab(s) [...] cm Weight D (more content not included)... [facility] XR Shoulder Complete [place] 06-19-2021 XR [...] Jann Montano 06/19/21 2:59 pm Technologist: [place] [facility] VC CONSULT FOLLOWUPon 2020 VC CONSULT FOLLOWUP Patient: BRITTNY DUTTA Exam Date: 06/04/2021 : 1955 Gender:M Ordering : DR SANTI LIU M.D. Admission #: [id number] Family : Order #: [id number] CLICK HERE TO VIEW EXAM CORRECTION Corrected [...] Vaughn M.D. on 06/04/2021 at 12:38 Normal [facility] VC EXT VENOUS LT LIMITEDon 1 VC EXT VENOUS LT LIMITED Patient: BRITTNY DUTTA Exam Date: 06/04/2021 : 1955 Gender:M Ordering : DR SANTI LIU M.D. Admission #: [id number] Family : Order #: [id number] CLICK HERE TO VIEW EXAM RADIOLOGY REPORT [...] Vaughn M.D. on 06/04/2021 at 12:37 Normal [facility] VC ENDOVENOUS ABL 1ST V LTon 05-28-2021 VC ENDOVENOUS ABL 1ST V LT Patient: BRITTNY DUTTA Exam Date: 05/28/2021 : 1955 Gender:M Ordering : DR SANTI LIU M.D. Admission #: [id number] Family : Order #: [id number] CLICK HERE TO VIEW EXAM RADIOLOGY REPORT [...] M.D. on 05/28/2021 at 11:52 Normal [facility] COMP CONSULTATIONon 01-19 VC COMP CONSULTATION Patient: BRITTNY DUTTA Exam Date: 01/19/2021 : 1955 Gender:M Ordering : ROBERT RONQUILLO . Admission #: [id number] Family : Order #: [id number] CLICK HERE TO VIEW EXAM RADIOLOGY REPORT [...] The patient was last treated by the [facility]. The patient was referred by the wound [...] significant for atrophy duarte, diagnosed at the [facility]. Chronic atrial fibrillation for which he is [...] branch saphenous tributary/varicose veins. 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 Normal [facility] VC VENOUS REFLUX FELIX LMTon 0 01-19-2021 VC VENOUS REFLUX FELIX LMT Patient: BRITTNY DUTTA Exam Date: 01/19/2021 : 1955 Gender:M Ordering : ROBERT RONQUILLO . Admission #: [id number] Family : DR SANTI LIU M.D. Order #: [id number] CLICK HERE TO VIEW EXAM RADIOLOGY REPORT [...] chronic echogenic thrombus Compressibility: Normal Flow: Normal Clinical Nurse Reviewer: ankle novelty maker measuring 3.7mm with 3.7s of reflux Tech [...] saphenous varicose veins 5. Incompetent right ankle novelty maker vein Dictated by: Santi Liu MD on 01/19/2021 at 12:18 Approved by: Santi Liu MD on 01/19/2021 at 12:21 Normal [facility] CBC AUTO DIFFon 01-13-2021 BASO # 0.0 103/ul Normal 0.0-0.1 [facility] Comment on above: Performed By: #### C ANDREY #### [facility] [address] [place] [address] Sade Milly Basophils/100 WBC (Bld) 0.6 % Normal 0.2-2.0 [facility] Comment on above: Performed By: #### C ANDREY #### [facility] [address] [place] [address] Sade Atkins EO # 0.2 103/ul Normal 0.0-0.7 [facility] Comment on above: Performed By: #### C ANDREY #### [facility] [address] [place] [address] Sade Atkins Eosinophils/100 WBC (Bld) 3.3 % Normal 0.9-7.0 [facility] Comment on above: Performed By: #### C ANDREY #### [facility] [address] [place] [address] Sade Atkins Erythrocyte distribution width (RBC) [Ratio] 14.4 % Normal 11.0-15.0 [facility] Comment on above: Performed By: #### C ANDREY #### [facility] [address] [place] [address] Sade Milly Hematocrit (Bld) [Volume fraction] 49.0 % Normal 42.0-54.0 [facility] Comment on above: Performed By: #### C ANDREY #### [facility] [address] [place] [address] Sade Milly Hemoglobin (Bld) [Mass/Vol] 15.7 g/dL Normal 14.0-18.0 [facility] Comment on above: Performed By: #### C ANDREY #### [facility] [address] [place] [address] Sade Milly IG # 0.01 10e3/ul Normal 0.00-0.03 [facility] Comment on above: Performed By: #### C ANDREY #### [facility] [address] [place] [address] Sade Milly IG % 0.1 % Normal 0.0-0.5 [facility] Comment on above: Performed By: #### C ANDREY #### [facility] [address] [place] [address] Sade Milly LYMPH # 1.4 103/ul Normal 1.2-3.8 [facility] Comment on above: Performed By: #### C ANDREY #### [facility] [address] [place] [address] Sade Milly Lymphocytes/100 WBC (Bld) 20.2 % Critically low 20.5-60.0 [facility] Comment on above: Performed By: #### C ANDREY #### [facility] [address] [place] [address] Sade Atkins MANUAL DIFF REQ NO Normal [facility] Comment on above: Performed By: #### C ANDREY #### [facility] [address] [place] [address] Sade Milly MCH (RBC) [Entitic mass] 29.5 pg Normal 25.9-34.0 [facility] Comment on above: Performed By: #### C ANDREY #### [facility] [address] [place] [address] Sade Milly MCHC (RBC) [Mass/Vol] 32.0 g/dL Normal 29.9-35.2 [facility] Comment on above: Performed By: #### C ANDREY #### [facility] [address] [place] [address] Sade Milly MCV (RBC) [Entitic vol] 92.1 fL Normal 80.0-94.0 [facility] Comment on above: Performed By: #### C ANDREY #### [facility] [address] [place], [place] [address] Sadebradford Atkins MONO # 0.9 103/ul Critically high 0.3-0.8 [facility] Comment on above: Performed By: #### C ANDREY #### [facility] [address] [place], [place] [address] Sade Milly Monocytes/100 WBC (Bld) 13.5 % Critically high 1.7-12.0 [facility] Comment on above: Performed By: #### C ANDREY #### [facility] [address] [place] [address] Sadebradford Hickeyen NEUT # 4.3 103/ul Normal 1.4-6.5 [facility] Comment on above: Performed By: #### C ANDREY #### [facility] [address] [place] [address] Sade Atkins Neutrophils/100 WBC (Bld) 62.3 % Normal 43.0-75.0 [facility] Comment on above: Performed By: #### C ANDREY #### [facility] [address] [place], [place] [address] Sadebradford Atkins Platelet mean volume (Bld) [Entitic vol] 9.3 fL Critically low 9.5-13.5 [facility] Comment on above: Performed By: #### C ANDREY #### [facility] [address] [place], [place] [address] Sade Milly PLT 263 103/ul Normal 150-450 [facility] Comment on above: Performed By: #### C ANDREY #### [facility] [address] [place], [place] [address] Sade Milly RBC 5.32 106/ul Normal 4.70-6.10 [facility] Comment on above: Performed By: #### C ANDREY #### [facility] [address] [place], [place] [address] Sade Milly WBC 6.9 103/ul Normal 4.0-11.0 [facility] Comment on above: Performed By: #### C ANDREY #### [facility] [address] [id number] Sade Milly CRPon 01-13-2021 CRP [Mass/Vol] mg/L Normal <=1.0 [facility] Comment on above: Performed By: #### B MP, CRP #### [facility] [address] [place], [place] [address] Sade Milly LACTATE/LACTIC ACIDon 2020 Lactate [Moles/Vol] 0.8 mmol/L Normal 0.7-2.0 [facility] Comment on above: Performed By: #### L ACT #### [facility] [address] [place], [place] [address] Sade Milly PROF CHEM 8 (BAS METB)on Anion gap [Moles/Vol] 15.7 mmol/L Normal [facility] Comment on above: Performed By: #### B MP, CRP #### [facility] [address] [place] [address] Sade Milly Calcium [Mass/Vol] 9.2 mg/dL Normal 8.4-10.2 [facility] Comment on above: Performed By: #### B MP, CRP #### [facility] [address] [place] [address] Sade Milly Chloride [Moles/Vol] 103 mmol/L Normal 98-107 [facility] Comment on above: Performed By: #### B MP, CRP #### [facility] [address] [place] [address] Sade Milly CO2 [Moles/Vol] 27.5 mmol/L Normal 22.0-30.0 [facility] Comment on above: Performed By: #### B MP, CRP #### [facility] [address] [place], [place] [address] Sade Milly Creatinine [Mass/Vol] 1.04 mg/dL Normal 0.66-1.25 [facility] Comment on above: Performed By: #### B MP, CRP #### [facility] [address] [id number] Sade Milly EGFR-AF [place] >60 Normal >=60 [facility] Comment on above: Performed By: #### B MP, CRP #### [facility] [address] [phone] Sade Milly EGFR-NON AF [place] >60 Normal >=60 [facility] Comment on above: Performed By: #### B MP, CRP #### [facility] [address] [id number] Sade Milly Glucose [Mass/Vol] 102 mg/dL Normal 74-106 [facility] Comment on above: Performed By: #### B MP, CRP #### [facility] [address] [place] [address] Sade Milly Potassium [Moles/Vol] 4.2 mmol/L Normal 3.4-5.0 [facility] Comment on above: Performed By: #### B MP, CRP #### [facility] [address] [address] Sade Milly Sodium [Moles/Vol] 142 mmol/L Normal 137-145 [facility] Comment on above: Performed By: #### B MP, CRP #### [facility] [address] [place], [place] [address] Sade Milly Urea nitrogen [Mass/Vol] 15.0 mg/dL Normal 9.0-20.0 [facility] Comment on above: Performed By: #### B MP, CRP #### [facility] [address] [id number] Sade Milly Urea nitrogen/Creatinine [Mass ratio] 14.4 mg/mg Normal [facility] Comment on above: Performed By: #### B MP, CRP #### [facility] [address] [place], [place] [address] Sade Milly SED RATE [facility] CLINICRENon 2020 SED RATE 31 mm/hr Critically high <=20 [facility] Comment on above: Performed By: #### S EDR #### [facility] [address] [place], [place] [address] Sade Milly XR ANKLE LT MIN 3 Von 2020 XR ANKLE LT MIN 3 V EXAM: XR ANKLE LT KS N 3 V HISTORY: The patient is [...] by: BRADFORD JACKSON Date: 2021-01-13 18:57 Normal [facility] CTA ABD ANGEL WWO CON LE [...] by: SANTI LIU Date: 2020-12-25 11:56 Normal [facility] CREATININEon 12-22-2020 Creatinine [Mass/Vol] 0.98 mg/dL Normal 0.66-1.25 [facility] Comment on above: Performed By: #### C ANDREY #### [facility] [address] [address] Sade Milly EGFR-AF [place] >60 Normal >=60 [facility] Comment on above: Performed By: #### C ANDREY #### [facility] [address] [address] Sade Milly EGFR-NON AF [place] >60 Normal >=60 [facility] Comment on above: Performed By: #### C ANDREY #### [facility] [address] [place], [place] [address] Sade Hickeyen ECHOCARDIO M/2D COMPLETEon 0 10-23-2020 ECHOCARDIO M/2D COMPLETE Patient: BRITTNY DUTTA Exam Date: 10/23/2020 : 1955 Gender:M Ordering : BRISA JEFFERSON Admission #: [id number] Family : Order #: [id number] CLICK HERE TO VIEW EXAM ECHOCARDIOGRAM REPORT [...] Area(A4C): 29.70 cm2 Left Atrium Systolic Volume(A2C): 28580 mm3 Left Atrium Systolic Volume(A4C): 915434 mm3 Mitral Valve MV E to A [...] M.D. on 10/23/2020 at 11:56 Normal [facility] XR CHEST 2 Von 10-18-2020 XR [...] JACKELIN MOREAU Date: 2020-10-18 11:57 Normal [facility] CBC AUTO DIFFon 10-17-2020 BASO # 0.0 103/ul Normal 0.0-0.1 [facility] Comment on above: Performed By: #### C ANDREY #### [facility] [address] [place] [address] Sade Atkins Basophils/100 WBC (Bld) 0.6 % Normal 0.2-2.0 [facility] Comment on above: Performed By: #### C ANDREY #### [facility] [address] [place] [address] Sade Atkins EO # 0.2 103/ul Normal 0.0-0.7 [facility] Comment on above: Performed By: #### C ANDREY #### [facility] [address] [place] [address] Sade Milly Eosinophils/100 WBC (Bld) 3.7 % Normal 0.9-7.0 [facility] Comment on above: Performed By: #### C ANDREY #### [facility] [address] [place] [address] Sade Milly Erythrocyte distribution width (RBC) [Ratio] 14.4 % Normal 11.0-15.0 [facility] Comment on above: Performed By: #### C ANDREY #### [facility] [address] [place] [address] Sade Milly Hematocrit (Bld) [Volume fraction] 52.3 % Normal 42.0-54.0 [facility] Comment on above: Performed By: #### C ANDREY #### [facility] [address] [place] [address] Sade Milly Hemoglobin (Bld) [Mass/Vol] 16.3 g/dL Normal 14.0-18.0 [facility] Comment on above: Performed By: #### C ANDREY #### [facility] [address] [place] [address] Sade Milly IG # 0.01 10e3/ul Normal 0.00-0.03 [facility] Comment on above: Performed By: #### C ANDREY #### [facility] [address] [place] [address] Sade Milly IG % 0.2 % Normal 0.0-0.5 [facility] Comment on above: Performed By: #### C ANDREY #### [facility] [address] [place] [address] Sade Milly LYMPH # 1.1 103/ul Critically low 1.2-3.8 [facility] Comment on above: Performed By: #### C ANDREY #### [facility] [address] [place], [place] [address] Sade Milly Lymphocytes/100 WBC (Bld) 17.8 % Critically low 20.5-60.0 [facility] Comment on above: Performed By: #### C ANDREY #### [facility] [address] [place] [address] Sade Milly MANUAL DIFF REQ NO Normal [facility] Comment on above: Performed By: #### C ANDREY #### [facility] [address] [place] [address] Sade Atkins MCH (RBC) [Entitic mass] 28.7 pg Normal 25.9-34.0 [facility] Comment on above: Performed By: #### C ANDREY #### [facility] [address] [place] [address] Sade Atkins MCHC (RBC) [Mass/Vol] 31.2 g/dL Normal 29.9-35.2 [facility] Comment on above: Performed By: #### C ANDREY #### [facility] [address] [place] [address] Sade Atkins MCV (RBC) [Entitic vol] 92.2 fL Normal 80.0-94.0 [facility] Comment on above: Performed By: #### C ANDREY #### [facility] [address] [place] [address] Sade Atkins MONO # 0.8 103/ul Normal 0.3-0.8 [facility] Comment on above: Performed By: #### C ANDREY #### [facility] [address] [place] [address] Sade Hickeyen Monocytes/100 WBC (Bld) 13.1 % Critically high 1.7-12.0 [facility] Comment on above: Performed By: #### C ANDREY #### [facility] [address] [place] [address] Sadebradford Atkins NEUT # 4.0 103/ul Normal 1.4-6.5 [facility] Comment on above: Performed By: #### C ANDREY #### [facility] [address] [place] [address] Sade Milly Neutrophils/100 WBC (Bld) 64.6 % Normal 43.0-75.0 [facility] Comment on above: Performed By: #### C ANDREY #### [facility] [address] [place] [address] Sadebradford Atkins Platelet mean volume (Bld) [Entitic vol] 9.5 fL Normal 9.5-13.5 [facility] Comment on above: Performed By: #### C ANDREY #### [facility] [address] [place] [address] Sade Atkins PLT 254 103/ul Normal 150-450 [facility] Comment on above: Performed By: #### C ANDREY #### [facility] [address] [place] [address] Sade Atkins RBC 5.67 106/ul Normal 4.70-6.10 [facility] Comment on above: Performed By: #### C ANDREY #### [facility] [address] [place] [address] Sade Atkins WBC 6.3 103/ul Normal 4.0-11.0 [facility] Comment on above: Performed By: #### C ANDREY #### [facility] [address] [place] [address] Sade Atkins GLYCOHEMOGLOBIN A1Con 2020 ADA RECOMMENDATION ADA THERAPEUTIC TARG ET 6.0 - 7.0 ACTION SUGGESTED > 7.0 Normal [facility] Comment on above: Performed By: #### A 1C #### [facility] [address] [place], [place] [address] Sade Atkins Glucose [Mass/Vol] 123 mg/dL Normal [facility] Comment on above: Performed By: #### A 1C #### [facility] [address] [place] [address] Sade Atkins HbA1c (Bld) [Mass fraction] 5.9 % Normal <=6.0 [facility] Comment on above: Performed By: #### A 1C #### [facility] [address] [place], [place] [address] Sade Atkins LIPID PROFILEon 10-17-2020 CHOL-HDL RATIO NORM SEE BELOW Normal [facility] Comment on above: Result Comment: 3.3 - 4.4 LOW RISK 4.4 - 7.1 AVERAGE RISK 7.1 - 11.0 MODERATE RISK >11.0 HIGH RISK Performed By: #### C ANDREY #### [facility] [address] [place], [place] [address] Sade Milly Cholesterol [Mass/Vol] 172 mg/dL Normal <=200 [facility] Comment on above: Performed By: #### C ANDREY #### [facility] [address] [address] Sade Milly Cholesterol in HDL [Mass/Vol] 51 mg/dL Normal [facility] Comment on above: Performed By: #### C ANDREY #### [facility] [address] [address] Sade Milly Cholesterol in LDL [Mass/Vol] 105.6 mg/dL Normal [facility] Comment on above: Performed By: #### C ANDREY #### [facility] [address] [address] Sade Milly Cholesterol.total/Ch olesterol in HDL [Mass ratio] 3.4 {ratio} Normal [facility] Comment on above: Performed By: #### C ANDREY #### [facility] [address] [address] Sade Milly HDL NORMAL > or = 60 mg/dl - LO W CARDIOVASCULAR RISK <40 mg/dl - HIGH CARDIOVASCULAR RISK Normal [facility] Comment on above: Performed By: #### C ANDREY #### [facility] [address] [address] Sade Milly LDL CALC NORMAL SEE BELOW Normal [facility] Comment on above: Result Comment: <100 mg/dl OPTIMAL 100 - 129 mg/dl NEAR OR ABOVE OPTIMAL 130 - 159 mg/dl BORDERLINE HIGH 160 - 189 mg/dl HIGH >190 mg/dl VERY HIGH Performed By: #### C ANDREY #### [facility] [address] [address] Sade Milly Triglyceride [Mass/Vol] 77 mg/dL Normal <=150 [facility] Comment on above: Performed By: #### C ANDREY #### [facility] [address] [address] Sade Milly VLDL CALC 15.4 mg/dL Normal [facility] Comment on above: Performed By: #### C ANDREY #### [facility] [address] [place] [address] Sade Milly PROF 14(COMP METB)on 021 Albumin [Mass/Vol] 3.8 g/dL Normal 3.5-5.0 [facility] Comment on above: Performed By: #### C ANDREY #### [facility] [address] [place], [place] [address] Sade Milly Albumin/Globulin [Mass ratio] 1.1 {ratio} Normal [facility] Comment on above: Performed By: #### C ANDREY #### [facility] [address] [place], [place] [address] Sade Milly ALP [Catalytic activity/Vol] 64 U/L Normal 38-126 [facility] Comment on above: Performed By: #### C ANDREY #### [facility] [address] [place] [address] Sade Milly ALT [Catalytic activity/Vol] 26 U/L Normal 21-72 [facility] Comment on above: Performed By: #### C ANDREY #### [facility] [address] [place] [address] Sade Milly Anion gap [Moles/Vol] 14.7 mmol/L Normal [facility] Comment on above: Performed By: #### C ANDREY #### [facility] [address] [place] [address] Sade Milly AST [Catalytic activity/Vol] 19 U/L Normal 17-59 [facility] Comment on above: Performed By: #### C ANDREY #### [facility] [address] [place], [place] [address] Sade Milly Bilirubin [Mass/Vol] 0.7 mg/dL Normal 0.2-1.3 [facility] Comment on above: Performed By: #### C ANDREY #### [facility] [address] [place], [place] [address] Sade Milly Calcium [Mass/Vol] 9.6 mg/dL Normal 8.4-10.2 [facility] Comment on above: Performed By: #### C ANDREY #### [facility] [address] [address] Sade Milly Chloride [Moles/Vol] 102 mmol/L Normal 98-107 [facility] Comment on above: Performed By: #### C ANDREY #### [facility] [address] [address] Sade Milly CO2 [Moles/Vol] 26.9 mmol/L Normal 22.0-30.0 [facility] Comment on above: Performed By: #### C ANDREY #### [facility] [address] [place], [place] [address] Sade Milly Creatinine [Mass/Vol] 1.02 mg/dL Normal 0.66-1.25 [facility] Comment on above: Performed By: #### C ANDREY #### [facility] [address] [place] [address] Sade Milly EGFR-AF [place] >60 Normal >=60 [facility] Comment on above: Performed By: #### C ANDREY #### [facility] [address] [place] [address] Sade Milly EGFR-NON AF [place] >60 Normal >=60 [facility] Comment on above: Performed By: #### C ANDREY #### [facility] [address] [place], [place] [address] Sade Milly Globulin (S) [Mass/Vol] 3.6 g/dL Normal [facility] Comment on above: Performed By: #### C ANDREY #### [facility] [address] [place] [address] Sade Milly Glucose [Mass/Vol] 104 mg/dL Normal 74-106 [facility] Comment on above: Performed By: #### C ANDREY #### [facility] [address] [place], [place] [address] Sade Milly Potassium [Moles/Vol] 4.6 mmol/L Normal 3.4-5.0 [facility] Comment on above: Performed By: #### C ANDREY #### [facility] [address] [place], [place] [address] Sade Milly Protein [Mass/Vol] 7.4 g/dL Normal 6.1-8.2 [facility] Comment on above: Performed By: #### C ANDREY #### [facility] [address] [place] [address] Sade Milly Sodium [Moles/Vol] 139 mmol/L Normal 137-145 [facility] Comment on above: Performed By: #### C ANDREY #### [facility] [address] [id number] Sade Milly Urea nitrogen [Mass/Vol] 18.0 mg/dL Normal 9.0-20.0 [facility] Comment on above: Performed By: #### C ANDREY #### [facility] [address] [place], [place] [address] Sade Milly Urea nitrogen/Creatinine [Mass ratio] 17.6 mg/mg Normal [facility] Comment on above: Performed By: #### C ANDREY #### [facility] [address] [place], [place] [address] Sade Milly TSHon 10-17-2020 TSH 2.033 uIU/mL Normal 0.470-4.680 [facility] Comment on above: Performed By: #### C ANDREY #### [facility] [address] [place], [place] [id number] Sade Milly TSH RANGE SEE BELOW Normal [facility] Comment on above: Result Comment: <0.3 4 UIU/ml HYPERTHYROID 0.34-5.60 UIU/ml EUTHYROID >5.60 UIU/ml HYPOTHYROID Performed By: #### C ANDREY #### [facility] [address] [place], [place] [id number] Sade Milly Cardiovascular Lab Reporton 03-05-2020 Cardiovascular Lab Report [facility] Patient Name: Clarisse [facility] G MR #: [id number] Department of Physician: Adam Reno M.D. Division of Service Date: 03/05/2020 Cardiology Birthdate: 1955 Adult Cardiovascular Room #: [place] [address] Cardiovascular Laboratory Report FINAL IMPRESSIONS: 1. Severe [...] Follow up with Dr. Lane in the [place] office in the next 2 to 4 [...] the left radial artery was obtained. A 6-Turkmen glide sheath was inserted without difficulty. Bilateral selective coronary angiography was performed using JR4 and JL4 catheters. After reviewing the images, it was elected to proceed with an interventional procedure. A 6-Turkmen XB 3.5 guide catheter was advanced over [...] XB 3.5 catheter was removed and a 6-Turkmen JL4 guide catheter coaxially engaged into the [...] Lane M.D. Date Trans: 03/05/2020 01:22 P/aram [id number] cc: Shari Shepard M.D. [address] [place] [address] [place] [id number] [facility] Vital Signs Date Time Vital Sign Value Performing Clinician Buddyi brianda 04-04-2023 10:46-0400 Body height 182.88 cm MD Jose Castellon Work Phone: [facility] 04-04-2023 10:46-0400 Body mass index (BMI) [Ratio] 36.8 kg/m2 MD Jose Castellon Work Phone: [facility] 04-04-2023 10:46-0400 Body weight 123.37 kg MD Jose Castellon Work Phone: [facility] 04-04-2023 10:26-0400 Body temperature 97.7 [degF] MD Jose Castellon Work Phone: [facility] 04-04-2023 10:26-0400 Diastolic blood pressure 80 mm[Hg] MD Jose Castellon Work Phone: [facility] 04-04-2023 10:26-0400 Heart rate 60 /min MD Jose Castellon Work Phone: [facility] 04-04-2023 10:26-0400 Respiratory rate 18 /min MD Jose Castellon Work Phone: [facility] 04-04-2023 10:26-0400 Systolic blood pressure 132 mm[Hg] MD Jose Castellon Work Phone: [facility] Encounters Encounter Date Encounter Type Care Provider Facility Start: 04-04-2023 End: 04-04-2023 ambulatory Aura Johnson Facility:[facility] Start: 04-04-2023 End: 04-04-2023 ambulatory MD Jose Castellon Work Phone: [facility] Work Phone: Start: 04-04-2023 End: 04-04-2023 Discharged Recurring MD Jose Castellon Work Phone: [facility] Jan[place] Work Phone: Start: 11-23-2022 End: 11-23-2022 ambulatory S[facility] Start: 08-02-2021 End: 08-03-2021 ambulatory JUDI MICHELLE [...] 03-06-2020 Patient encounter procedure EHAB A ELTAHAWPranay Facility:[facility] Procedures Date Procedure Procedure Detail Performing Clinician Start: 10-17-2020 PSA screening BRISA Rico OES Comment on above: Performed By: #### C ANDREY #### [facility] [address] [place] [address] Sade Atkins Payers Date Payer Category Payer Self-pay 1960 Medicare [id number] 1960 Unknown [id number] 1955 Unknown [id number] 2.16.8 40.1.224724.3.579.2.647 1955 Unknown [id number] 2.16.84 0.1.711209.3.579.2.593 1954 Unknown [id number] 2.16.84 0.1.982669.3.579.2.593 1954 Unknown [id number] 2.16.84 0.1.266789.3.579.2.593 1954 Unknown [id number] 2.16.84 0.1.066088.3.579.2.593 1954 Unknown [id number] 2.16.84 0.1.809755.3.579.2.593 1954 Unknown [id number] 2.16.84 0.1.195773.3.579.2.593 1954 Unknown [id number] 2.16.84 0.1.009300.3.579.2.593 1954 Unknown [id number] 2.16.84 0.1.938868.3.579.2.593 1954 Unknown [id number] 2.16.84 0.1.433098.3.579.2.593 1954 Unknown [id number] 2.16.84 0.1.491726.3.579.2.593 1954 Unknown [id number] 2.16.84 0.1.029796.3.579.2.593 1954 Unknown [id number] 2.16.84 0.1.374396.3.579.2.593 1954 Unknown [id number] 2.16.84 0.1.453100.3.579.2.593 1954 Unknown [id number] 2.16.84 0.1.774255.3.579.2.593 1954 Unknown [id number] 2.16.84 0.1.581571.3.579.2.593 1954 Unknown [id number] 2.16.84 0.1.562829.3.579.2.593 1954 Unknown [id number] 2.16.84 0.1.876477.3.579.2.593 1954 Unknown [id number] 2.16.84 0.1.084956.3.579.2.593 1954 Unknown [id number] 2.16.84 0.1.217028.3.579.2.593 Unknown [id number] 2.16.8 40.1.651577.3.579.2.531 Social History Date Type Detail Facility Start: 04-04-2023 [facility] Start: 1955 Sex Assigned At Male F [facility] Progress note 04-04-2023 Note Date & Type Note Facility 04-04-2023 Progress note Note Date/Time April 04, 2023 10:47am [facility] [address] [place] [address] Wound Center Provider Note Signed Patient: Brittny Dutta MR#: [id number] : 1955 Acct:[id number] Age/Sex: 68 / M Copies to: MD Aura Roman, SANDY~ HPI Date of Visit Date of Visit: Date of Service: 04/04/2023 Time of Service: 10:44 Narrative HPI: 02/28/23 Jaylen is a 67 year old male presenting to [facility] wound care for an initial visit for [...] as continue his compression wraps and tubi double end sewer for the next 14 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 He will also contact [facility] and get back in [...] omega 3 and has not yet contacted [facility] but says that he will this week- I feelstrongly that this root cause needs addressed and he does state understanding ofthis, 3 week appt, no infection noted 04/04/23 again much better, no pain he says, has see [facility] and will be having a venous procedure to fix his root problem, appears healed and so he can be discharged today but is aware to contact us with any future needs Subjective Pain Left Ankle: Pain Description: Intermittent and Burning Pain Intensity: 0 Wound/Ulcer History When did wound start?: September 2022 Mode of Arrival/ Tar Kettle Runner: Personal vehicle Lives with:: Significant Other Appetite Description: Within Normal Limits Who helps w/ dressing change?: Self Smoking Status: Former smoker [facility] Medical History (Updated 04/04/23 @ 10:46 by [...] Code(s): I25.10 - Atherosclerotic heart disease of [place] coronary artery without angina pectoris Status: Chronic [...] <Electronically signed by SANDY Johnson> 04/04/23 1046 [facility] Work Phone: Progress note 03-13-2023 Note Date & Type Note Facility 03-13-2023 Progress note Note Date/Time March 13, 2023 11:04am [facility] [address] [place] [address] Wound Center Provider Note Signed Patient: Brittny Dutta MR#: [id number] : 1955 Acct:[id number] Age/Sex: 67 / M Copies to: MD Aura Roman APRN~ HPI Date of Visit Date of Visit: Date of Service: 03/13/2023 Time of Service: 11:01 Narrative HPI: 02/28/23 Jaylen is a 67 year old male presenting to [facility] wound care for an initial visit for [...] as continue his compression wraps and tubi double end sewer for the next 14 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 He will also contact [facility] and get back in [...] omega 3 and has not yet contacted [facility] but says that he will this week- I feelstrongly that this root cause needs addressed and he does state understanding ofthis, 3 week appt, no infection noted Subjective Pain Left Ankle: Pain Description: Intermittent and Burning Pain Intensity: 0 Wound/Ulcer History When did wound start?: September 2022 Mode of Arrival/ Tar Kettle Runner: Personal vehicle Lives with:: Significant Other Appetite Description: Within Normal Limits Who helps w/ dressing change?: Self Smoking Status: Former smoker [facility] Medical History (Updated 02/28/23 @ 08:45 by [...] Code(s): I25.10 - Atherosclerotic heart disease of [place] coronary artery without angina pectoris Status: Chronic [...] <Electronically signed by SANDY Johnson> 03/13/23 1104 [facility] Work Phone: Progress note 02-28-2023 Note Date & Type Note Facility 02-28-2023 Progress note Note Date/Time February 28, 2023 8:53am [facility] [address] [place] [address] Wound Center Provider Note Signed Patient: Brittny Dutta MR#: [id number] : 1955 Acct:[id number] Age/Sex: 67 / M Copies to: MD Aura Roman APRN~ HPI Date of Visit Date of Visit: Date of Service: 02/28/2023 Time of Service: 08:41 Narrative HPI: 02/28/23 Jaylen is a 67 year old male presenting to [facility] wound care for an initial visit for [...] as continue his compression wraps and tubi double end sewer for the next 14 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 He will also contact [facility] and get back in [...] wound start?: September 2022 Mode of Arrival/ Tar Kettle Runner: Personal vehicle Lives with:: Significant Other Appetite Description: Within Normal Limits Who helps w/ dressing change?: Self Smoking Status: Former smoker [facility] Medical History (Updated 02/28/23 @ 08:45 by [...] Code(s): I25.10 - Atherosclerotic heart disease of [place] coronary artery without angina pectoris Status: Chronic [...] By: <Electronically signed by SANDY Johnson> 02/28/2353 [facility] Work Phone: Progress note 11-23-2022 Note Date & Type Note Facility 11-23-2022 Note [facility] Cardiology Clinic Note Chief Complaint: [...] 1 (HTN), CHADS2- (more content not included)... [facility] Clinical Note 06-19-2021 Note Date & Type [...] or tofu. ? (more content not included)... 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 Hypothyroidism chronic Inflammation chronic Obesity chronic Venous stasis of lower extremity chronic Ulcer of left foot associate d with varicose veins resolved Wound pain resolved [facility] Work Phone: Summary Purpose Family [...] and content) DATE CREATED AUTHOR 03/11/2020 [facility] DATE CREATED AUTHOR AUTHOR'S ORGANIZ ATION 06/29/2021 [facility] DATE CREATED AUTHOR AUTHOR'S ORGANIZ ATION 08/18/2021 [facility] DATE CREATED AUTHOR AUTHOR'S ORGANIZ ATION 11/24/2022 [facility] DATE CREATED AUTHOR AUTHOR'S ORGANIZ ATION 05/20/2023 [facility] Care Teams (unrecognized sec tion and [...] BE BASED ON THE PRIMARY CLINICAL RECORDS. [facility] [employer] [facility]. provides no warranty or guarantee of the accuracy or completeness of information in this document.
== END 2023-09-14 09:28 | disposition home or self-care (01) ==
LOC: VC 09:31
PROVIDERS: PCP Radiology Diagnostic Radiology; Visit Provider Radiology Diagnostic Radiology
DX: I80.02 Phlebitis and thrombophlebitis of superficial vessels of left lower extremity (principal)
CPT/HCPCS: 93971; G0463

== ENCOUNTER 2023-09-29 09:24 | Outpatient (OUT) | payer MEDICARE, OTHER, SELFPAY ==
--- OUTSIDE RECORDS SUMMARY | 2023-09-29 09:28 | XMS_ITS | CCD ---
Author Name Unknown Address [address] [place] [address] Organization [facility] Care Team Providers Care Insurance Marketing Rep Name Role Phone ELTAHAWY, EHAB A Admitting Unavailable ELTAHAWY, EHAB A Attending Unavailable SHARI SHEPARD Primary Care Unavailable SELF, REFERRED Referring Unavailable RONNY, BRISA Attending Unavailable RONNY, BRISA Admitting Unavailable RONNY, BRISA Consulting Unavailable MISC, DR LUCAS Primary Care Unavailable WEST, DR SANTI Fritz Consulting Unavailable VIVIANA, JUDI Primary Care Unavailable ALEXA, DR SANTI Fritz Admitting Unavailable WEST, DR [...] Attending Unavailable ROSS, JUDI Primary Care Unavailable [facility] [place], DR LUCAS Primary Care Unavailable DERRICK DERAS Attending Unavailable DERRICK DERAS Admitting Unavailable [facility] Care Unavailable BERT THOMAS Admitting Unavailabl e CLOUGHERTY NOEL D Attending Unavailabl e CLOUGHERTYBERT D Attending Unavailabl e CLOBERT ORONA D Admitting Unavailabl e [facility] Primary Care Unavailable WEST, DR SANTI Fritz Consulting Unavailable ELTAHAWY, DR SIFUENTES Attending Unavailable ELTAHAWY, DR SIFUENTES Admitting Unavailable MISC, DR LUCAS Primary Care Unavailable ELTAHAWY, DR SIFUENTES Consulting Unavailable ELTAHAWY, DR SIFUENTES Consulting Unavailable ELTAHAWY, DR SIFUENTES Attending Unavailable MISC, DR LUCAS Primary Care Unavailable ELTAHAWY, DR SIFUENTES Admitting Unavailable [facility] Unavailable DAGMAR POST Consulting Unavailable REINECK, DR SUZY Valenzuela Attending Unavailabl e REINECK, DR SUZY Valenzuela Admitting Unavailabl e [facility] Consulting Unavailable RONNY, BRISA Admitting Unavailable RONNY BRISA Consulting Unavailable RONNY, BRISA Attending Unavailable MISC, DR LUCAS Primary Care Unavailable ELTAHAWPranay, SOM Attending Unavailable SANDY Johnson Attending Provider MD Jose Castellon Primary Care Provider [phone] Aura Johnson Attending Unavailable Aura Johnson Admitting Unavailable Jose Castellon Primary Care Unavailable Allergies Allergy Classification Reported Allergen(s) Allergy Type Date of Onset Reaction(s) Facility (2 sources) black walnut pollen extract; Translations: [[id number] REDUCTASE INHIBITORS] Drug Allergy 0 [facility] Repository (3 sources) Ciprofloxacin; Translations: [CIPROFLOXACIN] Drug Allergy 9 Muscle Pain [facility] Repository (4 sources) Doxycycline; Translations: [DOXYCYCLINE] Drug Allergy 6 Unknown Reaction [facility] Repository (2 sources) Sulfamethoxazole / Trimethoprim Drug Allergy 6 [facility] Repository (4 sources) Sulfonamides (Antibiotic); Translations: [SULFA (SULFONAMIDE ANTIBIOTICS)] Drug allergy (disorder) 6 Unknown Reaction [facility] Repository (1 source) Ciprofloxacin Drug Allergy 6 [facility] Repository (1 source) atorvastatin; Translations: [ATORVASTATIN] Drug Allergy 4 [facility] Repository (1 source) Sulfamethoxazole / Trimethoprim; Translations: [SULFAMETHOXAZOLE-TR IMETHOPRIM] Drug Allergy 2 [facility] Repository (2 sources) Sulfamethoxazole; Translations: [sulfamethoxazole] Drug Allergy 3 Unknown Reaction [facility] (2 sources) Trimethoprim; Translations: [trimethoprim] Drug Allergy 3 Unknown Reaction [facility] (1 source) Ciprofloxacin Drug Allergy 3 [facility] Repository (1 source) Doxycycline Drug Allergy 3 [facility] Repository (1 source) Sulfonamides (Antibiotic) Drug allergy (disorder) 3 [facility] Repository Medications Current Medications Medication Drug Class(es) [...] release oral tablet (1 source) 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-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 take 400 mg by mouth [...] disease (5 sources) Atherosclerotic heart disease of [place] coronary artery without angina pectoris; Translations: [Coronary [...] 04-04-2023 Episodic Other aftercare (1 source) Other assisted (current) drug therapy; Translations: [OTH SKILLED NURSING CURRENT DRUG THERAPY] Onset: 1 Episodic Other aftercare (1 source) [facility] (current) use of antithrombotics/antipl atelets; Translations: [MEDICAL ART THERAPIST ANTITHROMBOT/ANTIPLATL ETS] Onset: 1 Episodic Other aftercare (1 source) 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; Translations: [SKILLED NURSING CURRNT USE ANTICOAGULANTS] Onset: 1 Episodic Other [...] Da te Episodic/Chronic Other aftercare (1 source) [facility] (current) use of aspirin; Translations: [MEDICAL ART THERAPIST CURRENT USE OF ASPIRIN] Onset: 01-15-2021 Episodic [...] Range Facility Office Visiton 11-23-2022 Follow-up visit [id number] Brittny Dutta 1955 [facility] Provider Department Center 11/23/20[address] [facility] No family history on file Level of Service:55010 LA OFFICE/OUTPATIENT ESTABLISHED LOW MDM 20-29 MIN Reason for Visit and Comments: Hyperlipidemia [182] Hypertension [978336] Atrial Fibrillation [80] Coronary Artery Disease [187] Normal [facility] Orders Onlyon 05-02-2022 Orders Only [id number] Brittny Dutta 1955 Provider Department Center 05/02/2022 BRISA NIELSEN [facility]. No family history on file Normal [facility] BNPon 07-23-2021 Natriuretic peptide B (Bld) [Mass/Vol] 203.0 pg/mL Normal <=900.0 [facility] Comment on above: Performed By: #### C ANDREY #### [facility] [address] [address] Sade Atkins CBC AUTO DIFFon 07-23-2021 BASO # 0.0 103/ul Normal 0.0-0.1 [facility] Comment on above: Performed By: #### C BC #### [facility] [address] [place], [place] [address] Dr. Pattie Reynolds Basophils/100 WBC (Bld) 0.6 % Normal 0.2-2.0 [facility] Comment on above: Performed By: #### C BC #### [facility] [address] [place] [address] Dr. Pattie Reynolds EO # 0.3 103/ul Normal 0.0-0.7 [facility] Comment on above: Performed By: #### C BC #### [facility] [address] [place] [address] Dr. Pattie Reynolds Eosinophils/100 WBC (Bld) 4.3 % Normal 0.9-7.0 [facility] Comment on above: Performed By: #### C BC #### [facility] [address] [place] [address] Dr. Pattie Reynolds Erythrocyte distribution width (RBC) [Ratio] 14.6 % Normal 11.0-15.0 [facility] Comment on above: Performed By: #### C BC #### [facility] [address] [place] [address] Dr. Pattie Reynolds Hematocrit (Bld) [Volume fraction] 49.0 % Normal 42.0-54.0 [facility] Comment on above: Performed By: #### C BC #### [facility] [address] [place] [address] Dr. Pattie Reynolds Hemoglobin (Bld) [Mass/Vol] 15.3 g/dL Normal 14.0-18.0 [facility] Comment on above: Performed By: #### C BC #### [facility] [address] [place] [address] Dr. Pattie Reynolds IG # 0.03 10e3/ul Normal 0.00-0.03 [facility] Comment on above: Performed By: #### C BC #### [facility] [address] [place] [address] Dr. Pattie Reynolds IG % 0.5 % Normal 0.0-0.5 [facility] Comment on above: Performed By: #### C BC #### [facility] [address] [place] [address] Dr. Pattie Reynolds LYMPH # 1.3 103/ul Normal 1.2-3.8 [facility] Comment on above: Performed By: #### C BC #### [facility] [address] [address] [address] Pattie Reynolds Lymphocytes/100 WBC (Bld) 20.4 % Critically low 20.5-60.0 [facility] Comment on above: Performed By: #### C BC #### [facility] [address] [address] [address] Pattie Reynolds MANUAL DIFF REQ NO Normal [facility] Comment on above: Performed By: #### C BC #### [facility] [address] [address] [address] Pattie Reynolds MCH (RBC) [Entitic mass] 28.9 pg Normal 25.9-34.0 [facility] Comment on above: Performed By: #### C BC #### [facility] [address] [place] [address] Dr. Pattie Reynolds MCHC (RBC) [Mass/Vol] 31.2 g/dL Normal 29.9-35.2 [facility] Comment on above: Performed By: #### C BC #### [facility] [address] [place] [address] Dr. Pattie Reynolds MCV (RBC) [Entitic vol] 92.6 fL Normal 80.0-94.0 [facility] Comment on above: Performed By: #### C BC #### [facility] [address] [place] [address] Dr. Pattie Reynolds MONO # 1.2 103/ul Critically high 0.3-0.8 [facility] Comment on above: Performed By: #### C BC #### [facility] [address] [place] [address] Dr. Pattie Reynolds Monocytes/100 WBC (Bld) 18.6 % Critically high 1.7-12.0 [facility] Comment on above: Performed By: #### C BC #### [facility] [address] [place] [address] Dr. Pattie Reynolds NEUT # 3.6 103/ul Normal 1.4-6.5 [facility] Comment on above: Performed By: #### C BC #### [facility] [address] [address] [address] Pattie Reynolds Neutrophils/100 WBC (Bld) 55.6 % Normal 43.0-75.0 [facility] Comment on above: Performed By: #### C BC #### [facility] [address] [address] [address] Pattie Reynolds Platelet mean volume (Bld) [Entitic vol] 9.4 fL Critically low 9.5-13.5 [facility] Comment on above: Performed By: #### C BC #### [facility] [address] [address] [address] Pattie Reynolds PLT 267 103/ul Normal 150-450 [facility] Comment on above: Performed By: #### C BC #### [facility] [address] [place] [address] Dr. Pattie Reynolds RBC 5.29 106/ul Normal 4.70-6.10 [facility] Comment on above: Performed By: #### C BC #### [facility] [address] [address] [address] Pattie Reynolds WBC 6.5 103/ul Normal 4.0-11.0 [facility] Comment on above: Performed By: #### C BC #### [facility] [address] [place] [address] Dr. Pattie Reynolds CRPon 07-23-2021 CRP [Mass/Vol] mg/L Normal <=1.0 [facility] Comment on above: Performed By: #### C ANDREY #### [facility] [address] [place] [address] Sade Atkins PROF CHEM 8 (BAS METB)on Anion gap [Moles/Vol] 7.8 mmol/L Normal [facility] Comment on above: Performed By: #### B DIRECTOR OF REHABILITATIVE SERVICES, BMP, CRP #### [facility] [address] [place] [address] Dr. Pattie Reynolds Calcium [Mass/Vol] 9.6 mg/dL Normal 8.4-10.2 [facility] Comment on above: Performed By: #### B DIRECTOR OF REHABILITATIVE SERVICES, BMP, CRP #### [facility] [address] [address] [address] Pattie Reynolds Chloride [Moles/Vol] 102 mmol/L Normal 98-107 [facility] Comment on above: Performed By: #### B DIRECTOR OF REHABILITATIVE SERVICES, BMP, CRP #### [facility] [address] [address] [address] Pattie Reynolds CO2 [Moles/Vol] 32.9 mmol/L Critically high 22.0-30.0 [facility] Comment on above: Performed By: #### B DIRECTOR OF REHABILITATIVE SERVICES, BMP, CRP #### [facility] [address] [address] [address] Pattie Reynolds Creatinine [Mass/Vol] 0.84 mg/dL Normal 0.66-1.25 [facility] Comment on above: Performed By: #### B DIRECTOR OF REHABILITATIVE SERVICES, BMP, CRP #### [facility] [address] [place] [address] Dr. Pattie Reynolds EGFR-AF [place]THER[place]ISH >60 Normal >=60 [facility] Comment on above: Performed By: #### B DIRECTOR OF REHABILITATIVE SERVICES, BMP, CRP #### [facility] [address] [address] [address] Pattie Reynolds EGFR-NON AF [place] >60 Normal >=60 [facility] Comment on above: Performed By: #### B DIRECTOR OF REHABILITATIVE SERVICES, BMP, CRP #### [facility] [address] [place] [address] Dr. Pattie Reynolds Glucose [Mass/Vol] 86 mg/dL Normal 74-106 [facility] Comment on above: Performed By: #### B DIRECTOR OF REHABILITATIVE SERVICES, BMP, CRP #### [facility] [address] [address] [address] Pattie Reynolds Potassium [Moles/Vol] 4.7 mmol/L Normal 3.4-5.0 [facility] Comment on above: Performed By: #### B DIRECTOR OF REHABILITATIVE SERVICES, BMP, CRP #### [facility] [address] [address] [address] Pattie Reynolds Sodium [Moles/Vol] 138 mmol/L Normal 137-145 [facility] Comment on above: Performed By: #### B DIRECTOR OF REHABILITATIVE SERVICES, BMP, CRP #### [facility] [address] [place], [place] [address] Dr. Pattie Reynolds Urea nitrogen [Mass/Vol] 11.0 mg/dL Normal 9.0-20.0 [facility] Comment on above: Performed By: #### B DIRECTOR OF REHABILITATIVE SERVICES, BMP, CRP #### [facility] [address] [address] [address] Pattie Reynolds Urea nitrogen/Creatinine [Mass ratio] 13.1 mg/mg Normal [facility] Comment on above: Performed By: #### B DIRECTOR OF REHABILITATIVE SERVICES, BMP, CRP #### [facility] [id number] Pattie Reynolds SED RATE [facility] 2020 SED RATE 60 mm/hr Critically high <=20 [facility] Comment on above: Performed By: #### S EDR #### [facility] [address] [address] [address] Pattie Reynolds Coding Summaryon 06-28-2021 Coding Summary HTMLBase 64 BqflqkbhTUh8kWr+PGhlYW Q+GN4LNYElV22ieVSqjB5A B8fNGC9KZJORLFISVY7CUM 6sfCJ1YLerL4ExmhRr FucqbAUxJC90WGu1PFT2wT ciOUyvrL9vsLGiS2f7HmAu XH99fI97ETotFGRfYhN4Ft ZpbjsgbWFy Z4sdPnZvsERwCou+PHRhYm xlIHdpZHRoPScxMDAlJyBz qXnmVW3aHk8vWMFrTMFiaO xhcHNlOiBj n2ltMLKfSUlwXS8vzGcsI9 XogVV0QFEpy0t2Mj86iVA+ XSCnNLK5zNueFEtcn991Sf Blm9wnIED6 pCNnJTdhJNY8H74xt0S3AE ChBIKxOFU0lEO6hB6owGso wsvtI6LwuGDlItN5OWI6bC QnyB2naFkk grrdqY1lYdt+W71KGC4YIP ETXY8LLgb1N5LiRuzkdVL+ IY03KAYhMY10uJCswAQdp8 ewqHc1UmMd PICxNWZ9kUhiQOnuf4AyOD CoN95ypPWij7H9EMOhlGcm wGPiClRmaRM0nY6zSYjzct awn4icersz Rzumv9jpfr94jY43P32vNJ kvIODgOAE2YEXyKCNgtVpk oi0muA2tJt9+SClee3beq9 eerBm0IcQg PVWmbzIjeIeuKGI3g2QwIc 20J2ObwSshu6IuMvk4ir36 pCAgl2Y8iSA5CSvjVJRkkL 3tNWnfUhC5 SLVlStZfuQ05tEQuOTbzXa 4erVdgcWwwIL7xSEMoahrr ERDvcW6fAYZadMGeeCfiGK 4wNTBpbjtm q477AoHlIGU0WGCylOElD6 ZqkI3uRaIlUMQqOUEoI1Ap cTRkCBxbE306SIaaLiF7ZK CvxsCfV3Bd AOBevUitUyM0n4I5Zw9Cl9 DovyhyIVG9DEjrQFRiTgR4 EyEeTjR2U2GbDqj8VSGhxU alGH4nX4Ye VMAwmjdiotxqwTY1VKIdMT OqbS25aFWzHSgjBz4rj5S3 c998WDGeEGAsmE81Ix7hvY ogMTBwdCBU hS2ubotky2mmattqYaUyVP DmOKm9ZXw4ZHJkeZrcCzXf QWS9IdJ5WNX6rAZcqG7zfF ifmpindQ2e Oyc+G50wcO2cEGB1UAC7uf bqBGUirzEsUH81SF54N2Qj PjwvdGFibGU+PGRpdiBzdH vxPZ9gLlIl c1vlt8AfAUqqR9BjJRRjEK qqFri2PRSvKJA7xNP3wW8e RECgQDnjn5V4tWR5T0Rvrz Kywb5jz1dn CLKzKMsuI95soJWjh3D2AQ IciAF7YYKifGnoMjWqfC54 Oyc+ENMhmZuvm1FuUqpsb3 pec0hqnTv6 WeDqFXEmgrNzvEltNPZ4g8 AvTq23L79fAMyyGRXeMIDx MWBbCCAfoKfwvb5kxB7jGz 8+PGNvbCB3 kSU0lC2fIQCsCzZ6OAguE6 77LbUvbQNwWccrm8ziy7hh mQr4WxDoVERydlGuvBqjPO W0m3HbTl81 V99lKUpvREKdUNOdIQUeYB VlmBvkrh3tiZ0eXy9+PC9j c2cunq40oO20vUZ+PHRkIH D6nCpeUAtz RBVumN2nISngXbY8UQVtGe CpuS13hVVgBLkgBx0duOfr jQnnTB4vJPPtubjrf447Zi Zpe8ozTBGc gWMtJFqrGXQ6K10zd7J8PJ KhFGHsOWJ8jFV7sE6tdVug bjogbGVmdDsgdmVydGljYW osATceT649 IHRvcDsnPlBhdGllbnQgTm YrTNr6S9LbDnv7DFIizVpd US4xbDNzLZhhXc2sjCzhnS csLH1lAXBk levvu257PhScd5ehWBAtxT ZhNEhrEXJ6G45sf5T4OQKm CULzSOL7mEB2gT7tuTxtcv ogbGVmdDsg bwOyvPbaXUbnVTxjJ347HH RvcDsnPkJpcnRoIERhdGU6 VK00HW77jMFhy0Y4uGT6M5 BhZGRpbmct idnimOZ0MFRsHBUalZ11Np 9ofRheEv7tLIUbHOW4WIDt eJBxW5DfnO7uBpIaZJNuUT NpI4MhxAAd TZofP659NFskAjV3OTVjsa NlX1DvJBHfsMmiKqN8k6Z3 Au7IR1D6LG28QX72vKYpe6 W3eSF6R5He WHPwshtfjbkbaXL5VOUqFX HibW67Ca9qmEiwAf2uXUGj ZWJ3QCNigAQzJ8ZmlO7wGr AjMDAwMDAw G1YmoTVoUYcyP763VAzlAu L7BRHktpXuO9PcYQFhxFxa VzN5c8D0Pt8QAXc9SQ16WW 04jRJgo1N2 sNH4R4EoRQAmmlcyjsskhO K6KYYyMMLmhV77Kf8jkDzv Qc4kOQZyALQ0DVThnENdH6 XxnD9vYqUp FIMzGEVhB1MtrNWjZUkjZ2 23JOkiNrJ6UVZdpoUxC6Ru TCEkjHdqVhG2j7P1Lr8LHK YaCL14NDC7 hWD1VS97NP46W6GlZwzjkC FibGU+PHRhYmxlIHdpZHRo PWgvQLCkSbZdgCcdWX7oCk 9yZGVyLWNv jOymnDBeOuLhp6nfXTCvFO mjJN7kmXweC5ZumGD2HAEx t5q3Oj06S78pV8DguOI+PG VinQN1qCJ3 wP6sVnXvQuP8MKqdD877Zk AxkEWcAgydr0eej9qvbBv6 FwH3VKHrtdEgnTuiSKC4m0 EbPz48O68c IHdpZHRoPSIxNSUiIHZhbG frsa3pqJ1gPt1+PGNvbCB3 oZN7xN8kPcQtNzJ7BCqyL1 49InRvcCIv Qdhwg7dav0ismUh0VqDwOQ QqazZevOoaZEE5m4UdCf83 C4DeoTtvb8ImXnf8ay04hL Dba5Q4nCR0 M0PaDWSltwwogVHihAvnXG 0zMJIhnhnoHSRdgF8vXAYn Y9h7KlRvSvI3JXoeC0Peal K3CIXudHCh JUmoIKC4G65dm9G4BATpLA PzACG8iOX9pK5tjNjrfxot bGVmdDsgdmVydGljYWwtYW qoO579CDQj vBryITGdqA4tCMOeqSBwsK eeJY5jOTMdpczxMuZLGGbD UiwgSkVGRlJFWTwvdGQ+PH LvWBX0fDeo USnnRMOftB4eTBEhF0w4Fl VgWzW0NNcpT7ChXMNysqtl Og16gH7jRnWmSgC2ILfyM9 PjszX9IRKu tOHoTBjhAFN2L25kx3P9NR DoGSRuJLV2hVH5gM8kwRkj bjogbGVmdDsgdmVydGljYW exMBatO905 JPWveZnpZeQ9BkBpNhG9UB M6U7BkFog8GASaaFkdDE0b zKEdUZfpCf2jfPprxGfjDU 4wNTBpbjtw MXXucL3kSFKcxIVqyEjoDP 0dETLwmykwk938XdYbKKY0 IQEauVQeC4IgpT5xQdBfZE UnOJVeU0Vj tSReSBrgB555KGnmGaV4QD BdyyPbX5MaXDVckBymLwJ8 j2V3Dx89DpJHKOIfbxcmgH Q+PHRkIHN0 aQcdFTkmDGXdaK4bEIRzE3 v3EuHbCbN5ZThmV3IwVEBl lsftCt11uA5wAnEqTtR4YM klR4MzugQ9 AJAqwMYaMPkaTRH1G98vo5 L0UDAlOSLqPRJ3uLQ1cO6d bGlnbjogbGVmdDsgdmVydG ljYWwtYWxp P395JHCjtQyxBc7WMGF2T5 JxPhc1DWUhrXcgCC6ycFPd OXjkNm7dxHyvbBaaJD2oKV BpbjtwYWRk uP7fYPXbfETbnGjqUJ3oWT Xphosso589IoZoTKK7MDDm cIVeS5RrbN8gFgJtDOGeMZ LqR6SziCMj ZZcsY907KDjjLeX9GULfks AvB7QbGSDndMgoArL2c2B0 Zr2KfJMyV8YfT7u3Z8DuAx wvdHI+PC90 SQUxCU59qAEfqIYjv0fneV r8RnKeVVPbMDR6jLbkRTdr z3AnPRDzV59tdSJvc0G5NO NvbGxhcHNl IpLimZD5hN4zYLiveqhzo4 dalcewZhwxq8uelj20qB90 I40yFEppBRGlUBXuKTNgJT CeuEdrvw0n rT5kGc6+BQTteNZ2rDG5gA 3zLyDgJiP5QUjpL772KcCa eVOtBqrwr3yms2rfxUg3Bm IwJSIgdmFs kDsoRIX7g3BmIc54R95iRU dpZHRoPSIyMCUiIHZhbGln gi0qvJ6mKw0+KK5cy7ivjc 46rR23kRL+ MJHmOSD9fCwlBLkwQJOjlA 6zLTsoOdK3NGDaVwDpeO85 aJXwILuiAh4wcAmqdGzbTY 4wNTBpbjtm b995BlYpy4snQXZguEBsNB slUQN7I69lr3M1SOHvRLFi IKI0hYK2gH7hkJyxgexlkP VmdDsgdmVy qNwbIPxaRQbhE007FPUewF jtTgJjfNQtB5aergQFLQ8k OjwvdGQ+ZZQdXZH3lCmcFQ auCFHifF7k NRSoS3f6CpCuEjR3GSugJ8 QcnnY5CTXhrMAtNZLvqNIH wD4qtdgsn2dsvbrgTjMgGP WfDKv1SXx2 SKXknXquPxJqEDA8QgN0IK O3fKPqwQ8pqMzevxtjeT6f Oyc+RklOOjwvdGQ+PHRkIH E1rDpfJDoi IHFxoO0lNDUtM1e9OsJhUr W8PGrpZ4SjkoL0PDCpdIGu SIDapWZReC1jwvdsk2qwtv ogIzAwMDAw ARh9PXv3WOLgmLsrSkOwMU P3WoG3KOM5dOCbtP9kpCez rxeytV4nGdh+TVJOOjwvdG Q+PHRkIHN0 zBuxJZziNUSpfL8oRMQoT5 x5KbYdHyQ6XNeyO5LfhuQ7 KCTedUFvHSUkmRPMxZ2cii rau7yrednx KjYdGTOzPJc9MIg9TXKjlA yuFzZsWZB7JsE3VXL1dYCk vT8xsXioobvdvG8yJpt+UG S4LND5QC64 CW95P4ZvWygafWQpmBA+PH RhYmxlIHdpZHRoPScxMDAl KfRalBjoQY9vFx2rPBPgEP NvbGxhcHNl OiB (more content not included)... Normal [facility] ED Clinical Summaryon 2020 ED Clinical Summary [facility] - Emergency Department [address] [place] [id number] ED Clinical Summary PERSON INFORMATION Name: BRITTNY DUTTA Age: 66 Years Sex: MALE : 1955 MRN: Acct#: Visit Reason: Shoulder pain-swelling; Fall; FALL- RT SHOULDER PAIN Arrival: 06/19/2021 14:08:23 Discharge: 06/19/2021 15:29:00 LOS: 000 01:21 Check In: 06/19/2021 14:08:23 Checkout:06/19/2021 15:29:00 Address: [address] [place] [id number] PCP: Judi Michelle MD PROVIDER INFORMATION Provider Role Assigned Unassigned ELLIS DORSEY ED PA 06/19/2021 14:11:05 Lily Garrison QUALITY CONTROL OPERATOR Nurse 06/19/2021 14:12:25 VITALS INFORMATION Vital Sign Triage Latest Temperature Tympanic 36.6 DegC 36.6 DegC Temperature Temporal Artery Pulse Rate 80 bpm 80 bpm O2 Sat 98 % 98 % Respiratory Rate 14 br/min 14 br/min Blood Pressure /101 mmHg /101 mmHg MEDICAL INFORMATION Medications Given: Medication Dose Route acetaminophen-hydrocod one (Sebastian 5 mg-325 mg oral tablet) 1 tab(s) [...] I indic (more content not included)... Normal [facility] ED Note - Physicianon 2020 ED Note [...] I recommended (more content not included)... Normal [facility] ED Patient Summaryon 021 ED Patient Summary [facility] - Emergency Department [address] [place] [address] [id number] PATIENT DISCHARGE INSTRUCTIONS Patient Information Name: BRITTNY DUTTA Age: 66 Years Date of : 1955 Reason For Visit: Shoulder pain-swelling; Fall; FALL- RT SHOULDER PAIN Arrival Time: 06/19/2021 14:08:23 Primary Care Physician: Judi Michelle MD Attending Physician: Aleksandar Beasley MD Comment: Visit Diagnosis: Diagnoses This Visit Elevated blood pressure reading (R03.0) Fall ([id number]) Fall (W19.XXXA) Humeral head fracture (S42.293A) Right shoulder pain (M25.511) Shoulder pain-swelling ([id number]) Prescription Information: If you have been given a prescription for narcotics, seek immediate medical attention if you have any difficulty breathing or any sudden status changes such as confusion and sleepiness. If you or anyone you know is experiencing suicidal thoughts, mental health, alcohol and/or drug addiction problems; contact the [facility] 06/03 Crisis Hotline -Text 4HJRL ub 137072. If you received any narcotics, sedation, or [...] legal documents With: Address: When: [place] [address] [place] [address], [place] [address] [facility] (1) Within 2 to 4 days [...] and treatment you received today in the [facility] Emergency Department were for an urgent problem and are not intended as complete care. It is important for you to follow up with a doctor, nurse practitioner, or physician?s social worker assistant for ongoing care. If your symptoms [...] so we can reach you if necessary. [facility] Emergency Department has provided you with a complete list of medications post discharge. Please inform your captain waiter/waitress/provider of your visit and for further instruction on these medications. Any specific questions regarding your chronic medications and dosages should be discussed with your primary care physician(s) and/or pharmacist. New Medications Printed Prescriptions acetaminophen-hydrocod one (Sebastian 5 mg-325 mg oral tablet) 1 tab(s) [...] : DR SANTI LIU M.D. Admission #: [id number] Family : Order #: [id number] CLICK HERE TO VIEW EXAM CORRECTION Corrected [...] on 06/04/2021 at 12:31 Approved by: Jani Vuaghn M.D. on 06/04/2021 at 12:35 Dictated by: Jani Vaughn M.D. on 06/04/2021 at 12:38 Approved by: Jani Vaughn M.D. on 06/04/2021 at 12:38 Normal [facility] VC EXT VENOUS LT LIMITEDon 1 VC EXT VENOUS LT LIMITED Patient: BRITTNY DUTTA Exam Date: 06/04/2021 : 1955 Gender:M Ordering : DR SANTI LIU M.D. Admission #: [id number] Family : Order #: [id number] CLICK HERE TO VIEW EXAM RADIOLOGY REPORT [...] Vaughn M.D. on 06/04/2021 at 12:37 Normal [facility] VC ENDOVENOUS ABL 1ST V LTon 05-28-2021 VC ENDOVENOUS ABL 1ST V LT Patient: BRITTNY DUTTA Exam Date: 05/28/2021 : 1955 Gender:M Ordering : DR SANTI LIU M.D. Admission #: [id number] Family : Order #: [id number] CLICK HERE TO VIEW EXAM RADIOLOGY REPORT [...] M.D. on 05/28/2021 at 11:52 Normal [facility] COMP CONSULTATIONon 01-19 VC COMP CONSULTATION Patient: BRITTNY DUTTA Exam Date: 01/19/2021 : 1955 Gender:M Ordering : ROBERT RONQUILLO . Admission #: [id number] Family : Order #: [id number] CLICK HERE TO VIEW EXAM RADIOLOGY REPORT [...] The patient was last treated by the [facility]. The patient was referred by [...] significant for atrophy duarte, diagnosed at the [facility]. Chronic atrial fibrillation for which [...] branch saphenous tributary/varicose veins. Incompetent right ankle grants director vein period PHYSICAL EXAM: The right leg [...] Endo (more content not included)... Normal [facility] VC VENOUS REFLUX FELIX LMTon 0 01-19-2021 VC VENOUS REFLUX FELIX LMT Patient: BRITTNY DUTTA Exam Date: 01/19/2021 : 1955 Gender:M Ordering : ROBERT RONQUILLO . Admission #: [id number] Family : DR SANTI LIU M.D. Order #: [id number] CLICK HERE TO VIEW EXAM RADIOLOGY REPORT [...] chronic echogenic thrombus Compressibility: Normal Flow: Normal Jerker: ankle grants director measuring 3.7mm with 3.7s of reflux Tech [...] saphenous varicose veins 5. Incompetent right ankle grants director vein Dictated by: Santi Liu MD on 01/19/2021 at 12:18 Approved by: Santi Liu MD on 01/19/2021 at 12:21 Normal [facility] CBC AUTO DIFFon 01-13-2021 BASO # 0.0 103/ul Normal 0.0-0.1 [facility] Comment on above: Performed By: #### C ANDREY #### [facility] [address] [place] [address] Sade Milly Basophils/100 WBC (Bld) 0.6 % Normal 0.2-2.0 [facility] Comment on above: Performed By: #### C ANDREY #### [facility] [address] [place] [address] Sade Atkins EO # 0.2 103/ul Normal 0.0-0.7 [facility] Comment on above: Performed By: #### C ANDREY #### [facility] [address] [place] [address] Sade Atkins Eosinophils/100 WBC (Bld) 3.3 % Normal 0.9-7.0 [facility] Comment on above: Performed By: #### C ANDREY #### [facility] [address] [place] [address] Sade Atkins Erythrocyte distribution width (RBC) [Ratio] 14.4 % Normal 11.0-15.0 [facility] Comment on above: Performed By: #### C ANDREY #### [facility] [address] [place] [address] Sade Milly Hematocrit (Bld) [Volume fraction] 49.0 % Normal 42.0-54.0 [facility] Comment on above: Performed By: #### C ANDREY #### [facility] [address] [place] [address] Sade Milly Hemoglobin (Bld) [Mass/Vol] 15.7 g/dL Normal 14.0-18.0 [facility] Comment on above: Performed By: #### C ANDREY #### [facility] [address] [place] [address] Sade Milly IG # 0.01 10e3/ul Normal 0.00-0.03 [facility] Comment on above: Performed By: #### C ANDREY #### [facility] [address] [place] [address] Sade Milly IG % 0.1 % Normal 0.0-0.5 [facility] Comment on above: Performed By: #### C ANDREY #### [facility] [address] [place] [address] Sade Milly LYMPH # 1.4 103/ul Normal 1.2-3.8 [facility] Comment on above: Performed By: #### C ANDREY #### [facility] [address] [place] [address] Sade Milly Lymphocytes/100 WBC (Bld) 20.2 % Critically low 20.5-60.0 [facility] Comment on above: Performed By: #### C ANDREY #### [facility] [address] [place] [address] Sade Atkins MANUAL DIFF REQ NO Normal [facility] Comment on above: Performed By: #### C ANDREY #### [facility] [address] [place] [address] Sade Milly MCH (RBC) [Entitic mass] 29.5 pg Normal 25.9-34.0 [facility] Comment on above: Performed By: #### C ANDREY #### [facility] [address] [place] [address] Sdae Milly MCHC (RBC) [Mass/Vol] 32.0 g/dL Normal 29.9-35.2 [facility] Comment on above: Performed By: #### C ANDREY #### [facility] [address] [place] [address] Sade Milly MCV (RBC) [Entitic vol] 92.1 fL Normal 80.0-94.0 [facility] Comment on above: Performed By: #### C ANDREY #### [facility] [address] [place], [place] [address] Sadebradford Atkins MONO # 0.9 103/ul Critically high 0.3-0.8 [facility] Comment on above: Performed By: #### C ANDREY #### [facility] [address] [place], [place] [address] Sade Milly Monocytes/100 WBC (Bld) 13.5 % Critically high 1.7-12.0 [facility] Comment on above: Performed By: #### C ANDREY #### [facility] [address] [place] [address] Sadebradford Hickeyen NEUT # 4.3 103/ul Normal 1.4-6.5 [facility] Comment on above: Performed By: #### C ANDREY #### [facility] [address] [place] [address] Sade Atkins Neutrophils/100 WBC (Bld) 62.3 % Normal 43.0-75.0 [facility] Comment on above: Performed By: #### C ANDREY #### [facility] [address] [place], [place] [address] Sadebradford Atkins Platelet mean volume (Bld) [Entitic vol] 9.3 fL Critically low 9.5-13.5 [facility] Comment on above: Performed By: #### C ANDREY #### [facility] [address] [place], [place] [address] Sade Milly PLT 263 103/ul Normal 150-450 [facility] Comment on above: Performed By: #### C ANDREY #### [facility] [address] [place], [place] [address] Sade Milly RBC 5.32 106/ul Normal 4.70-6.10 [facility] Comment on above: Performed By: #### C ANDREY #### [facility] [address] [place], [place] [address] Sade Milly WBC 6.9 103/ul Normal 4.0-11.0 [facility] Comment on above: Performed By: #### C ANDREY #### [facility] [address] [id number] Sade Milly CRPon 01-13-2021 CRP [Mass/Vol] mg/L Normal <=1.0 [facility] Comment on above: Performed By: #### B MP, CRP #### [facility] [address] [place], [place] [address] Sade Milly LACTATE/LACTIC ACIDon 2020 Lactate [Moles/Vol] 0.8 mmol/L Normal 0.7-2.0 [facility] Comment on above: Performed By: #### L ACT #### [facility] [address] [place], [place] [address] Sade Milly PROF CHEM 8 (BAS METB)on Anion gap [Moles/Vol] 15.7 mmol/L Normal [facility] Comment on above: Performed By: #### B MP, CRP #### [facility] [address] [place] [address] Sade Milly Calcium [Mass/Vol] 9.2 mg/dL Normal 8.4-10.2 [facility] Comment on above: Performed By: #### B MP, CRP #### [facility] [address] [place] [address] Sade Milly Chloride [Moles/Vol] 103 mmol/L Normal 98-107 [facility] Comment on above: Performed By: #### B MP, CRP #### [facility] [address] [place] [address] Sade Milly CO2 [Moles/Vol] 27.5 mmol/L Normal 22.0-30.0 [facility] Comment on above: Performed By: #### B MP, CRP #### [facility] [address] [place], [place] [address] Sade Milly Creatinine [Mass/Vol] 1.04 mg/dL Normal 0.66-1.25 [facility] Comment on above: Performed By: #### B MP, CRP #### [facility] [address] [id number] Sade Milly EGFR-AF [place] >60 Normal >=60 [facility] Comment on above: Performed By: #### B MP, CRP #### [facility] [address] [id number] Sade Milly EGFR-NON AF [place] >60 Normal >=60 [facility] Comment on above: Performed By: #### B MP, CRP #### [facility] [address] [id number] Sade Milly Glucose [Mass/Vol] 102 mg/dL Normal 74-106 [facility] Comment on above: Performed By: #### B MP, CRP #### [facility] [address] [place] [address] Sade Milly Potassium [Moles/Vol] 4.2 mmol/L Normal 3.4-5.0 [facility] Comment on above: Performed By: #### B MP, CRP #### [facility] [address] [address] Sade Milly Sodium [Moles/Vol] 142 mmol/L Normal 137-145 [facility] Comment on above: Performed By: #### B MP, CRP #### [facility] [address] [place], [place] [address] Sade Milly Urea nitrogen [Mass/Vol] 15.0 mg/dL Normal 9.0-20.0 [facility] Comment on above: Performed By: #### B MP, CRP #### [facility] [address] [id number] Sade Milly Urea nitrogen/Creatinine [Mass ratio] 14.4 mg/mg Normal [facility] Comment on above: Performed By: #### B MP, CRP #### [facility] [address] [place], [place] [address] Sade Milly [facility] SED [facility]ATE 31 mm/hr Critically high <=20 [facility] Comment on above: Performed By: #### S EDR #### [facility] [address] [place], [place] [address] Sade Milly XR ANKLE LT MIN 3 Von 2020 XR ANKLE LT MIN 3 V EXAM: XR ANKLE LT SD N 3 V HISTORY: The patient is [...] by: BRADFORD JACKSON Date: 2021-01-13 18:57 Normal [facility] CTA ABD ANGEL WWO CON LE [...] by: SANTI LIU Date: 2020-12-25 11:56 Normal [facility] CREATININEon 12-22-2020 Creatinine [Mass/Vol] 0.98 mg/dL Normal 0.66-1.25 [facility] Comment on above: Performed By: #### C ANDREY #### [facility] [address] [address] Sade Milly EGFR-AF [place] >60 Normal >=60 [facility] Comment on above: Performed By: #### C ANDREY #### [facility] [address] [address] Sade Milly EGFR-NON AF [place] >60 Normal >=60 [facility] Comment on above: Performed By: #### C ANDREY #### [facility] [address] [place], [place] [address] Sade Hickeyen ECHOCARDIO M/2D COMPLETEon 0 10-23-2020 ECHOCARDIO M/2D COMPLETE Patient: BRITTNY DUTTA Exam Date: 10/23/2020 : 1955 Gender:M Ordering : BRISA JEFFERSON Admission #: [id number] Family : Order #: [id number] CLICK HERE TO VIEW EXAM ECHOCARDIOGRAM REPORT [...] Area(A4C): 29.70 cm2 Left Atrium Systolic Volume(A2C): 95816 mm3 Left Atrium Systolic Volume(A4C): 170889 mm3 Mitral Valve MV E to A [...] M.D. on 10/23/2020 at 11:56 Normal [facility] XR CHEST 2 Von 10-18-2020 XR [...] JACKELIN MOREAU Date: 2020-10-18 11:57 Normal [facility] CBC AUTO DIFFon 10-17-2020 BASO # 0.0 103/ul Normal 0.0-0.1 [facility] Comment on above: Performed By: #### C ANDREY #### [facility] [address] [place] [address] Sade Atkins Basophils/100 WBC (Bld) 0.6 % Normal 0.2-2.0 [facility] Comment on above: Performed By: #### C ANDREY #### [facility] [address] [place] [address] Sade Atkins EO # 0.2 103/ul Normal 0.0-0.7 [facility] Comment on above: Performed By: #### C ANDREY #### [facility] [address] [place] [address] Sade Milly Eosinophils/100 WBC (Bld) 3.7 % Normal 0.9-7.0 [facility] Comment on above: Performed By: #### C ANDREY #### [facility] [address] [place] [address] Sade Milly Erythrocyte distribution width (RBC) [Ratio] 14.4 % Normal 11.0-15.0 [facility] Comment on above: Performed By: #### C ANDREY #### [facility] [address] [place] [address] Asde Milly Hematocrit (Bld) [Volume fraction] 52.3 % Normal 42.0-54.0 [facility] Comment on above: Performed By: #### C ANDREY #### [facility] [address] [place] [address] Sade Milly Hemoglobin (Bld) [Mass/Vol] 16.3 g/dL Normal 14.0-18.0 [facility] Comment on above: Performed By: #### C ANDREY #### [facility] [address] [place] [address] Sade Milly IG # 0.01 10e3/ul Normal 0.00-0.03 [facility] Comment on above: Performed By: #### C ANDREY #### [facility] [address] [place] [address] Sade Milly IG % 0.2 % Normal 0.0-0.5 [facility] Comment on above: Performed By: #### C ANDREY #### [facility] [address] [place] [address] Sade Milly LYMPH # 1.1 103/ul Critically low 1.2-3.8 [facility] Comment on above: Performed By: #### C ANDREY #### [facility] [address] [place], [place] [address] Sade Milly Lymphocytes/100 WBC (Bld) 17.8 % Critically low 20.5-60.0 [facility] Comment on above: Performed By: #### C ANDREY #### [facility] [address] [place] [address] Sade Milly MANUAL DIFF REQ NO Normal [facility] Comment on above: Performed By: #### C ANDREY #### [facility] [address] [place] [address] Sade Atkins MCH (RBC) [Entitic mass] 28.7 pg Normal 25.9-34.0 [facility] Comment on above: Performed By: #### C ANDREY #### [facility] [address] [place] [address] Sade Atkins MCHC (RBC) [Mass/Vol] 31.2 g/dL Normal 29.9-35.2 [facility] Comment on above: Performed By: #### C ANDREY #### [facility] [address] [place] [address] Sade Atkins MCV (RBC) [Entitic vol] 92.2 fL Normal 80.0-94.0 [facility] Comment on above: Performed By: #### C ANDREY #### [facility] [address] [place] [address] Sade Atkins MONO # 0.8 103/ul Normal 0.3-0.8 [facility] Comment on above: Performed By: #### C ANDREY #### [facility] [address] [place] [address] Sade Hickeyen Monocytes/100 WBC (Bld) 13.1 % Critically high 1.7-12.0 [facility] Comment on above: Performed By: #### C ANDREY #### [facility] [address] [place] [address] Sadebradford Atkins NEUT # 4.0 103/ul Normal 1.4-6.5 [facility] Comment on above: Performed By: #### C ANDREY #### [facility] [address] [place] [address] Sade Milly Neutrophils/100 WBC (Bld) 64.6 % Normal 43.0-75.0 [facility] Comment on above: Performed By: #### C ANDREY #### [facility] [address] [place] [address] Sadebradford Atkins Platelet mean volume (Bld) [Entitic vol] 9.5 fL Normal 9.5-13.5 [facility] Comment on above: Performed By: #### C ANDREY #### [facility] [address] [place] [address] Sade Atkins PLT 254 103/ul Normal 150-450 [facility] Comment on above: Performed By: #### C ANDREY #### [facility] [address] [place] [address] Sade Atkins RBC 5.67 106/ul Normal 4.70-6.10 [facility] Comment on above: Performed By: #### C ANDREY #### [facility] [address] [place] [address] Sade Atkins WBC 6.3 103/ul Normal 4.0-11.0 [facility] Comment on above: Performed By: #### C ANDREY #### [facility] [address] [place] [address] Sade Atkins GLYCOHEMOGLOBIN A1Con 2020 ADA RECOMMENDATION ADA THERAPEUTIC TARG ET 6.0 - 7.0 ACTION SUGGESTED > 7.0 Normal [facility] Comment on above: Performed By: #### A 1C #### [facility] [address] [place], [place] [address] Sade Atkins Glucose [Mass/Vol] 123 mg/dL Normal [facility] Comment on above: Performed By: #### A 1C #### [facility] [address] [place] [address] Sade Atkins HbA1c (Bld) [Mass fraction] 5.9 % Normal <=6.0 [facility] Comment on above: Performed By: #### A 1C #### [facility] [address] [place], [place] [address] Sade Atkins LIPID PROFILEon 10-17-2020 CHOL-HDL RATIO NORM SEE BELOW Normal [facility] Comment on above: Result Comment: 3.3 - 4.4 LOW RISK 4.4 - 7.1 AVERAGE RISK 7.1 - 11.0 MODERATE RISK >11.0 HIGH RISK Performed By: #### C ANDREY #### [facility] [address] [place], [place] [address] Sade Milly Cholesterol [Mass/Vol] 172 mg/dL Normal <=200 [facility] Comment on above: Performed By: #### C ANDREY #### [facility] [address] [id number] Sade Milly Cholesterol in HDL [Mass/Vol] 51 mg/dL Normal [facility] Comment on above: Performed By: #### C ANDREY #### [facility] [address] [id number] Sade Milly Cholesterol in LDL [Mass/Vol] 105.6 mg/dL Normal [facility] Comment on above: Performed By: #### C ANDREY #### [facility] [address] [id number] Sade Milly Cholesterol.total/Ch olesterol in HDL [Mass ratio] 3.4 {ratio} Normal [facility] Comment on above: Performed By: #### C ANDREY #### [facility] [address] [id number] Sade Milly HDL NORMAL > or = 60 mg/dl - LO W CARDIOVASCULAR RISK <40 mg/dl - HIGH CARDIOVASCULAR RISK Normal [facility] Comment on above: Performed By: #### C ANDREY #### [facility] [address] [id number] Sade Milly LDL CALC NORMAL SEE BELOW Normal [facility] Comment on above: Result Comment: <100 mg/dl OPTIMAL 100 - 129 mg/dl NEAR OR ABOVE OPTIMAL 130 - 159 mg/dl BORDERLINE HIGH 160 - 189 mg/dl HIGH >190 mg/dl VERY HIGH Performed By: #### C ANDREY #### [facility] [address] [id number] Sade Milly Triglyceride [Mass/Vol] 77 mg/dL Normal <=150 [facility] Comment on above: Performed By: #### C ANDREY #### [facility] [address] [id number] Sade Milly VLDL CALC 15.4 mg/dL Normal [facility] Comment on above: Performed By: #### C ANDREY #### [facility] [address] [place] [id number] Sade Milly PROF 14(COMP METB)on 021 Albumin [Mass/Vol] 3.8 g/dL Normal 3.5-5.0 [facility] Comment on above: Performed By: #### C ANDREY #### [facility] [address] [place], [place] [address] Sade Milly Albumin/Globulin [Mass ratio] 1.1 {ratio} Normal [facility] Comment on above: Performed By: #### C ANDREY #### [facility] [address] [place], [place] [address] Sade Milly ALP [Catalytic activity/Vol] 64 U/L Normal 38-126 [facility] Comment on above: Performed By: #### C ANDREY #### [facility] [address] [place] [address] Sade Milly ALT [Catalytic activity/Vol] 26 U/L Normal 21-72 [facility] Comment on above: Performed By: #### C ANDREY #### [facility] [address] [place] [address] Sade Milly Anion gap [Moles/Vol] 14.7 mmol/L Normal [facility] Comment on above: Performed By: #### C ANDREY #### [facility] [address] [place] [address] Sade Milly AST [Catalytic activity/Vol] 19 U/L Normal 17-59 [facility] Comment on above: Performed By: #### C ANDREY #### [facility] [address] [place], [place] [address] Sade Milly Bilirubin [Mass/Vol] 0.7 mg/dL Normal 0.2-1.3 [facility] Comment on above: Performed By: #### C ANDREY #### [facility] [address] [place], [place] [address] Sade Milly Calcium [Mass/Vol] 9.6 mg/dL Normal 8.4-10.2 [facility] Comment on above: Performed By: #### C ANDREY #### [facility] [address] [address] Sade Milly Chloride [Moles/Vol] 102 mmol/L Normal 98-107 [facility] Comment on above: Performed By: #### C ANDREY #### [facility] [address] [id number] Sade Milly CO2 [Moles/Vol] 26.9 mmol/L Normal 22.0-30.0 [facility] Comment on above: Performed By: #### C ANDREY #### [facility] [address] [place], [place] [address] Sade Milly Creatinine [Mass/Vol] 1.02 mg/dL Normal 0.66-1.25 [facility] Comment on above: Performed By: #### C ANDREY #### [facility] [address] [place] [address] Sade Milly EGFR-AF [place] >60 Normal >=60 [facility] Comment on above: Performed By: #### C ANDREY #### [facility] [address] [place] [address] Sade Milly EGFR-NON AF [place] >60 Normal >=60 [facility] Comment on above: Performed By: #### C ANDREY #### [facility] [address] [place], [place] [address] Sade Milly Globulin (S) [Mass/Vol] 3.6 g/dL Normal [facility] Comment on above: Performed By: #### C ANDREY #### [facility] [address] [place] [address] Sade Milly Glucose [Mass/Vol] 104 mg/dL Normal 74-106 [facility] Comment on above: Performed By: #### C ANDREY #### [facility] [address] [place], [place] [address] Sade Milly Potassium [Moles/Vol] 4.6 mmol/L Normal 3.4-5.0 [facility] Comment on above: Performed By: #### C ANDREY #### [facility] [address] [place], [place] [address] Sade Milly Protein [Mass/Vol] 7.4 g/dL Normal 6.1-8.2 [facility] Comment on above: Performed By: #### C ANDREY #### [facility] [address] [place] [address] Sade Milly Sodium [Moles/Vol] 139 mmol/L Normal 137-145 [facility] Comment on above: Performed By: #### C ANDREY #### [facility] [address] [id number] Sade Milly Urea nitrogen [Mass/Vol] 18.0 mg/dL Normal 9.0-20.0 [facility] Comment on above: Performed By: #### C ANDREY #### [facility] [address] [place], [place] [id number] Sade Milly Urea nitrogen/Creatinine [Mass ratio] 17.6 mg/mg Normal [facility] Comment on above: Performed By: #### C ANDREY #### [facility] [address] [place], [place] [id number] Sade Milly TSHon 10-17-2020 TSH 2.033 uIU/mL Normal 0.470-4.680 [facility] Comment on above: Performed By: #### C ANDREY #### [facility] [address] [place], [place] [id number] Sade Milly TSH RANGE SEE BELOW Normal [facility] Comment on above: Result Comment: <0.3 4 UIU/ml HYPERTHYROID 0.34-5.60 UIU/ml EUTHYROID >5.60 UIU/ml HYPOTHYROID Performed By: #### C ANDREY #### [facility] [address] [place], [place] [id number] Sade Milly Cardiovascular Lab Reporton 03-05-2020 Cardiovascular Lab Report [facility] Patient Name: [facility] G MR #: [id number] Department of Physician: Adam Reno M.D. Division of Service Date: 03/05/2020 Cardiology Birthdate: 1955 Adult Cardiovascular Room #: [place] [address] Cardiovascular Laboratory Report FINAL IMPRESSIONS: 1. Severe [...] Follow up with Dr. Lane in the [place] office in the next 2 to 4 [...] the left radial artery was obtained. A 6-Salvadorean glide sheath was inserted without difficulty. Bilateral selective coronary angiography was performed using JR4 and JL4 catheters. After reviewing the images, it was elected to proceed with an interventional procedure. A 6-Salvadorean XB 3.5 guide catheter was advanced over [...] XB 3.5 catheter was removed and a 6-Salvadorean JL4 guide catheter coaxially engaged into the [...] Lane M.D. Date Trans: 03/05/2020 01:22 P/aram [id number] cc: Shari Shepard M.D. [address] [place] [address] [place] [id number] [facility] Vital Signs Date Time Vital Sign Value Performing Clinician Buddyi brianda 04-04-2023 10:46-0400 Body height 182.88 cm MD Jose Castellon Work Phone: [facility] 04-04-2023 10:46-0400 Body mass index (BMI) [Ratio] 36.8 kg/m2 MD Jose Castellon Work Phone: [facility] 04-04-2023 10:46-0400 Body weight 123.37 kg MD Jose Castellon Work Phone: [facility] 04-04-2023 10:26-0400 Body temperature 97.7 [degF] MD Jose Castellon Work Phone: [facility] 04-04-2023 10:26-0400 Diastolic blood pressure 80 mm[Hg] MD Jose Castellon Work Phone: [facility] 04-04-2023 10:26-0400 Heart rate 60 /min MD Jose Castellon Work Phone: [facility] 04-04-2023 10:26-0400 Respiratory rate 18 /min MD Jose Castellon Work Phone: [facility] 04-04-2023 10:26-0400 Systolic blood pressure 132 mm[Hg] MD Jose Castellon Work Phone: [facility] Encounters Encounter Date Encounter Type Care Provider Facility Start: 04-04-2023 End: 04-04-2023 ambulatory Aura Johnson Facility:[facility] Start: 04-04-2023 End: 04-04-2023 ambulatory MD Jose Castellon Work Phone: [facility] Work Phone: Start: 04-04-2023 End: 04-04-2023 Discharged Recurring MD Jose Castellon Work Phone: [facility] Janel Work Phone: Start: 11-23-2022 End: 11-23-2022 ambulatory SOM [facility] Start: 08-02-2021 End: 08-03-2021 ambulatory JUDI MICHELLE Facility:[facility] Start: 07-23-2021 End: 07-23-2021 ambulatory JUDI MICHELLE Facility:[facility] Start: 07-16-[address] SANTI LIU Facilit y:[facility] Start: 06-04-2021 End: 06-05-[address] SANTI LIU Facility:[facility] Start: 05-28-2021 End: 05-29-[address] SANTI LIU Facility:[facility] Start: 04-21-2021 End: 04-22-2021 ambulatory EBRT THOMAS Facility:[facility] Start: 01-21-2021 End: 01-22-2021 ambulatory DERRICK DEARS Facility:[facility] Start: 01-19-2021 End: 01-20-2021 ambulatory JUDI [...] 03-06-2020 Patient encounter procedure EHAB A ELTAHAWPranay Facility:[facility] [[email or web address] Procedures Date Procedure Procedure Detail Performing Clinician Start: 10-17-2020 PSA screening BRISA Rico OES Comment on above: Performed By: #### C ANDREY #### [facility] [address] [place] [address] Sade Atkins Payers Date Payer Category Payer Self-pay 1960 Medicare [id number] 1960 Unknown [id number] 1955 Unknown [id number] 2.16.8 40.1.372566.3.579.2.647 1955 Unknown [id number] 2.16.84 0.1.285311.3.579.2.593 1954 Unknown [id number] 2.16.84 0.1.096352.3.579.2.593 1954 Unknown [id number] 2.16.84 0.1.692970.3.579.2.593 1954 Unknown [id number] 2.16.84 0.1.963378.3.579.2.593 1954 Unknown [id number] 2.16.84 0.1.931296.3.579.2.593 1954 Unknown [id number] 2.16.84 0.1.146596.3.579.2.593 1954 Unknown [id number] 2.16.84 0.1.246446.3.579.2.593 1954 Unknown [id number] 2.16.84 0.1.416080.3.579.2.593 1954 Unknown [id number] 2.16.84 0.1.599342.3.579.2.593 1954 Unknown [id number] 2.16.84 0.1.768253.3.579.2.593 1954 Unknown [id number] 2.16.84 0.1.452272.3.579.2.593 1954 Unknown [id number] 2.16.84 0.1.105530.3.579.2.593 1954 Unknown [id number] 2.16.84 0.1.779806.3.579.2.593 1954 Unknown [id number] 2.16.84 0.1.601351.3.579.2.593 1954 Unknown [id number] 2.16.84 0.1.103345.3.579.2.593 1954 Unknown [id number] 2.16.84 0.1.425380.3.579.2.593 1954 Unknown [id number] 2.16.84 0.1.378221.3.579.2.593 1954 Unknown [id number] 2.16.84 0.1.670683.3.579.2.593 1954 Unknown [id number] 2.16.84 0.1.882357.3.579.2.593 Unknown [id number] 2.16.8 40.1.916522.3.579.2.531 Social History Date Type Detail Facility Start: 04-04-2023 [facility] Start: 1955 Sex Assigned At Male F [facility] Progress note 04-04-2023 Note Date & Type Note Facility 04-04-2023 Progress note Note Date/Time April 04, 2023 10:47am [facility] [address] [place] [address] Wound Center Provider Note Signed Patient: Brittny Dutta MR#: [id number] : 1955 Acct:[id number] Age/Sex: 68 / M Copies to: MD Aura Roman, SANDY~ HPI Date of Visit Date of Visit: Date of Service: 04/04/2023 Time of Service: 10:44 Narrative HPI: 02/28/23 Jaylen is a 67 year old male presenting to [facility] wound care for an initial visit for [...] as continue his compression wraps 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 Work Phone: Progress note 03-13-2023 Note Date & Type Note Facility 03-13-2023 Progress note Note Date/Time March 13, 2023 11:04am [facility] [address] [place] [address] Wound Center Provider Note Signed Patient: Brittny Dutta MR#: [id number] : 1955 Acct:[id number] Age/Sex: 67 / M Copies to: MD Aura Roman APRN~ HPI Date of Visit Date of Visit: Date of Service: 03/13/2023 Time of Service: 11:01 Narrative HPI: 02/28/23 Jaylen is a 67 year old male presenting to [facility] wound care for an initial visit for [...] as continue his compression wraps 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 Service Pump Equipment Operator: Personal vehicle Lives with:: Significant Other Appetite Description: Within Normal Limits Who helps w/ dressing change?: Self Smoking Status: Former smoker [facility] Medical History (Updated 02/28/23 @ 08:45 by [...] Code(s): 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 [...] <Electronically signed by SANDY Johnson> 03/13/23 1104 [facility] Work Phone: Progress note 02-28-2023 Note Date & Type Note Facility 02-28-2023 Progress note Note Date/Time February 28, 2023 8:53am [facility] [address] [place] [address] Wound Center Provider Note Signed Patient: Brittny Dutta MR#: [id number] : 1955 Acct:[id number] Age/Sex: 67 / M Copies to: MD Aura Roman APRN~ HPI Date of Visit Date of Visit: Date of Service: 02/28/2023 Time of Service: 08:41 Narrative HPI: 02/28/23 Jaylen is a 67 year old male presenting to [facility] wound care for an initial visit for [...] as continue his compression wraps 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 Work Phone: Progress note 11-23-2022 Note Date & Type Note Facility 11-23-2022 Note [facility] Cardiology Clinic Note Chief Complaint: Patient [...] 1 (HTN), CHADS2- (more content not included)... [facility] Clinical Note 06-19-2021 Note Date & Type [...] or tofu. ? (more content not included)... [facility] Evaluation note Note Date & Type Note Facility Evaluation note Diagnosis Onset Date Atrophic cynthia chronic CAD (coronary artery disease) chronic Hemosiderin pigmentation of lower 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 veins chronic Hypothyroidism chronic Inflammation chronic Obesity chronic Venous stasis of lower extremity chronic Ulcer of left foot associate d with varicose veins resolved Wound pain resolved [facility] Work Phone: Summary Purpose Family History No [...] and content) DATE CREATED AUTHOR 03/11/2020 [facility] DATE CREATED AUTHOR AUTHOR'S ORGANIZ ATION 06/29/2021 [facility] DATE CREATED AUTHOR AUTHOR'S ORGANIZ ATION 08/18/2021 [facility] DATE CREATED AUTHOR AUTHOR'S ORGANIZ ATION 11/24/2022 [facility] DATE CREATED AUTHOR AUTHOR'S ORGANIZ ATION 05/20/2023 [facility] Care Teams (unrecognized sec tion and [...] BE BASED ON THE PRIMARY CLINICAL RECORDS. [facility] [employer] [facility]. provides no warranty or guarantee of the accuracy or completeness of information in this document.
[2023-09-29 10:27] LABS: Basophils Percent Auto 0.4 % (0.2-2.0); Eosinophils Absolute Auto 0.4 10^3/uL (0.0-0.7); Eosinophils Percent Auto 5.5 % (0.9-7.0); Hematocrit 49.7 % (42.0-54.0); Hemoglobin 15.1 g/dL (14.0-18.0); Immature Granulocytes Abs Auto 0.03 10^3/uL (0.00-0.03); Immature Granulocytes Pct Auto 0.4 % (0.0-0.5); Lymphocytes Absolute Auto 1.3 10^3/uL (1.2-3.8); Lymphocytes Percent Auto 18.5 % (20.5-60.0); Mean Corpuscular HGB Conc 30.4 g/dL (29.9-35.2); Mean Corpuscular Hemoglobin 28.5 pg (25.9-34.0); Mean Platelet Volume 9.8 fL (9.5-13.5); Monocytes Absolute Auto 1.1 10^3/uL (0.3-0.8); Monocytes Percent Auto 15.1 % (1.7-12.0); Neutrophils Absolute Auto 4.2 10^3/uL (1.4-6.5); Neutrophils Percent Auto 60.1 % (43.0-75.0); Platelet Count 260 10^3/uL (150-450); Red Blood Count 5.29 10^6/uL (4.70-6.10); Red Cell Distribution Width 14.4 % (11.0-15.0)
[2023-09-29 11:22] LABS: Free T4 0.88 ng/dL (0.76-1.46)
[2023-09-29 11:50] LABS: Alanine Aminotransferase 21 U/L (16-63); Albumin Globulin Ratio 0.9; Albumin Level 3.3 g/dL (3.4-5.0); Alkaline Phosphatase 63 U/L (46-116); Anion Gap 7.8; Aspartate Amino Transferase 15 U/L (15-37); BUN Creatinine Ratio 14.3; Bilirubin Direct 0.2 mg/dL (0.0-0.2); Bilirubin Total 0.6 mg/dL (0.2-1.0); Calcium 8.9 mg/dL (8.5-10.1); Carbon Dioxide 32.3 mmol/L (21.0-32.0); Chloride 104 mmol/L (98-107); Chol HDL Ratio 3.2; Cholesterol 174 mg/dL (<=200); Estimated GFR (African America >60 (>=60); Estimated GFR (Non-African Ame >60 (>=60); Free T3 2.36 pg/mL (2.18-3.98); Globulin 3.8 g/dL; Glucose 103 mg/dL (74-106); HDL Cholesterol 55 mg/dL (40-60); LDL Cholesterol Calculated 98.2 mg/dL; Potassium 4.1 mmol/L (3.5-5.1); Sodium 140 mmol/L (136-145); Thyroid Stimulating Hormone 3.802 uIU/mL (0.358-3.740); Total Protein 7.1 g/dL (6.4-8.2); Triglycerides 104 mg/dL (<=150); VLDL CHOLESTEROL 20.8 mg/dL
[2023-09-30 04:07] LABS: PSA, Free 0.45 ng/mL; Prostate Specific Ag 1.5 ng/mL (0.0-4.0)
== END 2023-09-29 09:25 | disposition home or self-care (01) ==
LOC: LAB 09:26
PROVIDERS: PCP Family Medicine; Visit Provider Family Medicine
DX: E05.90 Thyrotoxicosis, unspecified without thyrotoxic crisis or storm (principal); I10 Essential (primary) hypertension; Z51.81 Encounter for therapeutic drug level monitoring; E78.5 Hyperlipidemia, unspecified
CPT/HCPCS: 36415; 80048; 80061; 80076; 84153; 84154; 84439; 84443; 84481; 85025

== ENCOUNTER 2024-03-01 08:59 | Outpatient (RCR) | payer MEDICARE, OTHER, SELFPAY | END 2024-03-26 11:40 | disposition home or self-care (01) | LOC: OT 08:59 | PROVIDERS: PCP Family Medicine; Visit Provider Family Medicine | DX: I89.0 Lymphedema, not elsewhere classified (principal) | CPT/HCPCS: 97140; 97166; 97535 ==

== ENCOUNTER 2024-03-12 10:50 | Outpatient (OUT) | payer MEDICARE, OTHER, SELFPAY ==
--- NOTE | 2024-03-12 | CONS_ITS ---
CONSULTATION DATE: 03/12/2024 TO: Jose Castellon HISTORY: Patient presented today complaining of at least 3-7/10 pain in his left ankle area. It started approximately one and a half years ago. We discovered a vascular issue. He describes it as a burning, stinging type of pain, which increases with activities of ambulating. He feels most comfortable with leg elevated. Denies any change in bowel and bladder habits or new sensorimotor changes in the lower extremities MEDICATIONS: He is on Plavix and Eliquis. Other medication includes Tylenol p.r.n. His JOSH on today?s visit is 32%. EXAM: His examination is limited and noted patient to have hyperesthesias, possibly allodynia surrounding his drainage area on his left lateral ankle. He also had significant myofascial spasm of the left gastrocnemius muscle, especially his lateral head. IMPRESSION: Our impression is patient with chronic pain secondary to possible neurogenic pain, possible neuritis. It is unlikely the patient has complex regional pain syndrome, type 1 or 2. He also has myofascial spasm of the left gastrocnemius muscle. RECOMMENDATIONS: I recommend Neurontin 300 mg b.i.d., Zanaflex 4 mg half to one b.i.d., topical lidocaine, and will re-evaluate the patient in four weeks? time or sooner if needed. At this time, I do not feel any intervention is warranted and will monitor the response to his medication management. As part of providing excellent, safe, comprehensive care, the following was completed at our patient's visit: 1. A medication reconciliation and review to ensure accurate knowledge of current/active medications, including asking our patients to inform us about any [id number] medications or herbal remedies/nutritional supplements/alternative remedies. 2. A review to specifically ensure our patients have had annual screening for: elevated body mass index (BMI, see intake chart for exact total), tobacco use, screening for depression, and screening for unhealthy alcohol use. When screening is concerning, patients are provided with education and the specific recommendation to discuss the concerning health issue and treatment options with their primary care provider. ALONZO
--- OUTSIDE RECORDS SUMMARY | 2024-03-12 10:57 | XMS_ITS | CCD ---
Author Organization [facility] CliniSyal Care Team Providers Care Framing Specialist Name Role Phone ELTAHAWY, EHAB A Admitting [...] DR SANTI Fritz Attending Unavailable ZIEBAZAR, DR GRISELDA Keating Consulting Unavailable ROSS, [facility] Primary Care Unavailable DEONANDER, DRERICK Attending Unavailable DERRICK DERAS Admitting Unavailable MISC, DR LUCAS Primary Care Unavailable KING, DR STEWART Consulting Unavailable KING, DR STEWART Attending Unavailable KING, DR STEWART Admitting Unavailable RONNY, BRISA Attending Unavailable RONNY, BRISA Admitting Unavailable MISC, DR LUCAS Primary Care Unavailable Jackelin Moreau Consulting Unavailable RONNY, BRISA Consulting Unavailable ROSS, JUDI Primary Care Unavailable PAY, DR MART Attending Unavailable GRECHNYDAGMAR Consulting Unavailable PAY, DR MART Admitting Unavailable ROSS, JUDI Primary Care Unavailable ROBERT RONQUILLO Consulting Unavailable ROBERT RONQUILLO Attending Unavailable YG, ROBERT Admitting Unavailable WEST, DR SANTI Fritz Consulting Unavailable WEST, DR SANTI Fritz Attending Unavailable WEST, DR SANTI Fritz Admitting Unavailable ROSS, [facility] Primary Care Unavailable ZIEBER, DR GRISELDA Keating Consulting Unavailable ROSS, JUDI Primary Care Unavailable YGROBERT Attending Unavailable YG, ROBERT Admitting Unavailable WEST, DR SANTI Fritz Consulting Unavailable YGROBERT Consulting Unavailable WEST, DR SANTI Fritz Attending Unavailable ROSS, JUDI Primary Care Unavailable WEST, DR SANTI Fritz Admitting Unavailable MISC, DR LUCAS Primary Care Unavailable DERRICK DERAS Attending Unavailable DERRICK DERAS Admitting Unavailable DERRICK DERAS Admitting Unavailable DEONANDER, DERRICK Attending Unavailable VIVIANA, [facility] Primary Care Unavailable MISC, DR LUCAS Primary Care Unavailable AUGUSTA, DERRICK Attending Unavailable DERRICK DERAS Admitting Unavailable [facility] Unavailable BERT THOMAS Admitting Unavailabl BERT Hennessy Attending Unavailabl e BERT THOMAS Attending Unavailabl e BERT THOMAS Admitting Unavailabl e [facility] Primary Care Unavailable WEST, DR SANTI Fritz Consulting Unavailable ELTAHAWY, DR SIFUENTES Attending Unavailable ELTAHAWY, DR SIFUENTES Admitting Unavailable MISC, DR LUCAS Primary Care Unavailable ELTAHAWY, DR SIFUENTES Consulting Unavailable ELTAHAWY, DR SIFUENTES Consulting Unavailable ELTAHAWY, DR SIFUENTES Attending Unavailable MISC, DR LUCAS Primary Care Unavailable ELTAHAWY, DR SIFUENTES Admitting Unavailable [facility] Care Unavailable DAGMAR POST Consulting Unavailable REINECK, DR SUZY Valenzuela Attending Unavailabl e REINECK, DR SUZY Valenzuela Admitting Unavailabl e Schreibman, Bradford Consulting Unavailable RONNY, BRISA Admitting Unavailable RONNY, BRISA Consulting Unavailable RONNY, BRISA Attending Unavailable MISC, DR LUCAS Primary Care Unavailable SANDY Johnson Attending Provider [phone] MD Jose Alvarado Primary Care Provider JOSE ALVARADO Attending Unavailable OZZY, RODRIAB Attending Unavailable MD Jose Alvarado Primary Care Provider SANDY Johnson Attending Provider JACK DAMON Attending Unavailable JACK DAMON Admitting Unavailable Jose Alvarado Primary Care Unavailable Aura Johnson Attending Unavailable Donn Johnsonia Admitting Unavailable Jose Alvarado Primary Care Unavailable Aura Johnson Attending Unavailable Elizabeth, Aura Admitting Unavailable Abram Upton (WND) Admitting Unavailable Jose Alvarado Primary Care Unavailable Abram Upton (WND) Attending Unavailable Allergies Allergy Classification Reported Allergen(s) Allergy Type Date of Onset Reaction(s) Facility Doxycycline (1 source) Doxycycline; Translations: [DOXYCYCLINE] Drug Allergy 11-20-19 [facility] Repository Quinolones (antibiotic) (1 source) Ciprofloxacin; Translations: [CIPROFLOXACIN] Drug Allergy 11-20-19 [facility] Repository Sulfonamides (antibiotic) (2 sources) Sulfonamides (Antibiotic); Translations: [SULFA (SULFONAMIDE ANTIBIOTICS)] Drug Allergy 11-20-19 09 [facility] Repository Unclassified (1 source) BISMUTH TRIBROM-PETROLATUM, WH; Translations: [BISMUTH TRIBROM-PETROLATUM, WH] Propensity to adverse reactions to drug (disorder) 12-03-19 09 [facility] Repository (2 sources) black walnut pollen extract; Translations: [VVQEROG-PPF-JBO REDUCTASE INHIBITORS] Drug Allergy 03-05-20 [facility] Repository (4 sources) Ciprofloxacin; Translations: [CIPROFLOXACIN] Drug Allergy 11-20-19 09 Mus[facility] Repository (5 sources) Doxycycline; Translations: [DOXYCYCLINE] Drug Allergy 08-14-19 06 Unknown Reaction [facility] Repository (2 sources) Sulfamethoxazole / Trimethoprim Drug Allergy 08-14-19 06 [facility] Repository (5 sources) Sulfonamides (Antibiotic); Translations: [SULFA (SULFONAMIDE ANTIBIOTICS)] Drug allergy (disorder) 08-14-19 06 Unknown Reaction [facility] Repository (1 source) Ciprofloxacin Drug Allergy 08-14-19 06 [facility] Repository (3 sources) Sulfamethoxazole; Translations: [sulfamethoxazole] Drug Allergy 02-29-20 Unknown Reaction [facility] (3 sources) Trimethoprim; Translations: [trimethoprim] Drug Allergy 02-29-20 Unknown Reaction [facility] (1 source) atorvastatin; Translations: [ATORVASTATIN] Drug Allergy 08-01-20 14 [facility] Repository (1 source) Sulfamethoxazole / Trimethoprim; Translations: [SULFAMETHOXAZOLE-T RIMETHOPRIM] Drug Allergy 11-16-19 [facility] Repository (1 source) Ciprofloxacin Drug Allergy 02-29-20 [facility] Repository (1 source) Doxycycline Drug Allergy 02-29-20 [facility] Repository (1 source) Sulfonamides (Antibiotic) Drug allergy (disorder) 02-29-20 [facility] Repository Medications Current Medications Medication Drug Class(es) Dates Sig (Normalized) Sig (Original) acetaminophen 325 mg oral tablet (2 sources) Start: 02-28-2023 take 325 mg by mouth every six hours Acetaminophen Active 325 MG PO Q6H February 28, 2023 12:00am apixaban 5 mg oral tablet (2 sources) Factor Xa Inhibitor Start: 02-28-2023 take 1 tablet by mouth twice daily Apixaban (Eliquis) 5 mg Tablet Active 5 MG PO Twice daily February 28, 2023 12:00am atorvastatin 20 mg oral tablet (2 sources) HMG-CoA Reductase Inhibitor Start: 02-28-2023 take 20 mg by mouth once daily at bedtime Atorvastatin Active 20 MG PO Daily at bedtime February 28, 2023 12:00am cider vinegar 300 mg oral tablet (2 sources) Start: 02-28-2023 take 300 mg by mouth once daily Apple Cider Vinegar Active 300 MG PO Daily February 28, 2023 12:00am clopidogrel 75 mg oral tablet (2 sources) P2Y12 Platelet Inhibitor Start: 02-28-2023 take 75 mg by mouth once daily Clopidogrel Active 75 MG PO Daily February 28, 2023 12:00am elderberry fruit 200 mg oral capsule (1 source) Start: 12-05-2023 take 200 mg by mouth once daily Elderberry Fruit Active 200 MG PO Daily December 05, 2023 12:00am levothyroxine sodium 0.05 mg oral tablet (2 sources) l-Thyroxine Start: 02-28-2023 take 50 ug by mouth once daily Levothyroxine Active 50 MCG PO Daily February 28, 2023 12:00am losartan potassium 50 mg oral tablet (2 sources) Angiotensin 2 Receptor Arash Start: 02-28-2023 take 50 mg by mouth once daily Losartan Active 50 MG PO Daily February 28, 2023 12:00am metoprolol tartrate 50 mg oral tablet (2 sources) beta-Adrenergic Arash Start: 02-28-2023 take 50 mg by mouth twice daily Metoprolol Tartrate Active 50 MG PO Twice daily February 28, 2023 12:00am Tf-Wji-Txhnp-K1-Lyco pen-Lutein (Centrum Silver Men) 326-18-198-300 mcg tablet (1 source) Start: 11-14-2023 take 1 tablet by mouth once daily Rv-Tde-Mbgcm-K1-Lyc open-Lutein (Centrum Silver Men) 430-22-290-300 mcg tablet Active 1 TAB PO Daily November 14, 2023 12:00am pentoxifylline 400 mg extended release oral tablet (2 sources) Blood Viscosity Film Historian Start: 02-28-2023 take 400 mg by mouth twice daily at mealtime Pentoxifylline Active 400 MG PO Twice daily February 28, 2023 12:00am must administer with a meal/food pravastatin sodium 20 mg oral tablet (2 sources) HMG-CoA Reductase Inhibitor Start: 02-28-2023 take 20 mg by mouth once daily at bedtime Pravastatin Active 20 MG PO Daily at bedtime February 28, 2023 12:00am Completed/Discontinued Medications Medication Drug Class(es) Dates Sig (Normalized) Sig (Original) ascorbic acid 500 mg oral tablet (2 sources) Vitamin C Start: 02-28-2023 End: 11-14-2023 take 1 tablet by mouth twice daily Ascorbic Acid (Vitamin C) (Vitamin C) 500 mg Tablet Discontinued 500 MG PO Twice daily February 28, 2023 12:00am November 14, 2023 1:41pm cholecalciferol 0.125 mg oral tablet (2 sources) Vitamin D Start: 02-28-2023 End: 11-14-2023 take 1 tablet by mouth once daily Cholecalciferol (Vitamin D3) (Vitamin D3) 125 mcg (5,000 unit) Tablet Discontinued 125 MCG PO Daily February 28, 2023 12:00am November 14, 2023 1:41pm clobetasol propionate 0.0005 mg/mg topical ointment (2 sources) Corticosteroid Start: 02-28-2023 End: 11-14-2023 Clobetasol Discontinued 1 APPLIC TOPICAL Daily 15 14 February 28, 2023 12:00am November 14, 2023 1:31pm thin layer to left lateral foot ulcer gentamicin 0.001 mg/mg topical ointment (2 sources) Start: 03-13-2023 End: 11-14-2023 Gentamicin Discontinued 1 APPLIC TOPICAL Daily 15 7 March 13, 2023 12:00am November 14, 2023 1:38pm thin layer left foot ulcer for 1 week and can resume after the 2 weeks of clobetasol ubidecarenone 100 mg oral capsule (3 sources) Start: 11-14-2023 End: 11-14-2023 Coenzyme Q10 (Coq-10) 100 mg capsule Discontinued 100 MG PO Three times daily November 14, 2023 12:00am November 14, 2023 1:43pm Start: 02-28-2023 Coenzyme Q10 ( Co Q-10) 400 mg Capsule Active 400 MG PO Daily February 28, 2023 12:00am vitamin B12 (2 sources) Vitamin B12 Start: 02-28-2023 End: 11-14-2023 take 500 ug by mouth once daily Cyanocobalamin (Vitamin B-12) Discontinued 500 MCG PO Daily February 28, 2023 12:00am November 14, 2023 1:41pm Start: 02-28-2023 take 500 ug by mouth once daily Cyanocobalamin (Vitamin B-12) Active 500 MCG PO Daily February 28, 2023 12:00am Problems Active Problems Problem Classification Problem Date Documented Da te Episodic/Chronic Allergic reactions (2 sources) Contact dermatitis; Translations: [Unspecified contact dermatitis, unspecified cause] 12-05-2023 Episodic Cardiac dysrhythmias (1 source) Paroxysmal atrial fibrillation; Translations: [PAROXYSMAL ATRIAL FIBRILLATION] Onset: 2 Chronic Chronic obstructive pulmonary disease and bronchiectasis (1 source) Chronic obstructive pulmonary disease, unspecified; Translations: [COPD UNSPECIFIED] Onset: 2 Chronic Chronic ulcer of skin (11 sources) Non-pressure chronic ulcer of left ankle with unspecified severity; Translations: [Non-pressure chronic ulcer of skin of other sites with unspecified severity] Onset: 1 Chronic Congestive heart failure; nonhypertensive (4 sources) Heart failure, unspecified; Translations: [HEART FAILURE UNSPECIFIED] Onset: 1 Chronic Coronary atherosclerosis and other heart disease (7 sources) Atherosclerotic heart disease of rincon coronary artery without angina pectoris; Translations: [Coronary arteriosclerosis] Onset: 2 02-28-2023 Chronic Disorders of lipid metabolism (5 sources) [...] D/O SINGLE EPIS UNS] Onset: 1 Chronic Mycoses (2 sources) Candidiasis; Translations: [Candidiasis, unspecified] 12-19-2023 Episodic Open wounds of head; neck; and trunk (4 sources) Wound pain ; Translations: [Wound pain] 04-04-2023 Episodic Other aftercare (1 source) 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; Translations: [OTH HALFWAY CURRENT DRUG THERAPY] Onset: 1 Episodic Other aftercare (1 source) [facility] (current) use of antithrombotics/antipl atelets; Translations: [HALFWAY ANTITHROMBOT/ANTIPLATL ETS] Onset: 1 Episodic Other aftercare (1 source) [facility] (current) use of anticoagulants; Translations: [SENIOR QA ANALYST CURRNT USE ANTICOAGULANTS] Onset: 1 Episodic Other [...] Episodic Other diseases of veins and lymphatics (2 sources) Disorder of vein of lower extremity; Translations: [Other specified disorders of veins] 02-28-2023 Episodic Other diseases of veins and lymphatics (2 sources) Other specified disorders of veins; Translations: [Venous (peripheral) insufficiency, unspecified] 04-04-2023 Episodic Other nutritional; endocrine; and metabolic disorders (3 sources) Obesity, unspecified; Translations: [Obesity, unspecified] Onset: 1 04-04-2023 Chronic Other nutritional; endocrine; and metabolic disorders (2 sources) Obesity; Translations: [Obesity, unspecified] 02-28-2023 Chronic Other skin disorders (3 sources) Other atrophic disorders of skin; Translations: [...] UNS] Onset: 1 Episodic Other skin disorders (2 sources) Hemosiderin pigmentation of lower limb due to varicose veins of lower limb; Translations: [Other specified disorders of pigmentation] 02-28-2023 Episodic Other skin disorders (2 sources) Anetoderma; Translations: [Other atrophic disorders of skin] 02-28-2023 Episodic Other skin disorders (2 sources) Other specified disorders of pigmentation; Translations: [Dyschromia, unspecified] 04-04-2023 Episodic Peripheral and visceral atherosclerosis (2 sources) Atherosclerosis of aorta; Translations: [Atherosclerosis of rincon arteries of left leg with ulceration of other part of foot] Onset: 1 Chronic Phlebitis; thrombophlebitis and thromboembolism [...] unspecified; Translations: [EDEMA UNSPECIFIED] Onset: 2 Episodic Residual codes; unclassified (1 source) Current drinker; Translations: [Other specified health status] 11-14-2023 Episodic Residual codes; unclassified (1 source) Other specified health status; Translations: [Other specified conditions influencing health status] 12-19-2023 Episodic Screening and history of mental health and substance abuse codes (1 source) Personal history of nicotine dependence; Translations: [PERSONAL HISTORY OF NICOTINE DEPEND] Onset: 2 Episodic Thyroid disorders (9 sources) Hypothyroidism, unspecified; Translations: [Hypothyroidism] Onset: 1 Chronic Unclassified (4 sources) Inflammatory disorder; Translations: [Inflammation] 02-28-2023 Unclassified (1 source) Non-pressure chronic ulcer of other part of left foot with unspecified severity; Translations: [Non-pressure chronic ulcer of other part of left foot with unspecified severity] Onset: 3 Varicose veins of lower extremity (9 sources) Varicose veins of bilateral lower extremities with pain; Translations: [Asymptomatic varicose veins of bilateral lower extremities] Onset: 1 Episodic Past or Other Problems Problem Classification Problem Date Documented Da te Episodic/Chronic Other aftercare (1 source) [facility] (current) use of aspirin; Translations: [SENIOR QA ANALYST CURRENT USE OF ASPIRIN] Onset: 01-15-2021 Episodic [...] Test Name Value Interpretation Reference Range Facility US arterial pvr rest John US arterial pvr rest [facility] [place] [address] Ultrasound Report Signed Patient: Dagoberto Dutta MR#: [id number] : 1955 Acct:[id number] Age/Sex: 68 / M ADM Date: 12/25/23 Loc: UL Room: Type: [facility] Attending Dr: Aura Johnson APRN Ordering Provider: Aura Johnson APRN Date of Service: 12/25/23 US/US arterial pvr rest LE: LT ANKLE,ULCER Copies to: Aura Johnson APRN LOWER EXTREMITY SEGMENTAL ARTERIAL DOPSCAN (PVR) INDICATION: Nonhealing left leg ulcer PROCEDURE: Right arm blood pressure is 140 , left is 134 . Pressures throughout the right leg are cno at the high thigh, at the cno low thigh, 166 at the calf, 168 at the ankle using the posterior tibial artery, and 150 at the ankle using the dorsalis pedis artery with ankle- brachial index of 1.20 1.07 . Pressures throughout the left leg are cno at the high thigh, at the 205 low thigh, 167 at the calf and 163 at the ankle using the posterior tibial artery, and 155 at the ankle using the dorsalis pedis artery with ankle-brachial index of 1.16 1.11 . Wave forms by plethysmography are normal. US/US arterial pvr rest LE IMPRESSION: NO HEMODYNAMICALLY SIGNIFICANT PERIPHERAL VASCULAR OCCLUSIVE DISEASE AT REST IN EITHER LOWER EXTREMITY. Impression dictated by: Dagoberto Novak M.D.12/25/2023 4:10 PM Dictation Location: [place] [address] Tech: Aleshia Mcknight Transcribed By: IAIN 12/25/23 1610 Dictated By: Dagoberto Novak MD 12/25/23 1609 Signed By: 12/25/23 1610 Normal [facility] Office Visiton 12-18-2023 Follow-up visit [id number] Dagoberto Dutta 1955 M Date Provider Department Center 12/18/2023 [facility] No family history on file Level of Service:[address] [place] OFFICE/OUTPATIENT ESTABLISHED LOW MDM 20 MIN Normal [facility] BNPon 07-23-2021 Natriuretic peptide B (Bld) [Mass/Vol] 203.0 pg/mL Normal <=900.0 [facility] Comment on above: Performed By: #### C ANDREY #### [facility] [address] [place], [place] [address] Sade Atkins CBC AUTO DIFFon 07-23-2021 BASO # 0.0 103/ul Normal 0.0-0.1 [facility] Comment on above: Performed By: #### C BC #### [facility] [address] [place] [address] Dr. Pattie Reynolds Basophils/100 WBC (Bld) 0.6 % Normal 0.2-2.0 [facility] Comment on above: Performed By: #### C BC #### [facility] [address] [place] [address] Dr. Pattie Reynolds EO # 0.3 103/ul Normal 0.0-0.7 [facility] Comment on above: Performed By: #### C BC #### [facility] [address] [place] [address] Dr. Pattie Reynolds Eosinophils/100 WBC (Bld) 4.3 % Normal 0.9-7.0 [facility] Comment on above: Performed By: #### C BC #### [facility] [address] [place] [address] Dr. Pattie Reynolds Erythrocyte distribution width (RBC) [Ratio] 14.6 % Normal 11.0-15.0 [facility] Comment on above: Performed By: #### C BC #### [facility] [address] [place] [address] Dr. Pattie Reynolds Hematocrit (Bld) [Volume fraction] 49.0 % Normal 42.0-54.0 [facility] Comment on above: Performed By: #### C BC #### [facility] [address] [place] [address] Dr. Pattie Reynolds Hemoglobin (Bld) [Mass/Vol] 15.3 g/dL Normal 14.0-18.0 [facility] Comment on above: Performed By: #### C BC #### [facility] [address] [place] [address] Dr. Pattie Reynolds IG # 0.03 10e3/ul Normal 0.00-0.03 [facility] Comment on above: Performed By: #### C BC #### [facility] [address] [place] [address] Dr. Pattie Reynolds IG % 0.5 % Normal 0.0-0.5 [facility] Comment on above: Performed By: #### C BC #### [facility] [address] [place] [address] [address] Pattie Reynolds LYMPH # 1.3 103/ul Normal 1.2-3.8 [facility] Comment on above: Performed By: #### C BC #### [facility] [address] [place] [address] Dr. Pattie Reynolds Lymphocytes/100 WBC (Bld) 20.4 % Critically low 20.5-60.0 [facility] Comment on above: Performed By: #### C BC #### [facility] [address] [place] [address] Dr. Pattie Reynolds MANUAL DIFF REQ NO Normal [facility] Comment on above: Performed By: #### C BC #### [facility] [address] [place] [address] Dr. Pattie Reynolds MCH (RBC) [Entitic mass] 28.9 pg Normal 25.9-34.0 [facility] Comment on above: Performed By: #### C BC #### [facility] [address] [place] [address] Dr. Pattie Reynolds MCHC (RBC) [Mass/Vol] 31.2 g/dL Normal 29.9-35.2 [facility] Comment on above: Performed By: #### C BC #### [facility] [address] [place] [address] Dr. Pattie Reynodls MCV (RBC) [Entitic vol] 92.6 fL Normal 80.0-94.0 [facility] Comment on above: Performed By: #### C BC #### [facility] [address] [place] [address] Dr. Pattie Reynolds MONO # 1.2 103/ul Critically high 0.3-0.8 [facility] Comment on above: Performed By: #### C BC #### [facility] [address] [place] [address] Dr. Pattie Reynolds Monocytes/100 WBC (Bld) 18.6 % Critically high 1.7-12.0 [facility] Comment on above: Performed By: #### C BC #### [facility] [address] [place] [address] Dr. Pattie Reynolds NEUT # 3.6 103/ul Normal 1.4-6.5 [facility] Comment on above: Performed By: #### C BC #### [facility] [address] [place] [address] Dr. Pattie Reynolds Neutrophils/100 WBC (Bld) 55.6 % Normal 43.0-75.0 [facility] Comment on above: Performed By: #### C BC #### [facility] [address] [place] [address] Dr. Pattie Reynolds Platelet mean volume (Bld) [Entitic vol] 9.4 fL Critically low 9.5-13.5 [facility] Comment on above: Performed By: #### C BC #### [facility] [address] [place] [address] Dr. Pattie Reynolds PLT 267 103/ul Normal 150-450 [facility] Comment on above: Performed By: #### C BC #### [facility] [address] [place] [address] Dr. Pattie Reynolds RBC 5.29 106/ul Normal 4.70-6.10 [facility] Comment on above: Performed By: #### C BC #### [facility] [address] [place] [address] Dr. Pattie Reynolds WBC 6.5 103/ul Normal 4.0-11.0 [facility] Comment on above: Performed By: #### C BC #### [facility] [address] [place] [address] Dr. Pattie Reynolds CRPon 07-23-2021 CRP [Mass/Vol] mg/L Normal <=1.0 [facility] Comment on above: Performed By: #### C ANDREY #### [facility] [address] [place] [address] Sade Atkins PROF CHEM 8 (BAS METB)on Anion gap [Moles/Vol] 7.8 mmol/L Normal [facility] Comment on above: Performed By: #### B PASSENGER CAR INSPECTOR, BMP, CRP #### [facility] [address] [place] [address] Dr. Pattie Reynolds Calcium [Mass/Vol] 9.6 mg/dL Normal 8.4-10.[address] [facility] Comment on above: Performed By: #### B PASSENGER CAR INSPECTOR, BMP, CRP #### [facility] [address] [place] [address] [address] Pattie Reynolds Chloride [Moles/Vol] 102 mmol/L Normal 98-107 [facility] Comment on above: Performed By: #### B PASSENGER CAR INSPECTOR, BMP, CRP #### [facility] [address] [place] [address] [address] Pattie Reynolds CO2 [Moles/Vol] 32.9 mmol/L Critically high 22.0-30.0 [facility] Comment on above: Performed By: #### B PASSENGER CAR INSPECTOR, BMP, CRP #### [facility] [address] [place] [address] Dr. Pattie Reynolds Creatinine [Mass/Vol] 0.84 mg/dL Normal 0.66-1.25 The [facility] Comment on above: Performed By: #### B PASSENGER CAR INSPECTOR, BMP, CRP #### [facility] [address] [place] [address] Dr. Pattie Reynolds EGFR-AF BRITISH >60 Normal >=60 [facility] Comment on above: Performed By: #### B PASSENGER CAR INSPECTOR, BMP, CRP #### [facility] [address] [place] [address] Dr. Pattie Reynolds EGFR-NON AF BRITISH >60 Normal >=60 [facility] Comment on above: Performed By: #### B PASSENGER CAR INSPECTOR, BMP, CRP #### [facility] [address] [place] [address] Dr. Pattie Reynolds Glucose [Mass/Vol] 86 mg/dL Normal 74-[address] [facility] Comment on above: Performed By: #### B PASSENGER CAR INSPECTOR, BMP, CRP #### [facility] [address] [place] [address] Dr. Pattie Reynolds Potassium [Moles/Vol] 4.7 mmol/L Normal 3.4-5.0 [facility] Comment on above: Performed By: #### B PASSENGER CAR INSPECTOR, BMP, CRP #### [facility] [address] [address] [address] Pattie Reynolds Sodium [Moles/Vol] 138 mmol/L Normal 137-[address] [facility] Comment on above: Performed By: #### B PASSENGER CAR INSPECTOR, BMP, CRP #### [facility] [address] [address] [address] Pattie Reynolds Urea nitrogen [Mass/Vol] 11.0 mg/dL Normal 9.0-20.0 [facility] Comment on above: Performed By: #### B PASSENGER CAR INSPECTOR, BMP, CRP #### [facility] [address] [address] [address] Pattie Reynolds Urea nitrogen/Creatinine [Mass ratio] 13.1 mg/mg Normal [facility] Comment on above: Performed By: #### B PASSENGER CAR INSPECTOR, BMP, CRP #### [facility] [address] [address] [address] Pattie Reynolds SED RATE [facility] 2020 SED RATE 60 mm/hr Critically high <=20 [facility] Comment on above: Performed By: #### S EDR #### [facility] [address] [address] [address] Pattie Reynolds Coding Summaryon 06-28-2021 [facility] HotrmwmtANe0sZt+PGhlYW Q+VN5WMJRrP50prZPgkV2T V0gBQG3SVCJGNXROWG9HZH 8lxQX0IEogT1CzpuBf EabaeZZaVX23BIf6EYI7oZ djQUqnbX7tkIPiV4i0KuCr AF55xG32UFqaEULlXhQ4Ae ZpbjsgbWFy E6ytPbLogQCkSkb+PHRhYm xlIHdpZHRoPScxMDAlJyBz cPogLW4oCl4xDJLtNTAfdO xhcHNlOiBj a2tmKMMfXIosOK0oiZutT0 LjpID0DIVpt4a5Ux72oYJ+ LVPmHTQ7yUjuXIjur294Yk Mfl5plZZN7 tVJkPIutZIM7X42iz9O5EY VnKJVbFBB3mCR4eP1vqIyb rkhzF8AwmLDrMqJ8VLW4gJ FtuQ9lkDmx oatcpP4tHmz+E39BZV7SFQ KROS8NXjh2O7HyRvmzlVS+ FP10RVLqXG10sKZdkAWqp4 wvmGk9QkSc AEQeNPK8wBffCMvon0NkAX EpR05dpDIxn7X8UCZdwVbf rKDiVqZizHN8iY8zVKotft ktk3vnlzfl Lmtxt5cble30kI30C96eBH raIMQwNSM4TIRhMRCkbRkc gs5etF2nFc3+EKvjw8rzq2 xoiIn6RtGj AKYnhcXdpRbjWXX3a1IjCb 57J6QyxWkjn6KgJbw1tw22 uQByo4M8oVW8FQypIYButJ 7tYBpwKoZ9 DHWfCfVilK55oFJlQJyzIp 1ioGywtFsqJQ3wAMXjvqdh NJKxsR0cVMTgcVZtgOjiPA 4wNTBpbjtm i107UrNsYJL0PMLtjWDaD9 ZnhC9vLkQoYEIcCGOpI0Ml qYFmRYrhD554UCitJoV4PI PhlyHmY7Iz CHLzwOuiJyJ0c5G3Gh8Ar7 CgmfxrCGT8IRjnAYAnFqC8 SaFvGlS1G6OeHdq0HMKrnH wnGL5bP5Kh DKKivkgnimcvnZB6SMEaGA WetF77vLMpSXdvFe5vo3U7 u189KWBgUCUqyL15Jb8qmS ogMTBwdCBU zV2msvbfv4cspoiaEoBgVE CdIFf6CIc8AFBpjLpgMfRz NWM7DxA8ZVY8fHSpzH4lxX avtzjvxF4t Oyc+O50tsX9lKIR3EXG7kf hoKLQgaaXqIB47RE77O6Jx PjwvdGFibGU+PGRpdiBzdH fiUO3cPwXn b6lni6HlGFuaU4LcYTTzMO yoSog8UBUgJAS1hTW7cY7u TCFdFXucy5Z2uYS4W3Esws Dfnr0yr3zf NWPvUQxjY84pwSIoq7S2PP GejJJ5SBLyfTkiDoOduU72 Oyc+NWEorYlxz6SgDuibe9 djj3ovdPc6 SsIsPNWlzoFbjBfoAXU1p0 WzQm75E24mYCqoXMXsCDFg FSYyEDWieGnvhj6juQ0jTp 8+PGNvbCB3 tIO3tR6xCIAwRjK7OGrqL9 70JbGlbJXaLbdee5xur8sh zBf7KmRcYZRaxvMphGmpGY F9p8GfWq13 T55fYGzkESVoIWLxSRVhUV RmbLwzmk5fhZ4kNt1+PC9j v6oxpa12bV72dHE+PHRkIH N7tPqaEZmm AHBdlF1bVZsgUbI3KYIuAj WktB93sJTxEBvgTz7lpUel hLsxLN1uIYWpkwtln779Vz Lrf8xjKSXw yHQsZGldJAA8T76ni3V0NX AvPNImIZZ4kLF8hY2ckRjo bjogbGVmdDsgdmVydGljYW vsHZyiD353 IHRvcDsnPlBhdGllbnQgTm VbPVp4J5TqMbu4GELxqXyx ZV9yiSTfDPvrSs1qbAqspZ uyNM0dQSKy lkgug164YtRsz1peZPQvtN IwWPfsETA2I09ok6F6PSHu XWPoLSF6sGX2zV8qfWhxvj ogbGVmdDsg wxHwqEqeSHwyIAwaS804TR RvcDsnPkJpcnRoIERhdGU6 WI57MP77qKDze4I7kLD2R3 BhZGRpbmct vnykkJL6QDPqPGKieP78Ys 0gdVzoCj4cIORkSTV1VUPk tVWtO9GduA7zBoPbYXLwCS OxV9XlaSRn WVtjZ634LGacMhP9OFLmre WmX6XeMGQpfEzuVmL8m2S8 Ng5CU6H2DZ85AI38hIZyo1 H0yGM8W5Wr WCDhgjlozsckbOI0ZXQkNK HzoZ69Jt4enQhhRa8uLSMw YFX8NTKtvZRhI0MwsY8sRg AjMDAwMDAw C5QbzSFkEIakX692SLspAc V8NPTfteLwL3ZsRCDsyUpg TuD9d6X8Xr4ICSi3DB70EH 33pMBrm0P3 qEB3N1XxVEGbrgkhlvldhH B8BGNrKCMvcA47Fs6vvEze Hy9cZPEsYWG5JJGeoEPcG5 IwlP0jXiJp NQIzKKUbR1JuwJEyPWmuP3 55PBhzLqV3ACKawxKiR1Tl CZFpjNevXcM9l6I0Wa1PPQ WmAE08WJV8 uJJ2HD91TP58C7EnHpevqB FibGU+PHRhYmxlIHdpZHRo BVuzIHZuLmFdpBbvHV0gTv 9yZGVyLWNv aNohjXOsDpJzk8aqBQUqRW cfUN2pzArwC7AxtGD1AXSn m3g3Bm76I30hM7YruWR+PG XimEI3pXY0 eC8dLwCdLcV4ICycE265Aa KveXKzYqsxq3uan2vwdWp3 DrU6IMJukwQewUktOSH2q8 XzMz17Z45h IHdpZHRoPSIxNSUiIHZhbG ynqh7bmX8mSq0+PGNvbCB3 yWS6vK6dGuTcOeB6GXvgE0 49InRvcCIv Teaku9nyd3ynaDo4ErOyYU TxruUgsGnaFJP5e2MoBk83 Y8TcvWesz0RqXth9hy75pJ Guz8P4gYB8 R6LcMVBbiuryfZQqsGaaIM 5jBDCtmaxjKZPewE4qWHNp B7e0EtJoIoO4PYejI7Bazn G6ODYceGVt IOsjPNS1R41qs2E5BKQbTH KdGGO1iTK1cF1tpTbmuevd bGVmdDsgdmVydGljYWwtYW stZ500FTAm vAbyIXDsvI9qNKJqhPQpzY osTK1uTCKtograRpZNODhA UiwgSkVGRlJFWTwvdGQ+PH EjVFZ6oCxn SPqgZWQheF6zRHLcF2u0Wb WnTsE8QFtrP0JjSQHroptr Vn49cD6qVvGyCbX2EQmgV5 ImyxJ7WNMc vZYkAKmlBYN0A30pa9J9GY PgVQQlGUQ6mHC1jE2rcJpq bjogbGVmdDsgdmVydGljYW djMVjgC111 PVAcxLxjQoP9SdPzAyQ5EB P3U9SlMyz9SNMfmEsvBK4x iTWjSForOy3nbLrihYsvRE 4wNTBpbjtw XOQvqH4uKXCafOJpsQotCM 1oDOUdncpwz837RwGsOWS6 HBExkOHlK7FajC2aEoQjFX AnYKEpR0Xl sPQnUFwgR674QRtmMuS5MI TmbaByU9FlPNJtbHreIzE5 f5K6Kt16EiOTEBQpyxvyaF Q+PHRkIHN0 eHtiKFkzVYFwmR2rNNRqC7 f3XuXeGsG0YPhwS5IjNNNv skpbZy96hZ4zDbLlQgP6IA jmF1ZnubC4 EGUsdQZuNIwoLGJ0Z89jm7 H0KBUjHPCaSXI0zXG8dG5w bGlnbjogbGVmdDsgdmVydG ljYWwtYWxp Y631LCWptMywHm8EHOP9F1 DkObr4HHVqeLceVB8gpRUh QJwgFa7ulBiwfRhvDJ6xMJ BpbjtwYWRk wO5uKQBxqICxjOidDI8fKF Bmxbmzo552OhOcINX0GGRp sIBrF9QpfH9cDmBaZAAoTU AeC9JbgRDg WMvoD203FEuqKgS0SSBnsc ByL8OfXTMtmPvtIxH2a5F9 Lp6WnJUbU9PnH7n9J3ZwYb wvdHI+PC90 JSEjBM72oELfcYFkn9eysM a7JnZtIOOfBYJ9cXebMAki k9AbMGQeP10zeSVaa2T8TA NvbGxhcHNl GsInlJC4xG9oXIngvbbjv9 bmjghpFnyyk2yaks33oK77 N26yHOhvYWGhLCGzXFVrYJ KvhBkhbd1d kW8sGe6+DOWkrJS5xCT9mR 1dNoLbEzH0FUbmW734EpHz bWNiZtbpk7drn5acwGu1Pj IwJSIgdmFs sMwrVOB3t3HnCa33S84yWX dpZHRoPSIyMCUiIHZhbGln ea0jvH1mLs3+GM6ss8ueng 83nJ74yMJ+ PZAoHNU3aRpxGAxiNXJkoI 6zBAxuMwN6EZTcAhJunY57 nGFpZHeuRs9vsNgfaGhzEK 4wNTBpbjtm n633KuPou4puHXJprJJlPW fvOAF7V32ql3X9MTWaSFGz PHH0uCB7cL2ogEgqvjsrnF VmdDsgdmVy jBapFEbhQCcwF089OLFvmW mxSjOmtVKuG5khxpHJVM3m OjwvdGQ+EQFeVCH8jPyeUS cpIKAhrE6k GVYdQ0x1SzMgDyX3UNnoB8 IqunQ4QYNghGBeLLUnjXHW kM2oackqh9notdkzYmYzUF GbAMc0DLc7 VKFcvEotUeXfBWI7GqY1GA F7gAZuvN9cqUfacagvdI4q Oyc+RklOOjwvdGQ+PHRkIH Y5eQmfQZyh KRDdaQ3qRPLzH1j9NlAnQl U4WOnkC0PtwcT4CODtqVEi APPrqXBNeZ2bmczlk2ayiz ogIzAwMDAw LGp3NAk8XQFqjOiqVvXlCB Z2UtI2LVP7lURicN8xxKtn lvbpkB7iIyv+TVJOOjwvdG Q+PHRkIHN0 zGsvZGieNJVlhX4pQKGwA2 c6QaDbPjA9FHbwJ3GetfX5 XPNrfDRtYWIzdIBEnN3xdh ban9zctgiz EdCaHFJbHQq3WJn4ENLvnY sjXhBhXZT6YaY3LYC1sCZi uX5yeLmmqixhwV6mWky+UG Y8KMH5RF57 GZ43Q5DlGmipsBNtdCQ+PH RhYmxlIHdpZHRoPScxMDAl DaJzxBxoGX0zIt5uKYBbTM NvbGxhcHNl OiB (more content not included)... Normal [facility] ED Clinical Summaryon 2020 ED Clinical Summary [facility] - Emergency Department [address] [place], [place] [id number] ED Clinical Summary PERSON INFORMATION Name: DAGOBERTO DUTTA Age: 66 Years Sex: MALE : 1955 MRN: Acct#: Visit Reason: Shoulder pain-swelling; Fall; FALL- RT SHOULDER PAIN Arrival: 06/19/2021 14:08:23 Discharge: 06/19/2021 15:29:00 LOS: 000 01:21 Check In: 06/19/2021 14:08:23 Checkout:06/19/2021 15:29:00 Address: [address] [place] [address] [address] [facility] [address] PCP: Juid Michelle MD PROVIDER INFORMATION Provider Role Assigned Unassigned ELLIS DORSEY ED PA 06/19/2021 14:11:05 Lily Garrison HEATING ELEMENT REPAIRER Nurse 06/19/2021 14:12:25 VITALS INFORMATION Vital Sign Triage Latest Temperature Tympanic 36.6 DegC 36.6 DegC Temperature Temporal Artery Pulse Rate 80 bpm 80 bpm O2 Sat 98 % 98 % Respiratory Rate 14 br/min 14 br/min Blood Pressure /101 mmHg /101 mmHg MEDICAL INFORMATION Medications Given: Medication Dose Route acetaminophen-hydrocod one (Attica 5 mg-325 mg oral tablet) 1 tab(s) PO Allergy Information: Bactrim; Cipro; sulfa drug; doxycycline PHYSICIAN DOCUMENTATION Patient: DAGOBERTO UDTTA Age: 66 years Sex: MALE : 1955 [...] I indic (more content not included)... Normal [facility] ED Note - Physicianon 2020 ED Note - Physician Patient: DAGOBERTO DUTTA Age: 66 years Sex: MALE : [...] I recommended (more content not included)... Normal [facility] ED Patient Summaryon 021 ED Patient Summary [facility] - Emergency Department [address] [place] [id number] PATIENT DISCHARGE INSTRUCTIONS Patient Information Name: DAGOBERTO DUTTA Age: 66 Years Date of : 1955 Reason For Visit: Shoulder pain-swelling; Fall; FALL- RT SHOULDER PAIN Arrival Time: 06/19/2021 14:08:23 Primary Care Physician: Judi Michelle MD Attending Physician: Aleksandar Beasley MD Comment: Visit Diagnosis: Diagnoses This Visit Elevated blood pressure reading (R03.0) Fall ([id number]) Fall (W19.XXXA) Humeral head fracture (S42.293A) Right shoulder pain (M25.511) Shoulder pain-swelling ([id number]) Prescription Information: If you have been given a prescription for narcotics, seek immediate medical attention if you have any difficulty breathing or any sudden status changes such as confusion and sleepiness. If you or anyone you know is experiencing suicidal thoughts, mental health, alcohol and/or drug addiction problems; contact the [facility] 06/03 Crisis Hotline -Text 4HJCP xa 518133. If you received any narcotics, sedation, or [...] documents With: Address: When: [place] [address] [facility], [place] [address] Business (1) Within 2 to 4 days [...] and treatment you received today in the [facility] Emergency Department were for an urgent problem and are not intended as complete care. It is important for you to follow up with a doctor, nurse practitioner, or physician?s technical services assistant for ongoing care. If your symptoms [...] so we can reach you if necessary. [facility] Emergency Department has provided you with a complete list of medications post discharge. Please inform your operations and maintenance technician/provider of your visit and for further instruction on these medications. Any specific questions regarding your chronic medications and dosages should be discussed with your primary care physician(s) and/or pharmacist. New Medications Printed Prescriptions acetaminophen-hydrocod one (Attica 5 mg-325 mg oral tablet) 1 tab(s) [...] cm Weight D (more content not included)... [facility] XR Shoulder Complete Righton 06-19-2021 XR [...] the right greater tuberosity. Final Dictated by: Jack Montano Dictated DT/TM: 06/19/21 2:57 Signed (Electronic Signature): Jack Montano 06/19/21 2:59 pm Technologist: [place] [facility] VC CONSULT FOLLOWUPon 2020 VC CONSULT FOLLOWUP Patient: DAGOBERTO DUTTA Exam Date: 06/04/2021 : 1955 Gender:M Ordering : DR SANTI LIU M.D. Admission #: [id number] Family : Order #: [id number] CLICK HERE TO VIEW EXAM CORRECTION Corrected [...] the physical exam and consultation Dictated by: Griselda Vaughn M.D. on 06/04/2021 at 12:31 Approved by: Griselda Vaughn M.D. on 06/04/2021 at 12:35 Dictated by: Griselda Vaughn M.D. on 06/04/2021 at 12:38 Approved by: Griselda Vaughn M.D. on 06/04/2021 at 12:38 Normal [facility] VC EXT VENOUS LT LIMITEDon 1 VC EXT VENOUS LT LIMITED Patient: DAGOBERTO DUTTA Exam Date: 06/04/2021 : 1955 Gender:M Ordering : DR SANTI LIU M.D. Admission #: [id number] Family : Order #: [id number] CLICK HERE TO VIEW EXAM RADIOLOGY REPORT [...] flow. OTHER: *Exam performed in accordance with [facility] practice guidelines- Peripheral venous ultrasound, November 07, 2009. CONCLUSION: 1. 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 Dictated by: Griselda Vaughn M.D. on 06/04/2021 at 12:35 Approved by: Griselda Vaughn M.D. on 06/04/2021 at 12:37 Normal [facility] VC ENDOVENOUS ABL 1ST V LTon 05-28-2021 VC ENDOVENOUS ABL 1ST V LT Patient: DAGOBERTO DUTTA Exam Date: 05/28/2021 : 1955 Gender:M Ordering : DR SANTI LIU M.D. Admission #: [id number] Family : Order #: [id number] CLICK HERE TO VIEW EXAM RADIOLOGY REPORT [...] the left small saphenous vein. Dictated by: Griselda Vaughn M.D. on 05/28/2021 at 11:50 Approved by: Griselda Vaughn M.D. on 05/28/2021 at 11:52 Normal [facility] COMP CONSULTATIONon 01-19 VC COMP CONSULTATION Patient: DAGOBERTO DUTTA Exam Date: 01/19/2021 : 1955 Gender:M Ordering : ROBERT RONQUILLO . Admission #: [id number] Family : Order #: [id number] CLICK HERE TO VIEW EXAM RADIOLOGY REPORT [...] patient was last treated by the [facility]. The patient was referred by the [...] for atrophy duarte, diagnosed at the [facility]. Chronic atrial fibrillation for which he [...] branch saphenous tributary/varicose veins. Incompetent right ankle employee representative vein period PHYSICAL EXAM: The right leg [...] content not included)... Normal [facility] VC VENOUS REFLUX FELIX LMTon 0 01-19-2021 VC VENOUS REFLUX FELIX LMT Patient: DAGOBERTO DUTTA Exam Date: 01/19/2021 : 1955 Gender:M Ordering : ROBERT RONQUILLO . Admission #: [id number] Family : DR SANTI LIU M.D. Order #: [id number] CLICK HERE TO VIEW EXAM RADIOLOGY REPORT [...] chronic echogenic thrombus Compressibility: Normal Flow: Normal Glue Mounter Operator: ankle employee representative measuring 3.7mm with 3.7s of reflux Tech [...] saphenous varicose veins 5. Incompetent right ankle employee representative vein Dictated by: Santi Liu MD on 01/19/2021 at 12:18 Approved by: Santi Liu MD on 01/19/2021 at 12:21 Normal [facility] CBC AUTO DIFFon 01-13-2021 BASO # 0.0 103/ul Normal 0.0-0.1 [facility] Comment on above: Performed By: #### C ANDREY #### [facility] [address] [place] [address] Sade Atkins Basophils/100 WBC (Bld) 0.6 % Normal 0.2-2.0 [facility] Comment on above: Performed By: #### C ANDREY #### [facility] [address] [place] [address] Sade Atkins EO # 0.2 103/ul Normal 0.0-0.7 [facility] Comment on above: Performed By: #### C ANDREY #### [facility] [address] [place] [address] Sade Atkins Eosinophils/100 WBC (Bld) 3.3 % Normal 0.9-7.0 [facility] Comment on above: Performed By: #### C ANDREY #### [facility] [address] [place], [place] [id number] Sade Atkins Erythrocyte distribution width (RBC) [Ratio] 14.4 % Normal 11.0-15.0 [facility] Comment on above: Performed By: #### C ANDREY #### [facility] [address] [place] [address] Sadebradford Atkins Hematocrit (Bld) [Volume fraction] 49.0 % Normal 42.0-54.0 [facility] Comment on above: Performed By: #### C ANDREY #### [facility] [address] [place] [address] Sade Milly Hemoglobin (Bld) [Mass/Vol] 15.7 g/dL Normal 14.0-18.0 [facility] Comment on above: Performed By: #### C ANDREY #### [facility] [address] [place] [address] Sade Milly IG # 0.01 10e3/ul Normal 0.00-0.03 [facility] Comment on above: Performed By: #### C ANDREY #### [facility] [address] [place] [address] Sade Milly IG % 0.1 % Normal 0.0-0.5 [facility] Comment on above: Performed By: #### C ANDREY #### [facility] [address] [place] [address] Sade Milly LYMPH # 1.4 103/ul Normal 1.2-3.8 [facility] Comment on above: Performed By: #### C ADNREY #### [facility] [address] [place] [address] Sade Atkins Lymphocytes/100 WBC (Bld) 20.2 % Critically low 20.5-60.0 [facility] Comment on above: Performed By: #### C ANDREY #### [facility] [address] [place] [address] Sade Atkins MANUAL DIFF REQ NO Normal [facility] Comment on above: Performed By: #### C ANDREY #### [facility] [address] [place] [address] Sade Milly MCH (RBC) [Entitic mass] 29.5 pg Normal 25.9-34.0 [facility] Comment on above: Performed By: #### C ANDREY #### [facility] [address] [place] [address] Sade Milly MCHC (RBC) [Mass/Vol] 32.0 g/dL Normal 29.9-35.2 [facility] Comment on above: Performed By: #### C ANDREY #### [facility] [address] [place], [place] [address] Sade Atkins MCV (RBC) [Entitic vol] 92.1 fL Normal 80.0-94.0 [facility] Comment on above: Performed By: #### C ANDREY #### [facility] [address] [place], [place] [address] Sade Atkins MONO # 0.9 103/ul Critically high 0.3-0.8 [facility] Comment on above: Performed By: #### C ANDREY #### [facility] [address] [place], [place] [address] Sade Atkins Monocytes/100 WBC (Bld) 13.5 % Critically high 1.7-12.0 [facility] Comment on above: Performed By: #### C ANDRYE #### [facility] [address] [place], [place] [address] Sade Hickeyen NEUT # 4.3 103/ul Normal 1.4-6.5 [facility] Comment on above: Performed By: #### C ANDREY #### [facility] [address] [place], [place] [address] Sade Atkins Neutrophils/100 WBC (Bld) 62.3 % Normal 43.0-75.0 [facility] Comment on above: Performed By: #### C ANDREY #### [facility] [address] [place], [place] [address] Sade Atkins Platelet mean volume (Bld) [Entitic vol] 9.3 fL Critically low 9.5-13.5 [facility] Comment on above: Performed By: #### C ANDREY #### [facility] [address] [place], [place] [address] Sade Milly PLT 263 103/ul Normal 150-450 [facility] Comment on above: Performed By: #### C ANDREY #### [facility] [address] [place], [place] [address] Sade Milly RBC 5.32 106/ul Normal 4.70-6.10 [facility] Comment on above: Performed By: #### C ANDREY #### [facility] [address] [place] [address] Sade Milly WBC 6.9 103/ul Normal 4.0-11.0 [facility] Comment on above: Performed By: #### C ANDREY #### [facility] [address] [place], [place] [id number] Sade Milly CRPon 01-13-2021 CRP [Mass/Vol] mg/L Normal <=1.0 [facility] Comment on above: Performed By: #### B MP, CRP #### [facility] [address] [place], [place] [id number] Sade Milly LACTATE/LACTIC ACIDon 2020 Lactate [Moles/Vol] 0.8 mmol/L Normal 0.7-2.[address] [facility] Comment on above: Performed By: #### L ACT #### [facility] [address] [place], [place] [address] Sade Milly PROF CHEM 8 (BAS METB)on Anion gap [Moles/Vol] 15.7 mmol/L Normal [facility] Comment on above: Performed By: #### B MP, CRP #### [facility] [address] [place], [place] [id number] Sade Milly Calcium [Mass/Vol] 9.2 mg/dL Normal 8.4-10.2 [facility] Comment on above: Performed By: #### B MP, CRP #### [facility] [address] [place], [place] [address] Sade Milly Chloride [Moles/Vol] 103 mmol/L Normal 98-107 [facility] Comment on above: Performed By: #### B MP, CRP #### [facility] [address] [place], [place] [address] Sade Milly CO2 [Moles/Vol] 27.5 mmol/L Normal 22.0-30.0 [facility] Comment on above: Performed By: #### B MP, CRP #### [facility] [address] [place], [place] [id number] Sade Milly Creatinine [Mass/Vol] 1.04 mg/dL Normal 0.66-1.25 [facility] Comment on above: Performed By: #### B MP, CRP #### [facility] [address] [id number] Sade Milly EGFR-AF BRITISH >60 Normal >=60 [facility] Comment on above: Performed By: #### B MP, CRP #### [facility] [address] [id number] Sade Milly EGFR-NON AF BRITISH >60 Normal >=60 [facility] Comment on above: Performed By: #### B MP, CRP #### [facility] [address] [address] Sade Milly Glucose [Mass/Vol] 102 mg/dL Normal 74-[address] [facility] Comment on above: Performed By: #### B MP, CRP #### [facility] [address] [address] Sade Milly Potassium [Moles/Vol] 4.2 mmol/L Normal 3.4-5.0 [facility] Comment on above: Performed By: #### B MP, CRP #### [facility] [address] [id number] Sade Milly Sodium [Moles/Vol] 142 mmol/L Normal 137-[address] [facility] Comment on above: Performed By: #### B MP, CRP #### [facility] [address] [address] Sade Milly Urea nitrogen [Mass/Vol] 15.0 mg/dL Normal 9.0-20.0 [facility] Comment on above: Performed By: #### B MP, CRP #### [facility] [address] [id number] Sade Milly Urea nitrogen/Creatinine [Mass ratio] 14.4 mg/mg Normal [facility] Comment on above: Performed By: #### B MP, CRP #### [facility] [address] [id number] Sade Milly SED RATE WESTERGRENon 2020 SED RATE 31 mm/hr Critically high <=20 [facility] Comment on above: Performed By: #### S EDR #### [facility] [address] [address] Sade Atkins XR ANKLE LT MIN 3 Von 2020 XR ANKLE LT MIN 3 V EXAM: XR ANKLE LT NV N 3 V HISTORY: The patient is [...] BRADFORD JACKSON Date: 2021-01-13 18:57 Normal [facility] CTA ABD ANGEL WWO CON [...] by: SANTI LIU Date: 2020-12-25 11:56 Normal [facility] CREATININEon 12-22-2020 Creatinine [Mass/Vol] 0.98 mg/dL Normal 0.66-1.25 [facility] Comment on above: Performed By: #### C ANDREY #### [facility] [address] [place] [address] Sade Milly EGFR-AF BRITISH >60 Normal >=60 [facility] Comment on above: Performed By: #### C ANDREY #### [facility] [address] [address] Sade Milly EGFR-NON AF BRITISH >60 Normal >=60 The [facility] Comment on above: Performed By: #### C ANDREY #### [facility] [address] [address] Sade Hickeyen ECHOCARDIO M/2D COMPLETEon 0 10-23-2020 ECHOCARDIO M/2D COMPLETE Patient: DAGOBERTO DUTTA Exam Date: 10/23/2020 : 1955 Gender:M Ordering : BRISA JEFFERSON Admission #: [id number] Family : Order #: [id number] CLICK HERE TO VIEW EXAM ECHOCARDIOGRAM REPORT [...] Area(A4C): 29.70 cm2 Left Atrium Systolic Volume(A2C): 02551 mm3 Left Atrium Systolic Volume(A4C): 287925 mm3 Mitral Valve MV E to A [...] 2 mm[Hg] Right Atrium Dictated by: Som Preciado M.D. on 10/23/2020 at 11:47 Approved by: Som Preciado M.D. on 10/23/2020 at 11:56 Normal [facility] XR CHEST 2 Von 10-18-2020 XR [...] JACKELIN MOREAU Date: 2020-10-18 11:57 Normal [facility] CBC AUTO DIFFon 10-17-2020 BASO # 0.0 103/ul Normal 0.0-0.1 [facility] Comment on above: Performed By: #### C ANDREY #### [facility] [address] [place], [place] [address] Sade Atkins Basophils/100 WBC (Bld) 0.6 % Normal 0.2-2.0 [facility] Comment on above: Performed By: #### C ANDREY #### [facility] [address] [place], [place] [address] Sade Atkins EO # 0.2 103/ul Normal 0.0-0.7 [facility] Comment on above: Performed By: #### C ANDREY #### [facility] [address] [place] [address] Sade Milly Eosinophils/100 WBC (Bld) 3.7 % Normal 0.9-7.0 [facility] Comment on above: Performed By: #### C ANDREY #### [facility] [address] [place] [address] Sade Milly Erythrocyte distribution width (RBC) [Ratio] 14.4 % Normal 11.0-15.0 [facility] Comment on above: Performed By: #### C ANDREY #### [facility] [address] [place] [address] Sade Milly Hematocrit (Bld) [Volume fraction] 52.3 % Normal 42.0-54.0 [facility] Comment on above: Performed By: #### C ANDREY #### [facility] [address] [place] [address] Sade Milly Hemoglobin (Bld) [Mass/Vol] 16.3 g/dL Normal 14.0-18.0 [facility] Comment on above: Performed By: #### C ANDREY #### [facility] [address] [place] [address] Sade Milly IG # 0.01 10e3/ul Normal 0.00-0.03 [facility] Comment on above: Performed By: #### C ANDREY #### [facility] [address] [place] [address] Sade Milly IG % 0.2 % Normal 0.0-0.5 [facility] Comment on above: Performed By: #### C ANDREY #### [facility] [address] [place] [address] Sade Milly LYMPH # 1.1 103/ul Critically low 1.2-3.8 [facility] Comment on above: Performed By: #### C ANDREY #### [facility] [address] [place] [address] Sade Milly Lymphocytes/100 WBC (Bld) 17.8 % Critically low 20.5-60.0 [facility] Comment on above: Performed By: #### C ANDREY #### [facility] [address] [place], [place] [id number] Sade Milly MANUAL DIFF REQ NO Normal [facility] Comment on above: Performed By: #### C ANDREY #### [facility] [address] [place], [place] [id number] Sadebradford Atkins MCH (RBC) [Entitic mass] 28.7 pg Normal 25.9-34.0 [facility] Comment on above: Performed By: #### C ANDREY #### [facility] [address] [place], [place] [id number] Sadebradford Atkins MCHC (RBC) [Mass/Vol] 31.2 g/dL Normal 29.9-35.2 [facility] Comment on above: Performed By: #### C ANDREY #### [facility] [address] [place] [address] Sadebradford Hickeyen MCV (RBC) [Entitic vol] 92.2 fL Normal 80.0-94.0 [facility] Comment on above: Performed By: #### C ANDREY #### [facility] [address] [place], [place] [address] Sade Milly MONO # 0.8 103/ul Normal 0.3-0.8 [facility] Comment on above: Performed By: #### C ANDREY #### [facility] [address] [place] [address] Sade Milly Monocytes/100 WBC (Bld) 13.1 % Critically high 1.7-12.0 [facility] Comment on above: Performed By: #### C ANDREY #### [facility] [address] [place], [place] [address] Sade Milly NEUT # 4.0 103/ul Normal 1.4-6.5 [facility] Comment on above: Performed By: #### C ANDREY #### [facility] [address] [place], [place] [id number] Sade Milly Neutrophils/100 WBC (Bld) 64.6 % Normal 43.0-75.0 [facility] Comment on above: Performed By: #### C ANDREY #### [facility] [address] [place], [place] [address] Sadebradford Atkins Platelet mean volume (Bld) [Entitic vol] 9.5 fL Normal 9.5-13.5 [facility] Comment on above: Performed By: #### C ANDREY #### [facility] [address] [place], [place] [address] Sade Milly PLT 254 103/ul Normal 150-450 [facility] Comment on above: Performed By: #### C ANDREY #### [facility] [address] [place], [place] [address] Sade Milly RBC 5.67 106/ul Normal 4.70-6.10 [facility] Comment on above: Performed By: #### C ANDREY #### [facility] [address] [place], [place] [address] Sadebradford Hickeyen WBC 6.3 103/ul Normal 4.0-11.0 [facility] Comment on above: Performed By: #### C ANDREY #### [facility] [address] [place], [place] [address] Sade Atkins GLYCOHEMOGLOBIN A1Con 2020 ADA RECOMMENDATION ADA THERAPEUTIC TARG ET 6.0 - 7.0 ACTION SUGGESTED > 7.0 Normal [facility] Comment on above: Performed By: #### A 1C #### [facility] [address] [place], [place] [address] Sade Atkins Glucose [Mass/Vol] 123 mg/dL Normal [facility] Comment on above: Performed By: #### A 1C #### [facility] [address] [place], [place] [address] Sadebradford Atkins HbA1c (Bld) [Mass fraction] 5.9 % Normal <=6.0 [facility] Comment on above: Performed By: #### A 1C #### [facility] [address] [place], [place] [address] Sade Atkins LIPID PROFILEon 10-17-2020 CHOL-HDL RATIO NORM SEE BELOW Normal [facility] Comment on above: Result Comment: 3.3 - 4.4 LOW RISK 4.4 - 7.1 AVERAGE RISK 7.1 - 11.0 MODERATE RISK >11.0 HIGH RISK Performed By: #### C ANDREY #### [facility] [address] [place], [place] [address] Sade Milly Cholesterol [Mass/Vol] 172 mg/dL Normal <=200 [facility] Comment on above: Performed By: #### C ANDREY #### [facility] [address] [id number] Sade Milly Cholesterol in HDL [Mass/Vol] 51 mg/dL Normal [facility] Comment on above: Performed By: #### C ANDREY #### [facility] [address] [place], [place] [address] Sade Milly Cholesterol in LDL [Mass/Vol] 105.6 mg/dL Normal [facility] Comment on above: Performed By: #### C ANDREY #### [facility] [address] [place], [place] [address] Sade Milly Cholesterol.total/Ch olesterol in HDL [Mass ratio] 3.4 {ratio} Normal [facility] Comment on above: Performed By: #### C ANDREY #### [facility] [address] [place], [place] [address] Sade Milly HDL NORMAL > or = 60 mg/dl - LO W CARDIOVASCULAR RISK <40 mg/dl - HIGH CARDIOVASCULAR RISK Normal [facility] Comment on above: Performed By: #### C ANDREY #### [facility] [address] [place], [place] [address] Sade Milly LDL CALC NORMAL SEE BELOW Normal [facility] Comment on above: Result Comment: <100 mg/dl OPTIMAL 100 - 129 mg/dl NEAR OR ABOVE OPTIMAL 130 - 159 mg/dl BORDERLINE HIGH 160 - 189 mg/dl HIGH >190 mg/dl VERY HIGH Performed By: #### C ANDREY #### [facility] [address] [place], [place] [address] Sade Milly Triglyceride [Mass/Vol] 77 mg/dL Normal <=150 [facility] Comment on above: Performed By: #### C ANDREY #### [facility] [address] [place], [place] [address] Sade Milly VLDL CALC 15.4 mg/dL Normal [facility] Comment on above: Performed By: #### C ANDREY #### [facility] [address] [place], [place] [address] Sadebradford Atkins PROF 14(COMP METB)on 021 Albumin [Mass/Vol] 3.8 g/dL Normal 3.5-5.0 [facility] Comment on above: Performed By: #### C ANDREY #### [facility] [address] [place], [place] [address] Sade Milly Albumin/Globulin [Mass ratio] 1.1 {ratio} Normal [facility] Comment on above: Performed By: #### C ANDREY #### [facility] [address] [place], [place] [address] Sade Milly ALP [Catalytic activity/Vol] 64 U/L Normal 38-126 [facility] Comment on above: Performed By: #### C ANDREY #### [facility] [address] [place], [place] [address] Sade Milly ALT [Catalytic activity/Vol] 26 U/L Normal 21-72 [facility] Comment on above: Performed By: #### C ANDREY #### [facility] [address] [place], [place] [address] Sade Milly Anion gap [Moles/Vol] 14.7 mmol/L Normal [facility] Comment on above: Performed By: #### C ANDREY #### [facility] [address] [place], [place] [address] Sade Milly AST [Catalytic activity/Vol] 19 U/L Normal 17-59 [facility] Comment on above: Performed By: #### C ANDREY #### [facility] [address] [place], [place] [address] Sade Milly Bilirubin [Mass/Vol] 0.7 mg/dL Normal 0.2-1.3 [facility] Comment on above: Performed By: #### C ANDREY #### [facility] [address] [place], [place] [address] Sade Milly Calcium [Mass/Vol] 9.6 mg/dL Normal 8.4-10.[address] [facility] Comment on above: Performed By: #### C ANDREY #### [facility] [address] [place] [address] Sade Milly Chloride [Moles/Vol] 102 mmol/L Normal 98-107 [facility] Comment on above: Performed By: #### C ANDREY #### [facility] [address] [place] [address] Sade Milly CO2 [Moles/Vol] 26.9 mmol/L Normal 22.0-30.0 [facility] Comment on above: Performed By: #### C ANDREY #### [facility] [address] [place] [address] Sade Milly Creatinine [Mass/Vol] 1.02 mg/dL Normal 0.66-1.25 [facility] Comment on above: Performed By: #### C ANDREY #### [facility] [address] [place] [address] Sade Milly EGFR-AF BRITISH >60 Normal >=60 [facility] Comment on above: Performed By: #### C ANDREY #### [facility] [address] [place] [address] Sade Milly EGFR-NON AF BRITISH >60 Normal >=60 [facility] Comment on above: Performed By: #### C ANDREY #### [facility] [address] [place] [address] Sade Milly Globulin (S) [Mass/Vol] 3.6 g/dL Normal [facility] Comment on above: Performed By: #### C ANDREY #### [facility] [address] [place] [address] Sade Milly Glucose [Mass/Vol] 104 mg/dL Normal 74-[address] [facility] Comment on above: Performed By: #### C ANDREY #### [facility] [address] [place] [address] Sade Milly Potassium [Moles/Vol] 4.6 mmol/L Normal 3.4-5.0 [facility] Comment on above: Performed By: #### C ANDREY #### [facility] [address] [place], [place] [address] Sade Milly Protein [Mass/Vol] 7.4 g/dL Normal 6.1-8.2 [facility] Comment on above: Performed By: #### C ANDREY #### [facility] [address] [place], [place] [address] Sade Milly Sodium [Moles/Vol] 139 mmol/L Normal 137-[address] [facility] Comment on above: Performed By: #### C ANDREY #### [facility] [address] [place], [place] [address] Sade Milly Urea nitrogen [Mass/Vol] 18.0 mg/dL Normal 9.0-20.0 [facility] Comment on above: Performed By: #### C ANDREY #### [facility] [address] [id number] Sade Milly Urea nitrogen/Creatinine [Mass ratio] 17.6 mg/mg Normal [facility] Comment on above: Performed By: #### C ANDREY #### [facility] [address] [place], [place] [address] Sade Milly TSHon 10-17-2020 TSH 2.033 uIU/mL Normal 0.470-4.680 [facility] Comment on above: Performed By: #### C ANDREY #### [facility] [address] [place], [place] [address] Sade Milly TSH RANGE SEE BELOW Normal [facility] Comment on above: Result Comment: <0.3 4 UIU/ml HYPERTHYROID 0.34-5.60 UIU/ml EUTHYROID >5.60 UIU/ml HYPOTHYROID Performed By: #### C ANDREY #### [facility] [address] [place], [place] [address] Sade Milly Cardiovascular Lab Reporton 03-05-2020 Cardiovascular Lab Report [facility] Patient Name: Clarisse [facility] Bianca MR #: [id number] Department of Physician: Adam Reno M.D. Division of Service Date: 03/05/2020 Cardiology Birthdate: 1955 Adult Cardiovascular Room #: [facility] [address]. [place], [place] [address] Cardiovascular Laboratory Report FINAL IMPRESSIONS: 1. Severe [...] medical management; high-intensity statin therapy as tolerated, beta-arash plus or minus an angiotensin-converting enzyme inhibitor are indicated. 6. Follow up with Dr. Preciado in the [place] office in the next 2 to 4 [...] the left radial artery was obtained. A 6-Moldovan glide sheath was inserted without difficulty. Bilateral selective coronary angiography was performed using JR4 and JL4 catheters. After reviewing the images, it was elected to proceed with an interventional procedure. A 6-Moldovan XB 3.5 guide catheter was advanced over [...] XB 3.5 catheter was removed and a 6-Moldovan JL4 guide catheter coaxially engaged into the [...] abnormal stress test. Electronically Signed by: Som Preciado M.D. 03/11/2020 12:31 P Som Preciado M.D. Date Dict: 03/05/2020/12:29 P/Som Preciado M.D. Date Trans: 03/05/2020 01:22 P/aram [id number] cc: Shari Shepard M.D. [address] [place] [address] [address] [facility] Vital Signs Date Time Vital Sign Value Performing Clinician Faci lity 12-19-2023 10:040 Body height 182.88 cm MD Jose Alvarado Work Phone: [facility] 12-19-2023 10:21040 Body mass index (BMI) [Ratio] 38 kg/m2 MD Jose Alvarado Work Phone: [facility] 12-19-2023 10:21040 Body weight 127 kg MD Jose Alvarado Work Phone: [facility] 12-19-2023 10:03-0400 Body temperature 98.6 [degF] MD Jose Alvarado Work Phone: [facility] 12-19-2023 10:03-0400 Diastolic blood pressure 80 mm[Hg] MD Jose Alvarado Work Phone: [facility] 12-19-2023 10:03-0400 Heart rate 57 /min MD Jose Alvarado Work Phone: [facility] 12-19-2023 10:03-0400 Respiratory rate 18 /min MD Jose Alvarado Work Phone: [facility] 12-19-2023 10:03-0400 Systolic blood pressure 138 mm[Hg] MD Jose Alvarado Work Phone: [facility] 04-04-2023 10:46-0400 Body height 182.88 cm MD Jose Alvarado Work Phone: [facility] 04-04-2023 10:46-0400 Body mass index (BMI) [Ratio] 36.8 kg/m2 MD Jose Alvarado Work Phone: [facility] 04-04-2023 10:46-0400 Body weight 123.37 kg MD Jose Alvarado Work Phone: [facility] 04-04-2023 10:26-0400 Body temperature 97.7 [degF] MD Jose Alvarado Work Phone: [facility] 04-04-2023 10:26-0400 Diastolic blood pressure 80 mm[Hg] MD Jose Alvarado Work Phone: [facility] 04-04-2023 10:26-0400 Heart rate 60 /min MD Jose Alvarado Work Phone: [facility] 04-04-2023 10:26-0400 Respiratory rate 18 /min MD Jose Alvarado Work Phone: [facility] 04-04-2023 10:26-0400 Systolic blood pressure 132 mm[Hg] MD Jose Alvarado Work Phone: [facility] Encounters Encounter Date Encounter Type Care Provider Facility Start: 02-22-2024 ambulatory Abram aldana (WND):[facility] Start: 12-25-2023 End: 12-25-2023 Patient encounter procedure MD Jose Alvarado Work Phone: [facility] [place] Work Phone: Start: 12-25-2023 End: 12-25-2023 ambulatory MD Jose Alvarado Work Phone: [facility] Work Phone: Start: 12-19-2023 Registered Recurring MD Jose enriquez Work Phone: [facility] [place] Work Phone: Start: 12-18-2023 End: 12-18-2023 ambulatory AB [facility] Start: 11-13-2023 End: 11-13-2023 ambulatory JOSE ALVARADO Not Available Start: 04-04-2023 End: 04-04-2023 ambulatory MD Jose Alvarado Work Phone: [facility] Work Phone: Start: 04-04-2023 End: 04-04-2023 Discharged Recurring MD Jose Alvarado Work Phone: [facility] [place] Work Phone: Start: 08-02-2021 End: 08-03-2021 ambulatory JUDI MICHELLE [...] Start: 12-22-2020 End: 12-23-[address] SOM PRECIADO Facility:[facility] Start: 12-11-2020 End: 12-12-2020 ambulatory JUDI MICHELLE Facility:[facility] Start: 12-03-2020 End: 12-04-[address] DOCTOR TAI Facility:[facility] Start: 11-19-2020 End: 11-20-[address] DOCTOR TAI Facility:[facility] Start: 10-23-2020 End: 10-24-2020 ambulatory BRISA JEFFERSON Facility:[facility] Start: 10-17-2020 End: 10-18-2020 ambulatory BRISA JEFFERSON Facility:[facility] Start: 03-05-2020 End: 03-06-2020 Patient encounter procedure SOM PRECIADO Facility:[facility] Start: 03-26-2015 ambulatory JACK DAMON [facility] Procedures Date Procedure Procedure Detail Performing Clinician Start: 12-25-2023 Pulse volume recorde r pneumoplethysmography MD Jose Alvarado Work Phone: Start: 10-17-2020 PSA screening BRISA B OES Comment on above: Performed By: #### C ANDREY #### [facility] [address] [place] [address] Sade Atkins Payers Date Payer Category Payer Self-pay 1960 Medicare [id number] 1960 Unknown [id number] 1955 Unknown [id number] 2.16.8 40.1.365577.3.579.2.647 1955 Unknown [id number] 2.16.84 0.1.242267.3.579.2.593 1955 Unknown [id number] 2.16.84 0.1.546512.3.579.2.593 1955 Unknown [id number] 2.16.84 0.1.519700.3.579.2.593 1955 Unknown [id number] 2.16.84 0.1.117313.3.579.2.593 1955 Unknown [id number] 2.16.84 0.1.462808.3.579.2.593 1955 Unknown [id number] 2.16.84 0.1.662586.3.579.2.593 1955 Unknown [id number] 2.16.84 0.1.879660.3.579.2.593 1955 Unknown [id number] 2.16.84 0.1.812943.3.579.2.593 1955 Unknown [id number] 2.16.84 0.1.877252.3.579.2.593 1954 Unknown [id number] 2.16.84 0.1.455637.3.579.2.593 1954 Unknown [id number] 2.16.84 0.1.156498.3.579.2.593 1954 Unknown [id number] 2.16.84 0.1.195851.3.579.2.593 1954 Unknown [id number] 2.16.84 0.1.674612.3.579.2.593 1954 Unknown [id number] 2.16.84 0.1.639006.3.579.2.593 1954 Unknown [id number] 2.16.84 0.1.830663.3.579.2.593 1954 Unknown [id number] 2.16.84 0.1.586602.3.579.2.593 1954 Unknown [id number] 2.16.84 0.1.631136.3.579.2.593 1954 Unknown [id number] 2.16.84 0.1.674890.3.579.2.593 1954 Unknown [id number] 2.16.84 0.1.166740.3.579.2.593 1955 Unknown [id number] 2.16.84 0.1.573937.3.579.2.1259 Unknown [id number] 2.16.8 40.1.641279.3.579.2.531 Unknown [id number] 2.16.8 40.1.713544.3.579.2.531 Unknown [id number] 2.16.8 40.1.227315.3.579.2.531 Social History Date Type Detail Facility Start: 04-04-2023 End: 12-19-2023 Tobacco smoking status NHIS Ex-smoker (finding) [facility] Start: 1955 Sex Assigned At Male F [facility] Progress note 12-18-2023 Note Date & Type Note Facility 12-18-2023 Note [facility] Note Chief Complaint: Patient here for 1 year follow up CAD, hypertension, and afib. HPI: Dagoberto Dutta is a 68 y.o. male Mr. Dutta is doing well from a [...] of the toes or between the toes. UPDATE: Doing well from a cardiac standpoint. Still has shortness of breath when he bends forwards. No orthopnea, no paroxysmal external dyspnea Cardiology ROS: Review of Systems Cardiovascular: Positive for dyspnea on exertion and leg swelling. Respiratory: Positive for shortness of breath. Musculoskeletal: Positive for back pain, muscle cramps and myalgias. All other systems reviewed and are negative. Past Medical History He has a past medical history of Abnormal ECG, Atrial fibrillation (CMS/HCC), CHF (congestive heart failure) (CMS/HCC), Coronary artery disease, Hyperlipidemia, Hypertension, Myocardial infarction (CMS/HCC), and Sleep apnea. Surgical History He has a past surgical history that includes Cardiac catheterization and Coronary stent placement. Social History He reports that he has quit smoking. His smoking use included cigarettes. He has never used smokeless tobacco. He reports current alcohol use of about 6.0 standard drinks of alcohol per week. No history on file for drug use. Family History No family history on file. Allergies Atorvastatin, Ciprofloxacin, Doxycycline, Zwhpbxp-sou-rre reductase inhibitors, Sulfa (sulfonamide antibiotics), and Sulfamethoxazole-trimethoprim Medications Current Outpatient Medications: apixaban (Eliquis) 5 mg tablet, Take 5 mg by mouth in the morning and at bedtime., Disp: , Rfl: clopidogrel (Plavix) 75 mg tablet, Take 1 tablet (75 mg) by mouth in the morning., Disp: 90 tablet, Rfl: 3 levothyroxine (Synthroid, Levoxyl) 50 mcg tablet, levothyroxine 50 mcg tablet, Disp: , Rfl: losartan (Cozaar) 50 mg tablet, Take 1 tablet (50 mg) by mouth in the morning., Disp: 90 tablet, Rfl: 3 metoprolol tartrate (Lopressor) 50 mg tablet, Take 1.5 tablets in the morning, and take 1.5 tablets in the evening, Disp: 270 tablet, Rfl: 3 nitroglycerin (Nitrostat) 0.4 mg SL tablet, Place 0.4 mg under the tongue., Disp: , Rfl: pentoxifylline (Trental) 400 mg ER tablet, pentoxifylline ER 400 mg tablet,extended release TAKE 1 TABLET BY MOUTH TWICE DAILY, Disp: , Rfl: pravastatin (Pravachol) 20 mg tablet, Take 1 tablet (20 mg) by mouth at bedtime., Disp: 90 tablet, Rfl: 3 Last Recorded Vitals BP 111/68 (BP Location: Left arm, Patient Position: Sitting) Pulse 56 Ht 1.829 m (6') Wt 128 kg (283 lb) SpO2 96% BMI 38.38 kg/m??? Physical Examination: GENERAL: alert and oriented x3, [...] extremities. PSYCH: appropriate mood, affect, and judgement. Investigations: CTA abdominal aorta and runoffs 12/25/2020: Moderate [...] and systolic function. No significant valvular abnormalities. Labs 09/29/2023: Cholesterol 174, triglycerides 104, LDL 98.2, HDL 55 Assessment: coronary atherosclerosis essential hypertension Hyperlipidemia - statin not tolerated On pravastatin 20 mg only atrial fibrillation PAF - likely ETOH related peripheral venous insufficiency - with venous ulcers Peripheral arterial disease Plan: 1.-Continue current medical therapy 2.-I cautioned him to monitor for bleeding as he is on Plavix, Xarelto and now pentoxifylline Return to clinic in 1 year or sooner should problems dipesh (more content not included)... [facility] Progress note 04-04-2023 Note Date & Type Note Facility 04-04-2023 Progress note Note Date/Time April 04, 2023 10:47am [facility] [address] [place] [address] Wound Center Provider Note Signed Patient: Dagoberto Dutta MR#: [id number] : 1955 Acct:[id number] Age/Sex: 68 / M Copies to: MD Aura Roman, SANDY~ HPI Date of Visit Date of Visit: Date of Service: 04/04/2023 Time of Service: 10:44 Narrative HPI: 02/28/23 Jaylen is a 67 year old male presenting to [facility] wound care for an initial [...] as continue his compression wraps and tubi appeals representative for the next 14 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 He will also contact [facility] and get back in [...] omega 3 and has not yet contacted [facility] but says that he will this week- I feelstrongly that this root cause needs addressed and he does state understanding ofthis, 3 week appt, no infection noted 04/04/23 again much better, no pain he says, has see [facility] and will be having a venous procedure to fix his root problem, appears healed and so he can be discharged today but is aware to contact us with any future needs Subjective Pain Left Ankle: Pain Description: Intermittent and Burning Pain Intensity: 0 Wound/Ulcer History When did wound start?: September 2022 Mode of Arrival/ Blade Filer: Personal vehicle Lives with:: Significant Other Appetite Description: Within Normal Limits Who helps w/ dressing change?: Self Smoking Status: Former smoker [facility] Medical History (Updated 04/04/23 @ 10:46 by [...] Code(s): I25.10 - Atherosclerotic heart disease of rincon coronary artery without angina pectoris Status: Chronic [...] 11 Dictated By: Aura Johnson APRN DD/ 104 Signed By: <Electronically signed by SANDY Johnson> 04/04/23 1046 [facility] Work Phone: Progress note 03-13-2023 Note Date & Type Note Facility 03-13-2023 Progress note Note Date/Time March 13, 2023 11:04am [facility] [address] [place] [address] Wound Center Provider Note Signed Patient: Dagoberto Dutta MR#: [id number] : 1955 Acct:[id number] Age/Sex: 67 / M Copies to: MD Aura Roman APRN~ HPI Date of Visit Date of Visit: Date of Service: 03/13/2023 Time of Service: 11:01 Narrative HPI: 02/28/23 Jaylen is a 67 year old male presenting to [facility] wound care for an initial [...] as continue his compression wraps and tubi appeals representative for the next 14 days and then [...] omega 3 and has not yet contacted [facility] but says that he will this week- I feelstrongly that this root cause needs addressed and he does state understanding ofthis, 3 week appt, no infection noted Subjective Pain Left Ankle: Pain Description: Intermittent and Burning Pain Intensity: 0 Wound/Ulcer History When did wound start?: September 2022 Mode of Arrival/ Blade Filer: Personal vehicle Lives with:: Significant Other Appetite Description: Within Normal Limits Who helps w/ dressing change?: Self Smoking Status: Former smoker [facility] Medical History (Updated 02/28/23 @ 08:45 by [...] Code(s): I25.10 - Atherosclerotic heart disease of rincon coronary artery without angina pectoris Status: Chronic [...] <Electronically signed by SANDY Johnson> 03/13/23 1104 [facility] Work Phone: Progress note 02-28-2023 Note Date & Type Note Facility 02-28-2023 Progress note Note Date/Time February 28, 2023 8:53am [facility] [address] [place] [address] Wound Center Provider Note Signed Patient: Dagoberto Dutta MR#: [id number] : 1955 Acct:[id number] Age/Sex: 67 / M Copies to: MD Aura Roman APRN~ HPI Date of Visit Date of Visit: Date of Service: 02/28/2023 Time of Service: 08:41 Narrative HPI: 02/28/23 Jaylen is a 67 year old male presenting to [facility] wound care for an initial [...] as continue his compression wraps and tubi appeals representative for the next 14 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 He will also contact [facility] and get back in with them as he said that he was due to return there in late 2019 or 2019 buthe had not been able to do so- we spoke about fixing the root cause and hence the veins need to be addressed. I see no signs of acute infection today. Subjective Pain Left Ankle: Pain Intensity: 0 Wound/Ulcer History When did wound start?: September 2022 Mode of Arrival/ Blade Filer: Personal vehicle Lives with:: Significant Other Appetite Description: Within Normal Limits Who helps w/ dressing change?: Self Smoking Status: Former smoker [facility] Medical History (Updated 02/28/23 @ 08:45 by [...] Code(s): I25.10 - Atherosclerotic heart disease of rincon coronary artery without angina pectoris Status: Chronic [...] <Electronically signed by SANDY Johnson> 02/28/23 0853 [facility] Work Phone: Clinical Note 06-19-2021 Note Date & Type [...] or tofu. ? (more content not included)... 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 Hypothyroidism chronic Inflammation chronic Obesity chronic Venous stasis of lower extremity chronic Ulcer of left foot associate d with varicose veins resolved Wound pain resolved [facility] Work Phone: Evaluation note Note Date & Type Note Facility Evaluation note Diagnosis Onset Date Alcohol use acute Candidiasis acute Contact dermatitis acute Atrophic cynthia chronic CAD (coronary artery disease) chronic Hemosiderin pigmentation of lower 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 veins chronic Hypothyroidism chronic Inflammation chronic Obesity chronic Venous stasis of lower extremity chronic Ulcer of left foot associate d with varicose veins resolved Wound pain resolved [facility] Work Phone: Summary Purpose Family History No [...] foot associated with varicose veins Wound pain Chief Complaint Open Wound i70.245 Reason for Visit Alcohol use Candidiasis Contact dermatitis Atrophic cynthia CAD (coronary artery disease) Hemosiderin [...] section and content) DATE CREATED AUTHOR 03/11/2020 [facility] DATE CREATED AUTHOR AUTHOR'S ORGANIZ ATION 06/29/2021 [facility] DATE CREATED AUTHOR AUTHOR'S ORGANIZ ATION 08/18/2021 [facility] DATE CREATED AUTHOR AUTHOR'S ORGANIZ ATION 11/13/2023 [facility] EPIC DATE CREATED AUTHOR AUTHOR'S ORGANIZ ATION 12/18/2023 [facility] DATE CREATED AUTHOR AUTHOR'S ORGANIZ ATION 01/14/2024 [facility] DATE CREATED AUTHOR AUTHOR'S ORGANIZ ATION 02/28/2024 [facility] Care Teams (unrecognized sec tion and content) Team Status: Active Member Role Status Dates Jose Alvarado MD Primary Care Provider Active Team Status: Active Member Role Status Dates Jose Alvarado MD Primary Care Provider Active S tart: December 19, 2023 Aura Johnson APRN Attending Provider Active St art: December 19, 2023 Team Status: Inactive Member Role Status Dates Jose Alvarado MD Primary Care Provider Active S tart: December 25, 2023 End: December 25, 2023 Aura Johnson APRN Attending Provider Active St art: December 25, 2023 End: December 25, 2023 Team Status: Inactive Member Role Status Dates Aura Johnson APRN Attending Provider Active Jose Alvarado MD Primary Care Provider Active Goals (unrecognized section and content) Goals may be documented in a n alternate sectionGoals may be documented in an alternate section FOR RECORDS PERTAINING TO PATIENTS [...] BE BASED ON THE PRIMARY CLINICAL RECORDS. [facility] [employer] provides no warranty or guarantee of the accuracy or completeness of information in this document.
== END 2024-03-12 10:51 | disposition home or self-care (01) ==
PROVIDERS: PCP Family Medicine; Visit Provider Anesthesiology Pain Medicine
DX: M25.572 Pain in left ankle and joints of left foot (principal); G90.522 Complex regional pain syndrome I of left lower limb; M62.838 Other muscle spasm
CPT/HCPCS: G0463

== ENCOUNTER 2024-04-02 12:49 | Outpatient (OUT) | payer MEDICARE, OTHER, SELFPAY ==
--- NOTE | 2024-04-02 | CONS_ITS ---
PAIN MANAGEMENT CONSULTATION ? CONSULTATION DATE: ??04/02/2024 ? TO:? Jose Castellon M.D. ? CHIEF COMPLAINT:? Includes left lateral ankle pain. ? HISTORY:?? He reports the pain as being 6/10, stinging in natures, seems to increase and decrease idiosyncratically otherwise.? Denies any change in bowel and bladder habits or new sensorimotor change in the lower extremities. ? MEDICATION:? Current medication includes Neurontin 300 mg b.i.d., Zanaflex 4 mg pills, half a pill at bedtime, Tylenol 1000 mg up to t.i.d. ? EXAMINATION:? Notable for patient having some dysesthesia and hypoesthesia overlying the left lateral ankle.? We did not take his dressing down completely; however, the patient does report that his wound appears to be healing.? He was intolerant to topical lidocaine patches.? Overall, he reports his wound is healing, but still is bothered with the pain.? It alters his quality of life, level of functioning, as well as his sleep pattern. ? JOSH on today?s visit is 36%. ? IMPRESSION:? 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 ? RECOMMENDATIONS:? I have increased his Neurontin 300 mg t.i.d. as tolerated.? I have asked him to maintain his current dose of Zanaflex.? Will see the patient back in six weeks? time or sooner if needed. ? As part of providing excellent, safe, comprehensive care, the following was completed at our patient's visit: ? 1. A medication reconciliation and review to ensure accurate knowledge of current/active medications, including asking our patients to inform us about any [id number]-laxcipx medications or herbal remedies/nutritional supplements/alternative remedies. ?2. A review to specifically ensure our patients have had annual screening for: elevated body mass index (BMI, see intake chart for exact total), tobacco use, screening for depression, and screening for unhealthy alcohol use.? When screening is concerning, patients are provided with education and the specific recommendation to discuss the concerning health issue and treatment options with their primary care provider. ALONZO
== END 2024-04-02 12:50 | disposition home or self-care (01) ==
LOC: PM 12:50
PROVIDERS: PCP Family Medicine; Visit Provider Anesthesiology Pain Medicine
DX: G58.8 Other specified mononeuropathies (principal)
CPT/HCPCS: G0463

== ENCOUNTER 2024-05-16 13:31 | Outpatient (OUT) | payer MEDICARE, OTHER, SELFPAY ==
--- NOTE | 2024-05-16 14:52 | PM.CN ---
Consult Note: HPI Data of Consult Patient: known to practice within the last 3 years Requesting Physician: Heather Joel NP Primary Care Provider: Jose Castellon MD Consult Narrative Reason for consult: f/u Narrative: Dagoberto Robb a pleasant 69 year old male presents for evaluation and management of left ankle and right hip pain. Pt has a longstanding history of wounds and autoimmune condition for which he follows with a specialist at [facility]. Noticing improvement with topical steroids in left ankle pain, wounds wrapped today. 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 Pain in left ankle well controlled since last visit, he has been weaning off of gabapentin and zanaflex. cc:: CC: Heather Joel NP Review of Systems ROS Status of ROS 10 or more systems reviewed and unremarkable except as noted in history and below Musculoskeletal Reports: extremity pain and joint pain [facility] Medical History (Updated 05/16/24 @ 14:56 by Heather Joel NP) Osteoarthritis ?M19.90 - Unspecified osteoarthritis, unspecified site (ICD-10) Raynaud disease ?I73.00 - Raynaud's syndrome without gangrene (ICD-10) Acid reflux ?K21.9 - Gastro-esophageal reflux disease without esophagitis (ICD-10) Hypothyroid ?E03.9 - Hypothyroidism, unspecified (ICD-10) Prostate infection ?N41.9 - Inflammatory disease of prostate, unspecified (ICD-10) Sleep apnea ?G47.30 - Sleep apnea, unspecified (ICD-10) Palpitations ?R00.2 - Palpitations (ICD-10) HTN (hypertension) ?I10 - Essential (primary) hypertension (ICD-10) Myocardial infarction ?I21.9 - Acute myocardial infarction, unspecified (ICD-10) Surgical History History of heart artery stent ?Z95.5 - Presence of coronary angioplasty implant and graft (ICD-10) History of repair of ACL ?Z98.890 - Other specified postprocedural states (ICD-10) History of vein stripping ?Z98.890 - Other specified postprocedural states (ICD-10) Meds Home Medications and Allergies Home Medications ?Medication ?Instructions ?Recorded ?Confirmed ?Type apixaban 5 mg tablet (Eliquis) 5 mg PO BID 03/12/24 03/12/24 History clopidogrel 75 mg tablet 75 mg PO DAILY 03/12/24 03/12/24 History levothyroxine 50 mcg tablet 50 mcg PO DAILY 03/12/24 03/12/24 History (Synthroid) losartan 50 mg tablet 50 mg PO DAILY 03/12/24 03/12/24 History metoprolol tartrate 50 mg tablet 75 mg PO Q12H 03/12/24 03/12/24 History pentoxifylline 400 mg 400 mg PO Q12H 03/12/24 03/12/24 History tablet,extended release pravastatin 20 mg tablet 20 mg PO DAILY 03/12/24 03/12/24 History gabapentin 300 mg capsule 300 mg PO BID 03/21/24 03/21/24 History tizanidine 4 mg tablet 4 mg PO DAILY PRN muscle spasticity 03/21/24 03/21/24 History Allergies Allergy/AdvReac Type Severity Reaction Status Date / Time ciprofloxacin [From Cipro] Allergy Muscle Pain Verified 03/12/24 11:49 doxycycline Allergy Unknown Verified 03/12/24 11:49 Sulfa (Sulfonamide Allergy Redness of Verified 03/12/24 11:49 Antibiotics) Skin sulfamethoxazole Allergy Unknown Verified 03/12/24 11:49 [From Bactrim] trimethoprim [From Bactrim] Allergy Unknown Verified 03/12/24 11:49 Exam Constitutional Documenting provider has reviewed patient's vital signs: yes Common normals: no apparent distress, oriented x3, healthy appearing, alert and well nourished General appearance: cooperative HENMT Common normals: normocephalic, hearing grossly normal bilaterally and moist oral mucous membranes Head and scalp: normocephalic Eye Common normals: PERRL Pupil: PERRL Neck & C-Spine Common normals: full ROM General: normal visual inspection Chest Common normals: inspection of chest normal Respiratory Common normals: normal respiratory effort, no retractions and no use of accessory muscles Back & Pelvis Lumbar spine/lower back: straight leg raise negative bilaterally; ROM not limited and no pain with ROM Sacroiliac joints: SI joint(s) abnormal Other: right sij positive jossy(patricks), gaenslens, thigh thrust, compression test Extremity Right lower extremity: lower leg, ankle joint and foot and digits Other: wound covered with wrap, no noticeable edema. ROM intact Neuro Common normals: oriented x3, CN's II-XII intact bilaterally, moves all extremities, no focal motor deficits, no sensory deficits noted and deep tendon reflexes 2+ bilaterally Sensorium/orientation: alert Motor exam: strength 5/5 throughout and no movement abnormalities noted Psych Common normals: mental status grossly normal, thought process normal, cooperative, affect normal, speech normal and activity/motor behavior normal Speech: normal speech Thought process: normal thought process Results Additional Findings Additional findings: If on a controlled substance or opioids, I have checked an [place] report on this patient and there are no aberrancies noted in the prescribing history.??If on a controlled substance or opioid a drug screen was completed and reviewed within the last year, and if there has not been a drug screen completed we ordered one today to monitor higher risk, state monitored pain medication use. As part of providing excellent, safe, comprehensive care, the following was completed at our patient's visit: 1. A medication reconciliation and review to ensure accurate knowledge of current/active medications, including asking our patients to inform us about any usih-iuv-hphtiel medications or herbal remedies/nutritional supplements/alternative remedies. 2. A review to specifically ensure our patients have had annual screening for screening for depression, screening for tobacco use, and screening for unhealthy alcohol use. For concerning screenings had a discussion with the patient, provided patient education, and recommended follow-up with primary care provider when appropriate. If patient noted with a risk of falling, they received education on strength, gait, and balance training to prevent future risk of falling. Assessment and Plan Assessment and Plan (1) Neuritis: (2) Sacroiliac joint dysfunction: Plan continue zonegran 2-4mg HS PRN wean off of gabapentin as tolerated start PT for right SIJ dysfunction and pain, continue f/u with chiropractor PRN f/u as needed
== END 2024-05-16 13:32 | disposition home or self-care (01) ==
LOC: PM 13:38
PROVIDERS: PCP Family Medicine; Visit Provider Nurse Practitioner
DX: M79.2 Neuralgia and neuritis, unspecified (principal); M53.3 Sacrococcygeal disorders, not elsewhere classified
CPT/HCPCS: G0463

== ENCOUNTER 2024-05-30 13:12 | Outpatient (RCR) | payer MEDICARE, OTHER, SELFPAY | END 2024-07-18 10:10 | disposition home or self-care (01) | LOC: PT 13:12 | PROVIDERS: PCP Family Medicine; Visit Provider Nurse Practitioner | DX: M46.1 Sacroiliitis, not elsewhere classified (principal); M53.3 Sacrococcygeal disorders, not elsewhere classified | CPT/HCPCS: 97110; 97112; 97163 ==

== ENCOUNTER 2025-01-27 09:09 | Outpatient (OUT) | payer MEDICARE, OTHER, SELFPAY ==
[2025-01-27 10:05] LABS: Basophils Percent Auto 0.4 % (0.2-2.0); Eosinophils Absolute Auto 0.3 10^3/uL (0.0-0.7); Eosinophils Percent Auto 4.4 % (0.9-7.0); Hematocrit 50.3 % (42.0-54.0); Hemoglobin 16.1 g/dL (14.0-18.0); Immature Granulocytes Abs Auto 0.02 10^3/uL (0.00-0.03); Immature Granulocytes Pct Auto 0.3 % (0.0-0.5); Lymphocytes Absolute Auto 1.1 10^3/uL (1.2-3.8); Lymphocytes Percent Auto 15.8 % (20.5-60.0); Mean Corpuscular Hemoglobin 29.4 pg (25.9-34.0); Mean Corpuscular Volume 91.8 fL (80.0-94.0); Mean Platelet Volume 9.7 fL (9.5-13.5); Monocytes Percent Auto 14.9 % (1.7-12.0); Neutrophils Absolute Auto 4.4 10^3/uL (1.4-6.5); Neutrophils Percent Auto 64.2 % (43.0-75.0); Platelet Count 263 10^3/uL (150-450); Red Blood Count 5.48 10^6/uL (4.70-6.10); Red Cell Distribution Width 14.2 % (11.0-15.0); White Blood Count 6.8 10^3/uL (4.0-11.0)
[2025-01-27 10:28] LABS: Estimated Average Glucose 123 mg/dL; Glycohemoglobin A1C 5.9 % (4.5-6.2)
[2025-01-27 10:33] LABS: Alanine Aminotransferase 20 U/L (16-63); Albumin Globulin Ratio 0.9; Albumin Level 3.5 g/dL (3.4-5.0); Alkaline Phosphatase 79 U/L (46-116); Anion Gap 10.9; Aspartate Amino Transferase 15 U/L (15-37); BUN Creatinine Ratio 16.1; Bilirubin Direct 0.2 mg/dL (0.0-0.2); Bilirubin Total 0.9 mg/dL (0.2-1.0); Calcium 9.4 mg/dL (8.5-10.1); Carbon Dioxide 30.6 mmol/L (21.0-32.0); Chloride 102 mmol/L (98-107); Chol HDL Ratio 3.1; Cholesterol 166 mg/dL (<=200); Estimated GFR (African America >60 (>=60 mL/min/1.73m^2); Estimated GFR (Non-African Ame >60 (>=60 mL/min/1.73m^2); Globulin 3.7 g/dL; Glucose 110 mg/dL (74-106); HDL Cholesterol 54 mg/dL (40-60); LDL Cholesterol Calculated 92.4 mg/dL; Potassium 4.5 mmol/L (3.5-5.1); Sodium 139 mmol/L (136-145); Thyroid Stimulating Hormone 3.605 uIU/mL (0.358-3.740); Total Protein 7.2 g/dL (6.4-8.2); Triglycerides 98 mg/dL (<=150); VLDL CHOLESTEROL 19.6 mg/dL
[2025-01-27 10:53] LABS: Free T4 1.02 ng/dL (0.76-1.46)
[2025-01-27 11:01] LABS: Prostate Specific Antigen Scrn 1.79 ng/mL (<=4.00)
== END 2025-01-27 09:10 | disposition home or self-care (01) ==
PROVIDERS: PCP Family Medicine; Visit Provider Family Medicine
DX: E78.5 Hyperlipidemia, unspecified (principal); E66.812 Obesity, class 2; I10 Essential (primary) hypertension; E66.01 Morbid (severe) obesity due to excess calories; Z68.37 Body mass index [BMI] 37.0-37.9, adult; Z79.899 Other long term (current) drug therapy; Z12.5 Encounter for screening for malignant neoplasm of prostate; E03.9 Hypothyroidism, unspecified
CPT/HCPCS: 36415; 80048; 80061; 80076; 83036; 84439; 84443; 85025; G0103